=== PATIENT | female | born 1985 | race Caucasian/White ===

== ENCOUNTER 2020-03-21 13:54 | Outpatient (REF) | payer OTHER, SELFPAY ==
[2020-03-22 09:53] LABS: CT PCR NOT DETECTED (Not Detect.); NG PCR NOT DETECTED (Not Detect.)
[2020-03-22 10:15] LABS: BV Int Neg Control Negative (Negative); BV Int Pos Control Positive (Positive)
== END 2020-03-21 13:55 | disposition home or self-care (01) ==
LOC: HO.LNP 13:54
PROVIDERS: PCP Internal Medicine; Referring Provider Internal Medicine; Visit Provider Advanced Practice Midwife
DX: N89.8 Other specified noninflammatory disorders of vagina (principal)
CPT/HCPCS: 87480; 87491; 87510; 87591; 87660; 99213

== ENCOUNTER 2020-03-25 23:57 | Emergency (ER) | payer OTHER, SELFPAY ==
--- NOTE | 2020-03-26 | CT_ITS ---
EXAMINATION: CT ABDOMEN AND PELVIS WITHOUT CONTRAST CLINICAL INFORMATION: Right flank pain COMPARISON: Report from 09/15/2013. TECHNIQUE: Multidetector volumetric imaging was performed from the superior aspect of the liver through the pubic symphysis. Sagittal and coronal reformatted images were obtained on the technologist's workstation. This CT examination was performed using dose optimization techniques as appropriate, variously including the following: *Automated exposure control *Adjustment of mA and/or kV according to patient size (this includes techniques or standardized protocols for targeted exams where dose is matched to indication/reason for exam; i.e. extremities or head) *Use of iterative reconstruction technique DLP: 748 mGy-cm FINDINGS: LUNG BASES: The lung bases are clear. Trace pericardial effusion. LIVER, GALLBLADDER, AND BILIARY TREE: The liver is normal in size, shape, and attenuation. No focal hepatic lesion or biliary ductal dilatation is present. Cholecystectomy. PANCREAS: Unremarkable. SPLEEN: Unremarkable. ADRENAL GLANDS: Unremarkable. KIDNEYS AND URETERS: The kidneys are normal in size, shape, and attenuation. No hydronephrosis, hydroureter, or calculi seen. No perinephric stranding. BLADDER: Unremarkable. GASTROINTESTINAL TRACT: The stomach is unremarkable. Normal caliber small bowel. There is no obstruction. No colonic wall thickening or acute inflammatory change. Moderate colonic stool burden. Normal appendix. No free air or free fluid. ABDOMINAL WALL: No significant hernia is appreciated. LYMPH NODES: Normal. VASCULAR: Unremarkable. PELVIC VISCERA: Anteverted uterus. Dominant right ovarian follicle measuring 1.7 cm. No suspicious adnexal mass. OSSEOUS STRUCTURES: No acute or suspicious osseous abnormality. IMPRESSION: No acute finding of the abdomen or pelvis. No hydronephrosis or nephrolithiasis. Trace pericardial effusion noted. Moderate colonic stool burden.
[2020-03-26 01:52] VITALS: BP 120/75; PULSE 82; RESP 18; TEMP 37.2; O2SAT 100; BMI 38.7
[2020-03-26 02:12] LABS: MANUAL DIFF FLAG NO
[2020-03-26 02:13] LABS: Basophils Absolute Auto 0.1 X10*3/uL (0.0-0.2); Eosinophils Absolute Auto 0.1 X10*3/uL (0.0-0.4); Eosinophils Percent Auto 1.1 % (0-4); Hematocrit 24.8 % (37-47); Imm Gran Abs Auto 0.03 X10*3/uL (0.00-0.03); Imm Gran Pct Auto 0.4 % (0.0-0.4); Lymphocytes Absolute Auto 2.7 X10*3/uL (1.2-4.9); Lymphocytes Percent Auto 33.4 % (20-40); Mean Corpuscular HGB Conc 26.6 g/dl (31.0-35.0); Mean Corpuscular Hemoglobin 16.8 pg (27.0-33.0); Mean Platelet Volume 9.5 fL (9.4-12.3); Monocytes Absolute Auto 0.5 X10*3/uL (0.1-1.2); Monocytes Percent Auto 6.7 % (2-11); Neutrophils Absolute Auto 4.6 X10*3/uL (2.0-8.3); Neutrophils Percent Auto 57.4 % (45-73); Platelet Count 361 X10*3/uL (160-400); Red Blood Count 3.92 X10*6/uL (4.20-5.50); Red Cell Distribution Width 18.2 % (11.0-16.0); White Blood Count 8.1 X10*3/uL (4.8-10.8)
[2020-03-26 02:15] LABS: Glucose Urine UA NEG (NEG); Leukocyte Esterase Urine 1+ (NEG); Nitrite Urine NEG (NEG); Specific Gravity - Urine >= 1.030 (1.005-1.025); Urine Blood NEG (NEG); Urine Ketones NEG (NEG); Urine Protein NEG (NEG-TRACE)
[2020-03-26 02:16] LABS: Appearance Urine CLEAR; Color Urine YELLOW
[2020-03-26 02:28] LABS: Bacteria Urine 1+ /LPF; RBC Urine 0 /HPF (0); Squamous Epithelial Cell Urine 2+ /LPF
[2020-03-26 02:29] LABS: Mucus Urine 1+ /LPF
[2020-03-26 02:40] LABS: Alanine Aminotransferase 14 U/L (0-31); Albumin Level 4.1 g/dL (3.5-5.0); Alkaline Phosphatase 93 U/L (39-117); Anion Gap 12 (12-20); Aspartate Amino Transferase 9 U/L (5-31); Bilirubin Total 0.3 mg/dL (0.0-1.0); Blood Urea Nitrogen 9 mg/dL (9-16); Calcium 9.2 mg/dL (8.4-10.2); Carbon Dioxide 25 mmol/L (22-29); Chloride 101 mmol/L (96-108); Creatinine Clr Calc Pharmacy 112.4; Estimated Glomerular Filt Rate > 60; Glucose Random 97 mg/dL (60-115); Lipase 49 U/L (8-78); Potassium 4.8 mmol/l (3.3-5.1); Sodium 133 mmol/L (135-145); Total Protein 6.7 g/dL (6.5-8.0)
[2020-03-26 02:47] LABS: Mean Corpuscular Volume 63.3 fL (80-98)
[2020-03-26 02:49] LABS: Hemoglobin 6.6 g/dl (12.0-16.0); Urine Pregnancy NEGATIVE (NEGATIVE)
[2020-03-26 02:50] LABS: UPreg QC Valid YES
--- NOTE | 2020-03-26 03:38 | ED_ITS ---
HPI - Abdominal Pain General Chief Complaint: Abdominal Pain Stated Complaint: RIGHT SIDE PAIN Time Seen by Provider: 03/26/20 03:23 History of Present Illness HPI narrative: This is a 34-year-old female presents with onset right flank /right upper quadrant abdominal discomfort that started approximately 3:00 p.m. yesterday and associated with some nausea but no vomiting and denies any fevers, chills, diarrhea, urinary pain/ burning /frequency. On workup of the patient she was noted to be significantly anemic and she adamantly states that she is aware of this as well as her doctors being aware of it and she is declining any type and screen or intervention at this time. She does endorse that she is status post cholecystectomy. Related Data Home Medications Medication Instructions Recorded Confirmed albuterol sulfate 90 mcg/actuation 1 - 2 puff PO Q4-6H PRN 03/18/20 aerosol inhaler betamethasone dipropionate 0.05 % applic TOPICAL BID PRN 03/18/20 topical cream budesonide-formoterol HFA 160 INHALATION 03/18/20 mcg-4.5 mcg/actuation aerosol inhaler cetirizine 10 mg tablet 10 mg PO DAILY 03/18/20 epinephrine 0.3 mg/0.3 mL IM DIRECTED 03/18/20 injection, auto-injector ketoconazole 2 % shampoo 1 applic TOPICAL 2XW 03/18/20 omeprazole 40 mg capsule,delayed 40 mg PO BID 03/18/20 release Allergies Allergy/AdvReac Type Severity Reaction Status Date / Time azithromycin [From ZITHROMAX] Allergy Severe VOMITTING, Unverified 03/07/20 17:19 DIFF BREATHING, hives, SOB, Vomiting influenza virus vaccine, Allergy Severe anaphylaxix Unverified 03/07/20 17:19 specific [FLU VACCINE] prednisone [PREDNISONE] Allergy Severe VOMITTING, Unverified 03/07/20 17:19 DIFF BREATHING, hives, SOB, Vomiting coconut Allergy Mild HIVES/VOMIT Unverified 03/07/20 17:19 ING mushroom Allergy Mild HIVES/VOMIT Unverified 03/07/20 17:19 ING sertraline [From ZOLOFT] Allergy Mild HIVES/VOMIT Unverified 03/07/20 17:19 ING strawberry [STRAWBERRY] Allergy Mild HIVES, Unverified 03/07/20 17:19 VOMITING amoxicillin [Augmentin] Allergy Unknown vomiting Verified 09/19/19 00:00 cinnamon [CINNAMON] Allergy Unknown UNKNOWN Unverified 03/07/20 17:19 clavulanic acid [Augmentin] Allergy Unknown vomiting Verified 09/19/19 00:00 ferrous fumarate Allergy Unknown itching Verified 09/19/19 00:00 [Prenatabs FA] folic acid [Prenatabs FA] Allergy Unknown itching Verified 09/19/19 00:00 latex [LATEX] Allergy Unknown RASH Unverified 03/07/20 17:19 Penicillins [PENICILLINS] Allergy Unknown UNKNOWN Unverified 03/07/20 17:19 phentermine Allergy Unknown Nausea Verified 09/19/19 00:00 vitamins with Allergy Unknown itching Verified 09/19/19 00:00 calcium no.78 [Prenatabs FA] Sulfa (Sulfonamide Allergy Unknown RASH, Unverified 03/07/20 17:19 Antibiotics) vomiting [SULFA (SULFONAMIDE ANTIBIOTICS)] codeine [Codeine] AdvReac Mild NAUSEA Unverified 03/07/20 17:19 Review of Systems Review of Systems Pertinent positives and negatives as stated in HPI 10 point review of systems is otherwise negative. Physical Exam Vital Signs and I&O and Narrative: Vital Signs and I&O: Vital Signs Temp 98.9 F 03/26/20 01:52 Pulse 100 03/26/20 05:22 Resp 18 03/26/20 05:22 BP 136/74 03/26/20 05:22 Pulse Ox 99 03/26/20 05:22 Intake & Output 03/25/20 03/25/20 03/26/20 06:59 18:59 06:59 Weight 92.986 kg Body Mass Index 38.7 VITAL SIGNS: Reviewed. GENERAL: Well developed, well nourished, in no acute distress. HEAD: Normocephalic/atraumatic EYES: PERRLA, EOMI intact without pain, no nystagmus/pallor/icterus noted EARS: Ext canals without abnormality, TMs non-bulging and non-erythematous NOSE: Nares patent bilateral OROPHARYNX: no oral lesions noted, posterior pharynx clear and non-erythematous without noted tonsillar enlargement/erythema/exudates NECK: Supple, no adenopathy LUNGS: Normal breath sounds. No adventitious sounds or accessory muscle use. SpO2<99> CARDIOVASCULAR: Regular rate and rhythm without noted murmurs, no JVD or lower extremity edema. ABDOMEN: Soft, non-tender, non-distended with bowel sounds. No rigidity. No guarding. No palpable masses or hernias noted MUSCULOSKELETAL: No tenderness, deformities, or effusions noted on gross inspection. EXTREMITIES: No cyanosis, clubbing or edema. SKIN: Inspection of the skin reveals no rashes, ulcerations, jaundice, or petechiae but patient has pallor at baseline due to her ongoing anemia of unclear etiology.. NEUROLOGIC: Alert and oriented x 3. Strength and sensation to light touch were grossly intact x 4. Course Course Course Narrative: This is a 34-year-old female with history and clinical presentation consistent with most likely acute gastritis and doubt upper GI bleed, pancreatitis, renal colic. On review of her lab work she is notably anemic but is declining any further evaluation or intervention at this time despite being informed that it is medically indicated. There is no evidence on lab work or exam to further support pancreatitis. CT scan negative for any acute intra-abdominal pathologies other than moderate stool burden. MDM - Abdominal Pain Lab Data Result diagrams: 03/26/20 02:07 03/26/20 02:07 Labs: Lab Results 03/26/20 03/26/20 03/26/20 Range/Units 02:07 02:07 02:07 WBC 8.1 (4.8-10.8) X10*3/uL RBC 3.92 L (4.20-5.50) X10*6/uL Hgb 6.6 L* (12.0-16.0) g/dl Hct 24.8 L (37-47) % MCV 63.3 L (80-98) fL MCH 16.8 L (27.0-33.0) pg MCHC 26.6 L (31.0-35.0) g/dl RDW 18.2 H (11.0-16.0) % Plt Count 361 (160-400) X10*3/uL MPV 9.5 (9.4-12.3) fL Immature Gran % (Auto) 0.4 (0.0-0.4) % Neut % (Auto) 57.4 (45-73) % Lymph % (Auto) 33.4 (20-40) % [place] % (Auto) 6.7 (2-11) % Eos % (Auto) 1.1 (0-4) % Baso % (Auto) 1.0 (0-2) % Neut # (Auto) 4.6 (2.0-8.3) X10*3/uL Lymph # (Auto) 2.7 (1.2-4.9) X10*3/uL [place] # (Auto) 0.5 (0.1-1.2) X10*3/uL Eos # (Auto) 0.1 (0.0-0.4) X10*3/uL Baso # (Auto) 0.1 (0.0-0.2) X10*3/uL Abs Immat Gran (auto) 0.03 (0.00-0.03) X10*3/uL Absolute Nucleated RBC 0.000 (0.0-0.012) X10*3/uL Nucleated RBC % (auto) 0.0 (0.0-0.2) /100WBC Hold Blue Top SEE NOTE Sodium (135-145) mmol/L Potassium (3.3-5.1) mmol/l Chloride (96-108) mmol/L Carbon Dioxide (22-29) mmol/L Anion Gap (12-20) BUN (9-16) mg/dL Creatinine (0.5-1.4) mg/dL Estim Creat Clear Calc Estimated GFR Random Glucose (60-115) mg/dL Calcium (8.4-10.2) mg/dL Total Bilirubin (0.0-1.0) mg/dL AST (5-31) U/L ALT (0-31) U/L Alkaline Phosphatase (39-117) U/L Total Protein (6.5-8.0) g/dL Albumin (3.5-5.0) g/dL Lipase (8-78) U/L Urine Color YELLOW Urine Appearance CLEAR Urine pH 6.0 (5.0-8.0) Ur Specific [place] >= 1.030 H (1.005-1.025) Urine Protein NEG (NEG-TRACE) MG/DL Urine Glucose (UA) NEG (NEG) MG/DL Urine Ketones NEG (NEG) MG/DL Urine Blood NEG (NEG) Urine Nitrite NEG (NEG) Ur Leukocyte Esterase 1+ H (NEG) Urine RBC 0 (0) /HPF Urine WBC 15-29 H (0-4) /HPF Ur Squamous Epith Cells 2+ /LPF Urine Bacteria 1+ /LPF Urine Mucus 1+ /LPF Urine Test (NEGATIVE) 03/26/20 03/26/20 03/26/20 Range/Units 02:07 02:07 02:07 WBC (4.8-10.8) X10*3/uL RBC (4.20-5.50) X10*6/uL Hgb (12.0-16.0) g/dl Hct (37-47) % MCV (80-98) fL MCH (27.0-33.0) pg MCHC (31.0-35.0) g/dl RDW (11.0-16.0) % Plt Count (160-400) X10*3/uL MPV (9.4-12.3) fL Immature Gran % (Auto) (0.0-0.4) % Neut % (Auto) (45-73) % Lymph % (Auto) (20-40) % [place] % (Auto) (2-11) % Eos % (Auto) (0-4) % Baso % (Auto) (0-2) % Neut # (Auto) (2.0-8.3) X10*3/uL Lymph # (Auto) (1.2-4.9) X10*3/uL [place] # (Auto) (0.1-1.2) X10*3/uL Eos # (Auto) (0.0-0.4) X10*3/uL Baso # (Auto) (0.0-0.2) X10*3/uL Abs Immat Gran (auto) (0.00-0.03) X10*3/uL Absolute Nucleated RBC (0.0-0.012) X10*3/uL Nucleated RBC % (auto) (0.0-0.2) /100WBC Hold Blue Top Sodium 133 L (135-145) mmol/L Potassium 4.8 (3.3-5.1) mmol/l Chloride 101 (96-108) mmol/L Carbon Dioxide 25 (22-29) mmol/L Anion Gap 12 (12-20) BUN 9 (9-16) mg/dL Creatinine 0.74 (0.5-1.4) mg/dL Estim Creat Clear Calc 112.4 Estimated GFR > 60 Random Glucose 97 (60-115) mg/dL Calcium 9.2 (8.4-10.2) mg/dL Total Bilirubin 0.3 (0.0-1.0) mg/dL AST 9 (5-31) U/L ALT 14 (0-31) U/L Alkaline Phosphatase 93 (39-117) U/L Total Protein 6.7 (6.5-8.0) g/dL Albumin 4.1 (3.5-5.0) g/dL Lipase 49 (8-78) U/L Urine Color Urine Appearance Urine pH (5.0-8.0) Ur Specific [place] (1.005-1.025) Urine Protein (NEG-TRACE) MG/DL Urine Glucose (UA) (NEG) MG/DL Urine Ketones (NEG) MG/DL Urine Blood (NEG) Urine Nitrite (NEG) Ur Leukocyte Esterase (NEG) Urine RBC (0) /HPF Urine WBC (0-4) /HPF Ur Squamous Epith Cells /LPF Urine Bacteria /LPF Urine Mucus /LPF Urine Test NEGATIVE (NEGATIVE) Discharge Plan Discharge Clinical Impression: Gastritis Qualifiers: Gastritis type: unspecified gastritis Chronicity: unspecified Gastritis bleed ing: without bleeding Qualified Code(s): K29.70 - Gastritis, unspecified, without bleeding Patient Disposition: Home, Self-Care Instructions: Gastritis (ED), Diet for Stomach Ulcers and Gastritis (ED) Additional Instructions: 1. Resume all home medications as prescribed. 2. Increase fluid intake, especially water. 3. Please follow-up with your primary care provider today. The patient and/or family acknowledge understanding of results (as applicable), diagnosis, treatment plan, need for follow up, and symptoms that should prompt a return to the emergency room. Referrals: Susan Yu MD [Primary Care Provider] - 2 days ( Follow-up for gastritis like symptoms) [facility] Past Medical History Source: nursing notes reviewed Medical History GERD (gastroesophageal reflux disease) Interstitial cystitis Obesity Surgical History Hx of cholecystectomy Hx of endoscopy Family History Family History Paternal Grandfather History of colon cancer Maternal Grandmother Family history of breast cancer Mother History of cirrhosis of liver Social History Social History Alcohol intake: never Smoking Status: Never smoker Use of substances other than those prescribed or required for medical reasons: No Advance Directives: No Advance Directives Information Provided: No
--- NOTE | 2020-03-26 03:48 | PC.NURSE ---
MD ASKED RN AND PCT TO START IV AND OBTAIN T&S. PT VERY PALE, AMBULATORY AND REFUSING ALL CARE.
--- NOTE | 2020-03-26 04:28 | PC.NURSE ---
pt transported to main CT and returned to room.
[2020-03-26 05:22] VITALS: BP 136/74; PULSE 100; RESP 18; O2SAT 99
== END 2020-03-26 05:49 | disposition home or self-care (01) ==
PROVIDERS: Emergency Provider Student in an Organized Health Care Education/Training Program; PCP Internal Medicine
DX: K29.70 Gastritis, unspecified, without bleeding (principal)
CPT/HCPCS: 36415; 74176; 80053; 81001; 81025; 83690; 85025; 87086; 96360; 99284

== ENCOUNTER → 2020-06-03 15:00 | Outpatient (BNVA) | payer SELFPAY | PROVIDERS: PCP Internal Medicine | DX: Z76.89 Persons encountering health services in other specified circumstances (principal) ==

== ENCOUNTER 2021-02-14 06:44 | Emergency (ER) | payer OTHER, SELFPAY ==
--- NOTE | ~2021-02-14 | XR_ITS ---
EXAMINATION: XR KNEE, RIGHT CLINICAL INFORMATION: Pain COMPARISON: None TECHNIQUE: Four views of the right knee. FINDINGS: There is no fracture, dislocation, or suprapatellar effusion. Hoffa's fat pad is normal. There is normal bony mineralization. No joint narrowing or erosive change or chondrocalcinosis. XR/XR knee RT 4V IMPRESSION: Normal right knee.
--- NOTE | ~2021-02-14 | XR_ITS ---
EXAMINATION: XR ANKLE, RIGHT XR FOOT, RIGHT CLINICAL INFORMATION: Pain ankle and foot COMPARISON: Radiographs right foot 02/04/2018, right ankle 10/16/2017 TECHNIQUE: 2 views right ankle and 2 views of the right foot are obtained. A lateral view of the combined right ankle and foot in large [id number] images also included for a total of 5 views. FINDINGS: The malleoli are intact and the ankle mortise is symmetric. There is no fracture or dislocation right ankle or right foot. The talar dome shows no osteochondral lesion. The subtalar joint is unremarkable. No calcaneal spurring. There is an incidental corticated ossicle at the posterior superior tarsal navicular on lateral view similar to prior radiographs. The midfoot and forefoot show no focal joint narrowing or erosive change. No destructive process. XR/XR ankle RT 2V IMPRESSION: No fracture or dislocation or arthropathy.
--- NOTE | ~2021-02-14 | XR_ITS ---
EXAMINATION: XR ANKLE, RIGHT XR FOOT, RIGHT CLINICAL INFORMATION: Pain ankle and foot COMPARISON: Radiographs right foot 02/04/2018, right ankle 10/16/2017 TECHNIQUE: 2 views right ankle and 2 views of the right foot are obtained. A lateral view of the combined right ankle and foot in large [id number] images also included for a total of 5 views. FINDINGS: The malleoli are intact and the ankle mortise is symmetric. There is no fracture or dislocation right ankle or right foot. The talar dome shows no osteochondral lesion. The subtalar joint is unremarkable. No calcaneal spurring. There is an incidental corticated ossicle at the posterior superior tarsal navicular on lateral view similar to prior radiographs. The midfoot and forefoot show no focal joint narrowing or erosive change. No destructive process. XR/XR foot RT min 3V IMPRESSION: No fracture or dislocation or arthropathy.
[2021-02-14 07:23] VITALS: BP 124/39; PULSE 85; RESP 16; O2SAT 99; BMI 31.3
--- NOTE | 2021-02-14 07:23 | ED.LOWEXIN ---
HPI - Extremity Injury (Lower) General Chief Complaint: Extremity Injury, Lower Stated Complaint: right ankle/foot pain Time Seen by Provider: 02/14/21 07:25 Source: patient Mode of arrival: ambulatory Limitations: no limitations History of Present Illness HPI Narrative: took a wrong step at home - fell injuring R ankle, knee and foot, landed and braced herself on her hands complaint: knee injury, leg injury and ankle injury Onset (ago): minute(s) Injury: Right: knee, ankle and foot Type of Injury: blunt Place: home Severity: moderate Relieving factors: nothing Exacerbating factors: weight bearing, movement and palpation Context: fall Associated symptoms: unable to bear weight Other symptoms: none Related Data Home Medications Medication Instructions Recorded Confirmed albuterol sulfate 90 mcg/actuation 1 - 2 puff PO Q4-6H PRN 03/18/20 aerosol inhaler betamethasone dipropionate 0.05 % applic TOPICAL BID PRN 03/18/20 topical cream budesonide-formoterol HFA 160 INHALATION 03/18/20 mcg-4.5 mcg/actuation aerosol inhaler cetirizine 10 mg tablet 10 mg PO DAILY 03/18/20 epinephrine 0.3 mg/0.3 mL IM DIRECTED 03/18/20 injection, auto-injector ketoconazole 2 % shampoo 1 applic TOPICAL 2XW 03/18/20 omeprazole 40 mg capsule,delayed 40 mg PO BID 03/18/20 release Previous Rx's Medication Instructions Recorded bacitracin 500 unit/gram eye 1 appl OPHTHALMIC (EYE) Q8H 7 Days 06/05/20 ointment #3.5 g Allergies Allergy/AdvReac Type Severity Reaction Status Date / Time azithromycin [From ZITHROMAX] Allergy Severe VOMITTING, Verified 08/13/20 08:46 DIFF BREATHING, hives, SOB, Vomiting influenza virus vaccine, Allergy Severe anaphylaxix Verified 08/13/20 08:46 specific [FLU VACCINE] prednisone [PREDNISONE] Allergy Severe VOMITTING, Verified 08/13/20 08:46 DIFF BREATHING, hives, SOB, Vomiting coconut Allergy Mild HIVES/VOMIT Verified 08/13/20 08:46 ING mushroom Allergy Mild HIVES/VOMIT Verified 08/13/20 08:46 ING sertraline [From ZOLOFT] Allergy Mild HIVES/VOMIT Verified 08/13/20 08:46 ING strawberry [STRAWBERRY] Allergy Mild HIVES, Verified 08/13/20 08:46 VOMITING amoxicillin [Augmentin] Allergy Unknown vomiting Verified 08/13/20 08:46 cinnamon [CINNAMON] Allergy Unknown UNKNOWN Verified 08/13/20 08:46 clavulanic acid [Augmentin] Allergy Unknown vomiting Verified 08/13/20 08:46 ferrous fumarate Allergy Unknown itching Verified 08/13/20 08:46 [Prenatabs FA] folic acid [Prenatabs FA] Allergy Unknown itching Verified 08/13/20 08:46 latex [LATEX] Allergy Unknown RASH Verified 08/13/20 08:46 Penicillins [PENICILLINS] Allergy Unknown UNKNOWN Unverified 03/07/20 17:19 phentermine Allergy Unknown Nausea Verified 08/13/20 08:46 vitamins with Allergy Unknown itching Verified 08/13/20 08:46 calcium no.78 [Prenatabs FA] Sulfa (Sulfonamide Allergy Unknown RASH, Verified 08/13/20 08:46 Antibiotics) vomiting [SULFA (SULFONAMIDE ANTIBIOTICS)] codeine [Codeine] AdvReac Mild NAUSEA Verified 08/13/20 08:46 Review of Systems Review of Systems: Constitutional : No Fever, No Chills ENT/Mouth : No Ear Pain, No Hoarseness, No sore throat Eyes: No Eye Pain, No Swelling, No Redness, No Foreign Body Cardiovascular : No Chest Pain, No SOB Respiratory : No Cough, No Dyspnea Gastrointestinal : No Nausea, No Vomiting, No Diarrhea, No abdominal Pain Genitourinary : No Dysuria, No Hematuria Musculoskeletal : positive joint pain, No Myalgias, No Joint Swelling Skin : No Skin lacerations, No rash Neuro : No Weakness, No Numbness, No Loss of Consciousness, No Dizziness, No Headache PMFSH Past Medical History Attestation statement: The following information was validated with the patient. Medical History GERD (gastroesophageal reflux disease) Interstitial cystitis Obesity Surgical History History of lumbar puncture Hx of cholecystectomy Hx of endoscopy Family History Family History Paternal Grandfather History of colon cancer Maternal Grandmother Family history of breast cancer Mother History of cirrhosis of liver Social History Social History (Updated 02/14/21 @ 07:32 by Lalita Campbell DO) Alcohol intake: never Patient Tobacco Use Status: Tobacco use Unknown Advance Directives: No Advance Directives Information Provided: No Physical Exam Vital Signs: Vital Signs: Last Vital Signs Pulse 85 02/14/21 07:23 Resp 16 02/14/21 07:23 BP 124/39 L 02/14/21 07:23 Pulse Ox 99 02/14/21 07:23 Body Mass Index 31.3 Appearance: Alert. Oriented X3. No acute distress. Eyes: Pupils equal, round and reactive to light. ENT: Pharynx normal. Neck: Normal inspection. Neck supple. CVS: Normal heart rate and rhythm. Pulses normal. Respiratory: No respiratory distress. Breath sounds normal. Abdomen: Soft and nontender. Skin: Skin warm and dry. Normal skin color. Normal skin turgor. Extremities: No lower extremity edema. no swelling but ttp along R knee and R ankle/foot distal NV intact Neuro: Oriented X 3. No motor deficit. No sensory deficit. MDM - Extremity Injury (Lower) MDM Narrative Medical decision making narrative: 35 yo female with R knee/ankle/foot pain after a fall - she is NV intact. xrays ordered and PO motrin Procedures Orthopedic Splinting/Casting Injury #1: Side: right Lower Extremity Injury Location: ankle Lower Extremity Immobilizer: AirCast Other Orthopedic Equipment: crutches Discharge Plan Discharge Clinical Impression: Ankle sprain and strain Instructions: Ankle Stirrup Splint (ED), Ankle Sprain (ED), R.I.C.E. Treatment (ED) Additional Instructions: return to ED for any worsening symptoms or concerns splint for 5 days crutches for 5 days Prescriptions: No Action bacitracin 500 unit/gram ointment 1 appl ophthalmic (eye) Q8H 7 Days Qty: 3.5 RF: 0 Referrals: Susan Yu MD [Primary Care Provider] - 5 days (if not better) Stand Alone Forms: Work/School Release
== END 2021-02-14 08:44 | disposition home or self-care (01) ==
PROVIDERS: Emergency Provider Emergency Medicine; PCP Internal Medicine
DX: S93.401A Sprain of unspecified ligament of right ankle, initial encounter (principal); S96.911A Strain of unspecified muscle and tendon at ankle and foot level, right foot, initial encounter; W17.89XA Other fall from one level to another, initial encounter; Y93.9 Activity, unspecified; Y92.039 Unspecified place in apartment as the place of occurrence of the external cause; Y99.9 Unspecified external cause status
CPT/HCPCS: 73564; 73600; 73630; 99282; 99283

== ENCOUNTER 2021-02-15 06:40 | Emergency (ER) | payer OTHER, SELFPAY ==
[2021-02-15 07:05] VITALS: BP 110/69; PULSE 78; RESP 16; TEMP 36.7; O2SAT 100; BMI 30.1
[2021-02-15 08:10] VITALS: BP 132/86; PULSE 75; RESP 16; O2SAT 100
--- NOTE | 2021-02-15 08:24 | ED_ITS ---
HPI - Extremity Injury (Lower) General Chief Complaint: Extremity Injury, Lower Stated Complaint: right leg pain Time Seen by Provider: 02/15/21 08:11 Source: patient Mode of arrival: wheelchair Limitations: no limitations History of Present Illness HPI Narrative: 35 yo female with past medical history of interstitial cystitis, GERD here with complaints of posterior right ankle and calf pain s/p fall yesterday. Patient tells me she missed a step going down her stairs outside causing her to fall. She is unsure how her lower extremity moved. Seen yesterday and had negative x-rays of ankle, foot and knee. Diagnosed with ankle sprain and placed in air splint and given crutches for comfort. Woke this morning with worsened pain in the right calf and posterior ankle with inability to bear weight or walk despite otc motrin/tylenol. Has outpatient appt with [facility] in february. Related Data Home Medications Medication Instructions Recorded Confirmed albuterol sulfate 90 mcg/actuation 1 - 2 puff PO Q4-6H PRN 03/18/20 aerosol inhaler betamethasone dipropionate 0.05 % applic TOPICAL BID PRN 03/18/20 topical cream budesonide-formoterol HFA 160 INHALATION 03/18/20 mcg-4.5 mcg/actuation aerosol inhaler cetirizine 10 mg tablet 10 mg PO DAILY 03/18/20 epinephrine 0.3 mg/0.3 mL IM DIRECTED 03/18/20 injection, auto-injector ketoconazole 2 % shampoo 1 applic TOPICAL 2XW 03/18/20 omeprazole 40 mg capsule,delayed 40 mg PO BID 03/18/20 release Previous Rx's Medication Instructions Recorded bacitracin 500 unit/gram eye 1 appl OPHTHALMIC (EYE) Q8H 7 Days 06/05/20 ointment #3.5 g Allergies Allergy/AdvReac Type Severity Reaction Status Date / Time azithromycin [From ZITHROMAX] Allergy Severe VOMITTING, Verified 08/13/20 08:46 DIFF BREATHING, hives, SOB, Vomiting influenza virus vaccine, Allergy Severe anaphylaxix Verified 08/13/20 08:46 specific [FLU VACCINE] prednisone [PREDNISONE] Allergy Severe VOMITTING, Verified 08/13/20 08:46 DIFF BREATHING, hives, SOB, Vomiting coconut Allergy Mild HIVES/VOMIT Verified 08/13/20 08:46 ING mushroom Allergy Mild HIVES/VOMIT Verified 08/13/20 08:46 ING sertraline [From ZOLOFT] Allergy Mild HIVES/VOMIT Verified 08/13/20 08:46 ING strawberry [STRAWBERRY] Allergy Mild HIVES, Verified 08/13/20 08:46 VOMITING amoxicillin [Augmentin] Allergy Unknown vomiting Verified 08/13/20 08:46 cinnamon [CINNAMON] Allergy Unknown UNKNOWN Verified 08/13/20 08:46 clavulanic acid [Augmentin] Allergy Unknown vomiting Verified 08/13/20 08:46 ferrous fumarate Allergy Unknown itching Verified 08/13/20 08:46 [Prenatabs FA] folic acid [Prenatabs FA] Allergy Unknown itching Verified 08/13/20 08:46 latex [LATEX] Allergy Unknown RASH Verified 08/13/20 08:46 Penicillins [PENICILLINS] Allergy Unknown UNKNOWN Unverified 03/07/20 17:19 phentermine Allergy Unknown Nausea Verified 08/13/20 08:46 vitamins with Allergy Unknown itching Verified 08/13/20 08:46 calcium no.78 [Prenatabs FA] Sulfa (Sulfonamide Allergy Unknown RASH, Verified 08/13/20 08:46 Antibiotics) vomiting [SULFA (SULFONAMIDE ANTIBIOTICS)] codeine [Codeine] AdvReac Mild NAUSEA Verified 08/13/20 08:46 Review of Systems Review of Systems: Yes all other systems are reviewed and are negative Constitutional: Constitutional: Reports no additional constitutional complaints, Denies body ache(s), Denies chills, Denies fever(s), Denies heada alli(s) and Denies weakness Eyes: Eyes: Reports no additional eye complaints and Denies change in vision ENT: Reports system reviewed and no additional complaints, except as documented, Denies dizziness, Denies headache(s), Denies nasal congestion, Denies nasal discharge and Denies neck pain Cardiovascular: Cardiovascular: Reports no additional cardiovascular complaints, Denies chest pain, Denies leg edema and Denies dyspnea Respiratory: Respiratory: Reports no additional respiratory complaints, Denies cough and Denies dyspnea Gastrointestinal: Gastrointestinal: Reports no additional gastrointestinal complaints, Denies abdominal pain, Denies diarrhea, Denies nausea and Denies vomiting Genitourinary: Genitourinary: Reports no additional female genitourinary complaints and Denies urinary incontinence Musculoskeletal: Musculoskeletal: Reports no additional musculoskeletal complaints, Denies back pain, Reports arthralgias, Denies joint swelling, Denies neck pain, Denies numbness and Denies tingling Comments: +calf pain Integumentary/Breasts: Skin/Breast: Reports system reviewed and no additional complaints, except as docu and Denies rash Neurologic: Denies Abnormal speech present, Denies dizziness, Denies headache(s), Denies numbness, Denies tingling and Denies weakness PMFSH Past Medical History Attestation statement: The following information was validated with the patient. Source: old records reviewed and nursing notes reviewed Medical History GERD (gastroesophageal reflux disease) Interstitial cystitis Obesity Surgical History History of lumbar puncture Hx of cholecystectomy Hx of endoscopy Family History Family History Paternal Grandfather History of colon cancer Maternal Grandmother Family history of breast cancer Mother History of cirrhosis of liver Social History Social History Alcohol intake: never Patient Tobacco Use Status: Never used Tobacco Use of substances other than those prescribed or required for medical reasons: No Advance Directives: No Advance Directives Information Provided: No Patient : No Physical Exam Vital Signs: Vital Signs: Last Vital Signs Temp 98.1 F 02/15/21 07:05 Pulse 75 02/15/21 08:10 Resp 16 02/15/21 08:10 BP 132/86 02/15/21 08:10 Pulse Ox 100 02/15/21 08:10 Body Mass Index 30.1 Const: General: cooperative, healthy appearing, comfortable and no acute distress Orientation/consciousness: patient oriented x3 Limitations: no limitations HENMT: Head: Yes normal to inspection Ears: hearing grossly normal bilaterally General nose exam: Normal external nose present Face and sinus: Yes normal facial exam Mouth: Normal oral and palatal mucosa present Throat: Yes posterior oropharynx normal Eyes: General: appearance normal, both eyes and all related structures Pupils: Equal, round and reactive pupils present Neck: Neck: Yes normal visual inspection Chest: Chest palpation & inspection: normal inspection of the chest Resp: Effort & Inspection: normal respiratory effort Auscultation: clear to auscultation bilaterally Cardio: Rate: regular rate Rhythm: regular rhythm Peripheral pulses: Peripheral pulses 2+ throughout GI: Inspection: Yes normal to inspection Palpation (GI): Soft to palpation and nontender Auscultation: normal bowel sounds Back/Spine/Pelvis: Thoracic/Lumbar Spine: thoracic and lumbar spine normal to inspection Skin: General skin exam: no rashes or lesions noted Neuro: General: patient oriented x3, no focal motor deficits and normal sensation to monofilament Cranial nerves: Yes Equal, round and reactive pupils present Cognition (Neuro): normal cognition Speech: No Abnormal speech present Gait exam (Neuro): Normal gait present Motor exam (neuro): 5/5 motor strength present throughout Extrem: Other: Tenderness over the posterior right ankle extending to the right calf with moderate tenderness over the calf. No obvious swelling or ecchymosis over the achilles. + sexton test. General: Yes normal to inspection Course Course Course Narrative: 829-Fall with injury to RLE yesterday. Negative x-rays yesterday. Continued pain today more focal over the right calf/posterior ankle with +thomposon test. No obvious swelling, ecchymosis or deformity over the achilles but does have pain. ?achilles tear or rupture. Spoke to Michelle CARCAMO from orthopedics. Recommended walking boot, crutches, f/u Wednesday morning 9am with orthopedics in office. If able check MRI of ankle to r/o achilles tendon rupture. Spoke to Dr Gongora who does not feel that MRI is warranted today and can be done outpatient with orthopedics. Discussed this with patient. Placed in walking boot. Updated orthopedics who agrees with plan of care. Reviewed worrisome signs/symptoms with patient and when to return to ED. Comfortable with discharge home. MDM - Extremity Injury (Lower) MDM Narrative Medical decision making narrative: achilles tendon rupture vs strain vs tear, gastro tear, sprain Medical Records Attestation: I reviewed the patient's medical records. Lab Data Attestation: I reviewed the patient's lab results. Procedures Procedure Narrative Procedure Narrative: walking boot. Discharge Plan Discharge Clinical Impression: Achilles tendon pain Patient Disposition: Home, Self-Care Instructions: Achilles Tendinitis (ED) Additional Instructions: You may have a tear in your achilles tendon or your right calf muscle I have spoke to orthopedics. They recommend using a walking boot and crutches with strict non weight bearing Wednesday I have made you an appointment with orthopedics for 9am. Ice, elevation Continue motrin every 6 hrs, tylenol every 4 hours. Prescriptions: No Action bacitracin 500 unit/gram ointment 1 appl ophthalmic (eye) Q8H 7 Days Qty: 3.5 RF: 0 Referrals: Tee Lucero MD [Physician] - 2 days Stand Alone Forms: Work/School Release Interventions: ED Discharge Assessment Last Done: 02/15/21 09:50 Discharge Date/Time: 02/15/21 09:51
== END 2021-02-15 09:51 | disposition home or self-care (01) ==
PROVIDERS: Emergency Provider Emergency Medicine; PCP Internal Medicine
DX: M76.61 Achilles tendinitis, right leg (principal); M79.661 Pain in right lower leg
CPT/HCPCS: 99283; 99284

== ENCOUNTER → 2021-02-17 08:38 | Outpatient (BNVA) | payer OTHER, SELFPAY | PROVIDERS: PCP Internal Medicine; Visit Provider Physician Assistant | DX: S86.011A Strain of right Achilles tendon, initial encounter (principal); S93.401A Sprain of unspecified ligament of right ankle, initial encounter; W01.0XXA Fall on same level from slipping, tripping and stumbling without subsequent striking against object, initial encounter; Y93.01 Activity, walking, marching and hiking; Y92.9 Unspecified place or not applicable; Y99.8 Other external cause status; E66.9 Obesity, unspecified; Z68.30 Body mass index [BMI] 30.0-30.9, adult; Z88.1 Allergy status to other antibiotic agents; Z91.02 Food additives allergy status; Z91.040 Latex allergy status; Z88.0 Allergy status to penicillin; Z88.2 Allergy status to sulfonamides; Z88.7 Allergy status to serum and vaccine; Z88.8 Allergy status to other drugs, medicaments and biological substances; Z91.018 Allergy to other foods | CPT/HCPCS: 99202 ==

== ENCOUNTER 2021-07-09 07:31 | Outpatient (REF) | payer OTHER, SELFPAY ==
[2021-07-09 08:11] LABS: COVID-19 Test Negative (Negative)
== END 2021-07-09 07:32 | disposition home or self-care (01) ==
LOC: HO.LAB 07:31
PROVIDERS: Visit Provider Internal Medicine
DX: Z20.822 Contact with and (suspected) exposure to COVID-19 (principal)
CPT/HCPCS: 87635; C9803

== ENCOUNTER 2021-07-18 10:57 | Outpatient (REF) | payer OTHER, SELFPAY | END 2021-07-18 10:58 | disposition home or self-care (01) | LOC: HO.LAB 10:57 | PROVIDERS: Visit Provider Hospitalist | DX: B34.9 Viral infection, unspecified (principal); Z20.822 Contact with and (suspected) exposure to COVID-19 | CPT/HCPCS: U0003; U0005 ==

== ENCOUNTER 2021-10-13 09:39 | Emergency (ER) | payer OTHER, SELFPAY ==
[2021-10-13 09:49] VITALS: BP 122/68; PULSE 79; RESP 18; TEMP 37.3; O2SAT 98
--- NOTE | 2021-10-13 09:53 | ED_ITS ---
HPI - URI/Sore Throat General Chief Complaint: Upper Respiratory Symptoms Stated Complaint: SORE THROAT Time Seen by Provider: 10/13/21 09:52 Source: patient Mode of arrival: ambulatory Limitations: no limitations History of Present Illness MD elicited complaint: cough, sore throat and rhinorrhea Onset (ago): day(s) (5) Consistency: constant Severity: moderate Description of mucous: clear Able to tolerate fluids by mouth: Yes Exacerbating factors: swallowing Relieving factors: nothing Context: sick contacts (kids all had URI - not tested) Associated symptoms: sore throat, cough and shortness of breath Treatments prior to arrival: other (has inhalers) Related Data Home Medications Medication Instructions Recorded Confirmed albuterol sulfate 90 mcg/actuation 1 - 2 puff PO Q4-6H PRN 03/18/20 08/19/21 aerosol inhaler budesonide-formoterol HFA 160 INHALATION 03/18/20 08/19/21 mcg-4.5 mcg/actuation aerosol inhaler cetirizine 10 mg tablet 10 mg PO DAILY 03/18/20 08/19/21 epinephrine 0.3 mg/0.3 mL IM DIRECTED 03/18/20 08/19/21 injection, auto-injector omeprazole 40 mg capsule,delayed 40 mg PO BID 03/18/20 08/19/21 release Previous Rx's Medication Instructions Recorded ciprofloxacin HCl 500 mg tablet 500 mg PO BID #14 tab 08/19/21 ketoconazole 2 % topical cream 1 appl TOPICAL DAILY #15 g 08/19/21 Allergies Allergy/AdvReac Type Severity Reaction Status Date / Time azithromycin [From ZITHROMAX] Allergy Severe VOMITTING, Verified 08/19/21 14:29 DIFF BREATHING, hives, SOB, Vomiting influenza virus vaccine, Allergy Severe anaphylaxix Verified 08/19/21 14:29 specific [FLU VACCINE] prednisone [PREDNISONE] Allergy Severe VOMITTING, Verified 08/19/21 14:29 DIFF BREATHING, hives, SOB, Vomiting coconut Allergy Mild HIVES/VOMIT Verified 08/19/21 14:29 ING mushroom Allergy Mild HIVES/VOMIT Verified 08/19/21 14:29 ING sertraline [From ZOLOFT] Allergy Mild HIVES/VOMIT Verified 08/19/21 14:29 ING strawberry [STRAWBERRY] Allergy Mild HIVES, Verified 08/19/21 14:29 VOMITING amoxicillin [Augmentin] Allergy Unknown vomiting Verified 08/19/21 14:29 cinnamon [CINNAMON] Allergy Unknown UNKNOWN Verified 08/19/21 14:29 clavulanic acid [Augmentin] Allergy Unknown vomiting Verified 08/19/21 14:29 ferrous fumarate Allergy Unknown itching Verified 08/19/21 14:29 [Prenatabs FA] folic acid [Prenatabs FA] Allergy Unknown itching Verified 08/19/21 14:29 latex [LATEX] Allergy Unknown RASH Verified 08/19/21 14:29 Penicillins [PENICILLINS] Allergy Unknown UNKNOWN Unverified 08/19/21 14:29 phentermine Allergy Unknown Nausea Verified 08/19/21 14:29 vitamins with Allergy Unknown itching Verified 08/19/21 14:29 calcium no.78 [Prenatabs FA] Sulfa (Sulfonamide Allergy Unknown RASH, Verified 08/19/21 14:29 Antibiotics) vomiting [SULFA (SULFONAMIDE ANTIBIOTICS)] codeine [Codeine] AdvReac Mild NAUSEA Verified 08/19/21 14:29 Review of Systems Review of Systems: Constitutional : positive Fever, positive Chills, no fatigue, positive Malaise ENT/Mouth : positive sore throat, positive runny nose Eyes: No Discharge Cardiovascular : No Chest Pain, pos SOB Respiratory : pos Cough, No Sputum Gastrointestinal : No Nausea, No Vomiting, No Diarrhea Genitourinary : No Dysuria, No Urinary Frequency Musculoskeletal : positive Myalgia Skin : No rash Neuro : No Headache PMFSH Past Medical History Attestation statement: The following information was validated with the patient. 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 Oriented X3. No acute distress. Eyes: Pupils equal, round and reactive to light. ENT: Pharynx normal. TMs normal bilaterally Neck: Normal inspection. Neck supple. CVS: Normal heart rate and rhythm. Pulses normal. Respiratory: No respiratory distress. Breath sounds normal. Abdomen: Soft and nontender. Skin: Skin warm and dry. Normal skin color. Normal skin turgor. Extremities: No lower extremity edema. No calf ttp Neuro: Oriented X 3. No motor deficit. No sensory deficit. MDM - URI/Sore Throat MDM Narrative Medical decision making narrative: 35 yo female with hx of asthma - her children were sick with URIs but not tested - her throat is very minimally red without patches or swelling - swab sent off. Her lungs are CTAB. At this time will obtain flu/COVID swabs. Overall not toxic and well appearing. Lab Data Labs: Lab Results 10/13/21 10/13/21 Range/Units 10:01 10:01 Influenza Type A (TYRONE) Negative (Negative) Influenza Type B (TYRONE) Negative (Negative) Influenza A & B Note See Note S. pyogenes GrpA TYRONE Negative (Negative) Discharge Plan Discharge Clinical Impression: Upper respiratory infection Qualifiers: URI type: unspecified URI Qualified Code(s): J06.9 - Acute upper respiratory infection, unspecified Patient Disposition: Home, Self-Care Instructions: Upper Respiratory Infection (ED) Additional Instructions: return to ED for any worsening symptoms or concerns your strep test, flu and COVID tests are negative in the emergency department today Prescriptions: No Action ciprofloxacin HCl 500 mg tablet 500 mg PO BID Qty: 14 0RF ketoconazole 2 % cream 1 appl topical DAILY Qty: 15 0RF budesonide-formoterol 160-4.5 mcg/actuation HFA aerosol inhaler inhalation 0RF cetirizine 10 mg tablet 10 mg PO DAILY 0RF albuterol sulfate 90 mcg/actuation HFA aerosol inhaler 1 - 2 puff PO Q4-6H PRN0RF omeprazole 40 mg capsule,delayed release(DR/EC) 40 mg PO BID 0RF epinephrine 0.3 mg/0.3 mL auto-injector IM DIRECTED 0RF Referrals: Criselda Armstrong MD [Primary Care Provider] - 3 days (if not better) Stand Alone Forms: Work/School Release
[2021-10-13 09:55] VITALS: BP 122/68; PULSE 79; RESP 18; TEMP 37.3; O2SAT 98; BMI 24.4
[2021-10-13 10:26] LABS: IDNOW Serial# 08D9AD1C; Strep A Nucleic Acid Negative (Negative)
[2021-10-13 10:39] LABS: Influenza A Negative (Negative); Influenza B2 Negative (Negative)
[2021-10-13 10:41] LABS: COVID-19 Test Negative (Negative); IDNOW Serial# 55D5AD1C
== END 2021-10-13 10:51 | disposition home or self-care (01) ==
PROVIDERS: Emergency Provider Emergency Medicine; PCP Internal Medicine
DX: J02.9 Acute pharyngitis, unspecified (principal); R06.02 Shortness of breath; J45.909 Unspecified asthma, uncomplicated; Z20.822 Contact with and (suspected) exposure to COVID-19
CPT/HCPCS: 87502; 87635; 87651; 99283

== ENCOUNTER 2022-01-17 08:43 | Emergency (ER) | payer OTHER, SELFPAY ==
--- NOTE | ~2022-01-17 | XR_ITS ---
EXAMINATION: XR ELBOW, LEFT CLINICAL INFORMATION: Left elbow pain. Limited range of motion. COMPARISON: None TECHNIQUE: AP, lateral, and oblique views of the left elbow. FINDINGS: The bony alignments are well maintained. The cortices are intact. Extensive periarticular soft tissue calcification is noted overlying the distal lateral humerus extending across the joint line and overlying the radial head. Similar lesser extensive changes are also noted at medial epicondyles of the humerus. No evidence of any joint effusion. XR/XR elbow LT 2V IMPRESSION: Periarticular calcifications are noted (lateral greater than medial) at the left elbow, consistent with calcific tendinitis, bursitis or combination thereof. No evidence of any acute fracture, dislocation or joint effusion.
[2022-01-17 08:57] VITALS: BP 119/57; PULSE 85; RESP 18; TEMP 36.6; O2SAT 98; BMI 25.2
--- NOTE | 2022-01-17 11:00 | ED_ITS ---
HPI - Extremity Problem General Chief complaint: Extremity Injury, Upper Stated complaint: L arm pain/elbow pain Time Seen by Provider: 01/17/22 10:50 Source: patient Mode of arrival: ambulatory Limitations: no limitations History of Present Illness HPI Narrative: 36-year-old female presents to the ER for evaluation of nontraumatic left elbow pain and swelling that she noticed when she woke up this morning. She feels like she may have broken her elbow but denies any trauma. She reports the pain is on the inner aspect of her elbow and she feels some swelling in the area. 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 She denies any history of any elbow issues in the past. She follows with an orthopedist at [facility] and is planning on getting knee surgery later this year. She denies any weakness, numbness, tingling in her left arm are wrist. She reports the pain in her elbow is improved when she holds her elbow in flexion and in towards her body. It is worse when she extends her arm or palpates the area. MD Complaint: joint swelling and joint pain Onset (ago): hour(s) Pain Consistency: constant Location: left and elbow Severity scale (1-10): 7 Quality: aching and sharp Radiation: none Relieving factors: rest and other ( holding in inflexion) Exacerbating factors: range of motion and palpation Associated symptoms: denies other symptoms Related Data Home Medications Medication Instructions Recorded Confirmed albuterol sulfate 90 mcg/actuation 1 - 2 puff PO Q4-6H PRN 03/18/20 10/24/21 aerosol inhaler budesonide-formoterol HFA 160 inhalation 03/18/20 10/24/21 mcg-4.5 mcg/actuation aerosol inhaler cetirizine 10 mg tablet 10 mg PO DAILY 03/18/20 10/24/21 epinephrine 0.3 mg/0.3 mL IM DIRECTED 03/18/20 10/24/21 injection, auto-injector omeprazole 40 mg capsule,delayed 40 mg PO BID 03/18/20 10/24/21 release Previous Rx's Medication Instructions Recorded hydrocortisone 1 % topical cream 1 appl topical BID-QID PRN skin 01/16/22 irritation #28.35 grams ibuprofen 600 mg tablet 600 mg PO Q8H PRN pain #20 tabs 01/17/22 Allergies Allergy/AdvReac Type Severity Reaction Status Date / Time azithromycin [From ZITHROMAX] Allergy Severe VOMITTING, Verified 01/16/22 15:00 DIFF BREATHING, hives, SOB, Vomiting influenza virus vaccine, Allergy Severe anaphylaxix Verified 01/16/22 15:00 specific [FLU VACCINE] prednisone [PREDNISONE] Allergy Severe VOMITTING, Verified 01/16/22 15:00 DIFF BREATHING, hives, SOB, Vomiting coconut Allergy Mild HIVES/VOMIT Verified 01/16/22 15:00 ING mushroom Allergy Mild HIVES/VOMIT Verified 01/16/22 15:00 ING sertraline [From ZOLOFT] Allergy Mild HIVES/VOMIT Verified 01/16/22 15:00 ING strawberry [STRAWBERRY] Allergy Mild HIVES, Verified 01/16/22 15:00 VOMITING amoxicillin [Augmentin] Allergy Unknown vomiting Verified 01/16/22 15:00 cinnamon [CINNAMON] Allergy Unknown UNKNOWN Verified 01/16/22 15:00 clavulanic acid [Augmentin] Allergy Unknown vomiting Verified 01/16/22 15:00 ferrous fumarate Allergy Unknown itching Verified 01/16/22 15:00 [Prenatabs FA] folic acid [Prenatabs FA] Allergy Unknown itching Verified 01/16/22 15:00 latex [LATEX] Allergy Unknown RASH Verified 01/16/22 15:00 Penicillins [PENICILLINS] Allergy Unknown UNKNOWN Unverified 01/16/22 15:00 phentermine Allergy Unknown Nausea Verified 01/16/22 15:00 vitamins with Allergy Unknown itching Verified 01/16/22 15:00 calcium no.78 [Prenatabs FA] Sulfa (Sulfonamide Allergy Unknown RASH, Verified 01/16/22 15:00 Antibiotics) vomiting [SULFA (SULFONAMIDE ANTIBIOTICS)] codeine [Codeine] AdvReac Mild NAUSEA Verified 01/16/22 15:00 Review of Systems Review of Systems: Constitutional: No Fever, No Chills Cardiovascular: No Chest Pain, No SOB Gastrointestinal: No Nausea, No Vomiting Musculoskeletal: + joint pain, No Myalgias Skin: No Skin Lesions, + rash Neuro: No Weakness, No Numbness Psych: + Anxiety/Panic, No Depression Heme/Lymph: No Bruising, No Lymphadenopathy PMFSH Past Medical History Medical History ADHD Anemia Annual physical exam Asthma GERD (gastroesophageal reflux disease) Interstitial cystitis Normal pelvic exam Obesity Seasonal allergic rhinitis Surgical History History of lumbar puncture Hx of cholecystectomy Hx of endoscopy Family History Family History Paternal Grandfather History of colon cancer Maternal Grandmother Family history of breast cancer Mother History of cirrhosis of liver Other Mental health disorder Substance use disorder Social History Social History Household Members Other:: single, 3 children, 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 Oriented X3. No acute distress. HEENT: normal inspection CVS: Normal heart rate and rhythm. Pulses normal. Respiratory: No respiratory distress. Skin: Skin warm and dry. Normal skin color. Normal skin turgor. No rashes. Extremities: Left arm held in of flexion and adduction. When passively extended patient has pain when almost at complete extension. There is tenderness along the medial epicondyle with some associated generalized swelling. no palpable fluid collection. No ecchymosis. Equal registered nurse step down strength bilaterally. Neurovascularly intact distally. Neuro: Oriented X 3. No motor deficit. No sensory deficit. Course Course Course Narrative: 36-year-old female presents to the ER with left elbow pain and swelling that started when she woke up today, without injury. x-ray today is showing periarticular calcifications lateral greater than medial at the left elbow consistent with calcific tendinitis, bursitis or combination thereof. We discussed the results of the x-ray, symptomatic and supportive care for this. She is requesting a sling which has been provided, caution with overuse as discussed. Will prescribe NSAID and have her follow-up with her orthopedist if pain persists next week. Stable for discharge home. Discharge Plan Discharge Clinical Impression: Calcific tendinitis of left elbow Patient Disposition: Home, Self-Care Instructions: Tendinitis (ED) Additional Instructions: Your elbow x-ray today showed periarticular calcifications at the left elbow consistent with calcific tendinitis, bursitis or combination thereof. Treatment is supportive care, controlling the pain. Recommend wearing the sling as needed for comfort for the next 48 hours, after that start to gently do range of motion movements with the elbow to prevent any stiffness. Recommend taking the prescribed anti-inflammatory medication as needed for pain and swelling. Recommend application of ice several times per day. Recommend following up with your orthopedic provider next week for further evaluation if pain persists. Prescriptions: New ibuprofen 600 mg tablet 600 mg PO Q8H PRN (Reason: pain) Qty: 20 0RF No Action hydrocortisone 1 % cream 1 appl topical BID-QID PRN (Reason: skin irritation) Qty: 28.35 0RF budesonide-formoterol 160-4.5 mcg/actuation HFA aerosol inhaler inhalation cetirizine 10 mg tablet 10 mg PO DAILY albuterol sulfate 90 mcg/actuation HFA aerosol inhaler 1 - 2 puff PO Q4-6H PRN omeprazole 40 mg capsule,delayed release(DR/EC) 40 mg PO BID epinephrine 0.3 mg/0.3 mL auto-injector IM DIRECTED Interventions: ED Discharge Assessment Last Done: 01/17/22 11:17 Discharge Date/Time: 01/17/22 11:18
== END 2022-01-17 11:18 | disposition home or self-care (01) ==
PROVIDERS: Emergency Provider Student in an Organized Health Care Education/Training Program; PCP Internal Medicine
DX: M65.28 Calcific tendinitis, other site (principal); M25.522 Pain in left elbow
CPT/HCPCS: 73070; 99282; 99283

== ENCOUNTER 2022-01-18 07:04 | Emergency (ER) | payer OTHER, SELFPAY ==
--- NOTE | ~2022-01-18 | XR_ITS ---
EXAMINATION: XR HAND, LEFT CLINICAL INFORMATION: Pain proximal fifth metacarpal COMPARISON: None TECHNIQUE: PA, lateral, and oblique views of the left hand. FINDINGS: The bones and soft tissues are normal. No fracture. Alignment is anatomic. Joint spaces are maintained. There is a small bone fragment adjacent to the ulnar styloid process likely old injury with minimal soft tissue swelling. No bony erosions or loose body seen. XR/XR hand LT min 3V IMPRESSION: Unremarkable left hand especially unremarkable left fifth metacarpal. There is a small bone fragment adjacent to the ulnar styloid process likely old injury with minimal soft tissue swelling..
[2022-01-18 08:01] VITALS: BP 104/48; PULSE 72; RESP 18; TEMP 36.6; O2SAT 100; BMI 25.2
--- NOTE | 2022-01-18 08:35 | ED.EXTPRO ---
HPI - Extremity Problem General Chief complaint: Extremity Problem Stated complaint: L hand pain Time Seen by Provider: 01/18/22 08:00 Source: patient Mode of arrival: ambulatory Limitations: no limitations History of Present Illness HPI Narrative: 36-year-old female presents to the ER for evaluation of new onset hand pain started this morning at 05:30. She was seen here yesterday with left elbow pain and swelling, found to have calcifications and evidence calcific tendinitis and/or bursitis in the elbow. She was placed in Savage wrap and a sling for comfort and discharged home with plan to follow-up with orthopedics. She states she thinks she must have slept funny and woke up with left hand pain that is sharp in nature. No injury. She tried taking Tylenol with no improvement. She states she cannot take NSAIDs because she is allergic. she denies any weakness, numbness, tingling. The pain is located at the base of her hand at the proximal 5th metacarpal area. MD Complaint: extremity pain Onset (ago): hour(s) Pain Consistency: constant Location: left Severity scale (1-10): 7 Quality: sharp Radiation: none Relieving factors: nothing Exacerbating factors: nothing Associated symptoms: denies other symptoms Related Data Home Medications Medication Instructions Recorded Confirmed albuterol sulfate 90 mcg/actuation 1 - 2 puff PO Q4-6H PRN 03/18/20 10/24/21 aerosol inhaler budesonide-formoterol HFA 160 inhalation 03/18/20 10/24/21 mcg-4.5 mcg/actuation aerosol inhaler cetirizine 10 mg tablet 10 mg PO DAILY 03/18/20 10/24/21 epinephrine 0.3 mg/0.3 mL IM DIRECTED 03/18/20 10/24/21 injection, auto-injector omeprazole 40 mg capsule,delayed 40 mg PO BID 03/18/20 10/24/21 release Previous Rx's Medication Instructions Recorded hydrocortisone 1 % topical cream 1 appl topical BID-QID PRN skin 01/16/22 irritation #28.35 grams ibuprofen 600 mg tablet 600 mg PO Q8H PRN pain #20 tabs 01/17/22 Allergies Allergy/AdvReac Type Severity Reaction Status Date / Time azithromycin [From ZITHROMAX] Allergy Severe VOMITTING, Verified 01/16/22 15:00 DIFF BREATHING, hives, SOB, Vomiting influenza virus vaccine, Allergy Severe anaphylaxix Verified 01/16/22 15:00 specific [FLU VACCINE] prednisone [PREDNISONE] Allergy Severe VOMITTING, Verified 01/16/22 15:00 DIFF BREATHING, hives, SOB, Vomiting coconut Allergy Mild HIVES/VOMIT Verified 01/16/22 15:00 ING mushroom Allergy Mild HIVES/VOMIT Verified 01/16/22 15:00 ING sertraline [From ZOLOFT] Allergy Mild HIVES/VOMIT Verified 01/16/22 15:00 ING strawberry [STRAWBERRY] Allergy Mild HIVES, Verified 01/16/22 15:00 VOMITING amoxicillin [Augmentin] Allergy Unknown vomiting Verified 01/16/22 15:00 cinnamon [CINNAMON] Allergy Unknown UNKNOWN Verified 01/16/22 15:00 clavulanic acid [Augmentin] Allergy Unknown vomiting Verified 01/16/22 15:00 ferrous fumarate Allergy Unknown itching Verified 01/16/22 15:00 [Prenatabs FA] folic acid [Prenatabs FA] Allergy Unknown itching Verified 01/16/22 15:00 latex [LATEX] Allergy Unknown RASH Verified 01/16/22 15:00 Penicillins [PENICILLINS] Allergy Unknown UNKNOWN Unverified 01/16/22 15:00 phentermine Allergy Unknown Nausea Verified 01/16/22 15:00 vitamins with Allergy Unknown itching Verified 01/16/22 15:00 calcium no.78 [Prenatabs FA] Sulfa (Sulfonamide Allergy Unknown RASH, Verified 01/16/22 15:00 Antibiotics) vomiting [SULFA (SULFONAMIDE ANTIBIOTICS)] codeine [Codeine] AdvReac Mild NAUSEA Verified 01/16/22 15:00 Review of Systems Review of Systems: Constitutional: No Fever, No Chills Cardiovascular: No Chest Pain, No SOB Gastrointestinal: No Nausea, No Vomiting Musculoskeletal: + joint pain, No Myalgias Skin: No Skin Lesions, No rash Neuro: No Weakness, No Numbness, No Dizziness, No Headache Psych: + Anxiety/Panic, + Depression Heme/Lymph: No Bruising, No Lymphadenopathy PMFSH Past Medical History Medical History ADHD Anemia Annual physical exam Asthma GERD (gastroesophageal reflux disease) Interstitial cystitis Normal pelvic exam Obesity Seasonal allergic rhinitis Surgical History History of lumbar puncture Hx of cholecystectomy Hx of endoscopy Family History Family History Paternal Grandfather History of colon cancer Maternal Grandmother Family history of breast cancer Mother History of cirrhosis of liver Other Mental health disorder Substance use disorder Social History Social History Household Members Other:: single, 3 children, 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 Oriented X3. No acute distress. HEENT: normal inspection CVS: Normal heart rate and rhythm. Pulses normal. Respiratory: No respiratory distress. Skin: Skin warm and dry. Normal skin color. Normal skin turgor. No rashes. Extremities: left hand is normal to inspection, there is tenderness over the hypothenar area. No point tenderness. Normal range of motion of the left wrist and digits. Pain with hand assembler watch train but equal strength bilaterally. No sensory deficit. Neurovascularly intact distally. Neuro: Oriented X 3. No motor deficit. No sensory deficit. Course Course Course Narrative: 36-year-old female presenting to the ER for evaluation of nontraumatic left-sided hand pain that started couple of hours ago when she woke up. She was seen here yesterday for elbow pain, x-ray showing bursitis and calcific tendinitis. She was placing compression and Savage wrap. She thinks she slept funny and has pain in the left hand. No sensory deficit, no motor deficit. X-ray today is unremarkable. Pain is most likely referred pain from possible nerve compression in the elbow. She was reassured and planned to follow-up with orthopedics tomorrow. Stable for discharge home. Critical Care Time Critical Care Time Critical Care Time: No Discharge Plan Discharge Clinical Impression: Hand pain, left Patient Disposition: Home, Self-Care Instructions: Arthralgia (ED) Additional Instructions: Your x-ray was unremarkable. Your pain is most likely a result of nerve compression from the swelling in your elbow. Recommend compression with savage wrap, elevation, ice and tylenol 975 mg every 6 hours Recommend following up with Orthopedics is pain is not improved with these measures If you develop new or worsening symptoms call 911 or come back to the ER for further evaluation. Prescriptions: No Action ibuprofen 600 mg tablet 600 mg PO Q8H PRN (Reason: pain) Qty: 20 0RF hydrocortisone 1 % cream 1 appl topical BID-QID PRN (Reason: skin irritation) Qty: 28.35 0RF budesonide-formoterol 160-4.5 mcg/actuation HFA aerosol inhaler inhalation cetirizine 10 mg tablet 10 mg PO DAILY albuterol sulfate 90 mcg/actuation HFA aerosol inhaler 1 - 2 puff PO Q4-6H PRN omeprazole 40 mg capsule,delayed release(DR/EC) 40 mg PO BID epinephrine 0.3 mg/0.3 mL auto-injector IM DIRECTED Stand Alone Forms: Work/School Release Interventions: ED Discharge Assessment Last Done: 01/18/22 09:40 Discharge Date/Time: 01/18/22 09:41
== END 2022-01-18 09:41 | disposition home or self-care (01) ==
PROVIDERS: Emergency Provider Student in an Organized Health Care Education/Training Program; PCP Internal Medicine
DX: M79.642 Pain in left hand (principal)
CPT/HCPCS: 73130; 99282

== ENCOUNTER 2022-05-11 08:00 | Outpatient (REF) | payer OTHER, SELFPAY ==
[2022-05-11 08:23] LABS: COVID-19 Test Positive (Negative); IDNOW Serial# 16C4AD1C
== END 2022-05-11 08:01 | disposition home or self-care (01) ==
LOC: HO.LAB 08:00
PROVIDERS: Visit Provider Internal Medicine
DX: Z20.822 Contact with and (suspected) exposure to COVID-19 (principal)
CPT/HCPCS: 87635; C9803

== ENCOUNTER 2022-05-19 14:00 | Outpatient (REF) | payer OTHER, SELFPAY ==
[2022-05-19 14:46] LABS: COVID-19 Test Positive (Negative); IDNOW Serial# 16C4AD1C
== END 2022-05-19 14:01 | disposition home or self-care (01) ==
LOC: HO.LAB 14:00
PROVIDERS: Visit Provider Internal Medicine
DX: Z20.822 Contact with and (suspected) exposure to COVID-19 (principal)
CPT/HCPCS: 87635; C9803

== ENCOUNTER 2022-10-06 12:16 | Outpatient (REF) | payer OTHER, SELFPAY ==
[2022-10-06 14:08] LABS: MANUAL DIFF FLAG NO
[2022-10-06 14:12] LABS: Basophils Percent Auto 0.6 % (0-2); Eosinophils Percent Auto 0.6 % (0-4); Hematocrit 33.2 % (37.0-47.0); Hemoglobin 9.6 g/dl (12.0-16.0); Imm Gran Abs Auto 0.02 X10*3/uL (0.00-0.03); Imm Gran Pct Auto 0.3 % (0.0-0.4); Lymphocytes Absolute Auto 1.9 X10*3/uL (1.2-4.9); Lymphocytes Percent Auto 26.6 % (20-40); Mean Corpuscular HGB Conc 28.9 g/dl (31.0-35.0); Mean Corpuscular Hemoglobin 23.6 pg (27.0-33.0); Mean Corpuscular Volume 81.6 fL (80.0-98.0); Mean Platelet Volume 10.4 fL (9.4-12.3); Monocytes Absolute Auto 0.4 X10*3/uL (0.1-1.2); Monocytes Percent Auto 5.3 % (2-11); Neutrophils Absolute Auto 4.7 x10*3/uL (2.0-8.3); Neutrophils Percent Auto 66.6 % (45-73); Platelet Count 341 X10*3/uL (160-400); Red Blood Count 4.07 X10*6/uL (4.20-5.50); Red Cell Distribution Width 15.4 % (11.0-16.0); White Blood Count 7.1 X10*3/uL (4.8-10.8)
[2022-10-06 14:49] LABS: Alanine Aminotransferase 12 U/L (0-31); Albumin Level 4.5 g/dL (3.5-5.0); Alkaline Phosphatase 68 U/L (39-117); Anion Gap 13 (12-20); Aspartate Amino Transferase 15 U/L (5-31); Bilirubin Total 0.4 mg/dL (0.0-1.0); Blood Urea Nitrogen 13 mg/dL (9-16); Calcium 9.1 mg/dL (8.4-10.2); Carbon Dioxide 25 mmol/L (22-29); Chloride 104 mmol/L (96-108); Cholesterol 159 mg/dL; Estimated Glomerular Filt Rate > 60; Glucose Fasting 77 mg/dL (60-99); HDL Cholesterol 50 mg/dL; Iron 18 mcg/dL (30-160); LDL Cholesterol Calculated 97 mg/dl; Percent Iron Saturation 5 % (15-50); Potassium 4.1 mmol/L (3.3-5.1); Sodium 138 mmol/L (135-145); Total Iron Binding Capacity 397 mcg/dL (228-428); Total Protein 6.7 g/dL (6.5-8.0); Triglycerides 61 mg/dL; Unsaturated Iron Binding 379 ug/dL
== END 2022-10-06 12:17 | disposition home or self-care (01) ==
LOC: HO.HMGCLDS 12:16
PROVIDERS: PCP Internal Medicine; Visit Provider Internal Medicine
DX: D64.9 Anemia, unspecified (principal); J45.909 Unspecified asthma, uncomplicated
CPT/HCPCS: 36415; 80053; 80061; 83540; 85025

== ENCOUNTER → 2022-10-29 08:19 | Outpatient (BNVA) | payer OTHER, SELFPAY | PROVIDERS: PCP Internal Medicine; Referring Provider Internal Medicine; Visit Provider Physician Assistant | DX: K21.9 Gastro-esophageal reflux disease without esophagitis (principal); D64.9 Anemia, unspecified; J45.909 Unspecified asthma, uncomplicated | CPT/HCPCS: 99202 ==

== ENCOUNTER 2022-11-06 11:03 | Emergency (ER) | payer OTHER, SELFPAY ==
[2022-11-06 11:10] VITALS: BP 126/58; PULSE 68; RESP 16; TEMP 36.8; O2SAT 99; BMI 26.3
--- NOTE | 2022-11-06 11:15 | ED.ABDPAIN ---
HPI - Abdominal Pain General Chief Complaint: Abdominal Pain Stated Complaint: abd pain Time Seen by Provider: 11/06/22 11:14 Source: patient, RN notes reviewed and old records reviewed Mode of arrival: ambulatory History of Present Illness HPI narrative: 36-year-old female with a past medical history of asthma, menorrhagia, ADHD, anemia, GERD, presenting to the ED complaining of acute on chronic lower abdominal pain and nausea since this morning. Reports dealing with abdominal pain x months, recently saw GI and is scheduled for outpatient endoscopy in November, states pain is similar today, however worse. Denies fever, vomiting, diarrhea, dysuria/hematuria, suspicious food intake, recent antibiotics/travel MD elicited complaint: abdominal pain Related Data Home Medications Medication Instructions Recorded Confirmed albuterol sulfate 90 mcg/actuation 1 - 2 puff PO Q4-6H PRN 03/18/20 10/29/22 aerosol inhaler budesonide-formoterol HFA 160 inhalation 03/18/20 10/29/22 mcg-4.5 mcg/actuation aerosol inhaler cetirizine 10 mg tablet 10 mg PO DAILY 03/18/20 10/29/22 epinephrine 0.3 mg/0.3 mL IM DIRECTED 03/18/20 10/29/22 injection, auto-injector Previous Rx's Medication Instructions Recorded omeprazole 40 mg capsule,delayed 40 mg PO BID #60 caps 10/29/22 release ondansetron 4 mg disintegrating 4 mg PO Q8H PRN nausea and 11/06/22 tablet vomiting #10 tabs Allergies Allergy/AdvReac Type Severity Reaction Status Date / Time azithromycin [From ZITHROMAX] Allergy Severe VOMITTING, Verified 10/29/22 08:23 DIFF BREATHING, hives, SOB, Vomiting influenza virus vaccine, Allergy Severe anaphylaxix Verified 10/29/22 08:23 specific [FLU VACCINE] prednisone [PREDNISONE] Allergy Severe VOMITTING, Verified 10/29/22 08:23 DIFF BREATHING, hives, SOB, Vomiting coconut Allergy Mild HIVES/VOMIT Verified 10/29/22 08:23 ING mushroom Allergy Mild HIVES/VOMIT Verified 10/29/22 08:23 ING sertraline [From ZOLOFT] Allergy Mild HIVES/VOMIT Verified 10/29/22 08:23 ING strawberry [STRAWBERRY] Allergy Mild HIVES, Verified 10/29/22 08:23 VOMITING amoxicillin [Augmentin] Allergy Unknown vomiting Verified 10/29/22 08:23 cinnamon [CINNAMON] Allergy Unknown UNKNOWN Verified 10/29/22 08:23 clavulanic acid [Augmentin] Allergy Unknown vomiting Verified 10/29/22 08:23 ferrous fumarate Allergy Unknown itching Verified 10/29/22 08:23 [Prenatabs FA] folic acid [Prenatabs FA] Allergy Unknown itching Verified 10/29/22 08:23 latex [LATEX] Allergy Unknown RASH Verified 10/29/22 08:23 Penicillins [PENICILLINS] Allergy Unknown UNKNOWN Verified 10/29/22 08:23 phentermine Allergy Unknown Nausea Verified 10/29/22 08:23 vitamins with Allergy Unknown itching Verified 10/29/22 08:23 calcium no.78 [Prenatabs FA] Sulfa (Sulfonamide Allergy Unknown RASH, Verified 10/29/22 08:23 Antibiotics) vomiting [SULFA (SULFONAMIDE ANTIBIOTICS)] codeine [Codeine] AdvReac Mild NAUSEA Verified 10/29/22 08:23 Review of Systems Review of Systems Constitutional: No Fever, No Chills, No Fatigue, No Malaise ENT/Mouth: No Ear Pain, No sore throat, No Rhinorrhea, No Swallowing Difficulty Eyes: No Eye Pain, No Swelling, No Redness, No Vision Changes Cardiovascular: No Chest Pain, No SOB, No Edema, No Palpitations Respiratory: No Cough, No Sputum, No Dyspnea Gastrointestinal: + Nausea, No Vomiting, No Diarrhea, No Constipation, +Abdominal pain Genitourinary: No irregular bleeding, No Dysuria, No Urinary Frequency, No Hematuria, No Flank Pain Musculoskeletal: No joint pain, No Myalgias, No Joint Swelling Skin: No Skin Lesions, No rash Neuro: No Weakness, No Dizziness, No Headache Yes all other systems are reviewed and are negative Constitutional: Reports as per [facility] Past Medical History Attestation statement: The following information was validated with the patient. Source: old records reviewed Medical History ADHD Anemia Annual physical exam Asthma GERD (gastroesophageal reflux disease) Interstitial cystitis Normal pelvic exam Obesity Seasonal allergic rhinitis Surgical History H/O right knee surgery History of lumbar puncture Hx of cholecystectomy Hx of endoscopy Family History Family History Paternal Grandfather History of colon cancer Maternal Grandmother Family history of breast cancer Mother History of cirrhosis of liver Other Mental health disorder Substance use disorder Social History Social History Household Members Other:: single, 3 children, works for [employer] Housing: House Alcohol intake: never Patient Tobacco Use Status: Former Tobacco user Quit Date: 2014 Advance Directives: No Advance Directives Information Provided: Yes Current occupational status: employed 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 [employer] Cognitive needs: No Hearing needs: No Vision needs: Yes Physical Exam ED Vital Signs: Vital Signs - 24 hr 11/06/22 11:10 Temperature 98.3 F Pulse Rate 68 Respiratory Rate 16 Blood Pressure 126/58 L Pulse Oximetry 99 Oxygen Delivery Method Room Air BMI result Body Mass Index 26.3 Const General: cooperative, healthy appearing and no acute distress Orientation/consciousness: patient oriented x3 Limitations: no limitations HENMT Head: Yes normal to inspection and Yes atraumatic Ears: hearing grossly normal bilaterally General nose exam: Normal external nose present Face and sinus: Yes normal facial exam Eyes General: appearance normal, both eyes and all related structures EOM: EOMs intact bilaterally Neck Neck: Yes normal visual inspection and Yes no meningeal signs Resp Effort & Inspection: normal respiratory effort and no respiratory distress Cardio Rate: regular rate Heart sounds: S1 normal heart sound present and S2 normal heart sound present GI Inspection: Yes normal to inspection Palpation (GI): Soft to palpation, Tenderness to palpation present (GI) in the epigastrum and in the LUQ; with no rebound tenderness, no guarding and not rigid General: Yes no CVA tenderness Back/Spine/Pelvis Back: no CVA tenderness Skin Rashes: no rashes Wounds: no wounds Neuro General: patient oriented x3, tone normal and no meningeal signs Gait exam (Neuro): Normal gait present Extrem General: Yes normal to inspection Course Course Course Narrative: -1213--no leukocytosis. Chronic anemia. Labs otherwise reassuring. UA not infected. negative >1219--on re-evaluation patient reports symptomatic improvement. Tolerating p.o. crackers without difficulty. Discussed need a close follow-up with GI. Will send a prescription for Zofran as needed Results discussed with patient including worrisome signs and symptoms and strict return precautions, and when to return to the emergency department. They verbalized understanding and feel safe for discharge at this time. Medical Decision Making Medical Decision Making [facility] Narrative: 36-year-old female with a past medical history of asthma, menorrhagia, ADHD, anemia, GERD, presenting to the ED complaining of acute on chronic lower abdominal pain and nausea since this morning. On exam vital signs stable, NAD, nontoxic appearing, abdomen soft with mild epigastric/LUQ tenderness, no rebound or guarding, no CVAT. Concern for acute on chronic abdominal pain vs GERD vs esophagitis vs pancreatitis. Low suspicion for appendicitis/diverticulitis or colitis at this time. Plan: Labs, UA, IVF, GI cocktail, re-evaluate Please refer to course for remaining clinical decision making, interpretation of labs/imaging results, and discussions with consultants and/or family members. Differential Diagnosis Differential Diagnoses: The differential diagnosis associated with the presentation includes As above Admission/Observation Consideration of admission/observation: Escalation of care including admission/observation considered Lab Data [facility] Lab Attestation statement: I reviewed the patient's lab results. 11/06/22 11:28 11/06/22 11:28 Labs: Lab Results 11/06/22 11/06/22 11/06/22 Range/Units 11:22 11:22 11:28 WBC 6.5 (4.8-10.8) X10*3/uL RBC 3.86 L (4.20-5.50) X10*6/uL Hgb 9.1 L (12.0-16.0) g/dl Hct 31.1 L (37.0-47.0) % MCV 80.6 (80.0-98.0) fL MCH 23.6 L (27.0-33.0) pg MCHC 29.3 L (31.0-35.0) g/dl RDW 15.4 (11.0-16.0) % Plt Count 319 (160-400) X10*3/uL MPV 10.1 (9.4-12.3) fL Immature Gran % (Auto) 0.3 (0.0-0.4) % Neut % (Auto) 67.0 (45-73) % Lymph % (Auto) 24.0 (20-40) % [place] % (Auto) 6.7 (2-11) % Eos % (Auto) 1.2 (0-4) % Baso % (Auto) 0.8 (0-2) % Lymph # (Auto) 1.6 (1.2-4.9) X10*3/uL [place] # (Auto) 0.4 (0.1-1.2) X10*3/uL Eos # (Auto) 0.1 (0.0-0.4) X10*3/uL Baso # (Auto) 0.1 (0.0-0.2) X10*3/uL Abs Immat Gran (auto) 0.02 (0.00-0.03) X10*3/uL Absolute Neuts (auto) 4.4 (2.0-8.3) x10*3/uL Absolute Nucleated RBC 0.000 (0.0-0.012) X10*3/uL Nucleated RBC % (auto) 0.0 (0.0-0.2) /100WBC Sodium (135-145) mmol/L Potassium (3.3-5.1) mmol/L Chloride (96-108) mmol/L Carbon Dioxide (22-29) mmol/L Anion Gap (12-20) BUN (9-16) mg/dL Creatinine (0.5-1.4) mg/dL Estim Creat Clear Calc Estimated GFR Random Glucose (60-115) mg/dL Calcium (8.4-10.2) mg/dL Magnesium (1.6-2.6) mg/dL Total Bilirubin (0.0-1.0) mg/dL Direct Bilirubin (0.0-0.5) mg/dL AST (5-31) U/L ALT (0-31) U/L Alkaline Phosphatase (39-117) U/L Total Protein (6.5-8.0) g/dL Albumin (3.5-5.0) g/dL Lipase (8-78) U/L Urine Color Yellow Urine Appearance Clear Urine pH 6.5 (5.0-9.0) Ur Specific [place] >= 1.030 H (1.005-1.025) Urine Protein Negative (Neg-Trace) mg/dL Urine Glucose (UA) Negative (Negative) mg/dL Urine Ketones Negative (Negative) mg/dL Urine Blood Negative (Negative) Urine Nitrite Negative (Negative) Ur Leukocyte Esterase Small (1+) H (Negative) Urine RBC 0-2 (0-2) /HPF Urine WBC 0-5 (0-5) /HPF Ur Squamous Epith Cells 3-5 (0-2) /HPF Urine Bacteria Trace (None Seen) Hyaline Casts 0-2 (0-2) /LPF Urine Test NEGATIVE (NEGATIVE) 11/06/22 Range/Units 11:28 WBC (4.8-10.8) X10*3/uL RBC (4.20-5.50) X10*6/uL Hgb (12.0-16.0) g/dl Hct (37.0-47.0) % MCV (80.0-98.0) fL MCH (27.0-33.0) pg MCHC (31.0-35.0) g/dl RDW (11.0-16.0) % Plt Count (160-400) X10*3/uL MPV (9.4-12.3) fL Immature Gran % (Auto) (0.0-0.4) % Neut % (Auto) (45-73) % Lymph % (Auto) (20-40) % [place] % (Auto) (2-11) % Eos % (Auto) (0-4) % Baso % (Auto) (0-2) % Lymph # (Auto) (1.2-4.9) X10*3/uL [place] # (Auto) (0.1-1.2) X10*3/uL Eos # (Auto) (0.0-0.4) X10*3/uL Baso # (Auto) (0.0-0.2) X10*3/uL Abs Immat Gran (auto) (0.00-0.03) X10*3/uL Absolute Neuts (auto) (2.0-8.3) x10*3/uL Absolute Nucleated RBC (0.0-0.012) X10*3/uL Nucleated RBC % (auto) (0.0-0.2) /100WBC Sodium 137 (135-145) mmol/L Potassium 4.2 (3.3-5.1) mmol/L Chloride 105 (96-108) mmol/L Carbon Dioxide 27 (22-29) mmol/L Anion Gap 9 L (12-20) BUN 14 (9-16) mg/dL Creatinine 0.67 (0.5-1.4) mg/dL Estim Creat Clear Calc 91.5 Estimated GFR > 60 Random Glucose 81 (60-115) mg/dL Calcium 9.1 (8.4-10.2) mg/dL Magnesium 2.0 (1.6-2.6) mg/dL Total Bilirubin 0.3 (0.0-1.0) mg/dL Direct Bilirubin 0.1 (0.0-0.5) mg/dL AST 16 (5-31) U/L ALT 15 (0-31) U/L Alkaline Phosphatase 60 (39-117) U/L Total Protein 6.4 L (6.5-8.0) g/dL Albumin 4.2 (3.5-5.0) g/dL Lipase 29 (8-78) U/L Urine Color Urine Appearance Urine pH (5.0-9.0) Ur Specific [place] (1.005-1.025) Urine Protein (Neg-Trace) mg/dL Urine Glucose (UA) (Negative) mg/dL Urine Ketones (Negative) mg/dL Urine Blood (Negative) Urine Nitrite (Negative) Ur Leukocyte Esterase (Negative) Urine RBC (0-2) /HPF Urine WBC (0-5) /HPF Ur Squamous Epith Cells (0-2) /HPF Urine Bacteria (None Seen) Hyaline Casts (0-2) /LPF Urine Test (NEGATIVE) Radiology Impression Discussion of test interpretation with radiology: I have reviewed the radiologist's reading. External Record Review External record reviewed: Inpatient record, Office record, Outpatient record, Prior outpatient labs, Prior outpatient radiology, Primary care record and Outside ED record Tests considered The following testing was considered but not selected: As above Medications Administered Generic Name Dose Route Start Last Admin Trade Name Freq PRN Reason Stop Dose Admin Sodium Chloride 1,000 mls @ 999 mls/hr 11/06/22 11:30 11/06/22 11:46 Ns IV 11/06/22 12:30 Not Given .Q1H1M MATT Discontinued Medications Generic Name Dose Route Start Last Admin Trade Name Freq PRN Reason Stop Dose Admin Al Hydroxide/Mg Hydroxide 30 ml 11/06/22 11:23 11/06/22 11:46 Magnesium Hydrox/Alum Hydrox 30 Ml Oral.Susp PO 11/06/22 11:24 Not Given ONCE ONE Famotidine 20 mg 11/06/22 11:23 11/06/22 11:46 Famotidine/Pf 20 Mg/2 Ml Vial IVPUSH 11/06/22 11:24 Not Given ONCE ONE Ondansetron HCl 4 mg 11/06/22 11:23 11/06/22 11:46 Ondansetron Hcl 4 Mg/2 Ml Vial IVPUSH 11/06/22 11:24 Not Given ONCE ONE Discharge Plan Discharge Clinical Impression: Abdominal pain, Nausea Patient Disposition: Home, Self-Care Instructions: Acute Nausea and Vomiting (ED), Abdominal Pain (ED) Additional Instructions: Your blood work and urine are reassuring Zofran is an antinausea medication, take as needed for nausea and vomiting Please follow-up with her GI doctor If her unable to eat/drink, persistent nausea/vomiting, develops fever or worsening abdominal pain return to the ED Prescriptions: New ondansetron 4 mg tablet,disintegrating 4 mg PO Q8H PRN (Reason: nausea and vomiting) Qty: 10 0RF No Action budesonide-formoterol 160-4.5 mcg/actuation HFA aerosol inhaler inhalation cetirizine 10 mg tablet 10 mg PO DAILY albuterol sulfate 90 mcg/actuation HFA aerosol inhaler 1 - 2 puff PO Q4-6H PRN epinephrine 0.3 mg/0.3 mL auto-injector IM DIRECTED omeprazole 40 mg capsule,delayed release(DR/EC) 40 mg PO BID Qty: 60 1RF Referrals: [facility] [place] [facility] [place] [facility] [Provider Group] Criselda Armstrong MD [Primary Care Provider] -
[2022-11-06 11:32] LABS: Appearance Urine Clear; Color Urine Yellow; Glucose Urine UA Negative (Negative); Leukocyte Esterase Urine Small (1+) (Negative); Nitrite Urine Negative (Negative); PH 6.5 (5.0-9.0); Specific Gravity - Urine >= 1.030 (1.005-1.025); UMIC TRIGGER UACC YES; Urine Blood Negative (Negative); Urine Ketones Negative (Negative); Urine Protein Negative (Neg-Trace)
[2022-11-06 11:32] LABS: MANUAL DIFF FLAG NO
[2022-11-06 11:34] LABS: Basophils Absolute Auto 0.1 X10*3/uL (0.0-0.2); Basophils Percent Auto 0.8 % (0-2); Eosinophils Absolute Auto 0.1 X10*3/uL (0.0-0.4); Eosinophils Percent Auto 1.2 % (0-4); Hematocrit 31.1 % (37.0-47.0); Hemoglobin 9.1 g/dl (12.0-16.0); Imm Gran Abs Auto 0.02 X10*3/uL (0.00-0.03); Imm Gran Pct Auto 0.3 % (0.0-0.4); Lymphocytes Absolute Auto 1.6 X10*3/uL (1.2-4.9); Mean Corpuscular HGB Conc 29.3 g/dl (31.0-35.0); Mean Corpuscular Hemoglobin 23.6 pg (27.0-33.0); Mean Corpuscular Volume 80.6 fL (80.0-98.0); Mean Platelet Volume 10.1 fL (9.4-12.3); Monocytes Absolute Auto 0.4 X10*3/uL (0.1-1.2); Monocytes Percent Auto 6.7 % (2-11); Neutrophils Absolute Auto 4.4 x10*3/uL (2.0-8.3); Platelet Count 319 X10*3/uL (160-400); Red Blood Count 3.86 X10*6/uL (4.20-5.50); Red Cell Distribution Width 15.4 % (11.0-16.0); White Blood Count 6.5 X10*3/uL (4.8-10.8)
[2022-11-06 11:40] LABS: UPreg QC Valid YES; Urine Pregnancy NEGATIVE (NEGATIVE)
[2022-11-06 11:42] LABS: Bacteria Urine Trace (None Seen); Hyaline Casts Urine 0-2 /LPF (0-2); RBC Urine 0-2 /HPF (0-2); UACC Culture Trigger YES; WBC Urine 0-5 /HPF (0-5)
[2022-11-06 11:52] LABS: Alanine Aminotransferase 15 U/L (0-31); Albumin Level 4.2 g/dL (3.5-5.0); Alkaline Phosphatase 60 U/L (39-117); Anion Gap 9 (12-20); Aspartate Amino Transferase 16 U/L (5-31); Bilirubin Direct 0.1 mg/dL (0.0-0.5); Bilirubin Total 0.3 mg/dL (0.0-1.0); Blood Urea Nitrogen 14 mg/dL (9-16); Calcium 9.1 mg/dL (8.4-10.2); Carbon Dioxide 27 mmol/L (22-29); Chloride 105 mmol/L (96-108); Creatinine Clr Calc Pharmacy 91.5; Estimated Glomerular Filt Rate > 60; Glucose Random 81 mg/dL (60-115); Lipase 29 U/L (8-78); Potassium 4.2 mmol/L (3.3-5.1); Sodium 137 mmol/L (135-145); Total Protein 6.4 g/dL (6.5-8.0)
== END 2022-11-06 12:25 | disposition home or self-care (01) ==
PROVIDERS: Physician Assistant; Emergency Provider Emergency Medicine Emergency Medical Services; PCP Internal Medicine
DX: R10.12 Left upper quadrant pain (principal); D64.9 Anemia, unspecified; Z87.891 Personal history of nicotine dependence; Z79.899 Other long term (current) drug therapy
CPT/HCPCS: 36415; 80048; 80076; 81001; 81025; 83690; 83735; 85025; 87086; 99283; 99284

== ENCOUNTER → 2022-11-12 12:20 | Outpatient (BNVA) | payer OTHER, SELFPAY | PROVIDERS: PCP Internal Medicine; Visit Provider Physician Assistant | DX: R10.9 Unspecified abdominal pain (principal); D64.9 Anemia, unspecified; G89.29 Other chronic pain | CPT/HCPCS: 99212 ==

== ENCOUNTER 2022-11-27 12:44 | Emergency (ER) | payer OTHER, SELFPAY ==
[2022-11-27 13:30] VITALS: BP 109/76; PULSE 75; RESP 16; TEMP 36.3; O2SAT 95; BMI 27.7
--- NOTE | 2022-11-27 13:30 | ED.GENADULT ---
HPI - General Adult General Chief complaint: Abdominal Pain Stated complaint: Sever abd pain Time Seen by Provider: 11/27/22 16:11 Source: patient Mode of arrival: ambulatory History of Present Illness HPI narrative: 36-year-old female with history of asthma, interstitial cystitis, presents with ongoing lower abdominal/pelvic pain that occurs towards the end of her menstrual cycle, she has been evaluated by gynecology and there are plans to further evaluate for endometriosis and also get patient evaluated by urology. Related Data Home Medications Medication Instructions Recorded Confirmed albuterol sulfate 90 mcg/actuation 1 - 2 puff PO Q4-6H PRN 03/18/20 10/29/22 aerosol inhaler budesonide-formoterol HFA 160 inhalation 03/18/20 10/29/22 mcg-4.5 mcg/actuation aerosol inhaler cetirizine 10 mg tablet 10 mg PO DAILY 03/18/20 10/29/22 epinephrine 0.3 mg/0.3 mL IM DIRECTED 03/18/20 10/29/22 injection, auto-injector Previous Rx's Medication Instructions Recorded omeprazole 40 mg capsule,delayed 40 mg PO BID #60 caps 10/29/22 release ondansetron 4 mg disintegrating 4 mg PO Q8H PRN nausea and 11/06/22 tablet vomiting #10 tabs bisacodyl 5 mg tablet,delayed 10 mg PO ONCE colonoscopy prep 1 11/12/22 release (Dulcolax (bisacodyl)) day #2 tabs polyethylene glycol 3350 17 238 g PO ONCE 1 day #238 grams 11/12/22 gram/dose oral powder (Miralax) ketorolac 10 mg tablet 10 mg PO Q6H PRN pain 5 days #20 11/27/22 tabs Allergies Allergy/AdvReac Type Severity Reaction Status Date / Time azithromycin [From ZITHROMAX] Allergy Severe VOMITTING, Verified 11/27/22 13:30 DIFF BREATHING, hives, SOB, Vomiting influenza virus vaccine, Allergy Severe anaphylaxix Verified 11/27/22 13:30 specific [FLU VACCINE] prednisone [PREDNISONE] Allergy Severe VOMITTING, Verified 11/27/22 13:30 DIFF BREATHING, hives, SOB, Vomiting coconut Allergy Mild HIVES/VOMIT Verified 11/27/22 13:30 ING mushroom Allergy Mild HIVES/VOMIT Verified 11/27/22 13:30 ING sertraline [From ZOLOFT] Allergy Mild HIVES/VOMIT Verified 11/27/22 13:30 ING strawberry [STRAWBERRY] Allergy Mild HIVES, Verified 11/27/22 13:30 VOMITING amoxicillin [Augmentin] Allergy Unknown vomiting Verified 11/27/22 13:30 cinnamon [CINNAMON] Allergy Unknown UNKNOWN Verified 11/27/22 13:30 clavulanic acid [Augmentin] Allergy Unknown vomiting Verified 11/27/22 13:30 ferrous fumarate Allergy Unknown itching Verified 11/27/22 13:30 [Prenatabs FA] folic acid [Prenatabs FA] Allergy Unknown itching Verified 11/27/22 13:30 latex [LATEX] Allergy Unknown RASH Verified 11/27/22 13:30 Penicillins [PENICILLINS] Allergy Unknown UNKNOWN Verified 11/27/22 13:30 phentermine Allergy Unknown Nausea Verified 11/27/22 13:30 vitamins with Allergy Unknown itching Verified 11/27/22 13:30 calcium no.78 [Prenatabs FA] Sulfa (Sulfonamide Allergy Unknown RASH, Verified 11/27/22 13:30 Antibiotics) vomiting [SULFA (SULFONAMIDE ANTIBIOTICS)] codeine [Codeine] AdvReac Mild NAUSEA Verified 11/27/22 13:30 Review of Systems Review of Systems: Pertinent positives and negatives as stated in HPI [facility] Past Medical History Source: nursing notes reviewed Medical History ADHD Anemia Annual physical exam Asthma GERD (gastroesophageal reflux disease) Interstitial cystitis Normal pelvic exam Obesity Seasonal allergic rhinitis Surgical History H/O right knee surgery History of lumbar puncture Hx of cholecystectomy Hx of endoscopy Family History Family History Paternal Grandfather History of colon cancer Maternal Grandmother Family history of breast cancer Mother History of cirrhosis of liver Other Mental health disorder Substance use disorder Social History Social History Household Members Other:: single, 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, 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 GENERAL: Well developed, well nourished, in no acute distress. HEAD: Normocephalic/atraumatic EYES: PERRLA, EOMI EARS: Ext canals without abnormality NOSE: Nares patent bilateral OROPHARYNX: no oral lesions noted, posterior pharynx clear NECK: Supple, no adenopathy LUNGS: Normal breath sounds. No adventitious sounds or accessory muscle use. SpO2<100> CARDIOVASCULAR: Regular rate and rhythm without noted murmurs ABDOMEN: Soft, non-tender, non-distended with bowel sounds, no CVA tenderness. MUSCULOSKELETAL: No tenderness, deformities, or effusions noted on gross inspection. EXTREMITIES: No cyanosis, clubbing or edema. SKIN: Inspection of the skin reveals no rashes NEUROLOGIC: Alert and oriented x 4. Strength and sensation to light touch were grossly intact x 4. Course Course Course Narrative: This is an RME: Additional HPI, ROS, PE not included below will be deferred to primary provider. This is a [id number], with a past medical history of asthma, menorrhagia, ADHD, anemia, GERD, with complaints of acute on chronic lower abdominal pain since 11:00AM this morning. Has been here in the ER, last seen on 11/06/22 for these symptoms. Pt has her menses now. Seen by OBGYN and GI specialist. Will do endoscopy and US on 12/01/2022. Reporting 10/10 stabbing/cramping abdominal pain. Pt appears comfortable. VSS. Regular BMs. Admits to having some urinary frequency. VSS, abdomen is soft with diffuse abdominal tenderness throughout. Patient stable to return to the waiting room until seen by provider in the meantime emergency department. Plan: Labs, UA, upreg ordered Medical Decision Making Medical Decision Making MDM Narrative: 36-year-old female with history and clinical presentation most suggestive of possible endometritis and appears that this is the conclusion of her educational technician as well, patient has excellent follow-up appointments for further evaluation, on review of investigations lab work is chronically stable, the hematuria noted in the urinalysis is likely secondary to ongoing menses as patient has no complaints or history to suggest renal colic. Patient given combination analgesics and discharged home in stable condition with reassurance. Differential Diagnosis Please see the discussion above Lab Data Please see the discussion above 11/27/22 14:03 11/27/22 14:03 Labs: Lab Results 11/27/22 11/27/22 11/27/22 Range/Units 14:03 14:03 14:03 WBC 5.9 (4.8-10.8) X10*3/uL RBC 4.07 L (4.20-5.50) X10*6/uL Hgb 9.8 L (12.0-16.0) g/dl Hct 33.7 L (37.0-47.0) % MCV 82.8 (80.0-98.0) fL MCH 24.1 L (27.0-33.0) pg MCHC 29.1 L (31.0-35.0) g/dl RDW 15.5 (11.0-16.0) % Plt Count 274 (160-400) X10*3/uL MPV 10.4 (9.4-12.3) fL Immature Gran % (Auto) 0.5 H (0.0-0.4) % Neut % (Auto) 66.2 (45-73) % Lymph % (Auto) 24.1 (20-40) % [place] % (Auto) 6.9 (2-11) % Eos % (Auto) 1.5 (0-4) % Baso % (Auto) 0.8 (0-2) % Lymph # (Auto) 1.4 (1.2-4.9) X10*3/uL [place] # (Auto) 0.4 (0.1-1.2) X10*3/uL Eos # (Auto) 0.1 (0.0-0.4) X10*3/uL Baso # (Auto) 0.1 (0.0-0.2) X10*3/uL Abs Immat Gran (auto) 0.03 (0.00-0.03) X10*3/uL Absolute Neuts (auto) 3.9 (2.0-8.3) x10*3/uL Absolute Nucleated RBC 0.000 (0.0-0.012) X10*3/uL Nucleated RBC % (auto) 0.0 (0.0-0.2) /100WBC Sodium 140 (135-145) mmol/L Potassium 3.8 (3.3-5.1) mmol/L Chloride 105 (96-108) mmol/L Carbon Dioxide 26 (22-29) mmol/L Anion Gap 13 (12-20) BUN 13 (9-16) mg/dL Creatinine 0.67 (0.5-1.4) mg/dL Estim Creat Clear Calc 93.9 Estimated GFR > 60 Random Glucose 81 (60-115) mg/dL Calcium 9.5 (8.4-10.2) mg/dL Total Bilirubin 0.2 (0.0-1.0) mg/dL Direct Bilirubin < 0.2 (0.0-0.5) mg/dL AST 31 (5-31) U/L ALT 31 (0-31) U/L Alkaline Phosphatase 74 (39-117) U/L Total Protein 7.2 (6.5-8.0) g/dL Albumin 4.5 (3.5-5.0) g/dL Lipase 35 (8-78) U/L Urine Color Yellow Urine Appearance Clear Urine pH 6.0 (5.0-9.0) Ur Specific [place] 1.015 (1.005-1.025) Urine Protein Negative (Neg-Trace) mg/dL Urine Glucose (UA) Negative (Negative) mg/dL Urine Ketones Negative (Negative) mg/dL Urine Blood Large (3+) H (Negative) Urine Nitrite Negative (Negative) Ur Leukocyte Esterase Trace H (Negative) Urine RBC >20 H (0-2) /HPF Urine WBC 0-5 (0-5) /HPF Ur Squamous Epith Cells 0-2 (0-2) /HPF Urine Bacteria None Seen (None Seen) Hyaline Casts 0-2 (0-2) /LPF Urine Test (NEGATIVE) 11/27/22 Range/Units 14:03 WBC (4.8-10.8) X10*3/uL RBC (4.20-5.50) X10*6/uL Hgb (12.0-16.0) g/dl Hct (37.0-47.0) % MCV (80.0-98.0) fL MCH (27.0-33.0) pg MCHC (31.0-35.0) g/dl RDW (11.0-16.0) % Plt Count (160-400) X10*3/uL MPV (9.4-12.3) fL Immature Gran % (Auto) (0.0-0.4) % Neut % (Auto) (45-73) % Lymph % (Auto) (20-40) % [place] % (Auto) (2-11) % Eos % (Auto) (0-4) % Baso % (Auto) (0-2) % Lymph # (Auto) (1.2-4.9) X10*3/uL [place] # (Auto) (0.1-1.2) X10*3/uL Eos # (Auto) (0.0-0.4) X10*3/uL Baso # (Auto) (0.0-0.2) X10*3/uL Abs Immat Gran (auto) (0.00-0.03) X10*3/uL Absolute Neuts (auto) (2.0-8.3) x10*3/uL Absolute Nucleated RBC (0.0-0.012) X10*3/uL Nucleated RBC % (auto) (0.0-0.2) /100WBC Sodium (135-145) mmol/L Potassium (3.3-5.1) mmol/L Chloride (96-108) mmol/L Carbon Dioxide (22-29) mmol/L Anion Gap (12-20) BUN (9-16) mg/dL Creatinine (0.5-1.4) mg/dL Estim Creat Clear Calc Estimated GFR Random Glucose (60-115) mg/dL Calcium (8.4-10.2) mg/dL Total Bilirubin (0.0-1.0) mg/dL Direct Bilirubin (0.0-0.5) mg/dL AST (5-31) U/L ALT (0-31) U/L Alkaline Phosphatase (39-117) U/L Total Protein (6.5-8.0) g/dL Albumin (3.5-5.0) g/dL Lipase (8-78) U/L Urine Color Urine Appearance Urine pH (5.0-9.0) Ur Specific [place] (1.005-1.025) Urine Protein (Neg-Trace) mg/dL Urine Glucose (UA) (Negative) mg/dL Urine Ketones (Negative) mg/dL Urine Blood (Negative) Urine Nitrite (Negative) Ur Leukocyte Esterase (Negative) Urine RBC (0-2) /HPF Urine WBC (0-5) /HPF Ur Squamous Epith Cells (0-2) /HPF Urine Bacteria (None Seen) Hyaline Casts (0-2) /LPF Urine Test NEGATIVE (NEGATIVE) External Record Review External record reviewed: Prior outpatient labs Discharge Plan Discharge Clinical Impression: Combined abdominal and pelvic pain Patient Disposition: Home, Self-Care Instructions: Endometriosis (ED), Pelvic Pain in Women (ED), Abdominal Pain (ED) Additional Instructions: 1. Resume all home medications as prescribed. Increase the amount of water that you drink. 2. Tylenol 1000 mg, orally, every 6 hours as needed for pain control. Do not exceed 4000 mg within 24 hours. 3. Please keep all appointments set up by your educational technician as these are thorough. recommend [id number] ThermaCare for menstrual type pain as these can be very effective. Return to the ER for any worsening symptoms. Prescriptions: New ketorolac 10 mg tablet 10 mg PO Q6H PRN (Reason: pain) 5 Days Qty: 20 0RF Rx Instructions: Patient received Toradol in the emergency room. No Action ondansetron 4 mg tablet,disintegrating 4 mg PO Q8H PRN (Reason: nausea and vomiting) Qty: 10 0RF budesonide-formoterol 160-4.5 mcg/actuation HFA aerosol inhaler inhalation cetirizine 10 mg tablet 10 mg PO DAILY albuterol sulfate 90 mcg/actuation HFA aerosol inhaler 1 - 2 puff PO Q4-6H PRN epinephrine 0.3 mg/0.3 mL auto-injector IM DIRECTED bisacodyl [Dulcolax (bisacodyl)] 5 mg tablet,delayed release (DR/EC) 10 mg PO ONCE 1 Days Qty: 2 0RF Rx Instructions: Take 2 tablets by mouth at 12:00pm the day before your procedure. polyethylene glycol 3350 [Miralax] 17 gram/dose powder 238 g PO ONCE 1 Days Qty: 238 0RF Rx Instructions: Take as directed by mouth the day before your procedure. omeprazole 40 mg capsule,delayed release(DR/EC) 40 mg PO BID Qty: 60 1RF Referrals: Criselda Armstrong MD [Primary Care Provider] -
[2022-11-27 14:10] LABS: MANUAL DIFF FLAG NO
[2022-11-27 14:14] LABS: Basophils Absolute Auto 0.1 X10*3/uL (0.0-0.2); Basophils Percent Auto 0.8 % (0-2); Eosinophils Absolute Auto 0.1 X10*3/uL (0.0-0.4); Eosinophils Percent Auto 1.5 % (0-4); Hematocrit 33.7 % (37.0-47.0); Hemoglobin 9.8 g/dl (12.0-16.0); Imm Gran Abs Auto 0.03 X10*3/uL (0.00-0.03); Imm Gran Pct Auto 0.5 % (0.0-0.4); Lymphocytes Absolute Auto 1.4 X10*3/uL (1.2-4.9); Lymphocytes Percent Auto 24.1 % (20-40); Mean Corpuscular HGB Conc 29.1 g/dl (31.0-35.0); Mean Corpuscular Hemoglobin 24.1 pg (27.0-33.0); Mean Corpuscular Volume 82.8 fL (80.0-98.0); Mean Platelet Volume 10.4 fL (9.4-12.3); Monocytes Absolute Auto 0.4 X10*3/uL (0.1-1.2); Monocytes Percent Auto 6.9 % (2-11); Neutrophils Absolute Auto 3.9 x10*3/uL (2.0-8.3); Neutrophils Percent Auto 66.2 % (45-73); Platelet Count 274 X10*3/uL (160-400); Red Blood Count 4.07 X10*6/uL (4.20-5.50); Red Cell Distribution Width 15.5 % (11.0-16.0); White Blood Count 5.9 X10*3/uL (4.8-10.8)
[2022-11-27 14:16] LABS: Appearance Urine Clear; Color Urine Yellow; Glucose Urine UA Negative (Negative); Leukocyte Esterase Urine Trace (Negative); Nitrite Urine Negative (Negative); Specific Gravity - Urine 1.015 (1.005-1.025); UMIC TRIGGER UACC YES; Urine Blood Large (3+) (Negative); Urine Ketones Negative (Negative); Urine Protein Negative (Neg-Trace)
[2022-11-27 14:18] LABS: UPreg QC Valid YES; Urine Pregnancy NEGATIVE (NEGATIVE)
[2022-11-27 14:21] LABS: Bacteria Urine None Seen (None Seen); Hyaline Casts Urine 0-2 /LPF (0-2); RBC Urine >20 /HPF (0-2); Squamous Epithelial Cell Urine 0-2 /HPF (0-2); WBC Urine 0-5 /HPF (0-5)
[2022-11-27 14:37] LABS: Alanine Aminotransferase 31 U/L (0-31); Albumin Level 4.5 g/dL (3.5-5.0); Alkaline Phosphatase 74 U/L (39-117); Anion Gap 13 (12-20); Aspartate Amino Transferase 31 U/L (5-31); Bilirubin Direct < 0.2 mg/dL (0.0-0.5); Bilirubin Total 0.2 mg/dL (0.0-1.0); Blood Urea Nitrogen 13 mg/dL (9-16); Calcium 9.5 mg/dL (8.4-10.2); Carbon Dioxide 26 mmol/L (22-29); Chloride 105 mmol/L (96-108); Creatinine Clr Calc Pharmacy 93.9; Estimated Glomerular Filt Rate > 60; Glucose Random 81 mg/dL (60-115); Lipase 35 U/L (8-78); Potassium 3.8 mmol/L (3.3-5.1); Sodium 140 mmol/L (135-145); Total Protein 7.2 g/dL (6.5-8.0)
[2022-11-27 16:28] VITALS: BP 118/67; PULSE 71; RESP 20; TEMP 36.4; O2SAT 100
[2022-11-27] MEDS: Acetaminophen 325 MG TABLET 975 MG PO (17:11)
== END 2022-11-27 17:16 | disposition home or self-care (01) ==
PROVIDERS: Physician Assistant Medical; Emergency Provider Student in an Organized Health Care Education/Training Program; PCP Internal Medicine
DX: R10.2 Pelvic and perineal pain (principal); Z87.891 Personal history of nicotine dependence; Z79.899 Other long term (current) drug therapy
CPT/HCPCS: 36415; 80048; 80076; 81001; 81025; 83690; 85025; 99283; 99284

== ENCOUNTER 2022-12-01 09:10 | Outpatient (REF) | payer OTHER, SELFPAY ==
--- NOTE | ~2022-12-01 | US_ITS ---
EXAMINATION: US ABDOMEN COMPLETE CLINICAL INFORMATION: Abdominal pain. COMPARISON: 08/12/2014 ultrasound, 03/26/2020 CT TECHNIQUE: Real-time imaging of the abdominal viscera. FINDINGS: PANCREAS: Normal. ABDOMINAL AORTA: The proximal and mid aorta are unremarkable, distal aorta is obscured. INFERIOR VENA CAVA: Visualized portions are normal. LIVER: Mildly increased echogenicity to the liver parenchyma. No focal hepatic lesion. There is no intrahepatic biliary duct dilatation seen. GALLBLADDER: Status post cholecystectomy. COMMON BILE DUCT: Post cholecystectomy common bile duct measures measuring 1.2 cm in diameter. Previous measurement 2014 was 8 mm. This appears to measure greater than 1 cm on 03/26/2020 CT. RIGHT KIDNEY: Upper pole calcified vessel was questioned during real-time study. 0.2 x 0.1 cm lower pole nonobstructing calculus. No hydronephrosis. No focal parenchymal lesions. The kidney measures 10.4 cm in maximum dimension. LEFT KIDNEY: Normal. No hydronephrosis. No renal calculi or focal parenchymal lesions. The kidney measures 10.0 cm in maximum dimension. SPLEEN: Normal. The spleen measures 10.8 cm in maximum dimension. FREE FLUID: None. US/US abdomen complete IMPRESSION: Mild hepatic steatosis. 1.2 cm postcholecystectomy common bile duct, correlate with LFTs. 2 mm right lower pole nonobstructing renal calculus.
== END 2022-12-01 09:11 | disposition home or self-care (01) ==
LOC: HO.US 09:10
PROVIDERS: PCP Internal Medicine; Visit Provider Physician Assistant
DX: R10.9 Unspecified abdominal pain (principal); G89.29 Other chronic pain
CPT/HCPCS: 76700

== ENCOUNTER 2022-12-14 12:19 | Day surgery (SDC) | payer OTHER, SELFPAY ==
[2022-12-10 16:04] VITALS: BMI 27.0
--- NOTE | 2022-12-11 10:51 | HO.ANESPROP2 ---
Documented by User: Humera Ho NP 12/11/22 10:53 HPI - Anesthesia Eval Consult details Narrative: 37yo F for Upper Endoscopy *Multiple Allergies* PMFSH Active Problems Active Problems: All Active Problems (Updated 11/28/22 @ 00:01 by Cari Valera) Chronic abdominal pain (Acute) Upper respiratory tract infection (Acute) COVID-19 virus infection (Acute) Conjunctivitis, right eye (Acute) Tendinitis of left wrist (Acute) Contact dermatitis (Acute) ADHD (Acute) GERD (gastroesophageal reflux disease) (Acute) Annual physical exam (Acute) Normal pelvic exam (Acute) Seasonal allergic rhinitis (Acute) Asthma (Acute) Anemia (Acute) Cellulitis of umbilicus (Acute) Exposure to COVID-19 virus (Acute) Right ankle sprain (Acute) Strain of right gastrocnemius muscle (Acute) Past Medical History Medical History ADHD Anemia Annual physical exam Asthma GERD (gastroesophageal reflux disease) Interstitial cystitis Normal pelvic exam Obesity Seasonal allergic rhinitis Family History Family History Paternal Grandfather History of colon cancer Maternal Grandmother Family history of breast cancer Mother History of cirrhosis of liver Other Mental health disorder Substance use disorder Surgical History Surgical History H/O right knee surgery History of lumbar puncture Hx of cholecystectomy Hx of endoscopy Social History Social History Household Members Other:: 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, 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, 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 Housing: House Alcohol intake: never Patient Tobacco Use Status: Former Tobacco user Quit Date: 2014 Tobacco use type: Cigarette Years Smoked: 15 Current occupational status: employed 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 Cognitive needs: No Hearing needs: No Vision needs: Yes Meds Allergies Allergy/AdvReac Type Severity Reaction Status Date / Time amoxicillin [Augmentin] Allergy Severe vomiting Verified 12/14/22 13:11 azithromycin [From ZITHROMAX] Allergy Severe VOMITTING, Verified 12/14/22 13:11 DIFF BREATHING, hives, SOB, Vomiting clavulanic acid [Augmentin] Allergy Severe vomiting Verified 12/14/22 13:11 influenza virus vaccine, Allergy Severe anaphylaxix Verified 12/14/22 13:11 specific [FLU VACCINE] prednisone [PREDNISONE] Allergy Severe VOMITTING, Verified 12/14/22 13:11 DIFF BREATHING, hives, SOB, Vomiting cinnamon [CINNAMON] Allergy Intermediate itchy mouth Verified 12/14/22 13:11 ferrous fumarate Allergy Intermediate itching Verified 12/14/22 13:11 [Prenatabs FA] folic acid [Prenatabs FA] Allergy Intermediate itching Verified 12/14/22 13:11 latex [LATEX] Allergy Intermediate RASH Verified 12/14/22 13:11 Penicillins [PENICILLINS] Allergy Intermediate hives/sob Verified 12/14/22 13:11 phentermine Allergy Intermediate Nausea Verified 12/14/22 13:11 vitamins with Allergy Intermediate itching Verified 12/14/22 13:11 calcium no.78 [Prenatabs FA] Sulfa (Sulfonamide Allergy Intermediate RASH, Verified 12/14/22 13:11 Antibiotics) vomiting [SULFA (SULFONAMIDE ANTIBIOTICS)] coconut Allergy Mild HIVES/VOMIT Verified 12/14/22 13:11 ING mushroom Allergy Mild HIVES/VOMIT Verified 12/14/22 13:11 ING sertraline [From ZOLOFT] Allergy Mild HIVES/VOMIT Verified 12/14/22 13:11 ING strawberry [STRAWBERRY] Allergy Mild HIVES, Verified 12/14/22 13:11 VOMITING codeine [Codeine] AdvReac Mild NAUSEA Verified 12/14/22 13:11 Home Medications Medication Instructions Recorded Confirmed Last Taken Type albuterol sulfate 90 mcg/actuation 1 - 2 puff PO Q4-6H PRN breathing 03/18/20 12/14/22 Unknown History aerosol inhaler budesonide-formoterol HFA 160 inhalation 03/18/20 10/29/22 12/14/22 History mcg-4.5 mcg/actuation aerosol inhaler cetirizine 10 mg tablet 10 mg PO DAILY 03/18/20 12/14/22 12/14/22 History epinephrine 0.3 mg/0.3 mL IM DIRECTED 03/18/20 10/29/22 Unknown History injection, auto-injector Tylenol 12/14/22 12/14/22 History Exam Exam Date and Time: December 11, 2022 1051 Height,Weight and Vital Signs: Height 4 ft 11 in Weight 60.583 kg Pertinent Lab Results Pertinent Lab Results: Laboratory Tests 11/27/22 11/27/22 14:03 14:03 WBC 5.9 Hgb 9.8 L Hct 33.7 L Plt Count 274 Sodium 140 Potassium 3.8 Chloride 105 Carbon Dioxide 26 BUN 13 Creatinine 0.67 Assessment and Plan Assessment Anesthesia Assessment: Chart Reviewed Documented by User: Karlene Early MD 12/14/22 13:30 PMFSH Past Medical History Medical History ADHD Anemia Annual physical exam Asthma GERD (gastroesophageal reflux disease) Interstitial cystitis Normal pelvic exam Obesity Seasonal allergic rhinitis Family History Family History Paternal Grandfather History of colon cancer Maternal Grandmother Family history of breast cancer Mother History of cirrhosis of liver Other Mental health disorder Substance use disorder Family history of problems with anesthesia: No Surgical History Surgical History H/O right knee surgery History of lumbar puncture Hx of cholecystectomy Hx of endoscopy History of Problems with Anesthesia: No Social History Social History Household Members Other:: 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, 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, 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 Housing: House Alcohol intake: never Patient Tobacco Use Status: Former Tobacco user Quit Date: 2014 Tobacco use type: Cigarette Years Smoked: 15 Current occupational status: employed 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 Cognitive needs: No Hearing needs: No Vision needs: Yes Meds Allergies Allergy/AdvReac Type Severity Reaction Status Date / Time amoxicillin [Augmentin] Allergy Severe vomiting Verified 12/14/22 13:11 azithromycin [From ZITHROMAX] Allergy Severe VOMITTING, Verified 12/14/22 13:11 DIFF BREATHING, hives, SOB, Vomiting clavulanic acid [Augmentin] Allergy Severe vomiting Verified 12/14/22 13:11 influenza virus vaccine, Allergy Severe anaphylaxix Verified 12/14/22 13:11 specific [FLU VACCINE] prednisone [PREDNISONE] Allergy Severe VOMITTING, Verified 12/14/22 13:11 DIFF BREATHING, hives, SOB, Vomiting cinnamon [CINNAMON] Allergy Intermediate itchy mouth Verified 12/14/22 13:11 ferrous fumarate Allergy Intermediate itching Verified 12/14/22 13:11 [Prenatabs FA] folic acid [Prenatabs FA] Allergy Intermediate itching Verified 12/14/22 13:11 latex [LATEX] Allergy Intermediate RASH Verified 12/14/22 13:11 Penicillins [PENICILLINS] Allergy Intermediate hives/sob Verified 12/14/22 13:11 phentermine Allergy Intermediate Nausea Verified 12/14/22 13:11 vitamins with Allergy Intermediate itching Verified 12/14/22 13:11 calcium no.78 [Prenatabs FA] Sulfa (Sulfonamide Allergy Intermediate RASH, Verified 12/14/22 13:11 Antibiotics) vomiting [SULFA (SULFONAMIDE ANTIBIOTICS)] coconut Allergy Mild HIVES/VOMIT Verified 12/14/22 13:11 ING mushroom Allergy Mild HIVES/VOMIT Verified 12/14/22 13:11 ING sertraline [From ZOLOFT] Allergy Mild HIVES/VOMIT Verified 12/14/22 13:11 ING strawberry [STRAWBERRY] Allergy Mild HIVES, Verified 12/14/22 13:11 VOMITING codeine [Codeine] AdvReac Mild NAUSEA Verified 12/14/22 13:11 Home Medications Medication Instructions Recorded Confirmed Last Taken Type albuterol sulfate 90 mcg/actuation 1 - 2 puff PO Q4-6H PRN breathing 03/18/20 12/14/22 Unknown History aerosol inhaler budesonide-formoterol HFA 160 inhalation 03/18/20 10/29/22 12/14/22 History mcg-4.5 mcg/actuation aerosol inhaler cetirizine 10 mg tablet 10 mg PO DAILY 03/18/20 12/14/22 12/14/22 History epinephrine 0.3 mg/0.3 mL IM DIRECTED 03/18/20 10/29/22 Unknown History injection, auto-injector Tylenol 12/14/22 12/14/22 History Exam Airway Mallampati Class: II TM Dist: >3cm Neck ROM: Full Heart: rrr Lungs: cta Assessment and Plan Assessment Anesthesia Assessment: Anesthesia Plan Discussed Final Anesthetic Review Family History of Problems with Anesthesia: No History of Problems with Anesthesia: No NPO: Yes ASA Class: II Final Preanesthetic Review: No Changes in Pt Med Stat, Meds/Allgs Chart Reviewed and Consent Obtained/Reviewed Patient Risk: Intermediate Procedure Risk: Intermediate Anesthetic Plan Anesthetic Plan: MAC: Disposition: Standard PACU
--- OUTSIDE RECORDS SUMMARY | 2022-12-14 12:21 | XMS_ITS | Continuity of Care Document ---
Author Name Unknown Organization [facility] Address [address] [place] [id number]- Care Team Providers Care Bark Spudder Name Role Phone Criselda Armstrong MD [id number] Date(s): 08/31/22 - 12/06/22 [facility] [address] [place] [id number]- Attending Physician: Mercy Duenas MD Admitting Physician: Mercy Duenas MD Referring Physician: Not on Staff, Referring MD Allergies, Adverse Reactions, Alerts Substance Reaction Severity Status codeine difficulty breathing Active penicillin hives Active sulfa drugs hives Active Iron Supplement does not absorb Active Montelukast Sodium 1 difficulty breathing Active predniSONE difficulty breathing Active Latex rash,hives,itch Active Zithromax hives Active 1hives Medications Aerochamber See Instructions, # 1 each, Maintenance, use with symbicort, 01/11/14 16:45:35, Compound Start Date: 01/11/14 Status: Ordered albuterol CFC free 90 mcg/inh inhalation aerosol 2 puffs, Inhalation, 4 times a day, PRN for wheezing, # 1 each, 11 Refills, Maintenance, 01/08/14 10:15:17, Aerosol, 2 puffs Inhalation 4 times a day,x30 days,PRN:for wheezing Start Date: 01/08/14 Stop Date: 01/03/15 Status: Ordered omeprazole 40 mg oral enteric coated capsule 1 capsule = 40 mg, By Mouth, Daily, for 90 days, # 90 capsule, 3 Refills, Hard Stop 02/22/23 8:34:00 EDT, 02/27/22 8:34:00 EDT, [id number], 148.3, cm, 01/24/21 10:22:00 EDT, Height Start Date: 02/27/22 Stop Date: 02/22/23 Status: Ordered omeprazole 40 mg oral enteric coated capsule 1 capsule = 40 mg, By Mouth, Daily, for 90 days, # 90 capsule, 1 Refills, Hard Stop 03/08/23 10:46:00 EDT, 09/09/22 10:46:00 EDT, [facility]/pharmacy #[id number], 148.3, cm, 01/24/21 10:22:00 EDT, Height, 59.1, kg, 06/05/22 12:23:00 EST, Dry Weight Start Date: 09/09/22 Stop Date: 03/08/23 Status: Ordered Symbicort 160mcg/4.5mcg Inhaler 2 puffs, Inhalation, 2 times a day, # 10.2 Gm, 11 Refills, Maintenance, 01/08/14 10:21:09, Aerosol,2 puffs Inhalation 2 times a day Start Date: 01/08/14 Status: Ordered ZyrTEC 10 mg oral tablet 1 tablet = 10 mg, By Mouth, Daily, 0 Refills, Maintenance, 12/17/15 14:56:44 Start Date: 12/17/15 Status: Ordered Problem List Condition Confirmation Course Effective Dates Status Health St atus Informant Asthma Confirmed Active Pseudotumor cerebri Confirmed Active Cellulitis of tongue Confirmed Active Interstitial cystitis Confirmed Active GERD (gastroesophageal reflux disease) Confirmed Active Chronic iron deficiency anemia Confirmed Active Migraine Confirmed Active Smoking 1 Confirmed Active 11/2 to 1 ppd age 16-20 and age 22-25 Social History Social History Type Response Smoking Status Former smoker; Tobac co user in household: No entered on: 07/31/14 Sex Patient Care team information Care Team Personnel Name: Criselda Armstrong MD Position: [facility] Physician - Primary Care Member Role: PCP Address: Address: [address] [place], [place] - Care Team Related Persons Name: CHANO URIOSTEGUI Address: home [address] [place], [place] Name: FRANCIS LAWTON Name: BLUE INTERIANO Address: home [address] [address] Name: IDA URBINA
--- OUTSIDE RECORDS SUMMARY | 2022-12-14 12:21 | XMS_ITS | Continuity of Care Document ---
Author Name Unknown Organization [facility] Address [address] [place] [address]- Care Team Providers Care Voltage Regulator Assembler Name Role Phone Criselda Armstrong MD Primary Care Physician Encounter [facility] R [id number] Date(s): 11/06/22 - 12/06/22 [facility] [address] [place] [id number]- Attending Physician: Brian Marie Admitting Physician: Admtr, Ar8 Referring Physician: Admtr, Ar8 Allergies, Adverse Reactions, Alerts Substance Reaction Severity Status codeine difficulty breathing Active penicillin hives Active predniSONE difficulty breathing Active sulfa drugs hives Active Zithromax hives Active Latex rash,hives,itch Active Iron Supplement does not absorb Active Montelukast Sodium 1 difficulty breathing Active 1hives Medications Aerochamber See Instructions, # [...] Stop 03/08/23 10:46:00 EDT, 09/09/22 10:46:00 EDT, [facility]/pharmacy #[id number], 148.3, cm, 01/24/21 10:22:00 EDT, Height, [...] in household: No entered on: 07/31/14 Sex Laboratory * Event Display: Non Lab Results Authored Date: * Event Display: Non Lab Results Authored Date: Radiology * Event Display: CT Scan Abdomen, Non- Authored Date: Patient Care team information Care Team Personnel Name: Criselda Armstrong MD Position: [facility] Physician - Primary Care Member Role: PCP Address: Address: [address] [place] [address]- Care Team Related Persons Name: CHANO URIOSTEGUI Address: home [address] [place], [place] Name: FRANCIS LAWTON Name: BLUE INTERIANO Address: home [address] [place] [id number] Name: IDA URBINA
--- OUTSIDE RECORDS SUMMARY | 2022-12-14 12:22 | XMS_ITS | Continuity of Care Document ---
Author Name Unknown Organization [facility] Address [address] [place] [address]- Care Team Providers Care B2B Sales Executive Name Role Phone Patti SPIVEY, Criselda Primary Care Physician Encounter [facility] Date(s): 10/28/22 - 11/27/[address] [address]- Allergies, Adverse Reactions, Alerts Substance Reaction Severity [...] Stop 03/08/23 10:46:00 EDT, 09/09/22 10:46:00 EDT, [facility]/pharmacy #[id number], 148.3, cm, 01/24/21 10:22:00 EDT, Height, [...] Team Personnel Name: Criselda Armstrong MD Position: [facility] Physician - Primary Care Member Role: PCP Address: Address: [address] [place], [place] - Care Team Related Persons Name: CHANO URIOSTEGUI Address: home [address] [place], [place] Name: FRANCIS LAWTON Name: BLUE INTERIANO Address: home [address] [address] Name: IDA URBINA
[2022-12-14 13:12] VITALS: BP 116/46; PULSE 87; RESP 16; TEMP 37.1; O2SAT 98; BMI 27.7
[2022-12-14 13:12] LABS: UPreg QC Valid YES; Urine Pregnancy NEGATIVE (NEGATIVE)
[2022-12-14] MEDS: Lactated Ringers 1,000 ML 100 ML IVCONT (13:33)
--- NOTE | 2022-12-14 13:33 | MHC.SHP ---
Pre-Procedural Eval Section A Date of Service: 12/14/22 The patient is an INPATIENT: No The History & Physical has been completed within 30 days and I have reviewed it.: No Section B Chief Complaint: reflux disease,Anemia Relevant Family History (Specify if Yes): Yes Relevant Social History: Tobacco Use (former smoker) Present Medications: see Short Stay Collaborative assessment Medical History: Significant History (ADHD Anemia Annual physical exam Asthma GERD (gastroesophageal reflux disease) Interstitial cystitis Normal pelvic exam Obesity) History of Previous Operations: Relevant previous surgery/procedure and date(s) (H/O right knee surgery History of lumbar puncture Hx of cholecystectomy Hx of endoscopy) Allergies: Allergies Allergy/AdvReac Type Severity Reaction Status Date / Time amoxicillin [Augmentin] Allergy Severe vomiting Verified 12/14/22 13:11 azithromycin [From ZITHROMAX] Allergy Severe VOMITTING, Verified 12/14/22 13:11 DIFF BREATHING, hives, SOB, Vomiting clavulanic acid [Augmentin] Allergy Severe vomiting Verified 12/14/22 13:11 influenza virus vaccine, Allergy Severe anaphylaxix Verified 12/14/22 13:11 specific [FLU VACCINE] prednisone [PREDNISONE] Allergy Severe VOMITTING, Verified 12/14/22 13:11 DIFF BREATHING, hives, SOB, Vomiting cinnamon [CINNAMON] Allergy Intermediate itchy mouth Verified 12/14/22 13:11 ferrous fumarate Allergy Intermediate itching Verified 12/14/22 13:11 [Prenatabs FA] folic acid [Prenatabs FA] Allergy Intermediate itching Verified 12/14/22 13:11 latex [LATEX] Allergy Intermediate RASH Verified 12/14/22 13:11 Penicillins [PENICILLINS] Allergy Intermediate hives/sob Verified 12/14/22 13:11 phentermine Allergy Intermediate Nausea Verified 12/14/22 13:11 vitamins with Allergy Intermediate itching Verified 12/14/22 13:11 calcium no.78 [Prenatabs FA] Sulfa (Sulfonamide Allergy Intermediate RASH, Verified 12/14/22 13:11 Antibiotics) vomiting [SULFA (SULFONAMIDE ANTIBIOTICS)] coconut Allergy Mild HIVES/VOMIT Verified 12/14/22 13:11 ING mushroom Allergy Mild HIVES/VOMIT Verified 12/14/22 13:11 ING sertraline [From ZOLOFT] Allergy Mild HIVES/VOMIT Verified 12/14/22 13:11 ING strawberry [STRAWBERRY] Allergy Mild HIVES, Verified 12/14/22 13:11 VOMITING codeine [Codeine] AdvReac Mild NAUSEA Verified 12/14/22 13:11 Review of Systems Sugical H&P ROS: Negative: Constitution, Cardiovascular and Respiratory and Yes, Specify: Gastrointestinal (abdominal pain, nausea, vomiting, GERD) Exam Surgical H&P Exam: Normal: Heart, Normal: Lungs, Normal: Extremities and Normal: Abdomen Plan Diagnosis/Plan: Unchanged I have reviewed the history and physical and performed a pertinent physical examination on my patient. No changes have occurred unless specified. Time Spent With Patient Time: Total time managing care of this patient today ____ minutes.
--- NOTE | 2022-12-14 14:25 | W.PM.OPN ---
Operative Note Operative Note Date of Service: 12/14/22 Narrative: FLEXIBLE TRANSORAL UPPER GASTROINTESTINAL ENDOSCOPY WITH BIOPSIES Pre-op diagnosis: GERD, abdominal pain, nausea Post-op diagnosis: GERD, Gastric polyps, gastric erosion, duodenal nodules Endoscopist:? Joceline Zamudio MD Anesthesia:?MAC Consent: Indications for the procedure and potential complications of bleeding, perforation, reaction to medications and missed diagnosis were discussed with the patient and informed consent was obtained. Instrument: Olympus GIF H 190 mid size upper endoscope Monitoring: Vital signs and clinical assessment, continuous EKG monitoring, Pulse oximetry, Carbon Dioxide monitoring and blood pressure monitoring were done throughout the procedure. Procedure: The patient was placed in the left lateral decubitis position and pre-procedure medications were administered and a bite block was placed. The endoscope was inserted into the mouth and advanced under direct vision to the third part of duodenum. A careful inspection was made as the upper endoscope was withdrawn including a retroflexed examination of the proximal stomach; Findings and interventions are described below. Findings: Larynx: Normal Esophagus: GE junction at 35 cms. Irregular Z line - biopsied to check for Thomas's. No esophagitis. Stomach: A few 5 yo 8 mm benign appearing polyps in the gastric body - biopsied. Mild gastric erythema with a 3-4 mm superficial erosion in the antrum - biopsied. Grade 2 flap valve on retroflexed examination of the cardia. Duodenum: A few 5 to 10 mm benign appearing nodules in the bulb - biopsied. Normal descending duodenum - biopsies were obtained to check for celiac sprue Intervention: Biopsies as noted above Impression and Post Procedure Diagnosis: Endoscopy Findings: ESOPHAGUS: GE junction at 35 cms. Irregular Z line - biopsied to check for Thomas's. No esophagitis. 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 Normal descending duodenum - biopsies were obtained to check for celiac sprue Plan: Await pathology results Patient has an appointment on 12/28/22 in the GI Clinic with CARLOS ALBERTO Mayo. Above findings were reviewed with the patient and GERD and Gastric polyps handouts were given in the discharge area Pt reported heartburn symptoms are controlled with Omeprazole 40 mg twice daily and notes breakthrough symptoms if she misses a single dose of Omeprazole. She was advised to schedule a barium swallow for further evaluation - order placed She is being evaluated for endometriosis and is being scheduled for tubal ligation and endometrial biopsy in [place] for evaluation of menorhagia and anemia. Pt is agreeable to scheduling a colonoscopy after OBGyn workup is completed.
[2022-12-14 14:52] VITALS: BP 102/54; PULSE 78; RESP 16; TEMP 36.7; O2SAT 99
[2022-12-14 15:06] VITALS: BP 110/52; PULSE 72; RESP 16; TEMP 36.6; O2SAT 100
== END 2022-12-14 15:46 | disposition home or self-care (01) ==
PROVIDERS: Nurse Practitioner; PCP Internal Medicine; Visit Provider Internal Medicine Gastroenterology
PROC: 0DJ08ZZ Inspection of Upper Intestinal Tract, Via Natural or Artificial Opening Endoscopic (ICD-10-PCS; CPT 43235; principal; 2022-12-14 14:30)
DX: R10.9 Unspecified abdominal pain (principal); K22.89 Other specified disease of esophagus; K25.9 Gastric ulcer, unspecified as acute or chronic, without hemorrhage or perforation; K29.50 Unspecified chronic gastritis without bleeding; K31.7 Polyp of stomach and duodenum; K21.9 Gastro-esophageal reflux disease without esophagitis; J45.909 Unspecified asthma, uncomplicated; D64.9 Anemia, unspecified; Z88.8 Allergy status to other drugs, medicaments and biological substances; Z88.1 Allergy status to other antibiotic agents; Z88.2 Allergy status to sulfonamides; Z91.040 Latex allergy status; Z87.891 Personal history of nicotine dependence; Z90.49 Acquired absence of other specified parts of digestive tract; Z79.899 Other long term (current) drug therapy
CPT/HCPCS: 43239; 81025; 88305; 88342

== ENCOUNTER 2022-12-28 09:44 | Outpatient (AMB) | payer OTHER, SELFPAY ==
--- NOTE | 2022-12-28 10:08 | MHC.OFFVIS ---
Intake Vital Signs 12/28/22 10:19 Height 4 ft 11 in Weight 137 lb BMI 27.7 BP 115/55 L Blood Pressure Location Lt brachial Pulse 94 Intake Visit Reasons: S/P [place]; Dr Zamudio Intake Note: Patient follow up for Colonoscopy results. Patient cc: diarrhea on and off, dysphagia on and off, acid reflex, and gassy. Japanese Tutor Required: No Accompanied by: Self / Same As Patient Allergies amoxicillin [Augmentin] Allergy (Severe, Verified 12/28/22 10:17) vomiting azithromycin [From ZITHROMAX] Allergy (Severe, Verified 12/28/22 10:17) VOMITTING, DIFF BREATHING, hives, SOB, Vomiting clavulanic acid [Augmentin] Allergy (Severe, Verified 12/28/22 10:17) vomiting influenza virus vaccine, specific [FLU VACCINE] Allergy (Severe, Verified 12/28/22 10:17) anaphylaxix prednisone [PREDNISONE] Allergy (Severe, Verified 12/28/22 10:17) VOMITTING, DIFF BREATHING, hives, SOB, Vomiting cinnamon [CINNAMON] Allergy (Intermediate, Verified 12/28/22 10:17) itchy mouth ferrous fumarate [Prenatabs FA] Allergy (Intermediate, Verified 12/28/22 10:17) itching folic acid [Prenatabs FA] Allergy (Intermediate, Verified 12/28/22 10:17) itching latex [LATEX] Allergy (Intermediate, Verified 12/28/22 10:17) RASH Penicillins [PENICILLINS] Allergy (Intermediate, Verified 12/28/22 10:17) hives/sob phentermine Allergy (Intermediate, Verified 12/28/22 10:17) Nausea vitamins with calcium no.78 [Prenatabs FA] Allergy (Intermediate, Verified 12/28/22 10:17) itching Sulfa (Sulfonamide Antibiotics) [SULFA (SULFONAMIDE ANTIBIOTICS)] Allergy (Intermediate, Verified 12/28/22 10:17) RASH, vomiting coconut Allergy (Mild, Verified 12/28/22 10:17) HIVES/VOMITING mushroom Allergy (Mild, Verified 12/28/22 10:17) HIVES/VOMITING sertraline [From ZOLOFT] Allergy (Mild, Verified 12/28/22 10:17) HIVES/VOMITING strawberry [STRAWBERRY] Allergy (Mild, Verified 12/28/22 10:17) HIVES, VOMITING codeine [Codeine] Adverse Reaction (Mild, Verified 12/28/22 10:17) NAUSEA Medication List - Last Reconciled 12/28/22 by Maude Cardoso PA-C albuterol sulfate 90 mcg/actuation 1 - 2 puffs PO Q4-6H PRN bisacodyl (Dulcolax (bisacodyl)) 10 mg (2 x 5 mg) PO ONCE 1 day budesonide-formoterol 160-4.5 mcg/actuation inhalation cetirizine 10 mg PO DAILY epinephrine IM DIRECTED omeprazole 40 mg PO BID ondansetron 4 mg PO Q8H PRN polyethylene glycol 3350 (Miralax) 238 grams PO ONCE 1 day [Tylenol ] HPI HPI Comments History of Present Illness Details 37-year-old female follows up after recent EGD with Dr. Zamudio. Persistent acid reflux despite PPI, no taking b.i.d. with fairly good coverage however if she misses 1 dose symptoms exacerbate. Is aware that Dr. Zamudio was ordering a barium swallow She is well had ultrasound -is aware MRCP has been ordered Unfortunately computer system was unavailable at time of visit [facility] Medical History (Updated 12/28/22 @ 10:23 by Maude Cardoso PA-C) ADHD Anemia Annual physical exam Asthma GERD (gastroesophageal reflux disease) Interstitial cystitis Normal pelvic exam Obesity Seasonal allergic rhinitis Surgical History H/O right knee surgery History of esophagogastroduodenoscopy (EGD) History of lumbar puncture Hx of cholecystectomy Hx of endoscopy Family History Paternal Grandfather History of colon cancer Maternal Grandmother Family history of breast cancer Mother History of cirrhosis of liver Other Mental health disorder Substance use disorder Social History Household Members Other:: single, 3 children, 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 Housing: House Alcohol intake: never Patient Tobacco Use Status: Former Tobacco user Quit Date: 2014 Tobacco use type: Cigarette Years Smoked: 15 Current occupational status: employed 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 Normal Esophagus: GE junction at 35 cms.? Irregular Z line - biopsied to check for Thomas's.? No esophagitis. Stomach: A few 5 yo 8 mm benign appearing polyps in the gastric body - biopsied. Mild gastric erythema with a 3-4 mm superficial erosion in the antrum - biopsied. Grade 2 flap valve on retroflexed examination of the cardia. Duodenum: A few 5 to 10 mm benign appearing nodules in the bulb - biopsied. Normal descending duodenum - biopsies were obtained to check for celiac sprue Intervention: Biopsies as noted above Impression and Post Procedure Diagnosis: Endoscopy Findings: ESOPHAGUS: GE junction at 35 cms.? Irregular Z line - biopsied to check for Thomas's.? No esophagitis. STOMACH: Gastric polyps and a small antral erosion DUODENUM:? 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 Normal descending duodenum - biopsies were obtained to check for celiac sprue Plan: Await pathology results Patient has an appointment on 12/28/22 in the GI Clinic with CARLOS ALBERTO Mayo. Above findings were reviewed with the patient and GERD and Gastric polyps handouts were given in the discharge area Pt reported heartburn symptoms are controlled with Omeprazole 40 mg twice daily and notes breakthrough symptoms if she misses a single dose of Omeprazole. She was advised to schedule a barium swallow for further evaluation - order placed She is being evaluated for endometriosis and is being scheduled for tubal ligation and endometrial biopsy in [place] for evaluation of menorhagia and anemia. Pt is agreeable to scheduling a colonoscopy after OBGyn workup is completed. Name:?Sera Quintana Age/Sex: 37/F Attending: Joceline Zamudio MD : 1985 Submitted by: Joceline Zamudio MD Copies to: Criselda Armstrong MD MR #: [id number] ? Status: [facility] Collected: 12/14/22 Location: .[facility] Received: 12/15/22 Diagnosis A.? Small bowel, biopsy:? Small intestinal mucosa within normal limits. B.? Stomach, polyp:? Fundic gland polyp with background mild chronic inactive inflammation; no Helicobacter organisms seen. C.? Duodenum, polyp:? Polypoid duodenal mucosa with chronic inactive inflammation and heterotopic gastric tissue. D.? Stomach, erosion, biopsy:? Antral-type mucosa with mild chronic inactive inflammation and regenerative changes; no Helicobacter organisms seen. E.? GE junction, biopsy: - Focal cardiac-type mucosa with mild chronic inactive inflammation; no intestinal metaplasia seen. - Squamous mucosa within normal limits. Assessment & Plan Assessment & Plan (1) GERD (gastroesophageal reflux disease): Comment: [facility] GI- seen by Dr. Flood -no intervention- EGD Dr. Zamudio-unable to access report due to computer failure Code(s): K21.9 - Gastro-esophageal reflux disease without esophagitis Plan: Will call patient when results available for review Plan Call to patient LMOM-per our discussion above Medications: Changed From omeprazole 40 mg PO BID 60 caps 1RF To omeprazole 40 mg PO BID 30 days 60 caps 3RF Patient Instructions: 37-year-old female multiple GI complaints, menorrhagia, anemia, persistent acid reflux Aware computer issues unable to review results while in the office-call patient when available for review Reviewed reflux, precautions, continue PPI b.i.d. Await MRCP as well as barium swallow Encouraged to call questions or concerns Coding Level of Care Code Est Pt Level 3 (80634) Diagnoses GERD (gastroesophageal reflux disease) K21.9 Time Spent (min) 20
[2022-12-28 10:19] VITALS: BP 115/55; PULSE 94; BMI 27.7
== END 2022-12-28 10:55 | disposition home or self-care (01) ==
PROVIDERS: PCP Internal Medicine; Visit Provider Physician Assistant
DX: K21.9 Gastro-esophageal reflux disease without esophagitis (principal)
CPT/HCPCS: 99213

== ENCOUNTER → 2022-12-28 10:16 | Outpatient (BNVA) | payer OTHER, SELFPAY | PROVIDERS: PCP Internal Medicine; Visit Provider Physician Assistant | DX: K21.9 Gastro-esophageal reflux disease without esophagitis (principal) | CPT/HCPCS: 99212 ==

== ENCOUNTER → 2023-01-18 08:46 | Outpatient (BNV) | payer OTHER, SELFPAY | PROVIDERS: PCP Internal Medicine; Referring Provider Physician Assistant; Visit Provider Internal Medicine Medical Oncology | DX: D64.9 Anemia, unspecified (principal) | CPT/HCPCS: 99204; 99213 ==

== ENCOUNTER 2023-02-04 07:59 | Outpatient (REF) | payer OTHER, SELFPAY ==
--- NOTE | ~2023-02-04 | MR_ITS ---
EXAMINATION: MR ABDOMEN WITHOUT CONTRAST CLINICAL INFORMATION: 1.2 cm postcholecystectomy common bile duct COMPARISON: Abdominal ultrasound 12/01/2022, CT abdomen pelvis 03/26/2020 TECHNIQUE: MR abdomen is performed without gadolinium contrast. Heavily T2 weighted MRCP sequences were also obtained. FINDINGS: LUNG BASES: Unremarkable. ABDOMINAL AND PELVIC WALL: Unremarkable. LIVER AND BILIARY TREE: Common bile duct mildly dilated in maximal dimension measuring 1.2 cm however tapers to normal caliber of 6 mm distally. Trace central intrahepatic biliary duct dilatation. No intraluminal defect to suggest choledocholithiasis. Technically limited exam with the upper portion of the liver excluded from the [id number] on axial images limiting assessment. GALLBLADDER: Status post cholecystectomy. PANCREAS: Unremarkable. SPLEEN: Technically limited exam of the upper portion of the spleen excluded from the [id number] on axial images limiting assessment. ADRENAL GLANDS: Unremarkable. KIDNEYS AND URETERS: Unremarkable. GASTROINTESTINAL TRACT: Unremarkable. VASCULAR: Unremarkable. LYMPH NODES/PERITONEUM: No lymphadenopathy. FREE FLUID: None. PARTIALLY IMAGED PELVIS: A 6.3 cm cystic right adnexal lesion, incompletely characterized and limited assessment due to lack of intravenous contrast and [id number] as was best appreciated on the ream cutter sequences. OSSEOUS STRUCTURES: Unremarkable. MR/MR MRCP IMPRESSION: Common bile duct is mildly dilated for the postcholecystectomy state in maximal dimension measuring 1.2 cm however tapers to normal caliber of 6 mm distally. Trace central intrahepatic biliary duct dilatation. No intraluminal defect to suggest choledocholithiasis. A 6.3 cm cystic right adnexal lesion, incompletely characterized and limited assessment due to lack of intravenous contrast and tzwni-mq-[id number] as was best appreciated on the ream cutter sequences. Recommend pelvic ultrasound for further evaluation. Technically limited exam with the upper portion of the liver excluded from the [id number] on axial images limiting assessment.
== END 2023-02-04 08:00 | disposition home or self-care (01) ==
LOC: HO.MRI 07:59
PROVIDERS: PCP Internal Medicine; Visit Provider Physician Assistant
DX: R10.9 Unspecified abdominal pain (principal); G89.29 Other chronic pain
CPT/HCPCS: 74181

== ENCOUNTER 2023-02-16 09:24 | Outpatient (AMB) | payer OTHER, SELFPAY ==
--- NOTE | 2023-02-16 09:25 | MHC.OFFVIS ---
Intake Vital Signs 02/16/23 09:28 Height 4 ft 11 in Weight 141 lb BMI 28.5 BP 112/74 Blood Pressure Location Lt brachial Position Sitting Pulse 70 Intake Visit Reasons: CT follow up Intake Note: Patient follow up for GERD and CT scan results. Patient cc: abdominal pain, , nauseas at night time, acid reflex and gassy. Non Categorical Preschool Teacher Required: No Accompanied by: Self / Same As Patient Allergies amoxicillin [Augmentin] Allergy (Severe, Verified 02/16/23 09:25) vomiting azithromycin [From ZITHROMAX] Allergy (Severe, Verified 02/16/23 09:25) VOMITTING, DIFF BREATHING, hives, SOB, Vomiting clavulanic acid [Augmentin] Allergy (Severe, Verified 02/16/23 09:25) vomiting influenza virus vaccine, specific [FLU VACCINE] Allergy (Severe, Verified 02/16/23 09:25) anaphylaxix prednisone [PREDNISONE] Allergy (Severe, Verified 02/16/23 09:25) VOMITTING, DIFF BREATHING, hives, SOB, Vomiting cinnamon [CINNAMON] Allergy (Intermediate, Verified 02/16/23 09:25) itchy mouth ferrous fumarate [Prenatabs FA] Allergy (Intermediate, Verified 02/16/23 09:25) itching folic acid [Prenatabs FA] Allergy (Intermediate, Verified 02/16/23 09:25) itching latex [LATEX] Allergy (Intermediate, Verified 02/16/23 09:25) RASH Penicillins [PENICILLINS] Allergy (Intermediate, Verified 02/16/23 09:25) hives/sob phentermine Allergy (Intermediate, Verified 02/16/23 09:25) Nausea vitamins with calcium no.78 [Prenatabs FA] Allergy (Intermediate, Verified 02/16/23 09:25) itching Sulfa (Sulfonamide Antibiotics) [SULFA (SULFONAMIDE ANTIBIOTICS)] Allergy (Intermediate, Verified 02/16/23 09:25) RASH, vomiting coconut Allergy (Mild, Verified 02/16/23 09:25) HIVES/VOMITING mushroom Allergy (Mild, Verified 02/16/23 09:25) HIVES/VOMITING sertraline [From ZOLOFT] Allergy (Mild, Verified 02/16/23 09:25) HIVES/VOMITING strawberry [STRAWBERRY] Allergy (Mild, Verified 02/16/23 09:25) HIVES, VOMITING codeine [Codeine] Adverse Reaction (Mild, Verified 02/16/23 09:25) NAUSEA HPI HPI Comments History of Present Illness Details A 37-year-old iron deficiency- female follows up after abdominal MRI-she tolerated well, She is going to start a new job in February, which she is happy She had 3 days of abdominal discomfort-and nausea- it has resolved- her daughter has a GI bug now- She is being followed by [facility]- for heavy periods-she continues workup-we had faxed MRI findings We had review CT report also reviewed previously with MD-no concerns for GI at this point Nausea, vomiting hematemesis, hematochezia fever She has had EGD by She had been seen previously by Dr. Flood at [facility] Medical History ADHD Anemia Annual physical exam Asthma GERD (gastroesophageal reflux disease) Interstitial cystitis Normal pelvic exam Obesity Seasonal allergic rhinitis Surgical History H/O right knee surgery History of esophagogastroduodenoscopy (EGD) History of lumbar puncture Hx of cholecystectomy Hx of endoscopy Family History Paternal Grandfather History of colon cancer Maternal Grandmother Family history of breast cancer Mother History of cirrhosis of liver Other Mental health disorder Substance use disorder Social History Household Members Other:: single, 3 children, 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 Housing: House Alcohol intake: never Patient Tobacco Use Status: Former Tobacco user Quit Date: 2014 Tobacco use type: Cigarette Years Smoked: 15 service: No Current occupational status: employed 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 Cognitive needs: No Hearing needs: No Vision needs: Yes Female Reproductive History Menstrual Age of Menarche: 14 Review of Systems Const All systems reviewed & are unremarkable except as noted in HPI and below Card Denies chest pain and Denies dyspnea Resp Denies dyspnea GI Reports abdominal pain (Intermittent) Physical Exam Vital Signs: Last Vital Signs Pulse 70 02/16/23 09:28 BP 112/74 02/16/23 09:28 BMI result Body Mass Index 28.5 Const General: cooperative and comfortable Orientation/consciousness: patient oriented x3 Limitations: no limitations Eyes Sclerae: sclerae normal Resp Effort & Inspection: normal respiratory effort and able to speak in complete sentences Skin General skin exam: no rashes or lesions noted Neuro General: patient oriented x3 Extrem General: Yes full ROM Psych Appearance: grossly normal and well kempt Mental Status: mental status grossly normal Speech and movement: Normal speech and movement present and Clear speech present Affect: normal affect Attitude: cooperative Thought process: Normal thought process present Thought content: Normal thought content present Insight: Good insight present (Psych) Judgement: Good judgement present (Psych) Results Reviewed Results Reviewed: 02/04/23 MPRESSION: Common bile duct is mildly dilated for the postcholecystectomy state in maximal dimension measuring 1.2 cm however tapers to normal caliber of 6 mm distally. Trace central intrahepatic biliary duct dilatation. No intraluminal defect to suggest choledocholithiasis. ? A 6.3 cm cystic right adnexal lesion, incompletely characterized and limited assessment due to lack of intravenous contrast and [id number] as was best appreciated on the bisque cleaner sequences. Recommend pelvic ultrasound for further evaluation. ? Technically limited exam with the upper portion of the liver excluded from the [id number] on axial images limiting assessment. 11/2022- U/S RDER #: [id number] US/US abdomen complete IMPRESSION: Mild hepatic steatosis. 1.2 cm postcholecystectomy common bile duct, correlate with LFTs. 2 mm right lower pole nonobstructing renal calculus. Assessment & Plan Assessment & Plan (1) Chronic abdominal pain: Comment: Reviewed MRI, no GI concerns at this time Reviewed with Dr. Jeffrey as well due to dilated CBD However adnexal cyst sent to social welfare research worker were she is being followed May have functional component Code(s): R10.9 - Unspecified abdominal pain; G89.29 - Other chronic pain Plan: Continue to follow social welfare research worker (2) Anemia: Comment: DIFFERENTIAL DIAGNOSIS: 1. IRON DEFICIENCY ANEMIA: Anemia is most likely related to her blood loss. She has heavy periods. She has had dyspepsia. She is currently undergoing GI evaluation. The other possibility is underlying celiac disease. She says she has a hard time tolerating by mouth iron, especially iron pills, which she has a bad reaction from. 2. B12 FOLATE DEFICIENCY: Can coexist. 3. ANEMIA OF CHRONIC DISEASE: 4. HEMOLYTIC ANEMIA: Is in the differential Dr. Willams 01/18/23 Code(s): D64.9 - Anemia, unspecified Plan: F/U Dr. Willams Medications: New simethicone (Gas-X Extra Strength) 125 mg PO BID-TID 30 days PRN 90 caps 2RF abdominal distention Patient Instructions: Very pleasant 37-year-old female with chronic abdominal pain maybe overlapping, MRI sent to social welfare research worker, where she will continue to follow-up Continue ppi- avoid culprits Call with any concerns any worsening of symptoms she will let us know Coding Level of Care Code Tele New Pt Level 3 (73656) Diagnoses Chronic abdominal pain R10.9; G89.29 Anemia D64.9 Time Spent (min) 30
--- OUTSIDE RECORDS SUMMARY | 2023-02-16 09:26 | XMS_ITS | Continuity of Care Document ---
Author Name Unknown Organization [facility] ter Address [address] [place] [address]- Care Team Providers Care Hr Business Partner Name Role Phone Criselda Armstrong MD Primary Care Physician [place] [facility] [place] Date(s): 12/17/22 - 02/12/[address] [address] Attending Physician: Cadence Santiago MD Admitting Physician: Cadence Santiago MD Allergies, Adverse Reactions, Alerts Substance Reaction Severity Status codeine difficulty breathing Active predniSONE difficulty breathing Active Latex rash,hives,itch Active Montelukast Sodium 1 difficulty breathing Active penicillin hives Active sulfa drugs hives Active Iron Supplement does not absorb Active Zithromax hives Active 1hives Medications Aerochamber [...] Stop 03/08/23 10:46:00 EDT, 09/09/22 10:46:00 EDT, [facility]/pharmacy #[id number], 148.3, cm, 01/24/21 10:22:00 EDT, Height, [...] Team Personnel Name: Criselda Armstrong MD Position: [facility] Physician - Primary Care Member Role: PCP Address: Address: [address] [place] [address]- Care Team Related Persons Name: CHANO URIOSTEGUI Address: home [address] [place], [place] Name: FRANCIS LAWTON Name: BLUE INTERIANO Address: home [address] [address] Name: IDA URBINA
--- OUTSIDE RECORDS SUMMARY | 2023-02-16 09:26 | XMS_ITS | Continuity of Care Document ---
Author Name Unknown Organization [facility] Address [address] [place] [address], [address] [place] [address]- Care Team Providers Care Research Project Manager Name Role Phone Patti SPIVEY, Criselda Primary Care Physician [phone] Encounter [facility] [place] Date(s): 01/12/23 - 02/11/23 [facility] [address] [facility], [address] [place] [address]- Allergies, Adverse Reactions, Alerts Substance Reaction Severity [...] Stop 03/08/23 10:46:00 EDT, 09/09/22 10:46:00 EDT, [facility]/pharmacy #[id number], 148.3, cm, 01/24/21 10:22:00 EDT, [...] Personnel Name: Criselda Armstrong MD Position: [facility] Physician - Primary Care Member Role: PCP Address: Address: [address] [place], [place] - Care Team Related Persons Name: CHANO URIOSTEGUI Address: home [address] [place], [place] Name: FRANCIS LAWTON Name: BLUE INTERIANO Address: home [address] [address] Name: IDA URBINA
[2023-02-16 09:28] VITALS: BP 112/74; PULSE 70; BMI 28.5
== END 2023-02-16 10:34 | disposition home or self-care (01) ==
LOC: HO.HGIW 09:24
PROVIDERS: PCP Internal Medicine; Visit Provider Physician Assistant
DX: R10.9 Unspecified abdominal pain (principal); G89.29 Other chronic pain; D64.9 Anemia, unspecified
CPT/HCPCS: 99213

== ENCOUNTER → 2023-02-16 09:24 | Outpatient (BNVA) | payer OTHER, SELFPAY | PROVIDERS: PCP Internal Medicine; Visit Provider Physician Assistant | DX: G89.29 Other chronic pain (principal); R10.9 Unspecified abdominal pain; D64.9 Anemia, unspecified | CPT/HCPCS: 99212 ==

== ENCOUNTER 2023-04-07 08:42 | Outpatient (AMB) | payer OTHER, SELFPAY ==
--- NOTE | 2023-04-07 09:24 | MHC.PC.OV ---
Vital Signs 04/07/23:25 Height 4 ft 11 in Weight 144 lb BMI 29.1 BP 104/60 Blood Pressure Location Rt brachial Position Sitting Pulse 72 Pulse Source Pulse Oximeter Pulse Oximetry (%) 99 Oxygen Delivery Method Room Air Intake Visit Reasons: Annual PE Intake Note: Pt is here today for her PE Allergies amoxicillin [Augmentin] Allergy (Severe, Verified 04/07/23 09:25) vomiting azithromycin [From ZITHROMAX] Allergy (Severe, Verified 04/07/23:25) VOMITTING, DIFF BREATHING, hives, SOB, Vomiting clavulanic acid [Augmentin] Allergy (Severe, Verified 04/07/23 09:25) vomiting influenza virus vaccine, specific [FLU VACCINE] Allergy (Severe, Verified 04/07/23:) anaphylaxix prednisone [PREDNISONE] Allergy (Severe, Verified 04/07/23:25) VOMITTING, DIFF BREATHING, hives, SOB, Vomiting cinnamon [CINNAMON] Allergy (Intermediate, Verified 04/07/23:25) itchy mouth ferrous fumarate [Prenatabs FA] Allergy (Intermediate, Verified 04/07/23:25) itching folic acid [Prenatabs FA] Allergy (Intermediate, Verified 04/07/23 09:25) itching latex [LATEX] Allergy (Intermediate, Verified 04/07/23:25) RASH Penicillins [PENICILLINS] Allergy (Intermediate, Verified 04/07/23 09:25) hives/sob phentermine Allergy (Intermediate, Verified 04/07/23 09:25) Nausea vitamins with calcium no.78 [Prenatabs FA] Allergy (Intermediate, Verified 04/07/23:25) itching Sulfa (Sulfonamide Antibiotics) [SULFA (SULFONAMIDE ANTIBIOTICS)] Allergy (Intermediate, Verified 04/07/23 09:25) RASH, vomiting coconut Allergy (Mild, Verified 04/07/23 09:25) HIVES/VOMITING mushroom Allergy (Mild, Verified 04/07/23:25) HIVES/VOMITING sertraline [From ZOLOFT] Allergy (Mild, Verified 04/07/23 09:25) HIVES/VOMITING strawberry [STRAWBERRY] Allergy (Mild, Verified 04/07/23 09:25) HIVES, VOMITING codeine [Codeine] Adverse Reaction (Mild, Verified 04/07/23 09:25) NAUSEA Medication List - Last Reconciled 04/07/23 by Criselda Armstrong MD albuterol sulfate 90 mcg/actuation 1 - 2 puffs PO Q4-6H PRN budesonide-formoterol 160-4.5 mcg/actuation 460 inhalations inhalation DAILY cetirizine 10 mg PO DAILY epinephrine 0.3 mg IM DIRECTED omeprazole 40 mg PO BID 90 days ondansetron 4 mg PO Q8H PRN simethicone (Gas-X Extra Strength) 125 mg PO BID-TID PRN 30 days [Tylenol 100 mg PO BID] Tobacco use date assessed: 04/07/23 Dental Screening Dental Screen Date: 04/07/23 Did you have a dental visit in the last 12 months?: Yes Did you have a dental problem in the last 6 months where you did not have access to dental care?: No Was dental information given to patient?: Patient has dentist HPI Annual PE HPI Details Pt presents for PE. Pt had extensive GI workup for chronic abdominal pain and iron deficiency anemia most likely secondary to menorrhagia. Patient was found to have 6.3 cm right adnexal cyst on abdominal MRI and has an appointment with the stationary plant operators. Patient states she tried multiple oral contraceptives for menorrhagia but could not tolerate them. Patient underwent EGD in November and was found to have gastric polyps, small antral erosions and normal duodenum negative for celiac disease. She was referred to tracer bullet charging machine operator to monitor her chronic iron deficiency anemia. Patient declined taking iron supplement was not a candidate for iron transfusion. [facility] Medical History (Updated 04/07/23 @ 10:21 by Criselda Armstrong MD) ADHD Annual physical exam Normal pelvic exam Seasonal allergic rhinitis Asthma Anemia GERD (gastroesophageal reflux disease) Obesity Interstitial cystitis Surgical History History of esophagogastroduodenoscopy (EGD) H/O right knee surgery History of lumbar puncture Hx of endoscopy Hx of cholecystectomy Family History Paternal Grandfather History of colon cancer Maternal Grandmother Family history of breast cancer Mother History of cirrhosis of liver Other Mental health disorder Substance use disorder Social History Household Members Other:: single, 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 How often do you have a drink containing alcohol?: Never Total Score: 0 LUIS-7 AMB Questionnaire LUIS-7 Date LUIS - 7 assessed: 10/06/22 Source: Developed by Drs. Dario Liu, Cielo Ku, Mateus Bull and colleagues, with an educational abiodun from [employer]. Review of Systems Const All systems reviewed & are unremarkable except as noted in HPI and below Reports no additional complaints Eyes Reports no additional complaints ENT Reports no additional complaints Card Reports no additional complaints Resp Reports no additional complaints GI Reports no additional complaints Reports no additional complaints Physical exam (Primary Care) Vital Signs: Last Vital Signs Pulse 72 04/07/23 09:25 BP 104/60 04/07/23 09:25 Pulse Ox 99 04/07/23 09:25 Oxygen Delivery Method Room Air 04/07/23 09:25 BMI result Body Mass Index 29.1 Tobacco/Smoking Status: Tobacco use Status Tobacco use date assessed 04/07/23 04/07/23 09:29 Patient Tobacco Use Status Former Tobacco user 04/07/23 09:29 Tobacco use type Cigarette 04/07/23 09:29 e-Cigarette/Vaping Use Never Used 04/07/23 09:29 Thrive Assessment: Date of Thrive Assessment Date Thrive assessed 10/06/22 04/07/23 09:29 Const General: no acute distress HENMT Ears: hearing grossly normal bilaterally Eyes General: appearance normal, both eyes and all related structures Neck Neck: Yes no lymphadenopathy and Yes supple Resp Effort & Inspection: normal respiratory effort Auscultation: clear to auscultation bilaterally Cardio Rhythm: regular rhythm Heart sounds: S1 normal heart sound present and S2 normal heart sound present GI Inspection: Yes normal to inspection Palpation (GI): Soft to palpation Percussion: Yes normal to percussion Auscultation: normal bowel sounds Assessment and Plan Assessment & Plan (1) Annual physical exam: Code(s): Z00.00 - Encounter for general adult medical examination without abnormal findings Plan: Well-balanced diet regular physical activity discussed with the patient. She will return for fasting blood work (2) Urinary frequency: Code(s): R35.0 - Frequency of micturition Plan: Check UA (3) Ovarian cyst: Comment: 6.3 cm R ovarian mass on MR 02/10, f/u [facility] stationary plant operators Code(s): N83.209 - Unspecified ovarian cyst, unspecified side (4) Dilation of biliary tract: Comment: MRCP 02/10, negative for choledocholithiasis, CONSISTENT WITH STATUS POST CHOLECYSTECTOMY Code(s): K83.8 - Other specified diseases of biliary tract (5) Anemia: Comment: IRON DEFICIENCY ANEMIA: Anemia is most likely related to her blood loss menorrhagia, cannot tolerate oral iron supplement, follow-up with Hematology Code(s): D64.9 - Anemia, unspecified Plan: Continue well-balanced diet and follow-up with Hematology to monitor CBC and iron count Orders: Orders UA CC w/rflx Micro + Cult Today R35.0 - Frequency of micturition Lipid Panel Today Z00.00 - Encounter for general adult medical examination without abnormal findings Coding Level of Care Code Est Pt Prev Care 18-39y(94308) Diagnoses Annual physical exam Z00.00 Urinary frequency R35.0 Ovarian cyst N83.209 Dilation of biliary tract K83.8 Anemia D64.9
[2023-04-07 09:25] VITALS: BP 104/60; PULSE 72; O2SAT 99; BMI 29.1
== END 2023-04-07 10:10 | disposition home or self-care (01) ==
PROVIDERS: Visit Provider Internal Medicine
DX: Z00.00 Encounter for general adult medical examination without abnormal findings (principal); R35.0 Frequency of micturition; N83.209 Unspecified ovarian cyst, unspecified side; K83.8 Other specified diseases of biliary tract; D64.9 Anemia, unspecified
CPT/HCPCS: 99395

== ENCOUNTER 2023-04-07 10:11 | Outpatient (REF) | payer OTHER, SELFPAY ==
[2023-04-07 13:33] LABS: Appearance Urine Clear; Color Urine Yellow; Glucose Urine UA Negative (Negative); Leukocyte Esterase Urine Small (1+) (Negative); Nitrite Urine Negative (Negative); Specific Gravity - Urine 1.025 (1.005-1.025); UMIC TRIGGER UACC YES; Urine Blood Negative (Negative); Urine Ketones Negative (Negative); Urine Protein Negative (Neg-Trace)
[2023-04-07 13:38] LABS: Bacteria Urine Trace (None Seen); Hyaline Casts Urine 0-2 /LPF (0-2); RBC Urine 0-2 /HPF (0-2); UACC Culture Trigger YES
[2023-04-07 14:43] LABS: Cholesterol 163 mg/dL (<200); HDL Cholesterol 52 mg/dL (>40); LDL Cholesterol Calculated 94 mg/dL (<100); Triglycerides 85 mg/dL (<150)
== END 2023-04-07 10:12 | disposition home or self-care (01) ==
LOC: HO.HMGCLDS 10:11
PROVIDERS: PCP Internal Medicine; Visit Provider Internal Medicine
DX: Z00.00 Encounter for general adult medical examination without abnormal findings (principal); R35.0 Frequency of micturition
CPT/HCPCS: 36415; 80061; 81001; 87086

== ENCOUNTER 2023-04-16 10:14 | Outpatient (REF) | payer OTHER, SELFPAY ==
--- NOTE | ~2023-04-16 | CT_ITS ---
EXAMINATION: CT ABDOMEN AND PELVIS WITHOUT CONTRAST CLINICAL INFORMATION: Interstitial cystitis COMPARISON: Previous CT of the abdomen and pelvis March 2020 TECHNIQUE: Multidetector volumetric imaging was performed from the superior aspect of the liver through the pubic symphysis. Sagittal and coronal reformatted images were obtained on the technologist's workstation. This CT examination was performed using dose optimization techniques as appropriate, variously including the following: *Automated exposure control *Adjustment of mA and/or kV according to patient size (this includes techniques or standardized protocols for targeted exams where dose is matched to indication/reason for exam; i.e. extremities or head) *Use of iterative reconstruction technique DLP: 543 mGy-cm FINDINGS: LUNG BASES: The visualized lung bases are unremarkable. LIVER, GALLBLADDER, AND BILIARY TREE: The liver is normal in size, shape, and attenuation. No focal hepatic lesion or biliary ductal dilatation is present. The gallbladder has been removed. PANCREAS: Unremarkable. SPLEEN: Unremarkable. ADRENAL GLANDS: Unremarkable. KIDNEYS AND URETERS: The kidneys are normal in size, shape, and attenuation. No hydronephrosis, hydroureter, or calculi seen. No perinephric stranding. BLADDER: Not optimally distended and difficult to evaluate. GASTROINTESTINAL TRACT: Large stool burden. The small and large bowel are otherwise unremarkable. The appendix is unremarkable. ABDOMINAL WALL: No significant hernia is appreciated. LYMPH NODES: Normal. VASCULAR: Unremarkable. PELVIC VISCERA: Small 2 x 3 cm simple appearing right ovarian cyst. No imaging follow-up recommended. Uterus and ovaries are otherwise unremarkable. OSSEOUS STRUCTURES: Degenerative disc disease at L5-S1. CT/CT abdomen pelvis wo IV con IMPRESSION: Bladder not optimally distended and difficult to evaluate. Large stool burden. Small right ovarian cyst. Fleischner guidelines were followed.
== END 2023-04-16 10:15 | disposition home or self-care (01) ==
LOC: HO.CT 10:14
PROVIDERS: PCP Internal Medicine; Visit Provider Physician Assistant
DX: N30.10 Interstitial cystitis (chronic) without hematuria (principal)
CPT/HCPCS: 74176

== ENCOUNTER 2023-05-24 06:35 | Emergency (ER) | payer OTHER, SELFPAY ==
[2023-05-24 06:35] VITALS: BP 103/80; PULSE 93; RESP 16; TEMP 36.2; O2SAT 98; BMI 29.7
--- OUTSIDE RECORDS SUMMARY | 2023-05-24 07:40 | XMS_ITS | Continuity of Care Document ---
Author Name Unknown Organization [facility] Address [address] [place] [address], [address] [place] [address]- Care Team Providers Care Marketing Communications Assistant Name Role Phone Criselda Armstrong MD Primary Care Physician [facility] [place] [id number] Date(s): 03/12/23 - 04/11/23 [facility] [address] [place] [address], [address] [place], [place] [address] Attending Physician: AdmBrian hoffmann Admitting Physician: AdmtrBrian Referring Physician: Admtr, Ar8 Allergies, Adverse Reactions, [...] Date: 01/08/14 Stop Date: 01/03/15 Status: Ordered Symbicort 160mcg/4.5mcg Inhaler 2 puffs, [...] Migraine Confirmed Active Smoking 1 Confirmed Active 04/22 to 1 ppd age 16-20 and age 22-25 Social History Social History Type Response Smoking Status Former smoker; Tobac co user in household: No entered on: 07/31/14 Sex Patient Care team information Care Team Personnel Name: Criselda Armstrong MD Position: [facility] Physician - Primary Care Member Role: PCP Address: Address: [address] [place] [address]- Care Team Related Persons Name: CHANO URIOSTEGUI Address: home [address] [place], [place] Name: FRANCIS LAWTON Name: BLUE INTERIANO Address: [address] [address] Name: IDA URBINA
--- OUTSIDE RECORDS SUMMARY | 2023-05-24 07:41 | XMS_ITS | Continuity of Care Document ---
Author Name Unknown Organization [facility] Address [address] [place] [address], [address] [place] [address]- Care Team Providers Care Accredited Pharmacy Technician Name Role Phone Criselda Armstrong MD Primary Care Physician Encounter [facility] [id number] Date(s): 12/24/22 - 04/11/23 [facility] [place] [facility] [address] [facility], [address] [place], [place] [address] Attending Physician: Cadence Santiago MD Referring Physician: Criselda Armstrong MD Allergies, Adverse Reactions, Alerts Substance Reaction [...] Migraine Confirmed Active Smoking 1 Confirmed Active 11/ to 1 ppd age 16-20 and age 22-25 Social History Social History Type Response Smoking Status Former smoker; Tobac co user in household: No entered on: 07/31/14 Sex Patient Care team information Care Team Personnel Name: Criselda Armstrong MD Position: [facility] Physician - Primary Care Member Role: PCP Address: Address: [address] [place] [address]- Care Team Related Persons Name: CHANO URIOSTEGUI Address: home [address] [place], [place] Name: FRANCIS LAWTON Name: BLUE INTERIANO Address: home [address] [address] Name: IDA URBINA
[2023-05-24 07:55] LABS: IDNOW Serial# 08D9AD1C; Strep A Nucleic Acid Negative (Negative)
--- NOTE | 2023-05-24 08:08 | ED_ITS ---
HPI - URI/Sore Throat General Chief Complaint: Upper Respiratory Symptoms Stated Complaint: throat pain Time Seen by Provider: 05/24/23 08:00 Source: patient, RN notes reviewed and old records reviewed Mode of arrival: ambulatory History of Present Illness HPI Narrative: 37-year-old female with a past medical history ADHD, anemia, asthma, GERD, obesity, presenting to the ED complaining of rhinorrhea, congestion, chills, sore throat, headache and diarrhea x last night. Also reports mild dry cough. Denies CP/SOB, ear pain, fever. 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 MD elicited complaint: cough, sore throat, rhinorrhea and nasal congestion Related Data Home Medications Medication Instructions Recorded Confirmed albuterol sulfate 90 mcg/actuation 1 - 2 puff PO Q4-6H PRN breathing 03/18/20 04/07/23 aerosol inhaler budesonide-formoterol HFA 160 460 inh inhalation DAILY 03/18/20 04/07/23 mcg-4.5 mcg/actuation aerosol inhaler cetirizine 10 mg tablet 10 mg PO DAILY 03/18/20 04/07/23 epinephrine 0.3 mg/0.3 mL 0.3 mg IM DIRECTED 03/18/20 04/07/23 injection, auto-injector Tylenol 100 mg PO BID 12/14/22 04/07/23 Previous Rx's Medication Instructions Recorded ondansetron 4 mg disintegrating 4 mg PO Q8H PRN nausea and 11/06/22 tablet vomiting #10 tabs simethicone 125 mg capsule (Gas-X 125 mg PO BID-TID PRN abdominal 02/16/23 Extra Strength) distention 30 days #90 caps omeprazole 40 mg capsule,delayed 40 mg PO BID 90 days #180 caps 04/08/23 release Allergies Allergy/AdvReac Type Severity Reaction Status Date / Time amoxicillin [Augmentin] Allergy Severe vomiting Verified 04/07/23 09:25 azithromycin [From ZITHROMAX] Allergy Severe VOMITTING, Verified 04/07/23 09:25 DIFF BREATHING, hives, SOB, Vomiting clavulanic acid [Augmentin] Allergy Severe vomiting Verified 04/07/23 09:25 influenza virus vaccine, Allergy Severe anaphylaxix Verified 04/07/23 09:25 specific [FLU VACCINE] prednisone [PREDNISONE] Allergy Severe VOMITTING, Verified 04/07/23 09:25 DIFF BREATHING, hives, SOB, Vomiting cinnamon [CINNAMON] Allergy Intermediate itchy mouth Verified 04/07/23 09:25 ferrous fumarate Allergy Intermediate itching Verified 04/07/23 09:25 [Prenatabs FA] folic acid [Prenatabs FA] Allergy Intermediate itching Verified 04/07/23 09:25 latex [LATEX] Allergy Intermediate RASH Verified 04/07/23 09:25 Penicillins [PENICILLINS] Allergy Intermediate hives/sob Verified 04/07/23 09:25 phentermine Allergy Intermediate Nausea Verified 04/07/23 09:25 vitamins with Allergy Intermediate itching Verified 04/07/23 09:25 calcium no.78 [Prenatabs FA] Sulfa (Sulfonamide Allergy Intermediate RASH, Verified 04/07/23 09:25 Antibiotics) vomiting [SULFA (SULFONAMIDE ANTIBIOTICS)] coconut Allergy Mild HIVES/VOMIT Verified 04/07/23 09:25 ING mushroom Allergy Mild HIVES/VOMIT Verified 04/07/23 09:25 ING sertraline [From ZOLOFT] Allergy Mild HIVES/VOMIT Verified 04/07/23 09:25 ING strawberry [STRAWBERRY] Allergy Mild HIVES, Verified 04/07/23 09:25 VOMITING codeine [Codeine] AdvReac Mild NAUSEA Verified 04/07/23 09:25 Review of Systems Review of Systems: Constitutional: No Fever, + Chills ENT/Mouth: No Ear Pain, + Nasal Congestion, No Sinus Pain, No Hoarseness, + sore throat, + Rhinorrhea, No Swallowing Difficulty Cardiovascular: No Chest Pain, No SOB Respiratory: + Cough, No Sputum, No Wheezing Gastrointestinal: No Nausea, No Vomiting, + Diarrhea, No Constipation, No Abdominal pain Genitourinary: No Dysuria, No Hematuria, No Urgency, No Flank Pain Musculoskeletal: No joint pain, + Myalgias, No Joint Swelling Skin: No Skin Lesions, No rash Neuro: No Weakness Yes all other systems are reviewed and are negative Constitutional: Constitutional: Reports as per [facility] Past Medical History Attestation statement: The following information was validated with the patient. Source: old records reviewed Medical History ADHD Annual physical exam Normal pelvic exam Seasonal allergic rhinitis Asthma Anemia GERD (gastroesophageal reflux disease) Obesity Interstitial cystitis Surgical History History of esophagogastroduodenoscopy (EGD) H/O right knee surgery History of lumbar puncture Hx of endoscopy Hx of cholecystectomy Family History Family History Paternal Grandfather History of colon cancer Maternal Grandmother Family history of breast cancer Mother History of cirrhosis of liver Other Mental health disorder Substance use disorder Social History Social History Household Members Other:: single, 3 children, 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 Housing: House Alcohol intake: never Patient Tobacco Use Status: Former Tobacco user Quit Date: 2014 Tobacco use type: Cigarette Years Smoked: 15 e-Cigarette/Vaping Use: Never Used Advance Directives: No Advance Directives Information Provided: No service: No Current occupational status: unemployed 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 Cognitive needs: No Hearing needs: No Vision needs: Yes Physical Exam Vital Signs: Vital Signs: Last Vital Signs Temp 97.1 F 05/24/23 06:35 Pulse 93 05/24/23 06:35 Resp 16 05/24/23 06:35 BP 103/80 05/24/23 06:35 Pulse Ox 98 05/24/23 06:35 O2 Del Method Room Air 05/24/23 06:35 BMI result Body Mass Index 29.7 Const: General: cooperative, healthy appearing and no acute distress Orientation/consciousness: patient oriented x3 Limitations: no limitations HEENT: Head: Yes normal to inspection and Yes atraumatic Ears: hearing grossly normal bilaterally, external ears normal, TM's normal bilaterally and mastoids normal General nose exam: Normal external nose present Face and sinus: Yes normal facial exam Mouth: Normal oral and palatal mucosa present Throat: Yes tonsils normal, Yes uvula midline, No peritonsillar mass, Yes posterior oropharynx abnormal (Mild erythema) and No uvular edema Eyes: General: appearance normal, both eyes and all related structures EOM: EOMs intact bilaterally Neck: Neck: Yes normal visual inspection and Yes no meningeal signs Resp: Effort & Inspection: normal respiratory effort and no respiratory distress Auscultation: clear to auscultation bilaterally, no crackles, no rhonchi and no wheezes Cardio: Rate: regular rate Heart sounds: S1 normal heart sound present and S2 normal heart sound present GI: Inspection: Yes normal to inspection Palpation (GI): Soft to palpation, nontender, no guarding and not rigid Skin: Rashes: no rashes Wounds: no wounds Neuro: General: patient oriented x3, tone normal and no meningeal signs Cranial nerves: Yes CN's II-XII intact bilaterally Gait exam (Neuro): Normal gait present Extrem: General: Yes normal to inspection Course Course Course Narrative: 918--COVID/flu/RSV and rapid strep negative Results discussed with patient including worrisome signs and symptoms and strict return precautions, and when to return to the emergency department. They verbalized understanding and feel safe for discharge at this time. Medical Decision Making Medical Decision Making MDM Narrative: 37-year-old female with a past medical history ADHD, anemia, asthma, GERD, obesi ty, presenting to the ED complaining of rhinorrhea, congestion, chills, sore throat, headache and diarrhea x last night. On exam vital signs stable, NAD, nontoxic appearing, exam nonfocal. Concern for viral illness vs strep pharyngitis vs gastroenteritis. 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 Low suspicion for appendicitis/diverticulitis Plan: Viral testing Please refer to course for remaining clinical decision making, interpretation of labs/imaging results, and discussions with consultants and/or family members. Differential Diagnosis Differential Diagnoses: The differential diagnosis associated with the presentation includes As above Lab Data [facility] Lab Attestation statement: I reviewed the patient's lab results. Labs: Lab Results 05/24/23 Range/Units 07:27 Influenza Type A (PCR) NEGATIVE (Negative) Influenza Type B (PCR) NEGATIVE (Negative) RSV RNA Qual (PCR) NEGATIVE (Negative) SARS-CoV-2 RNA (RT-PCR) NEGATIVE (Negative) S. pyogenes GrpA TYRONE Negative (Negative) External Record Review External record reviewed: Inpatient record, Office record, Outpatient record, Prior outpatient labs, Prior outpatient radiology, Primary care record and Outside ED record Tests considered The following testing was considered but not selected: As above Discharge Plan Discharge Clinical Impression: Acute viral syndrome Patient Disposition: Home, Self-Care Instructions: Viral Syndrome (ED) Additional Instructions: You have a virus No antibiotics are indicated at this time Make sure you are staying hydrated. Drink plenty of fluids. Rest Alternate Tylenol and Motrin at home as needed for body aches and fever Follow-up with your doctor. If symptoms persist or worsen return to the emergency department *If you are a child & not tolerating liquid or urinating for more than 6 hours, or fevers are uncontrolled with medications at home, return to the emergency department* Prescriptions: No Action omeprazole 40 mg capsule,delayed release(DR/EC) 40 mg PO BID 90 Days Qty: 180 3RF ondansetron 4 mg tablet,disintegrating 4 mg PO Q8H PRN (Reason: nausea and vomiting) Qty: 10 0RF Tylenol 100 mg PO BID budesonide-formoterol 160-4.5 mcg/actuation HFA aerosol inhaler 460 inh inhalation DAILY cetirizine 10 mg tablet 10 mg PO DAILY albuterol sulfate 90 mcg/actuation HFA aerosol inhaler 1 - 2 puff PO Q4-6H PRN (Reason: breathing) epinephrine 0.3 mg/0.3 mL auto-injector 0.3 mg IM DIRECTED simethicone [Gas-X Extra Strength] 125 mg capsule 125 mg PO BID-TID PRN (Reason: abdominal distention) 30 Days Qty: 90 2RF Referrals: Physician,Unknown J [Primary Care Provider] - Stand Alone Forms: Work/School Release Interventions: ED Discharge Assessment Last Done: 05/24/23 09:24 Discharge Date/Time: 05/24/23 09:24
[2023-05-24 08:11] LABS: Influenza A PCR NEGATIVE (Negative); Influenza B PCR NEGATIVE (Negative); Resp Syncy Virus RNA Qual PCR NEGATIVE (Negative); SARS COV2 PCR INHOUSE NEGATIVE (Negative)
== END 2023-05-24 09:24 | disposition home or self-care (01) ==
PROVIDERS: Emergency Provider Emergency Medicine
DX: B34.9 Viral infection, unspecified (principal); J02.9 Acute pharyngitis, unspecified; J34.89 Other specified disorders of nose and nasal sinuses; R09.81 Nasal congestion; R05.9 Cough, unspecified; Z87.891 Personal history of nicotine dependence; Z20.822 Contact with and (suspected) exposure to COVID-19; Z20.828 Contact with and (suspected) exposure to other viral communicable diseases
CPT/HCPCS: 0241U; 87651; 99282; 99283

== ENCOUNTER 2023-08-31 06:38 | Emergency (ER) | payer OTHER, SELFPAY ==
--- NOTE | ~2023-08-31 | CT_ITS ---
EXAMINATION: CT ABDOMEN AND PELVIS WITHOUT CONTRAST CLINICAL INFORMATION: Right-sided flank pain. History of cholecystectomy. COMPARISON: 04/16/2023. TECHNIQUE: Multidetector volumetric imaging was performed from the superior aspect of the liver through the pubic symphysis. Sagittal and coronal reformatted images were obtained on the technologist's workstation. This CT examination was performed using dose optimization techniques as appropriate, variously including the following: *Automated exposure control *Adjustment of mA and/or kV according to patient size (this includes techniques or standardized protocols for targeted exams where dose is matched to indication/reason for exam; i.e. extremities or head) *Use of iterative reconstruction technique DLP: 607 mGy-cm FINDINGS: LUNG BASES: No pulmonary consolidation or pleural effusion. HEPATOBILIARY: The liver has normal size, shape, and attenuation. Gallbladder is surgically absent. Common bile duct is chronically mildly dilated; it measures approximately 0.9 cm maximum diameter and was at least 1 cm diameter on the MRCP from 02/04/2023. PANCREAS: No edema, pancreatic ductal dilatation or mass. SPLEEN: Normal. ADRENAL GLANDS: Normal. KIDNEYS AND URETERS: The kidneys have normal size and cortical thickness. No perinephric fluid collection, urolithiasis or hydroureteronephrosis. BLADDER: Normal. No calculi or wall thickening. BOWEL AND PERITONEUM: Stomach is unremarkable. No dilated loops of bowel. The appendix is normal. No overt bowel wall thickening or mesenteric fat stranding. No free fluid or pneumoperitoneum. ABDOMINAL WALL: Unremarkable. VASCULATURE: Unremarkable. LYMPH NODES: No pathologic sized lymph nodes in the abdomen or pelvis. No inguinal lymphadenopathy. PELVIC VISCERA: No evidence of uterine or adnexal mass. Trace, physiologic amount of free fluid is seen in the pelvis. A follicle within the right ovary measures up to 2.5 cm. No pelvic imaging follow-up recommended (if asymptomatic). MUSCULOSKELETAL: No acute or suspicious osseous abnormality. CT/CT abdomen pelvis wo IV con IMPRESSION: * No acute imaging abnormalities in the abdomen or pelvis compared to 04/16/2023. * No nephrolithiasis or hydronephrosis. * Common bile duct is chronically mildly dilated, status post cholecystectomy.
[2023-08-31 06:40] VITALS: BP 123/45; PULSE 83; RESP 19; TEMP 36.6; O2SAT 100; BMI 29.7
--- NOTE | 2023-08-31 07:34 | ED_ITS ---
HPI - Abdominal Pain General Chief Complaint: Abdominal Pain Stated Complaint: gen med Time Seen by Provider: 08/31/23 07:05 Source: patient Mode of arrival: ambulatory Limitations: no limitations History of Present Illness HPI narrative: 37-year-old female who presents emergency department for evaluation of right flank and right-sided abdominal pain. Patient states that the pain started yesterday morning at around 06:00 hours. She points to her right flank, right upper quadrant she states the pain is a constant, sharp, achiness which was 10/10 at its worse and is currently 6/10. Patient also noted urinary frequency and dysuria. She has a history of interstitial cystitis. States that the pain is worse with eating and drinking fluids. She had nausea but no vomiting or diarrhea. She states that she had chills but no fever. This morning she developed a sore throat and a nonproductive cough. Patient states she had similar pain 1 year prior but did not get a diagnosis for the pain. Patient had a cholecystectomy in 2017. She states that she is allergic to contrast dye and discuss shortness of breath. She currently does not want any pain medications and states that she is in recovery times. 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 Related Data Home Medications Medication Instructions Recorded Confirmed albuterol sulfate 90 mcg/actuation 1 - 2 puff PO Q4-6H PRN breathing 03/18/20 06/25/23 aerosol inhaler budesonide-formoterol HFA 160 460 inh inhalation DAILY 03/18/20 06/25/23 mcg-4.5 mcg/actuation aerosol inhaler cetirizine 10 mg tablet 10 mg PO DAILY 03/18/20 06/25/23 epinephrine 0.3 mg/0.3 mL 0.3 mg IM DIRECTED 03/18/20 06/25/23 injection, auto-injector Tylenol 100 mg PO BID 12/14/22 06/25/23 Previous Rx's Medication Instructions Recorded ondansetron 4 mg disintegrating 4 mg PO Q8H PRN nausea and 11/06/22 tablet vomiting #10 tabs simethicone 125 mg capsule (Gas-X 125 mg PO BID-TID PRN abdominal 02/16/23 Extra Strength) distention 30 days #90 caps omeprazole 40 mg capsule,delayed 40 mg PO BID 90 days #180 caps 10/19/23 release Allergies Allergy/AdvReac Type Severity Reaction Status Date / Time amoxicillin [Augmentin] Allergy Severe vomiting Verified 08/31/23 06:40 azithromycin [From ZITHROMAX] Allergy Severe VOMITTING, Verified 08/31/23 06:40 DIFF BREATHING, hives, SOB, Vomiting clavulanic acid [Augmentin] Allergy Severe vomiting Verified 08/31/23 06:40 influenza virus vaccine, Allergy Severe anaphylaxix Verified 08/31/23 06:40 specific [FLU VACCINE] prednisone [PREDNISONE] Allergy Severe VOMITTING, Verified 08/31/23 06:40 DIFF BREATHING, hives, SOB, Vomiting cinnamon [CINNAMON] Allergy Intermediate itchy mouth Verified 08/31/23 06:40 ferrous fumarate Allergy Intermediate itching Verified 08/31/23 06:40 [Prenatabs FA] folic acid [Prenatabs FA] Allergy Intermediate itching Verified 08/31/23 06:40 latex [LATEX] Allergy Intermediate RASH Verified 08/31/23 06:40 Penicillins [PENICILLINS] Allergy Intermediate hives/sob Verified 08/31/23 06:40 phentermine Allergy Intermediate Nausea Verified 08/31/23 06:40 vitamins with Allergy Intermediate itching Verified 08/31/23 06:40 calcium no.78 [Prenatabs FA] Sulfa (Sulfonamide Allergy Intermediate RASH, Verified 08/31/23 06:40 Antibiotics) vomiting [SULFA (SULFONAMIDE ANTIBIOTICS)] coconut Allergy Mild HIVES/VOMIT Verified 08/31/23 06:40 ING mushroom Allergy Mild HIVES/VOMIT Verified 08/31/23 06:40 ING sertraline [From ZOLOFT] Allergy Mild HIVES/VOMIT Verified 08/31/23 06:40 ING strawberry [STRAWBERRY] Allergy Mild HIVES, Verified 08/31/23 06:40 VOMITING codeine [Codeine] AdvReac Mild NAUSEA Verified 08/31/23 06:40 Review of Systems Review of Systems Yes all other systems are reviewed and are negative [facility] Past Medical History [facility] Narrative: Social history: Patient is . 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 She denies tobacco, alcohol and drug use. Medical History ADHD Annual physical exam Normal pelvic exam Seasonal allergic rhinitis Asthma Anemia GERD (gastroesophageal reflux disease) Obesity Interstitial cystitis Surgical History History of esophagogastroduodenoscopy (EGD) H/O right knee surgery History of lumbar puncture Hx of endoscopy Hx of cholecystectomy Family History Family History Paternal Grandfather History of colon cancer Maternal Grandmother Family history of breast cancer Mother History of cirrhosis of liver Other Mental health disorder Substance use disorder Social History Social History Household Members Other:: single, 3 children, 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 Housing: House Alcohol intake: never Patient Tobacco Use Status: Former Tobacco user Quit Date: 2014 Tobacco use type: Cigarette Years Smoked: 15 Smoked in Last 30 Days: No e-Cigarette/Vaping Use: Never Used Use of substances other than those prescribed or required for medical reasons: No Advance Directives: No Advance Directives Information Provided: Yes Patient : No (unsure) service: No Current occupational status: unemployed 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 Cognitive needs: No Hearing needs: No Vision needs: Yes Physical Exam ED Vital Signs: Vital Signs - 24 hr 08/31/23 06:40 08/31/23 08:44 Temperature 98 F 98.7 F Pulse Rate 83 75 Respiratory Rate 19 19 Blood Pressure 123/45 L 130/68 Pulse Oximetry 100 Oxygen Delivery Method Room Air BMI result Body Mass Index 29.7 Vital signs were normal Exam: General: Awake, alert in no distress Head: Normocephalic, atraumatic EENT: PERRL, Lids normal, sclera normal, conjunctiva normal, nose normal , ears normal, throat without erythema or exudates Neck: Supple, no adenopathy Lung: breath sounds symmetric, no wheezing, rales or rhonchi Chest: symmetric movement, nontender Heart: regular rate and rhythm, normal S1, S2 no murmurs or rubs Abdomen: soft, mild to moderate right lower quadrant tenderness, moderate right upper quadrant tenderness, nondistended, normal bowel sounds Back: Mild to moderate right CVA tenderness tenderness, no CVAT Extremities: no deformities, moves all extremities symmetrically Neuro: Awake, alert, oriented, normal speech, cranial nerves intact, moves all extremities symmetrically Psych: Pleasant, cooperative Medical Decision Making Medical Decision Making [facility] Narrative: 37-year-old female with a history of ADHD, GERD, asthma, interstitial cystitis, cholecystectomy who presents emergency department for evaluation of right-sided abdominal pain starting yesterday at 06:00 hours, pain is been constant is gotten worse, also associated with chills, sore throat, cough, nausea, frequency, dysuria. Pain is currently 6/10 and the patient does not want any pain medications. Vital signs were normal. Exam did reveal right flank, right upper quadrant right lower quadrant tenderness. Differential diagnosis: ?Includes but is not limited to renal colic/calculi, retained biliary stone, appendicitis, cystitis, pyelonephritis, viral syndrome, anemia, electrolyte abnormality Following evaluation was ordered: CBC, BMP, liver panel, lipase, urinalysis, urine , COVID-19, influenza, RSV, CT scan abdomen pelvis without IV contrast Patient was initially treated with the following: IV insertion, normal saline x1 L Course: 10:11 My interpretation patient's laboratory evaluation as follows: Microcytic anemia which is chronic, patient states she can not take iron and sometimes gets transfusions for severe anemia. Patient's CMP lipase, COVID-19, influenza, RSV were negative. Urine test was negative. Urinalysis was positive for leukocyte esterase. Microscopic was consistent with a non clean catch specimen with 21-50 WBCs, 11-20 squamous epithelial cells and 2+ bacteria. CT scan of the abdomen pelvis did not reveal a clear etiology for the patient's abdominal pain. Patient does have interstitial cystitis and also has significant antibiotic allergies. I did discuss the non clean catch urine and through shared decision-making we both agree that the patient would not be treated with antibiotics this time unless she grows a significant organism out of her urine. Patient was advised to continue taking Tylenol to return to the emergency department if her symptoms get worse or she develops any new symptoms that are concerning to her. She was given printed and verbal instructions discharged home. She was given a work note to return to work on 09/02/2023. Admission/Observation Consideration of admission/observation: Escalation of care including admission/observation considered Lab Data [facility] Lab Attestation statement: I reviewed the patient's lab results. 08/31/23 07:46 08/31/23 07:46 Labs: Lab Results 08/31/23 08/31/23 08/31/23 Range/Units 07:24 07:46 07:47 WBC 7.2 (4.8-10.8) X10*3/uL RBC 3.76 L (4.20-5.50) X10*6/uL Hgb 8.5 L (12.0-16.0) g/dl Hct 28.9 L (37.0-47.0) % MCV 76.9 L (80.0-98.0) fL MCH 22.6 L (27.0-33.0) pg MCHC 29.4 L (31.0-35.0) g/dl RDW 17.5 H (11.0-16.0) % Plt Count 257 D (160-400) X10*3/uL MPV 10.1 (9.4-12.3) fL Immature Gran % (Auto) 0.3 (0.0-0.4) % Neut % (Auto) 72.8 (45-73) % Lymph % (Auto) 18.5 L (20-40) % [place] % (Auto) 7.2 (2-11) % Eos % (Auto) 0.8 (0-4) % Baso % (Auto) 0.4 (0-2) % Lymph # (Auto) 1.3 (1.2-4.9) X10*3/uL [place] # (Auto) 0.5 (0.1-1.2) X10*3/uL Eos # (Auto) 0.1 (0.0-0.4) X10*3/uL Baso # (Auto) 0.0 (0.0-0.2) X10*3/uL Abs Immat Gran (auto) 0.02 (0.00-0.03) X10*3/uL Absolute Neuts (auto) 5.3 (2.0-8.3) x10*3/uL Absolute Nucleated RBC 0.000 (0.0-0.012) X10*3/uL Nucleated RBC % (auto) 0.0 (0.0-0.2) /100WBC Sodium 138 (135-145) mmol/L Potassium 4.2 (3.3-5.1) mmol/L Chloride 107 (96-108) mmol/L Carbon Dioxide 26 (22-29) mmol/L Anion Gap 9 L (12-20) BUN 14 (9-16) mg/dL Creatinine 0.65 (0.5-1.4) mg/dL Estim Creat Clear Calc 99.3 Estimated GFR > 60 Random Glucose 89 (60-115) mg/dL Calcium 9.3 (8.4-10.2) mg/dL Total Bilirubin 0.3 (0.0-1.0) mg/dL Direct Bilirubin 0.1 (0.0-0.5) mg/dL AST 15 (5-31) U/L ALT 12 (0-31) U/L Alkaline Phosphatase 61 (39-117) U/L Total Protein 6.6 (6.5-8.0) g/dL Albumin 4.0 (3.5-5.0) g/dL Lipase 37 (8-78) U/L Urine Color Yellow Urine Appearance Cloudy Urine pH 6.5 (5.0-9.0) Ur Specific [place] 1.020 (1.005-1.025) Urine Protein Negative (Neg-Trace) mg/dL Urine Glucose (UA) Negative (Negative) mg/dL Urine Ketones Negative (Negative) mg/dL Urine Blood Negative (Negative) Urine Nitrite Negative (Negative) Ur Leukocyte Esterase Moderate (2+) H (Negative) Urine RBC 0-2 (0-2) /HPF Urine WBC 21-50 H (0-5) /HPF Ur Squamous Epith Cells 11-20 (0-2) /HPF Urine Bacteria 2+ (None Seen) Hyaline Casts 0-2 (0-2) /LPF Urine Test NEGATIVE (NEGATIVE) Influenza Type A (PCR) NEGATIVE (Negative) Influenza Type B (PCR) NEGATIVE (Negative) RSV RNA Qual (PCR) NEGATIVE (Negative) SARS-CoV-2 RNA (RT-PCR) NEGATIVE (Negative) Radiology Impression Discussion of test interpretation with radiology: I have reviewed the radiologist's reading. Radiologist Impression: CT abdomen pelvis wo IV con IMPRESSION: * No acute imaging abnormalities in the abdomen or pelvis compared to 04/16/2023. * No nephrolithiasis or hydronephrosis. * Common bile duct is chronically mildly dilated, status post cholecystectomy. Dictated By: Corwin Norton MD Chronic Conditions Patient?s care impacted by: Other (Interstitial cystitis) Medications Administered Discontinued Medications Generic Name Dose Route Start Last Admin Trade Name Freq PRN Reason Stop Dose Admin Sodium Chloride 1,000 mls @ 999 mls/hr 08/31/23 07:22 08/31/23 07:35 Ns IV 08/31/23 08:22 999 mls/hr .Q1H1M STA Administration Discharge Plan Discharge Clinical Impression: Dysuria, Acute right flank pain Abdominal pain Qualifiers: Abdominal location: right lower quadrant Qualified Code(s): R10.31 - Right lower quadrant pain Patient Disposition: Home, Self-Care Instructions: Abdominal Pain (ED) Additional Instructions: Your blood work is consistent with an iron deficient anemia, you had similar low red blood cell counts in the past. 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 Your blood chemistries were normal Your urine test was negative. Your urinalysis is equivocal for urinary tract infection and we agreed that we would not treat you with antibiotics unless your urine culture grows a significant bacteria or if your symptoms get worse. The emergency department should call you in 2-3 days to discuss the urine result if it is positive, you can also check the patient portal and discuss the findings with your primary care doctor. Continue taking Tylenol as directed on the bottle for your pain. Follow-up with your doctor in 2 days. Please return to the emergency department if your symptoms get worse or if you develop any symptoms that are concerning to you. Please see the work note Prescriptions: No Action omeprazole 40 mg capsule,delayed release(DR/EC) 40 mg PO BID 90 Days Qty: 180 3RF ondansetron 4 mg tablet,disintegrating 4 mg PO Q8H PRN (Reason: nausea and vomiting) Qty: 10 0RF Tylenol 100 mg PO BID budesonide-formoterol 160-4.5 mcg/actuation HFA aerosol inhaler 460 inh inhalation DAILY cetirizine 10 mg tablet 10 mg PO DAILY albuterol sulfate 90 mcg/actuation HFA aerosol inhaler 1 - 2 puff PO Q4-6H PRN (Reason: breathing) epinephrine 0.3 mg/0.3 mL auto-injector 0.3 mg IM DIRECTED simethicone [Gas-X Extra Strength] 125 mg capsule 125 mg PO BID-TID PRN (Reason: abdominal distention) 30 Days Qty: 90 2RF Stand Alone Forms: Work/School Release
[2023-08-31 07:35] LABS: Appearance Urine Cloudy; Color Urine Yellow; Glucose Urine UA Negative (Negative); Leukocyte Esterase Urine Moderate (2+) (Negative); Nitrite Urine Negative (Negative); PH 6.5 (5.0-9.0); UMIC TRIGGER UACC YES; Urine Blood Negative (Negative); Urine Ketones Negative (Negative); Urine Protein Negative (Neg-Trace)
[2023-08-31] MEDS: 0.9 % Sodium Chloride 1,000 ML 999 ML IV (07:35)
[2023-08-31 07:38] LABS: UPreg QC Valid YES; Urine Pregnancy NEGATIVE (NEGATIVE)
--- NOTE | 2023-08-31 07:39 | PC.NURSE ---
pt a&ox3, iv inserted- tech to draw labs as they were unable to be pulled off IV, pt c/o 11/28 rt abd pain- refusing pain medications at this time, IVF hung per order, urine obtained, pt to go to CT, call edwards within reach, will continue to monitor
[2023-08-31 07:40] LABS: Bacteria Urine 2+ (None Seen); Hyaline Casts Urine 0-2 /LPF (0-2); RBC Urine 0-2 /HPF (0-2); UACC Culture Trigger YES; WBC Urine 21-50 /HPF (0-5)
[2023-08-31 07:52] LABS: MANUAL DIFF FLAG NO
[2023-08-31 07:54] LABS: Basophils Percent Auto 0.4 % (0-2); Eosinophils Absolute Auto 0.1 X10*3/uL (0.0-0.4); Eosinophils Percent Auto 0.8 % (0-4); Hematocrit 28.9 % (37.0-47.0); Hemoglobin 8.5 g/dl (12.0-16.0); Imm Gran Abs Auto 0.02 X10*3/uL (0.00-0.03); Imm Gran Pct Auto 0.3 % (0.0-0.4); Lymphocytes Absolute Auto 1.3 X10*3/uL (1.2-4.9); Lymphocytes Percent Auto 18.5 % (20-40); Mean Corpuscular HGB Conc 29.4 g/dl (31.0-35.0); Mean Corpuscular Hemoglobin 22.6 pg (27.0-33.0); Mean Corpuscular Volume 76.9 fL (80.0-98.0); Mean Platelet Volume 10.1 fL (9.4-12.3); Monocytes Absolute Auto 0.5 X10*3/uL (0.1-1.2); Monocytes Percent Auto 7.2 % (2-11); Neutrophils Absolute Auto 5.3 x10*3/uL (2.0-8.3); Neutrophils Percent Auto 72.8 % (45-73); Platelet Count 257 X10*3/uL (160-400); Red Blood Count 3.76 X10*6/uL (4.20-5.50); Red Cell Distribution Width 17.5 % (11.0-16.0); White Blood Count 7.2 X10*3/uL (4.8-10.8)
[2023-08-31 08:10] LABS: Alanine Aminotransferase 12 U/L (0-31); Alkaline Phosphatase 61 U/L (39-117); Anion Gap 9 (12-20); Aspartate Amino Transferase 15 U/L (5-31); Bilirubin Direct 0.1 mg/dL (0.0-0.5); Bilirubin Total 0.3 mg/dL (0.0-1.0); Blood Urea Nitrogen 14 mg/dL (9-16); Calcium 9.3 mg/dL (8.4-10.2); Carbon Dioxide 26 mmol/L (22-29); Chloride 107 mmol/L (96-108); Creatinine Clr Calc Pharmacy 99.3; Estimated Glomerular Filt Rate > 60; Glucose Random 89 mg/dL (60-115); Lipase 37 U/L (8-78); Potassium 4.2 mmol/L (3.3-5.1); Sodium 138 mmol/L (135-145); Total Protein 6.6 g/dL (6.5-8.0)
--- NOTE | 2023-08-31 08:32 | PC.NURSE ---
pts iv site infiltrated, provider notified
[2023-08-31 08:35] LABS: Influenza A PCR NEGATIVE (Negative); Influenza B PCR NEGATIVE (Negative); Resp Syncy Virus RNA Qual PCR NEGATIVE (Negative); SARS COV2 PCR INHOUSE NEGATIVE (Negative)
[2023-08-31 08:44] VITALS: BP 130/68; PULSE 75; RESP 19; TEMP 37.1
== END 2023-08-31 11:00 | disposition home or self-care (01) ==
PROVIDERS: Emergency Provider Emergency Medicine Emergency Medical Services; PCP Internal Medicine
DX: R30.0 Dysuria (principal); R10.11 Right upper quadrant pain; R11.0 Nausea; R05.9 Cough, unspecified; Z11.52 Encounter for screening for COVID-19; Z20.822 Contact with and (suspected) exposure to COVID-19; Z79.899 Other long term (current) drug therapy
CPT/HCPCS: 0241U; 36415; 74176; 80048; 80076; 81001; 81025; 83690; 85025; 87086; 96360; 96361; 99284

== ENCOUNTER → 2023-10-18 13:25 | Outpatient (BNVA) | payer OTHER, SELFPAY | PROVIDERS: PCP Internal Medicine; Visit Provider Physician Assistant Medical | DX: S06.9X0A Unspecified intracranial injury without loss of consciousness, initial encounter (principal); W20.8XXA Other cause of strike by thrown, projected or falling object, initial encounter | CPT/HCPCS: 99203 ==

== ENCOUNTER → 2023-10-21 09:14 | Outpatient (BNVA) | payer OTHER, SELFPAY | PROVIDERS: PCP Internal Medicine; Visit Provider Physician Assistant Medical | DX: S06.9X0A Unspecified intracranial injury without loss of consciousness, initial encounter (principal); W20.8XXA Other cause of strike by thrown, projected or falling object, initial encounter | CPT/HCPCS: 99213 ==

== ENCOUNTER → 2023-10-25 09:15 | Outpatient (BNVA) | payer OTHER, SELFPAY | PROVIDERS: PCP Internal Medicine; Visit Provider Physician Assistant Medical | DX: S06.9X0A Unspecified intracranial injury without loss of consciousness, initial encounter (principal); W20.8XXA Other cause of strike by thrown, projected or falling object, initial encounter | CPT/HCPCS: 99213 ==

== ENCOUNTER → 2024-04-04 12:32 | Outpatient (BNVA) | payer OTHER, SELFPAY | PROVIDERS: PCP Internal Medicine; Visit Provider Physician Assistant Medical | DX: M25.552 Pain in left hip (principal); M79.652 Pain in left thigh; M25.572 Pain in left ankle and joints of left foot; M79.672 Pain in left foot; Z91.81 History of falling | CPT/HCPCS: 73502; 73610; 99203 ==

== ENCOUNTER → 2024-04-11 07:56 | Outpatient (BNVA) | payer OTHER, SELFPAY | PROVIDERS: PCP Internal Medicine; Visit Provider Physician Assistant Medical | DX: S70.02XA Contusion of left hip, initial encounter (principal); S70.12XA Contusion of left thigh, initial encounter; W01.0XXA Fall on same level from slipping, tripping and stumbling without subsequent striking against object, initial encounter; M24.152 Other articular cartilage disorders, left hip | CPT/HCPCS: 99213 ==

== ENCOUNTER → 2024-04-25 08:12 | Outpatient (BNVA) | payer OTHER, SELFPAY | PROVIDERS: Visit Provider Physician Assistant Medical | DX: S70.12XD Contusion of left thigh, subsequent encounter (principal); S70.02XD Contusion of left hip, subsequent encounter; W18.30XD Fall on same level, unspecified, subsequent encounter | CPT/HCPCS: 99213 ==

== ENCOUNTER 2024-04-27 08:45 | Emergency (ER) | payer OTHER, SELFPAY ==
[2024-04-27 08:55] VITALS: BP 116/40; PULSE 75; RESP 20; TEMP 36.8; O2SAT 100; BMI 31.7
--- NOTE | 2024-04-27 10:58 | ED.HA ---
HPI - Headache General Chief Complaint: Headache Stated Complaint: head inj-concussion prior Time Seen by Provider: 04/27/24 10:40 Source: patient, RN notes reviewed and old records reviewed Mode of arrival: ambulatory History of Present Illness ED Provider: Maryana Parnell PA-C HPI Narrative: 38-year-old female with a past medical history of ADHD, asthma, anemia, GERD, interstitial cystitis, presenting to the ED complaining of headache and nausea s/p being hit in the head with basketball at work yesterday around noon. Denies LOC. Denies taking anticoagulation. Denies vomiting, vision change or loss, numbness, tingling, weakness, neck or back pain Related Data Home Medications ?Medication ?Instructions ?Recorded ?Confirmed albuterol sulfate 90 mcg/actuation 1 - 2 puff PO Q4-6H PRN breathing 03/18/20 02/03/24 aerosol inhaler budesonide-formoterol HFA 160 460 inh inhalation DAILY 03/18/20 02/03/24 mcg-4.5 mcg/actuation aerosol inhaler cetirizine 10 mg tablet 10 mg PO DAILY 03/18/20 02/03/24 epinephrine 0.3 mg/0.3 mL 0.3 mg IM DIRECTED 03/18/20 02/03/24 injection, auto-injector Tylenol 100 mg PO BID 12/14/22 02/03/24 Previous Rx's ?Medication ?Instructions ?Recorded ondansetron 4 mg disintegrating 4 mg PO Q8H PRN nausea and 11/06/22 tablet vomiting #10 tabs simethicone 125 mg capsule (Gas-X 125 mg PO BID-TID PRN abdominal 02/16/23 Extra Strength) distention 30 days #90 caps magnesium oxide 500 mg PO DAILY #30 tabs 10/18/23 riboflavin (vitamin B2) 400 mg 400 mg PO DAILY headaches #30 tabs 10/18/23 tablet cyclobenzaprine 10 mg tablet 10 mg PO BEDTIME PRN muscle spasm 04/04/24 #12 tabs ibuprofen 800 mg tablet 800 mg PO TID PRN pain #30 tabs 04/04/24 omeprazole 40 mg capsule,delayed 40 mg PO BID #180 caps 04/11/24 release Allergies Allergy/AdvReac Type Severity Reaction Status Date / Time amoxicillin [Augmentin] Allergy Severe vomiting Verified 04/27/24 08:56 azithromycin [From ZITHROMAX] Allergy Severe VOMITTING, Verified 04/27/24 08:56 DIFF BREATHING, hives, SOB, Vomiting clavulanic acid [Augmentin] Allergy Severe vomiting Verified 04/27/24 08:56 influenza virus vaccine, Allergy Severe anaphylaxix Verified 04/27/24 08:56 specific [FLU VACCINE] prednisone [PREDNISONE] Allergy Severe VOMITTING, Verified 04/27/24 08:56 DIFF BREATHING, hives, SOB, Vomiting cinnamon [CINNAMON] Allergy Intermediate itchy mouth Verified 04/27/24 08:56 ferrous fumarate Allergy Intermediate itching Verified 04/27/24 08:56 [Prenatabs FA] folic acid [Prenatabs FA] Allergy Intermediate itching Verified 04/27/24 08:56 latex [LATEX] Allergy Intermediate RASH Verified 04/27/24 08:56 Penicillins [PENICILLINS] Allergy Intermediate hives/sob Verified 04/27/24 08:56 phentermine Allergy Intermediate Nausea Verified 04/27/24 08:56 vitamins with Allergy Intermediate itching Verified 04/27/24 08:56 calcium no.78 [Prenatabs FA] Sulfa (Sulfonamide Allergy Intermediate RASH, Verified 04/27/24 08:56 Antibiotics) vomiting [SULFA (SULFONAMIDE ANTIBIOTICS)] coconut Allergy Mild HIVES/VOMIT Verified 04/27/24 08:56 ING mushroom Allergy Mild HIVES/VOMIT Verified 04/27/24 08:56 ING sertraline [From ZOLOFT] Allergy Mild HIVES/VOMIT Verified 04/27/24 08:56 ING strawberry [STRAWBERRY] Allergy Mild HIVES, Verified 04/27/24 08:56 VOMITING codeine [Codeine] AdvReac Mild NAUSEA Verified 04/27/24 08:56 ibuprofen AdvReac Stomach Verified 04/27/24 08:56 Upset Review of Systems Review of Systems: Yes all other systems are reviewed and are negative Constitutional: Constitutional: Reports as per HPI Neurologic: Denies Abnormal speech present PMFSH Past Medical History Attestation statement: The following information was validated with the patient. Source: old records reviewed Medical History ADHD Annual physical exam Normal pelvic exam Seasonal allergic rhinitis Asthma Anemia GERD (gastroesophageal reflux disease) Obesity Interstitial cystitis Surgical History History of esophagogastroduodenoscopy (EGD) H/O right knee surgery History of lumbar puncture Hx of endoscopy Hx of cholecystectomy Family History Family History Paternal Grandfather History of colon cancer Maternal Grandmother Family history of breast cancer Mother History of cirrhosis of liver Other Mental health disorder Substance use disorder Social History Social History Household Members Other:: single, 3 children, 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 Housing: House Alcohol intake: never Patient Tobacco Use Status: Former Tobacco user Tobacco use type: Cigarette Years Smoked: 15 e-Cigarette/Vaping Use: Never Used Advance Directives: No Advance Directives Information Provided: Yes service: No Current occupational status: unemployed 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 Cognitive needs: No Hearing needs: No Vision needs: Yes Physical Exam Vital Signs: Vital Signs: Last Vital Signs Temp 98.3 F 04/27/24 11:17 Pulse 75 04/27/24 11:17 Resp 20 04/27/24 11:17 BP 116/40 L 04/27/24 11:17 Pulse Ox 100 04/27/24 11:17 O2 Del Method Room Air 04/27/24 11:17 BMI result Body Mass Index 31.7 Const: General: cooperative, healthy appearing and no acute distress Orientation/consciousness: patient oriented x3 Limitations: no limitations HEENT: Head: Yes normal to inspection, Yes atraumatic, No Boyle's sign and No raccoon eyes Ears: hearing grossly normal bilaterally General nose exam: Normal external nose present Face and sinus: Yes normal facial exam Mouth: Normal oral and palatal mucosa present Eyes: General: appearance normal, both eyes and all related structures Pupils: Equal, round and reactive pupils present EOM: EOMs intact bilaterally Neck: Neck: Yes normal visual inspection and Yes no meningeal signs Resp: Effort & Inspection: normal respiratory effort and no respiratory distress Auscultation: clear to auscultation bilaterally Cardio: Rate: regular rate Heart sounds: S1 normal heart sound present and S2 normal heart sound present GI: Inspection: Yes normal to inspection Palpation (GI): Soft to palpation, nontender, no guarding and not rigid Back/Spine/Pelvis: Other: No midline cervical/thoracic/lumbar spinous tenderness/step-off or deformity Skin: Rashes: no rashes Wounds: no wounds Neuro: General: patient oriented x3, gait normal, tone normal, moves all extremities, no meningeal signs, no focal motor deficits and CN's II-XI intact bilaterally Cranial nerves: Yes CN's II-XII intact bilaterally and Yes Equal, round and reactive pupils present Cognition (Neuro): normal cognition Speech: No Abnormal speech present Gait exam (Neuro): Normal gait present Motor exam (neuro): 5/5 motor strength present throughout Extrem: General: Yes normal to inspection Medical Decision Making Medical Decision Making [facility] Narrative: 38-year-old female with a past medical history of ADHD, asthma, anemia, GERD, interstitial cystitis, presenting to the ED complaining of headache and nausea s/p being hit in the head with basketball at work yesterday around noon. On exam vital signs stable, NAD, nontoxic appearing, physical exam as noted above. No focal neuro deficits, no midline spinous tenderness throughout. Concern for concussion. Low suspicion for ICH, fractures. Monegasque head CT rule negative. Unlikely CVA/TIA or meningitis/encephalitis Plan: Reassurance/education, [facility] follow-up Please refer to course for remaining clinical decision making, interpretation of labs/imaging results, and discussions with consultants and/or family members. Results discussed with patient including worrisome signs and symptoms and strict return precautions, and when to return to the emergency department. They verbalized understanding and feel safe for discharge at this time. Differential Diagnosis Differential Diagnoses: The differential diagnosis associated with the presentation includes As above Admission/Observation Consideration of admission/observation: Escalation of care including admission/observation considered Lab Data [facility] Lab Attestation statement: I reviewed the patient's lab results. Radiology Impression Discussion of test interpretation with radiology: I have reviewed the radiologist's reading. External Record Review External record reviewed: Inpatient record, Office record, Outpatient record, Prior outpatient labs, Prior outpatient radiology, Primary care record and Outside ED record Tests considered The following testing was considered but not selected: As above Prescription Management I considered prescription management with: Pain Medication Discharge Plan Discharge Clinical Impression: Concussion Patient Disposition: Home, Self-Care Instructions: Concussion (ED) Additional Instructions: New likely have a concussion. Practice brain rest Avoid bright lights, screen time, phones, TV Take Tylenol and Motrin as needed Rest Stay hydrated Follow up with her doctor in [facility] Prescriptions: No Action omeprazole 40 mg capsule,delayed release(DR/EC) 40 mg PO BID Qty: 180 3RF ondansetron 4 mg tablet,disintegrating 4 mg PO Q8H PRN (Reason: nausea and vomiting) Qty: 10 0RF Tylenol 100 mg PO BID budesonide-formoterol 160-4.5 mcg/actuation HFA aerosol inhaler 460 inh inhalation DAILY cetirizine 10 mg tablet 10 mg PO DAILY albuterol sulfate 90 mcg/actuation HFA aerosol inhaler 1 - 2 puff PO Q4-6H PRN (Reason: breathing) epinephrine 0.3 mg/0.3 mL auto-injector 0.3 mg IM DIRECTED simethicone [Gas-X Extra Strength] 125 mg capsule 125 mg PO BID-TID PRN (Reason: abdominal distention) 30 Days Qty: 90 2RF cyclobenzaprine 10 mg tablet 10 mg PO BEDTIME PRN (Reason: muscle spasm) Qty: 12 0RF ibuprofen 800 mg tablet 800 mg PO TID PRN (Reason: pain) Qty: 30 0RF magnesium oxide 500 mg magnesium tablet 500 mg PO DAILY Qty: 30 0RF riboflavin (vitamin B2) 400 mg tablet 400 mg PO DAILY Qty: 30 2RF Referrals: [facility] [Outside] Sybil [facility] [[facility] [employer]] - Stand Alone Forms: Work/School Release Interventions: ED Discharge Assessment Last Done: 04/27/24 11:17 Discharge Date/Time: 04/27/24 11:17 Print Language: Bur[place]ian
[2024-04-27 11:17] VITALS: BP 116/40; PULSE 75; RESP 20; TEMP 36.8; O2SAT 100
== END 2024-04-27 11:17 | disposition home or self-care (01) ==
PROVIDERS: Emergency Provider Emergency Medicine; PCP Internal Medicine
DX: S06.0X0A Concussion without loss of consciousness, initial encounter (principal); R51.9 Headache, unspecified; Y93.67 Activity, basketball; Y92.310 Basketball court as the place of occurrence of the external cause; Y99.8 Other external cause status; Z79.899 Other long term (current) drug therapy
CPT/HCPCS: 99282

== ENCOUNTER 2024-05-11 15:53 | Outpatient (REF) | payer OTHER, SELFPAY ==
[2024-05-11 16:06] LABS: MANUAL DIFF FLAG NO
[2024-05-11 16:08] LABS: Basophils Absolute Auto 0.1 X10*3/uL (0.0-0.2); Eosinophils Absolute Auto 0.1 X10*3/uL (0.0-0.4); Eosinophils Percent Auto 1.5 % (0-4); Hematocrit 27.9 % (37.0-47.0); Hemoglobin 8.2 g/dl (12.0-16.0); Imm Gran Abs Auto 0.01 X10*3/uL (0.00-0.03); Imm Gran Pct Auto 0.2 % (0.0-0.4); Lymphocytes Absolute Auto 1.9 X10*3/uL (1.2-4.9); Lymphocytes Percent Auto 30.6 % (20-40); Mean Corpuscular HGB Conc 29.4 g/dl (31.0-35.0); Mean Corpuscular Hemoglobin 21.4 pg (27.0-33.0); Mean Corpuscular Volume 72.7 fL (80.0-98.0); Mean Platelet Volume 9.9 fL (9.4-12.3); Monocytes Absolute Auto 0.6 X10*3/uL (0.1-1.2); Monocytes Percent Auto 9.6 % (2-11); Neutrophils Absolute Auto 3.5 x10*3/uL (2.0-8.3); Neutrophils Percent Auto 57.1 % (45-73); Platelet Count 317 X10*3/uL (160-400); Red Blood Count 3.84 X10*6/uL (4.20-5.50); Red Cell Distribution Width 17.7 % (11.0-16.0); White Blood Count 6.1 X10*3/uL (4.8-10.8)
[2024-05-11 16:51] LABS: Ferritin < 2 ng/mL (10-122)
== END 2024-05-11 15:54 | disposition home or self-care (01) ==
LOC: HO.LAB 15:53
PROVIDERS: PCP Internal Medicine; Visit Provider Internal Medicine Medical Oncology
DX: D64.9 Anemia, unspecified (principal)
CPT/HCPCS: 36415; 82728; 85025

== ENCOUNTER 2024-05-12 06:47 | Outpatient (RCR) | payer OTHER, SELFPAY ==
--- NOTE | 2024-04-13 09:59 | MHC.PT.EP ---
[facility] [place] Office [place] Office [place] Office [address] Shira Martinez [address] [phone] F: [phone] F: [phone] F: [phone] F: [phone] Physical Therapy Plan of Care Date of Evaluation: 04/13/24 Date of Surgery: Diagnosis: L hip/ thigh contusion/ derangement Assessment: 38 y/o female referred to PT from [facility] for mechanical fall with L hip/ thigh contusion derangement. 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 Injury occurred 03/31/24 at work while playing kickball with her students. She slipped and fell landing on anterolateral L thigh. S/s consistent with muscle contusion resulting in pain and difficulty with prolonged standing, rolling in bed, walking, squatting, and transitional movements. Examination shows decreased L hip ROM, decreased core/ hip strength, TTP L quad/ glut region, and impaired gait pattern. Recommend PT 2x/week for 4 weeks to address impairments, implement HEP, and optimize functional mobility. Frequency and Duration: The patient will be seen 2x/week for 4 weeks Short Term Goals: 2 weeks I with hEP Pt will demonstrate 20* L hip ER to facilitate rolling in bed [facility] Goals: 4 weeks I with hEP and self management of sx Pt will be able to walk 20 minutes wiht pain < 3/10 Improve LEFS to 50/80 (IR 33/80) Treatment Plan: Modalities to reduce pain, spasms and effusion. Manual therapy to restore motion and function. Therapeutic exercise to improve strength and flexibility. Neuromuscular re-education for posture and balance. Therapeutic activities to return to functional activities of daily living. Electronically signed by: Joellen Jarrett PT Please sign and return to therapist. Thank you for your referral.
--- NOTE | 2024-05-16 13:32 | MHC.PT.DC ---
[facility] [place] [facility] [place] [facility] [place] Office [address] [phone] F: [phone] F: [phone] F: [phone] F: [phone] Physical Therapy Discharge Report Diagnosis: L hip/ thigh contusion/ derangement Date of Surgery: Mar 31 Date of Evaluation: 04/13/24 Date of Discharge: 05/12/24 Treatments to Date: 8 Cancellations to Date: 0 No Shows to Date: 0 Discharge Status: Achieved Goals Improved Function Independent with HEP Insurance Declined Tx Discharge Summary: Sera has been an active and motivated participant in her therapy in and out of the clinic. We are in agreement with DC today as she has met her therapeutic goals, is improved of her function, managed of her pain and I with her home program. LEFI outcome measure improved from 41% to 90% which is a significant improvement. Electronically signed by: Jon Brown PT Please sign and return to therapist. Thank you for your referral.
== END 2024-05-12 07:58 | disposition home or self-care (01) ==
LOC: HO.PT 06:47
PROVIDERS: Visit Provider Physician Assistant Medical
DX: M25.552 Pain in left hip (principal); S70.02XD Contusion of left hip, subsequent encounter; S70.12XD Contusion of left thigh, subsequent encounter
CPT/HCPCS: 97110; 97162; 97530

== ENCOUNTER → 2024-05-12 14:55 | Outpatient (BNVA) | payer OTHER, SELFPAY | PROVIDERS: PCP Internal Medicine; Visit Provider Physician Assistant Medical | DX: S70.02XD Contusion of left hip, subsequent encounter (principal); S70.12XD Contusion of left thigh, subsequent encounter; W18.30XD Fall on same level, unspecified, subsequent encounter | CPT/HCPCS: 99213 ==

== ENCOUNTER 2024-05-15 15:07 | Emergency (ER) | payer OTHER, SELFPAY ==
--- NOTE | ~2024-05-15 | US_ITS ---
EXAMINATION: LEFT UPPER EXTREMITY VENOUS ULTRASOUND LEFT UPPER EXTREMITY NONVASCULAR ULTRASOUND CLINICAL INFORMATION: Left arm pain and swelling COMPARISON: None. TECHNIQUE: Doppler spectral analysis and color flow Doppler imaging was performed of the left upper extremity. Compression and augmentation maneuvers were performed. FINDINGS: The left internal jugular vein, subclavian vein, axillary vein, brachial vein, basilic vein, cephalic vein, and visualized forearm veins were well-identified and normal. They demonstrate normal compressibility and color fill-in. In the area of clinical concern in the left elbow, there is some soft tissue prominence below the subcutaneous fat where the musculature measures 1 cm compared with 0.4 cm on the right which was scanned for comparison. No fluid collection or discrete mass is seen. US/US extremity nonvascular henning IMPRESSION: 1. No evidence for left upper extremity deep vein thrombosis. 2. Soft tissue prominence in the area of clinical concern without a discrete mass or fluid collection. MRI may be useful for further evaluation if symptoms persist Electronically signed by: Bolivar Figueroa MD 05/15/2024 10:02 PM JOEL
--- NOTE | ~2024-05-15 | US_ITS ---
EXAMINATION: LEFT UPPER EXTREMITY VENOUS ULTRASOUND LEFT UPPER EXTREMITY NONVASCULAR ULTRASOUND CLINICAL INFORMATION: Left arm pain and swelling COMPARISON: None. TECHNIQUE: Doppler spectral analysis and color flow Doppler imaging was performed of the left upper extremity. Compression and augmentation maneuvers were performed. FINDINGS: The left internal jugular vein, subclavian vein, axillary vein, brachial vein, basilic vein, cephalic vein, and visualized forearm veins were well-identified and normal. They demonstrate normal compressibility and color fill-in. In the area of clinical concern in the left elbow, there is some soft tissue prominence below the subcutaneous fat where the musculature measures 1 cm compared with 0.4 cm on the right which was scanned for comparison. No fluid collection or discrete mass is seen. US/US venous duplex UE LT IMPRESSION: 1. No evidence for left upper extremity deep vein thrombosis. 2. Soft tissue prominence in the area of clinical concern without a discrete mass or fluid collection. MRI may be useful for further evaluation if symptoms persist Electronically signed by: Bolivar Figueroa MD 05/15/2024 10:02 PM JOEL NGUYEN
--- NOTE | ~2024-05-15 | XR_ITS ---
EXAMINATION: XR ELBOW, LEFT CLINICAL INFORMATION: left elbow pain, slight redness COMPARISON: Left elbow 01/17/2022 TECHNIQUE: AP, lateral, and oblique views of the left elbow. FINDINGS: The bones and soft tissues are unremarkable. At the time of the 01/17/2022 study, rather extensive calcification was seen along the lateral humeral epicondyles and lateral to the radial head which is no longer present. No fracture or joint effusion. Alignment is anatomic. Joint spaces are maintained. XR/XR elbow LT 2V IMPRESSION: No acute finding. Previously seen calcifications along the lateral humeral epicondyle and lateral to the radial head are no longer present. Electronically signed by: Bolivar Figueroa MD 05/15/2024 09:12 PM JOEL NGUYEN
[2024-05-15 15:32] VITALS: BP 133/69; PULSE 87; RESP 18; TEMP 36.6; O2SAT 100; BMI 33.1
--- NOTE | 2024-05-15 15:55 | ED_ITS ---
HPI - Extremity Problem General Chief complaint: Extremity Injury, Upper Stated complaint: Lump L arm Time Seen by Provider: 05/15/24 19:39 History of Present Illness ED Provider: Dustin Rodriguez HPI Narrative: 38 yold female healthy patient with past medical history of left elbow calcific tendonitits present to the ED for left elbow pain pain without any trauma. Patient states latera site of left elbow positive for painful lump which causes patient to have pain on range of motion of elbow. Patient having this symptom pain for the past 3 days. Patient denies any recent trauma, fever, or chills. Patient denies any recent long travel recent surgery. Patient denies any history of control pills. Related Data Home Medications ?Medication ?Instructions ?Recorded ?Confirmed albuterol sulfate 90 mcg/actuation 1 - 2 puff PO Q4-6H PRN breathing 03/18/20 02/03/24 aerosol inhaler budesonide-formoterol HFA 160 460 inh inhalation DAILY 03/18/20 02/03/24 mcg-4.5 mcg/actuation aerosol inhaler cetirizine 10 mg tablet 10 mg PO DAILY 03/18/20 02/03/24 epinephrine 0.3 mg/0.3 mL 0.3 mg IM DIRECTED 03/18/20 02/03/24 injection, auto-injector Tylenol 100 mg PO BID 12/14/22 02/03/24 Previous Rx's ?Medication ?Instructions ?Recorded ondansetron 4 mg disintegrating 4 mg PO Q8H PRN nausea and 11/06/22 tablet vomiting #10 tabs simethicone 125 mg capsule (Gas-X 125 mg PO BID-TID PRN abdominal 02/16/23 Extra Strength) distention 30 days #90 caps magnesium oxide 500 mg PO DAILY #30 tabs 10/18/23 riboflavin (vitamin B2) 400 mg 400 mg PO DAILY headaches #30 tabs 10/18/23 tablet cyclobenzaprine 10 mg tablet 10 mg PO BEDTIME PRN muscle spasm 04/04/24 #12 tabs ibuprofen 800 mg tablet 800 mg PO TID PRN pain #30 tabs 04/04/24 omeprazole 40 mg capsule,delayed 40 mg PO BID #180 caps 04/11/24 release Allergies Allergy/AdvReac Type Severity Reaction Status Date / Time amoxicillin [Augmentin] Allergy Severe vomiting Verified 05/15/24 15:33 azithromycin [From ZITHROMAX] Allergy Severe VOMITTING, Verified 05/15/24 15:33 DIFF BREATHING, hives, SOB, Vomiting clavulanic acid [Augmentin] Allergy Severe vomiting Verified 05/15/24 15:33 influenza virus vaccine, Allergy Severe anaphylaxix Verified 05/15/24 15:33 specific [FLU VACCINE] prednisone [PREDNISONE] Allergy Severe VOMITTING, Verified 05/15/24 15:33 DIFF BREATHING, hives, SOB, Vomiting cinnamon [CINNAMON] Allergy Intermediate itchy mouth Verified 05/15/24 15:33 ferrous fumarate Allergy Intermediate itching Verified 05/15/24 15:33 [Prenatabs FA] folic acid [Prenatabs FA] Allergy Intermediate itching Verified 05/15/24 15:33 latex [LATEX] Allergy Intermediate RASH Verified 05/15/24 15:33 Penicillins [PENICILLINS] Allergy Intermediate hives/sob Verified 05/15/24 15:33 phentermine Allergy Intermediate Nausea Verified 05/15/24 15:33 vitamins with Allergy Intermediate itching Verified 05/15/24 15:33 calcium no.78 [Prenatabs FA] Sulfa (Sulfonamide Allergy Intermediate RASH, Verified 05/15/24 15:33 Antibiotics) vomiting [SULFA (SULFONAMIDE ANTIBIOTICS)] coconut Allergy Mild HIVES/VOMIT Verified 05/15/24 15:33 ING mushroom Allergy Mild HIVES/VOMIT Verified 05/15/24 15:33 ING sertraline [From ZOLOFT] Allergy Mild HIVES/VOMIT Verified 05/15/24 15:33 ING strawberry [STRAWBERRY] Allergy Mild HIVES, Verified 05/15/24 15:33 VOMITING codeine [Codeine] AdvReac Mild NAUSEA Verified 05/15/24 15:33 ibuprofen AdvReac Stomach Verified 05/15/24 15:33 Upset Review of Systems 2 Review of Systems: Left elbow pain Yes all other systems are reviewed and are negative PMFSH Past Medical History Medical History ADHD Annual physical exam Normal pelvic exam Seasonal allergic rhinitis Asthma Anemia GERD (gastroesophageal reflux disease) Obesity Interstitial cystitis Surgical History History of esophagogastroduodenoscopy (EGD) H/O right knee surgery History of lumbar puncture Hx of endoscopy Hx of cholecystectomy Family History Family History Paternal Grandfather History of colon cancer Maternal Grandmother Family history of breast cancer Mother History of cirrhosis of liver Other Mental health disorder Substance use disorder Social History Social History Household Members Other:: single, 3 children, works for [employer] Housing: House Alcohol intake: never Patient Tobacco Use Status: Former Tobacco user Tobacco use type: Cigarette Years Smoked: 15 Smoked in Last 30 Days: No e-Cigarette/Vaping Use: Never Used Use of substances other than those prescribed or required for medical reasons: No Advance Directives: No Advance Directives Information Provided: No Do you have a plan to hurt others: No Plan service: No Current occupational status: unemployed 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 [employer] Cognitive needs: No Hearing needs: No Vision needs: Yes Physical Exam 2 Vital Signs: Vital Signs: Last Vital Signs Temp 98.2 F 05/16/24 00:02 Pulse 86 05/16/24 00:02 Resp 16 05/16/24 00:02 BP 112/41 L 05/16/24 00:02 Pulse Ox 98 05/16/24 00:02 O2 Del Method Room Air 05/16/24 00:02 BMI result Body Mass Index 33.1 Const: General: cooperative, healthy appearing, comfortable, no acute distress, well developed, alert, awake and Physically active O rientation/consciousness: patient oriented x3 HEENT: Head: Yes normal to inspection, Yes No palpable skull fracture present, Yes normocephalic, Yes atraumatic and No abrasion Eyes: General: appearance normal, both eyes and all related structures Neck: Neck: Yes normal visual inspection, Yes full ROM, Yes no lymphadenopathy, Yes no meningeal signs, Yes trachea midline, Yes supple, No anterior neck swelling and No tender Chest: Chest palpation & inspection: normal inspection of the chest and normal palpation of entire chest wall Resp: Effort & Inspection: normal respiratory effort and able to speak in complete sentences Auscultation: clear to auscultation bilaterally Cardio: Jugular venous distension: no JVD Heart sounds: S1 normal heart sound present and S2 normal heart sound present GI: Inspection: Yes normal to inspection Palpation (GI): Soft to palpation, not firm, nontender, no guarding and not rigid : General: No CVA tenderness and Yes no CVA tenderness Back/Spine/Pelvis: Back: no CVA tenderness, No CVA tenderness and No back tenderness Skin: General skin exam: no rashes or lesions noted, elasticity normal and turgor normal Neuro: General: patient oriented x3, gait normal, tone normal, moves all extremities, Normal light touch and pain sensation, no meningeal signs, no focal motor deficits, CN's II-XI intact bilaterally and normal sensation to monofilament Extrem: General: Yes normal to inspection, Yes full ROM and Yes capillary refill normal Shoulder/upper arm images: 1. Positive for small significant tenderness on palpation without any crepitus, deformity, or fluctuance. Negative for any erythema or warmth. Motor exam intact but limited due to pain. Rest of extremity normal. Vascular neuro exam intact. Right lower extremity: normal to inspection and full ROM Psych: Appearance: grossly normal, well kempt and not disheveled Course Course Course Narrative: RME performed by Mary Mixon PA-C. Patient is a 38 year old assigned [male/female] at presenting to the emergency department with left elbow pain. Patient was seen by RAJ and a UC for this left elbow pain and was told that she only needed to take NSAIDS. Detailed physical exam and review of systems are deferred to the bailiff. Patient placed back in the waiting room pending room availability. Medications Administered Discontinued Medications Generic Name Dose Route Start Last Admin Trade Name Freq PRN Reason Stop Dose Admin Acetaminophen 975 mg 05/15/24 20:01 05/15/24 20:31 Acetaminophen 325 Mg Tablet PO 05/15/24 20:02 975 mg ONCE ONE Administration Medical Decision Making Medical Decision Making MDM Narrative: 38-year-old female with elbow pain without any trauma. X-ray ordered. Labs including uric accident will be ordered ESR CRP ordered. Ultrasound ordered. Will rule out DVT, gout, osteomyelitis although very unlikely. 11:33pm: Patient's x-ray negative for any fluid or fractures or dislocation. Ultrasound negative for blood clot. Negative for any abscess or bursitis. Labs negative for indication for septic, septic joint, gout, or osteomyelitis. Not suspecting necrotizing fasciitis or compartment syndrome. Will diagnose as tennis elbow tendinitis. Not suspecting septic joint, cellulitis, dislocation, osteo, necrotizing fascitis, or any other concerning etiologies. Patient informed to follow-up with primary care provider and orthopedics. Due to patient's many allergies she is only able to take Tylenol. Patient explained worrisome signs of from return to the ED immediately. Patient has allergies to steroids and NSAIDs. Differential Diagnosis Differential Diagnoses: The differential diagnosis associated with the presentation includes (Gout, dislocation, bursitis, fracture) Admission/Observation Consideration of admission/observation: Escalation of care including admission/observation considered Lab Data MDM Lab Attestation statement: I reviewed the patient's lab results. 05/15/24 20:27 05/15/24 20:27 Labs: Lab Results 05/15/24 Range/Units 20:27 WBC 9.8 (4.8-10.8) X10*3/uL RBC 4.29 (4.20-5.50) X10*6/uL Hgb 9.1 L (12.0-16.0) g/dl Hct 31.5 L (37.0-47.0) % MCV 73.4 L (80.0-98.0) fL MCH 21.2 L (27.0-33.0) pg MCHC 28.9 L (31.0-35.0) g/dl RDW 18.0 H (11.0-16.0) % Plt Count 332 (160-400) X10*3/uL MPV 10.8 (9.4-12.3) fL Immature Gran % (Auto) 0.2 (0.0-0.4) % Neut % (Auto) 77.0 H (45-73) % Lymph % (Auto) 15.0 L (20-40) % Mccormick % (Auto) 6.8 (2-11) % Eos % (Auto) 0.6 (0-4) % Baso % (Auto) 0.4 (0-2) % Lymph # (Auto) 1.5 (1.2-4.9) X10*3/uL Mccormick # (Auto) 0.7 (0.1-1.2) X10*3/uL Eos # (Auto) 0.1 (0.0-0.4) X10*3/uL Baso # (Auto) 0.0 (0.0-0.2) X10*3/uL Abs Immat Gran (auto) 0.02 (0.00-0.03) X10*3/uL Absolute Neuts (auto) 7.5 (2.0-8.3) x10*3/uL Absolute Nucleated RBC 0.000 (0.0-0.012) X10*3/uL Nucleated RBC % (auto) 0.0 (0.0-0.2) /100WBC ESR 14 (0-20) MM/HR PT 12.1 (10.9-12.4) SEC INR 1.0 (0.9-1.1) APTT 27.4 (26.0-36.8) SEC Sodium 136 (135-145) mmol/L Potassium 3.8 (3.3-5.1) mmol/L Chloride 106 (96-108) mmol/L Carbon Dioxide 24 (22-29) mmol/L Anion Gap 10 L (12-20) BUN 11 (9-16) mg/dL Creatinine 0.68 (0.5-1.4) mg/dL Estim Creat Clear Calc 99.5 Estimated GFR > 60 Random Glucose 98 (60-115) mg/dL Uric Acid 2.9 (2.4-5.7) mg/dL Calcium 9.4 (8.4-10.2) mg/dL Total Bilirubin 0.4 (0.0-1.0) mg/dL AST 23 (5-31) U/L ALT 19 (0-31) U/L Alkaline Phosphatase 78 (39-117) U/L C-Reactive Protein 0.24 (< or = 0.50) mg/dL Total Protein 7.5 (6.5-8.0) g/dL Albumin 4.5 (3.5-5.0) g/dL Independent Interpretation I performed an independent interpretation of an: Plain X-Ray and Ultrasound Radiology Impression Discussion of test interpretation with radiology: I have reviewed the radiologist's reading. Independent Historian Clinical information obtained from an independent historian. History obtained from or confirmed by: Other (Patient) External Record Review External record reviewed: Other (Prior visits) Prescription Management I considered prescription management with: Pain Medication Discharge Plan Discharge Clinical Impression: Elbow pain, Left elbow tendonitis Patient Disposition: Home, Self-Care Instructions: Tennis Elbow (ED), Arthralgia (ED), Warm Compress or Soak (ED) Additional Instructions: Return to the ED immediately for any swelling, redness, stiffness, bluish black discoloration, numbness/tingling, fever, chills, or any other concerning symptoms. Continue taking Tylenol you have at home for pain relief. Recommend follow-up with your primary care provider and new including orthopedics for either physical therapy, MRI, re-evaluation. US/US extremity nonvascular henning IMPRESSION: 1. No evidence for left upper extremity deep vein thrombosis. 2. Soft tissue prominence in the area of clinical concern without a discrete mass or fluid collection. MRI may be useful for further evaluation if symptoms persist Electronically signed by: Bolivar Figueroa MD 05/15/2024 10:02 PM [email or web address] RP XR/XR elbow LT 2V IMPRESSION: No acute finding. Previously seen calcifications along the lateral humeral epicondyle and lateral to the radial head are no longer present. Electronically signed by: Bolivar Figueroa MD 05/15/2024 09:12 PM EST RP Prescriptions: No Action omeprazole 40 mg capsule,delayed release(DR/EC) 40 mg PO BID Qty: 180 3RF ondansetron 4 mg tablet,disintegrating 4 mg PO Q8H PRN (Reason: nausea and vomiting) Qty: 10 0RF Tylenol 100 mg PO BID budesonide-formoterol 160-4.5 mcg/actuation HFA aerosol inhaler 460 inh inhalation DAILY cetirizine 10 mg tablet 10 mg PO DAILY albuterol sulfate 90 mcg/actuation HFA aerosol inhaler 1 - 2 puff PO Q4-6H PRN (Reason: breathing) epinephrine 0.3 mg/0.3 mL auto-injector 0.3 mg IM DIRECTED simethicone [Gas-X Extra Strength] 125 mg capsule 125 mg PO BID-TID PRN (Reason: abdominal distention) 30 Days Qty: 90 2RF cyclobenzaprine 10 mg tablet 10 mg PO BEDTIME PRN (Reason: muscle spasm) Qty: 12 0RF ibuprofen 800 mg tablet 800 mg PO TID PRN (Reason: pain) Qty: 30 0RF magnesium oxide 500 mg magnesium tablet 500 mg PO DAILY Qty: 30 0RF riboflavin (vitamin B2) 400 mg tablet 400 mg PO DAILY Qty: 30 2RF Stand Alone Forms: Work/School Release Interventions: ED Discharge Assessment Last Done: 05/16/24 00:02 Discharge Date/Time: 05/16/24 00:03 Print Language: Dutch
--- OUTSIDE RECORDS SUMMARY | 2024-05-15 17:07 | XMS_ITS | Continuity of Care Document ---
Author Organization [facility] Address [address] [place] [address], [address] Floor, [address] [place] [address]- Care Team Providers Care Medical Director Name Role Phone Criselda Armstrong MD Primary Care Physician [place] [facility] [place] - 06/13/23 [facility] [address] [facility], 3rd Floor, [address] [place] [id number] Allergies, Adverse Reactions, Alerts Substance Reaction Severity [...] Migraine Confirmed Active Smoking 1 Confirmed Active 11 to 1 ppd age 16-20 and age 22-25 Social History Social History Type Response Smoking Status Former smoker; Tobac co user in household: No entered on: 07/31/14 Sex Patient Care team information Care Team Personnel Name: Criselda Armstrong MD [facility] Phys[facility] - Primary Care Member Role: PCP Address: Address: [address] [place] [address]- Care Team Related Persons Name: CHANO URIOSTEGUI Address: home [address] [place] [address] Name: FRANCIS LAWTON Name: BLUE INTERIANO Address: home [address] [address] Name: IDA URBINA
--- OUTSIDE RECORDS SUMMARY | 2024-05-15 17:07 | XMS_ITS | Continuity of Care Document ---
Author Organization [facility] Address [address] [place] [address], [address] d Floor, [address] [place] [address]- Care Team Providers Care Button Breaker Operator Name Role Phone Criselda Armstrong MD Primary Care Physician [phone] [facility] [place] [place] Date(s): 05/18/23 - 09/02/23 [facility] [address], 3rd Floor, [address] [place] [address] [[email or web address] Attending Physician: Not on Staff, Attending MD Allergies, Adverse Reactions, Alerts Substance Reaction [...] Team Personnel Name: Criselda Armstrong MD Position: [facility] Physician - Primary Care Member Role: PCP Address: Address: [address] [place] [address]- Care Team Related Persons Name: CHANO URIOSTEGUI Address: home [address] [place] [address] Name: FRANCIS LAWTON Name: BLUE INTERIANO Address: [address] [address] Name: IDA URBINA
--- OUTSIDE RECORDS SUMMARY | 2024-05-15 17:07 | XMS_ITS | Continuity of Care Document ---
Author Organization [facility] Address [address] [place] [address], [address] Floor, [address] [place] [address]- Care Team Providers Care Data Communications Engineer Name Role Phone Criselda Armstrong MD Primary Care Physician Encounter [facility] [place] Date(s): 01/25/24 - 02/24/24 [facility] [address] [facility] 3rd Floor, [address] [place] [address]- Allergies, Adverse Reactions, Alerts Substance Reaction Severity Status codeine difficulty breathing Active sulfa drugs hives Active Iron Supplement does not absorb Active Montelukast Sodium 1 difficulty breathing Active penicillin hives Active predniSONE difficulty breathing Active Latex rash,hives,itch [...] Team Personnel Name: Criselda Armstrong MD Position: [facility] Physician - Primary Care Member Role: PCP Address: Address: [address] [place] [address]- Care Team Related Persons Name: CHANO URIOSTEGUI Address: home [address] [place], [place] Name: FRANCIS LAWTON Name: BLUE INTERIANO Address: home [address] [address] Name: IDA URBINA
--- OUTSIDE RECORDS SUMMARY | 2024-05-15 17:07 | XMS_ITS | Continuity of Care Document ---
Author Organization [facility] Address [address] [place] [address], [address]r d Floor, [address] [place] [address]- Care Team Providers Care Helper Marble Finisher Name Role Phone Criselda Armstrong MD Primary Care Physician [place] [facility] [place]): [place] - 07/03/23 [facility] [address] [facility], 3rd Floor, [address] [place] [address] Attending Physician: Admtr, Ar8 Admitting Physician: Admtr, Ar8 Referring Physician: Admtr, Ar8 Allergies, Adverse Reactions, Alerts Substance Reaction Severity Status codeine difficulty breathing Active penicillin hives Active Montelukast Sodium 1 difficulty breathing Active predniSONE difficulty breathing Active Latex rash,hives,itch Active sulfa drugs hives Active Iron Supplement [...] Results Authored Date: Radiology * Event Display: IR Special Procedures, Non- Authored Date: * Event Display: IR Special Procedures, Non- Authored Date: Patient Care team information Care Team Personnel Name: Criselda Armstrong MD Position: [facility] Physician - Primary Care Member Role: PCP Address: Address: [address] [place] [address]- Care Team Related Persons Name: CHANO URIOSTEGUI Address: home [address] [place], [place] Name: FRANCIS LAWTON Name: BLUE INTERIANO Address: home [address] [address] Name: IDA URBINA
--- OUTSIDE RECORDS SUMMARY | 2024-05-15 17:08 | XMS_ITS | Continuity of Care Document ---
Author Organization [facility] Address [address] [place] [address], [address] d Floor, [address] [place] [address]- Care Team Providers Care Drop Hammer Pile Driver Operator Name Role Phone Criselda Armstrong MD Primary Care Physician En[place] [facility] [place] Date(s): 08/03/23 - 09/02/23 [facility] [address] [facility], 3rd Floor, [address] [place] [id number] Attending Physician: Admtahira, Brian Admitting Physician: Admtr, Brian Referring Physician: Admtr, Ar8 Allergies, Adverse Reactions, [...] Inhalation 2 times a day Start Date: 7/21/14 Status: Ordered ZyrTEC 10 mg oral tablet [...] Team Personnel Name: Criselda Armstrong MD Position: [facility] Physician - Primary Care Member Role: PCP Address: Address: [address] [place] [address]- Care Team Related Persons Name: CHANO URIOSTEGUI Address: home [address] [place], [place] Name: FRANCIS LAWTON Name: BLUE INTERIANO Address: home [address] [address] Name: IDA URBINA
[2024-05-15] MEDS: Acetaminophen 325 MG TABLET 975 MG PO (20:31)
[2024-05-15 20:32] LABS: MANUAL DIFF FLAG NO
[2024-05-15 20:38] LABS: Basophils Percent Auto 0.4 % (0-2); Eosinophils Absolute Auto 0.1 X10*3/uL (0.0-0.4); Eosinophils Percent Auto 0.6 % (0-4); Hematocrit 31.5 % (37.0-47.0); Hemoglobin 9.1 g/dl (12.0-16.0); Imm Gran Abs Auto 0.02 X10*3/uL (0.00-0.03); Imm Gran Pct Auto 0.2 % (0.0-0.4); Lymphocytes Absolute Auto 1.5 X10*3/uL (1.2-4.9); Mean Corpuscular HGB Conc 28.9 g/dl (31.0-35.0); Mean Corpuscular Hemoglobin 21.2 pg (27.0-33.0); Mean Corpuscular Volume 73.4 fL (80.0-98.0); Mean Platelet Volume 10.8 fL (9.4-12.3); Monocytes Absolute Auto 0.7 X10*3/uL (0.1-1.2); Monocytes Percent Auto 6.8 % (2-11); Neutrophils Absolute Auto 7.5 x10*3/uL (2.0-8.3); Platelet Count 332 X10*3/uL (160-400); Red Blood Count 4.29 X10*6/uL (4.20-5.50); White Blood Count 9.8 X10*3/uL (4.8-10.8)
[2024-05-15 20:46] LABS: Anion Gap 10 (12-20)
[2024-05-15 20:48] LABS: Prothrombin Time 12.1 SEC (10.9-12.4)
[2024-05-15 20:50] LABS: Alanine Aminotransferase 19 U/L (0-31); Albumin Level 4.5 g/dL (3.5-5.0); Alkaline Phosphatase 78 U/L (39-117); Aspartate Amino Transferase 23 U/L (5-31); Bilirubin Total 0.4 mg/dL (0.0-1.0); Blood Urea Nitrogen 11 mg/dL (9-16); C Reactive Protein 0.24 mg/dL (< or = 0.50); Calcium 9.4 mg/dL (8.4-10.2); Carbon Dioxide 24 mmol/L (22-29); Chloride 106 mmol/L (96-108); Creatinine Clr Calc Pharmacy 99.5; Estimated Glomerular Filt Rate > 60; Glucose Random 98 mg/dL (60-115); Potassium 3.8 mmol/L (3.3-5.1); Sodium 136 mmol/L (135-145); Total Protein 7.5 g/dL (6.5-8.0)
[2024-05-15 20:51] LABS: Partial Thromboplastin Time 27.4 SEC (26.0-36.8)
[2024-05-15 21:02] LABS: Uric Acid 2.9 mg/dL (2.4-5.7)
[2024-05-15 21:31] LABS: Erythrocyte Sedimentation Rate 14 MM/HR (0-20)
[2024-05-15 22:29] VITALS: BP 114/46; PULSE 73; RESP 18; TEMP 36.8; O2SAT 98
--- NOTE | 2024-05-16 | PC.NURSE ---
Took over care at 23:00 from VICKY Ochoa, reviewed discharge instructions with pt, pt verbalized understanding, no sign of distress.
[2024-05-16 00:02] VITALS: BP 112/41; PULSE 86; RESP 16; TEMP 36.8; O2SAT 98
== END 2024-05-16 00:03 | disposition home or self-care (01) ==
PROVIDERS: Physician Assistant; Emergency Provider Student in an Organized Health Care Education/Training Program; PCP Internal Medicine
DX: M77.9 Enthesopathy, unspecified (principal); M25.522 Pain in left elbow; M79.602 Pain in left arm; R22.32 Localized swelling, mass and lump, left upper limb; Z79.899 Other long term (current) drug therapy
CPT/HCPCS: 36415; 73070; 76882; 80053; 84550; 85025; 85610; 85652; 85730; 86140; 93971; 99284

== ENCOUNTER 2024-05-23 12:11 | Emergency (ER) | payer OTHER, SELFPAY | END 2024-05-23 13:37 | disposition left against medical advice (07) | PROVIDERS: Emergency Provider Emergency Medicine; PCP Internal Medicine | DX: R60.0 Localized edema (principal) | CPT/HCPCS: 99212 ==

== ENCOUNTER 2024-05-23 13:25 | Outpatient (AMB) | payer OTHER, SELFPAY ==
[2024-05-23 14:20] VITALS: BP 120/80; PULSE 94; O2SAT 99; BMI 32.9
--- NOTE | 2024-05-23 14:20 | MHC.OFFWIV ---
Intake Vital Signs 05/23/24 14:20 Height 4 ft 11 in Weight 163 lb BMI 32.9 BP 120/80 Blood Pressure Location Rt brachial Position Sitting Pulse 94 Pulse Source Pulse Oximeter Pulse Oximetry (%) 99 Oxygen Delivery Method Room Air Intake Visit Reasons: EP LT side wrist tingling/swelling/numbness Intake Note: Patient here for left hand/wrist pain, she states it initially started on wednesday in her elbow and cleared up and then woke up on on hand and is now having pain/numbness in fingers, unable to make a fist. Patient Tobacco Use Status: Former Tobacco user Allergies amoxicillin [Augmentin] Allergy (Severe, Verified 05/23/24 14:23) vomiting azithromycin [From ZITHROMAX] Allergy (Severe, Verified 05/23/24 14:23) VOMITTING, DIFF BREATHING, hives, SOB, Vomiting clavulanic acid [Augmentin] Allergy (Severe, Verified 05/23/24 14:23) vomiting influenza virus vaccine, specific [FLU VACCINE] Allergy (Severe, Verified 05/23/24 14:23) anaphylaxix prednisone [PREDNISONE] Allergy (Severe, Verified 05/23/24 14:23) VOMITTING, DIFF BREATHING, hives, SOB, Vomiting cinnamon [CINNAMON] Allergy (Intermediate, Verified 05/23/24 14:23) itchy mouth ferrous fumarate [Prenatabs FA] Allergy (Intermediate, Verified 05/23/24 14:23) itching folic acid [Prenatabs FA] Allergy (Intermediate, Verified 05/23/24 14:23) itching latex [LATEX] Allergy (Intermediate, Verified 05/23/24 14:23) RASH Penicillins [PENICILLINS] Allergy (Intermediate, Verified 05/23/24 14:23) hives/sob phentermine Allergy (Intermediate, Verified 05/23/24 14:23) Nausea vitamins with calcium no.78 [Prenatabs FA] Allergy (Intermediate, Verified 05/23/24 14:23) itching Sulfa (Sulfonamide Antibiotics) [SULFA (SULFONAMIDE ANTIBIOTICS)] Allergy (Intermediate, Verified 05/23/24 14:23) RASH, vomiting coconut Allergy (Mild, Verified 05/23/24 14:23) HIVES/VOMITING mushroom Allergy (Mild, Verified 05/23/24 14:23) HIVES/VOMITING sertraline [From ZOLOFT] Allergy (Mild, Verified 05/23/24 14:23) HIVES/VOMITING strawberry [STRAWBERRY] Allergy (Mild, Verified 05/23/24 14:23) HIVES, VOMITING codeine [Codeine] Adverse Reaction (Mild, Verified 05/23/24 14:23) NAUSEA ibuprofen Adverse Reaction (Verified 05/23/24 14:23) Stomach Upset Do you need a note to return to daycare/school/sports/work: Yes HPI HPI Comments History of Present Illness Details History of Present Illness The patient is a 38-year-old female presenting with swelling, pain, and numbness in the left hand. The issue began on May 17, approximately five days prior to the consultation, when the patient awoke with noticeable swelling and numbness in the left hand, primarily affecting the middle and fourth fingers. The patient reported a previous episode involving a lump in the left elbow, diagnosed as left lateral epicondylitis, which had resolved after treatment. The current symptoms include the inability to form a fist, tingling sensations, and significant pain isolated to the affected 3rd, 4th and 5th digits. These symptoms have been persistent and worsening over several days. Previous interventions include rest, elevation, icing, and the use of acetaminophen due to an existing peptic ulcer that contraindicates the use of NSAIDs. The patient's condition is impacting daily functions; she is unable to perform tasks such as putting on socks or pants. The patient reported long-term dissatisfaction with her current orthopedic care and has opted to seek a new consultation. [facility] Medical History ADHD Annual physical exam Normal pelvic exam Seasonal allergic rhinitis Asthma Anemia GERD (gastroesophageal reflux disease) Obesity Interstitial cystitis Surgical History History of esophagogastroduodenoscopy (EGD) H/O right knee surgery History of lumbar puncture Hx of endoscopy Hx of cholecystectomy Family History Paternal Grandfather History of colon cancer Maternal Grandmother Family history of breast cancer Mother History of cirrhosis of liver Other Mental health disorder Substance use disorder Social History Household Members Other:: single, 3 children, 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 Housing: House Alcohol intake: never Patient Tobacco Use Status: Former Tobacco user Tobacco use type: Cigarette Years Smoked: 15 e-Cigarette/Vaping Use: Never Used service: No Current occupational status: unemployed 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 Cognitive needs: No Hearing needs: No Vision needs: Yes Female Reproductive History Menstrual Age of Menarche: 14 Review of Systems Const All systems reviewed & are unremarkable except as noted in HPI and below Physical Exam Vital Signs: Last Vital Signs Pulse 94 05/23/24 14:20 BP 120/80 05/23/24 14:20 Pulse Ox 99 05/23/24 14:20 Oxygen Delivery Method Room Air 05/23/24 14:20 BMI result Body Mass Index 32.9 Const General: cooperative, healthy appearing, comfortable, no acute distress and well developed Orientation/consciousness: patient oriented x3 Limitations: no limitations HEENT Head: Yes normal to inspection Ears: hearing grossly normal bilaterally General nose exam: Normal external nose present Face and sinus: Yes normal facial exam Eyes General: appearance normal, both eyes and all related structures Neck Neck: Yes normal visual inspection and Yes full ROM Resp Effort & Inspection: normal respiratory effort and able to speak in complete sentences Skin General skin exam: no rashes or lesions noted Neuro General: patient oriented x3 Extrem General: Yes normal to inspection Left upper extremity: elbow/forearm Details: normal to inspection and normal ROM; no tenderness, no swelling, no unusual warmth, no abrasions, no lacerations, no ecchymosis and no crepitus, wrist (+ Tinel's, cannot perform phalen's test ) and hand Details: normal to inspection, normal capillary refill, tendon exam abnormal (pt unable to perform), tenderness (entire hand), vascular exam Details: normal capillary refill, abnormal ROM of finger (patient unable to flex all fingers fully 2/2 pain) and no swelling; no unusual warmth, no abrasions, no lacerations, no ecchymosis and no crepitus Results Reviewed Results Reviewed: Pt seen at [employer] [facility] [place] ED 05/15/2024: left elbow x-ray negative for any fluid or fractures or dislocation. Ultrasound negative for blood clot. Negative for any abscess or bursitis. Labs negative for indication for septic, septic joint, gout, or osteomyelitis. Diagnosed as tennis elbow tendinitis. Assessment & Plan Assessment & Plan (1) Ulnar nerve entrapment syndrome: Code(s): G56.20 - Lesion of ulnar nerve, unspecified upper limb Qualifiers: Laterality: left Qualified Code(s): G56.22 - Lesion of ulnar nerve, left upper limb Plan: Likely ulnar nerve entrapment, gave pt a wrist brace to immobilize and rest the area, particularly overnight and continuously for the next 5 to 7 days, with progressive weaning off during daytime activities to eventually only wear at night as needed. To manage pain, continued use of acetaminophen is advised due to the patient's known sensitivity to NSAIDs and history of ulcers. A referral will be made to an cardiac exercise specialist, specifically a hand specialist, for a comprehensive evaluation and further management, given the unresolved symptoms and prior history of lateral epicondylitis in the involved region. Follow-up will be based on the outcomes of the specialist evaluation and patient progress with the current treatment plan. Patient was informed and verbally consented to the use of an ambient scribe for clinic note documentation during this visit. Orders: Referrals Orthopedics Referral G56.22 - Lesion of ulnar nerve, left upper limb Coding Level of Care Code Est Pt Level 4 (01824) Diagnoses Entrapment of left ulnar nerve G56.22 Laterality: left
== END 2024-05-23 14:50 | disposition home or self-care (01) ==
PROVIDERS: PCP Internal Medicine; Visit Provider Physician Assistant
DX: G56.22 Lesion of ulnar nerve, left upper limb (principal)

== ENCOUNTER 2024-06-16 09:19 | Outpatient (AMB) | payer OTHER, SELFPAY ==
[2024-06-16 09:22] VITALS: BMI 32.9
--- NOTE | 2024-06-16 09:22 | MHC.OFFVIS ---
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 States it started with a bump on her elbow about 1 month ago, then pain and swelling down her arm into her hand and wrist. Seen in ED where she was told she has tendonitis and was given a sling. Currently states bump has resolved however she continues to have swelling in her left hand. Denies numbness or tingling. She was also advice to follow up with a rhuematologist. Allergies amoxicillin [Augmentin] Allergy (Severe, Verified 06/16/24 09:28) vomiting azithromycin [From ZITHROMAX] Allergy (Severe, Verified 06/16/24 09:28) VOMITTING, DIFF BREATHING, hives, SOB, Vomiting clavulanic acid [Augmentin] Allergy (Severe, Verified 06/16/24 09:28) vomiting influenza virus vaccine, specific [FLU VACCINE] Allergy (Severe, Verified 06/16/24 09:28) anaphylaxix prednisone [PREDNISONE] Allergy (Severe, Verified 06/16/24 09:28) VOMITTING, DIFF BREATHING, hives, SOB, Vomiting cinnamon [CINNAMON] Allergy (Intermediate, Verified 06/16/24 09:28) itchy mouth ferrous fumarate [Prenatabs FA] Allergy (Intermediate, Verified 06/16/24 09:28) itching folic acid [Prenatabs FA] Allergy (Intermediate, Verified 06/16/24 09:28) itching latex [LATEX] Allergy (Intermediate, Verified 06/16/24 09:28) RASH Penicillins [PENICILLINS] Allergy (Intermediate, Verified 06/16/24 09:28) hives/sob phentermine Allergy (Intermediate, Verified 06/16/24 09:28) Nausea vitamins with calcium no.78 [Prenatabs FA] Allergy (Intermediate, Verified 06/16/24 09:28) itching Sulfa (Sulfonamide Antibiotics) [SULFA (SULFONAMIDE ANTIBIOTICS)] Allergy (Intermediate, Verified 06/16/24 09:28) RASH, vomiting coconut Allergy (Mild, Verified 06/16/24 09:28) HIVES/VOMITING mushroom Allergy (Mild, Verified 06/16/24 09:28) HIVES/VOMITING sertraline [From ZOLOFT] Allergy (Mild, Verified 06/16/24 09:28) HIVES/VOMITING strawberry [STRAWBERRY] Allergy (Mild, Verified 06/16/24 09:28) HIVES, VOMITING codeine [Codeine] Adverse Reaction (Mild, Verified 06/16/24 09:28) NAUSEA ibuprofen Adverse Reaction (Verified 06/16/24 09:28) Stomach Upset HPI 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 The patient states that she noticed an area of swelling on the lateral aspect of the left elbow approximately 1 month ago, and that this progressed to pain in the elbow that gradually moved down to her left wrist. Patient states that her pain has improved, she is still experiencing some discomfort left wrist. Patient states that she did have a similar problem 1-2 years in her right arm. Denies any numbness or tingling in the left hand. No other acute complaints or concerns at this time. [facility] Medical History ADHD Annual physical exam Normal pelvic exam Seasonal allergic rhinitis Asthma Anemia GERD (gastroesophageal reflux disease) Obesity Interstitial cystitis Surgical History History of esophagogastroduodenoscopy (EGD) H/O right knee surgery History of lumbar puncture Hx of endoscopy Hx of cholecystectomy Family History Paternal Grandfather History of colon cancer Maternal Grandmother Family history of breast cancer Mother History of cirrhosis of liver Other Mental health disorder Substance use disorder Social History (Updated 06/16/24 @ 09:29 by BRITTANY Candelaria) Household Members Other:: single, 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, 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 Housing: House Alcohol intake: never Patient Tobacco Use Status: Former Tobacco user Tobacco use type: Cigarette Years Smoked: 15 e-Cigarette/Vaping Use: Never Used service: No Current occupational status: employed 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 Neuro: Normal sensation of the tips of all digits of the left hand at this time Vascular: Cap refill brisk Pain: Patient reports pain with resisted flexion and extension of the left wrist No tenderness to palpation of the left wrist No anatomical snuffbox tenderness No radial styloid tenderness Negative Mary ROM: Patient is able to make a closed fist and extend all digits of the left hand fully Range of motion of the left wrist full and intact Skin: No lacerations or abrasions. General: No ecchymosis, erythema, or evidence of infection. Psych: Appears grossly normal Affect normal Attitude cooperative Assessment & Plan Assessment & Plan (1) Tendinitis of left wrist: Code(s): M77.8 - Other enthesopathies, not elsewhere classified Category: Medical Plan 1. Tendinitis of left wrist Ongoing for approximately 1 month Patient is educated about this condition Patient is educated about the treatment options available, namely bracing, occupational therapy, and symptomatic management Patient would like to proceed with bracing and symptomatic management, but would like to hold off on OT at this time Patient was educated that she should only wear the brace when her wrist is bothering her, and when she is at rest in her wrist is not painful she should remove it for range of motion and strengthening Patient states understanding of this Patient will follow-up as needed with any acute concerns Coding Level of Care Code New Pt Level 3 (53101) Diagnoses Tendinitis of left wrist M77.8
== END 2024-06-16 09:52 | disposition home or self-care (01) ==
PROVIDERS: PCP Internal Medicine
DX: M77.8 Other enthesopathies, not elsewhere classified (principal)
CPT/HCPCS: 99203

== ENCOUNTER → 2024-06-16 09:19 | Outpatient (BNVA) | payer OTHER, SELFPAY | PROVIDERS: PCP Internal Medicine | DX: M77.8 Other enthesopathies, not elsewhere classified (principal) | CPT/HCPCS: 99202 ==

== ENCOUNTER 2024-06-23 13:51 | Outpatient (AMB) | payer OTHER, SELFPAY ==
--- NOTE | 2024-06-23 13:54 | A.OFFPC_ITS ---
Vital Signs 06/23/24 13:55 Height 4 ft 11 in Weight 158 lb BMI 31.9 BP 106/64 Blood Pressure Location Lt brachial Position Sitting Pulse 64 Pulse Source Pulse Oximeter Pulse Oximetry (%) 99 Oxygen Delivery Method Room Air Intake Visit Reasons: Rsched from 04/28 Intake Note: Pt is here today for PE Allergies amoxicillin [Augmentin] Allergy (Severe, Verified 06/23/24 13:57) vomiting azithromycin [From ZITHROMAX] Allergy (Severe, Verified 06/23/24 13:57) VOMITTING, DIFF BREATHING, hives, SOB, Vomiting clavulanic acid [Augmentin] Allergy (Severe, Verified 06/23/24 13:57) vomiting influenza virus vaccine, specific [FLU VACCINE] Allergy (Severe, Verified 06/23/24 13:57) anaphylaxix prednisone [PREDNISONE] Allergy (Severe, Verified 06/23/24 13:57) VOMITTING, DIFF BREATHING, hives, SOB, Vomiting cinnamon [CINNAMON] Allergy (Intermediate, Verified 06/23/24 13:57) itchy mouth ferrous fumarate [Prenatabs FA] Allergy (Intermediate, Verified 06/23/24 13:57) itching folic acid [Prenatabs FA] Allergy (Intermediate, Verified 06/23/24 13:57) itching latex [LATEX] Allergy (Intermediate, Verified 06/23/24 13:57) RASH Penicillins [PENICILLINS] Allergy (Intermediate, Verified 06/23/24 13:57) hives/sob phentermine Allergy (Intermediate, Verified 06/23/24 13:57) Nausea vitamins with calcium no.78 [Prenatabs FA] Allergy (Intermediate, Verified 06/23/24 13:57) itching Sulfa (Sulfonamide Antibiotics) [SULFA (SULFONAMIDE ANTIBIOTICS)] Allergy (Intermediate, Verified 06/23/24 13:57) RASH, vomiting coconut Allergy (Mild, Verified 06/23/24 13:57) HIVES/VOMITING mushroom Allergy (Mild, Verified 06/23/24 13:57) HIVES/VOMITING sertraline [From ZOLOFT] Allergy (Mild, Verified 06/23/24 13:57) HIVES/VOMITING strawberry [STRAWBERRY] Allergy (Mild, Verified 06/23/24 13:57) HIVES, VOMITING codeine [Codeine] Adverse Reaction (Mild, Verified 06/23/24 13:57) NAUSEA ibuprofen Adverse Reaction (Verified 06/23/24 13:57) Stomach Upset Medication List - Last Reconciled 06/23/24 by Criselda Armstrong MD albuterol sulfate 90 mcg/actuation 1 - 2 puffs PO Q4-6H PRN budesonide-formoterol 160-4.5 mcg/actuation 460 inhalations inhalation DAILY cetirizine 10 mg PO DAILY cyclobenzaprine 10 mg PO BEDTIME PRN epinephrine 0.3 mg IM DIRECTED ibuprofen 800 mg PO TID PRN magnesium oxide 500 mg PO DAILY omeprazole 40 mg PO BID ondansetron 4 mg PO Q8H PRN riboflavin (vitamin B2) 400 mg PO DAILY simethicone (Gas-X Extra Strength) 125 mg PO BID-TID PRN 30 days [Tylenol 100 mg PO BID] Tobacco use date assessed: 06/23/24 Dental Screening Dental Screen Date: 06/23/24 Did you have a dental visit in the last 12 months?: Yes Did you have a dental problem in the last 6 months where you did not have access to dental care?: No Was dental information given to patient?: Patient has dentist HPI Rsched from 04/28 HPI Details Pt presents for PE. 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 She complains of recurrent right wrist tendinitis using her hands a lot of work but is concerned about autoimmune diseases, her mother had lupus. [facility] Medical History ADHD Annual physical exam Normal pelvic exam Seasonal allergic rhinitis Asthma GERD (gastroesophageal reflux disease) Obesity Interstitial cystitis Surgical History History of esophagogastroduodenoscopy (EGD) H/O right knee surgery History of lumbar puncture Hx of endoscopy Hx of cholecystectomy Family History Paternal Grandfather History of colon cancer Maternal Grandmother Family history of breast cancer Mother History of cirrhosis of liver Other Mental health disorder Substance use disorder Social History Household Members Other:: single, 3 children, 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 1. Little interest or pleasure in doing things: several days 2. Feeling down, depressed, or hopeless: several days 3. Trouble falling or staying asleep, or sleeping too much: several days 4. Feeling tired or having little energy: several days 5. Poor appetite or overeating: not at all 6. Feeling bad about yourself - or that you are a failure or have let yourself or your family down: not at all 7. Trouble concentrating on things, such as reading the newspaper or watching television: several days 8. Moving or speaking so slowly that other people could have noticed. Or the opposite - being so fidgety or restless that you have been moving around a lot more than usual: not at all 9. Thoughts that you would be better off or of hurting yourself in some way: not at all Total score: 5 Depression Screening Interpretation: Negative Depression Screening Done: Yes 81030 - PHQ-9 Billing: Yes Source: Developed by Drs. Dario Liu, Cielo Ku, Mateus Bull and colleagues, with an educational abiodun from [employer]. Thrive Questionnaire Date Thrive assessed: 06/23/24 I am a: Patient What is your living situation today?: I have a steady place to live Within the past 12 months, did the food you bought not last and you didn't have the money to get more?: Never true Within the past 12 months, did you worry whether your food would run out before you got money to buy more?: Never true Do you have trouble paying for medicines?: No Do you have trouble getting transportation to medical appointments?: No Do you have trouble paying your heating and electricity bill?: No Do you have trouble taking care of your child, family member or friend?: No Do you have trouble with day-to-day activities such as bathing, preparing meals, shopping, managing finances, etc.?: No Are you currently unemployed and looking for a job?: No Are you interested in more education?: No Please select the resources that you would like help with: None Currently or been in a relationship where the following occur: No concerns reported THRIVE Score: 0 AUDIT C Alcohol Use Questionnaire (AUDIT-C) 1. How often do you have a drink containing alcohol?: Never 3. How often do you have six or more drinks on one occasion?: Never Total Score: 0 LUIS-7 AMB Questionnaire LUIS-7 Date LUIS - 7 assessed: 06/23/24 Feeling nervous, anxious, or on edge: 0 = Not at all Not being able to stop or control worryin = Not at all Worrying too much about different things: 0 = Not at all Trouble relaxin = Not at all Being so restless that it is hard to sit still: 0 = Not at all Becoming easily annoyed or irritable: 1 = Several days Feeling afraid as if something awful might happen: 0 = Not at all Total LUIS-7 score (0-4 normal; 5-9 mild; 10-14 moderate; 15-21 severe): 1 Source: Developed by Drs. Dario Liu, Cielo Ku, Mateus Bull and colleagues, with an educational abiodun from [employer]. LUIS-7 Assessment Billing LUIS-7 Assessment Tool: LUIS-7 Assessment 69139 Review of Systems Const All systems reviewed & are unremarkable except as noted in HPI and below Eyes Reports no additional complaints ENT Reports no additional complaints Card Reports no additional complaints Resp Reports no additional complaints GI Reports no additional complaints Reports no additional complaints Physical exam (Primary Care) Vital Signs: Last Vital Signs Pulse 64 06/23/24 13:55 BP 106/64 06/23/24 13:55 Pulse Ox 99 06/23/24 13:55 Oxygen Delivery Method Room Air 06/23/24 13:55 BMI result Body Mass Index 31.9 Tobacco/Smoking Status: Tobacco use Status Tobacco use date assessed 06/23/24 06/23/24 14:01 Patient Tobacco Use Status Former Tobacco user 06/23/24 14:01 Tobacco use type Cigarette 06/23/24 14:01 e-Cigarette/Vaping Use Never Used 06/23/24 14:01 PHQ-9: PHQ-9 Score PHQ-9: Total score 5 06/23/24 14:01 Depression Screening Interpretation: Negative Thrive Assessment: Date of Thrive Assessment Date Thrive assessed 06/23/24 06/23/24 14:01 Currently or been in a relationship where the following occur: No concerns reported Const General: no acute distress HENMT Head: Yes normal to inspection Ears: hearing grossly normal bilaterally Face and sinus: Yes normal facial exam Mouth: Normal oral and palatal mucosa present Eyes General: appearance normal, both eyes and all related structures Neck Neck: Yes supple Resp Effort & Inspection: normal respiratory effort Auscultation: clear to auscultation bilaterally Cardio Rhythm: regular rhythm Heart sounds: S1 normal heart sound present and S2 normal heart sound present GI Inspection: Yes normal to inspection Palpation (GI): Soft to palpation Percussion: Yes normal to percussion Auscultation: normal bowel sounds Coding Level of Care Code Est Pt Prev Care 18-39y([id number]) Diagnoses Asthma J45.909 Normal pelvic exam Z01. Annual physical exam Z00. Tendinitis of left wrist M77.8 Anemia D64.9 Additional Codes LUIS-7 Assessment Billing - LUIS-7 Assessment Tool: LUIS-7 Assessment 25220 ([id number]) PHQ-9 - 08987 - PHQ-9 Billing: Yes ([id number]) Assessment & Plan Assessment & Plan (1) Asthma: Comment: f/u Dr. Garcia, q 3-6 MONTHS Code(s): J45.909 - Unspecified asthma, uncomplicated Category: Medical Plan: Continue Symbicort and albuterol p.r.n. (2) Normal pelvic exam: Comment: f/u medical surgery nurse at [facility] Code(s): Z01.419 - Encounter for gynecological examination (general) (routine) without abnormal findings Category: Medical Plan: Follow-up with medical surgery nurse (3) Annual physical exam: Code(s): Z00.00 - Encounter for general adult medical examination without abnormal findings Category: Medical Plan: Well-balanced diet regular physical activity discussed with the patient. (4) Tendinitis of left wrist: Code(s): M77.8 - Other enthesopathies, not elsewhere classified Category: Medical Plan: Check arthritis panel. Patient was advised to use wrist support at work to prevent injury from overuse (5) Anemia: Comment: IRON DEFICIENCY ANEMIA related to her blood loss menorrhagia, cannot tolerate oral iron supplement, follow-up with Hematology Code(s): D64.9 - Anemia, unspecified Category: Medical Plan: Monitor CBC by Hematology. Patient is allergic to iron supplements and has been eating iron rich diet Orders: Orders LAUREN Reflex Titer and Pattern Today D64.9 - Anemia, unspecified, J45.909 - Unspecified asthma, uncomplicated, M77.8 - Other enthesopathies, not elsewhere classified, Z00.00 - Encounter for general adult medical examination without abnormal findings, Z01.419 - Encounter for gynecological examination (general) (routine) without abnormal findings Anti DNA DS Antibody Today D64.9 - Anemia, unspecified, J45.909 - Unspecified asthma, uncomplicated, M77.8 - Other enthesopathies, not elsewhere classified, Z00.00 - Encounter for general adult medical examination without abnormal findings, Z01.419 - Encounter for gynecological examination (general) (routine) without abnormal findings Rheumatoid Factor Today D64.9 - Anemia, unspecified, J45.909 - Unspecified asthma, uncomplicated, M77.8 - Other enthesopathies, not elsewhere classified, Z00.00 - Encounter for general adult medical examination without abnormal fin dings, Z01.419 - Encounter for gynecological examination (general) (routine) without abnormal findings Erythrocyte Sedimentation Rate Today D64.9 - Anemia, unspecified, J45.909 - Unspecified asthma, uncomplicated, M77.8 - Other enthesopathies, not elsewhere classified, Z00.00 - Encounter for general adult medical examination without abnormal findings, Z01.419 - Encounter for gynecological examination (general) (routine) without abnormal findings Comprehensive [place]. Panel Fast Today D64.9 - Anemia, unspecified, J45.909 - Unspecified asthma, uncomplicated, M77.8 - Other enthesopathies, not elsewhere classified, Z00.00 - Encounter for general adult medical examination without abnormal findings, Z01.419 - Encounter for gynecological examination (general) (routine) without abnormal findings Cyclic Citrullinated Peptide Today D64.9 - Anemia, unspecified, J45.909 - Unspecified asthma, uncomplicated, M77.8 - Other enthesopathies, not elsewhere classified, Z00.00 - Encounter for general adult medical examination without abnormal findings, Z01.419 - Encounter for gynecological examination (general) (routine) without abnormal findings Lipid Panel Today D64.9 - Anemia, unspecified, J45.909 - Unspecified asthma, uncomplicated, M77.8 - Other enthesopathies, not elsewhere classified, Z00.00 - Encounter for general adult medical examination without abnormal findings, Z01.419 - Encounter for gynecological examination (general) (routine) without abnormal findings
[2024-06-23 13:55] VITALS: BP 106/64; PULSE 64; O2SAT 99; BMI 31.9
== END 2024-06-23 14:34 | disposition home or self-care (01) ==
PROVIDERS: PCP Internal Medicine; Visit Provider Internal Medicine
DX: J45.909 Unspecified asthma, uncomplicated (principal); Z01.419 Encounter for gynecological examination (general) (routine) without abnormal findings; Z00.00 Encounter for general adult medical examination without abnormal findings; M77.8 Other enthesopathies, not elsewhere classified; D64.9 Anemia, unspecified

== ENCOUNTER → 2024-06-23 13:51 | Outpatient (BNVA) | payer OTHER, SELFPAY | PROVIDERS: PCP Internal Medicine; Visit Provider Internal Medicine | DX: Z00.00 Encounter for general adult medical examination without abnormal findings (principal); J45.909 Unspecified asthma, uncomplicated; M77.8 Other enthesopathies, not elsewhere classified; D64.9 Anemia, unspecified | CPT/HCPCS: 96127; 99395 ==

== ENCOUNTER 2024-07-17 08:09 | Outpatient (REF) | payer OTHER, SELFPAY ==
[2024-07-17 10:44] LABS: Rheumatoid Factor < 13.0 IU/mL (<15.0)
[2024-07-17 10:50] LABS: Erythrocyte Sedimentation Rate 14 MM/HR (0-20)
[2024-07-17 10:53] LABS: Alanine Aminotransferase 17 U/L (0-31); Albumin Level 4.2 g/dL (3.5-5.0); Alkaline Phosphatase 71 U/L (39-117); Anion Gap 10 (12-20); Aspartate Amino Transferase 17 U/L (5-31); Bilirubin Total 0.3 mg/dL (0.0-1.0); Blood Urea Nitrogen 16 mg/dL (9-16); Calcium 9.3 mg/dL (8.4-10.2); Carbon Dioxide 24 mmol/L (22-29); Chloride 108 mmol/L (96-108); Cholesterol 148 mg/dL (<200); Estimated Glomerular Filt Rate > 60; Glucose Fasting 89 mg/dL (60-99); HDL Cholesterol 47 mg/dL (>40); LDL Cholesterol Calculated 90 mg/dL (<100); Potassium 4.3 mmol/L (3.3-5.1); Sodium 138 mmol/L (135-145); Total Protein 7.3 g/dL (6.5-8.0); Triglycerides 56 mg/dL (<150)
--- OUTSIDE RECORDS SUMMARY | 2024-07-17 12:35 | XMS_ITS | Data Portability ---
Author Organization [facility] ALB[facility] [address] Address [address] [place] [address] Assessment No assessment recorded. Plan of Treatment Reminders Order Date Submit Date Provider Last Modified By Organization Details Last Modified Time Details Appointments None recorded. Lab rapid SARS CoV 2 Ag, QL IA, respiratory specimen 2022 023 [email or web address] _[facility], [address] [place] [address], [phone], 09:02:36 rapid strep group A, throat 2022 023 [email or web address] _renzo [facility], [address] [place] [address], [phone], 09:02:36 Referral None recorded. Procedures None recorded. Surgeries None recorded. Imaging None recorded. Medication Orders None recorded. Patient TargetsNo targets recorded. Patient Instructions Encounter Date Encounter Id Patient Instructions Last Modified By Organization Details Last Modified Time 10/09/2022 [id number] viral respirator y infection: care instructions [email or web address] Not available 10/09/2022 09:02:36 Reason for Referral None Reported. Results Created Date Observation Date Name Description Value Unit Range Abnormal Flag Note LastModifiedBy Organization Detail LastModifiedTime 10/10/1910/09/2022 rapid SARS CoV 2 Ag, QL IA, respi rator y speci men Unknown Analyte Normal =Negat lisa Not Available [facility] [address] [place] [address], [phone], 10/09/2022 08:24:38 10/10/19 23 10/09/2022 rapid SARS CoV 2 Ag, QL IA, respi rator y speci men Unknown Analyte negati ve Not Available [address] [place] [address], [place], [phone], 10/09/2022 08:24:38 10/10/19 23 10/09/2022 rapid strep group A, throa t Unknown Analyte Normal = Negati ve Not Available [address] [place] [address], [phone], 10/09/2022 08:24:44 10/10/1910/09/2022 rapid strep group A, throa t Unknown Analyte negati ve Not Available [address] [place] [address], [phone], 10/09/2022 08:24:44 Result Notes None recorded. Problems Name Problem SNOMED Code Status Onset Date Resolution Date Notes Provider Name and Address Organization Details Recorded Time Gastroesophage al reflux disease 504853173 Active 2022 SONIDEB SALEEMEY null, PA - [facility] 3 08:22:04 Asthma 079040181 Active 2022 SONI SALEEMEY null, PA - [facility] 08:22:08 Migraine 18722192 Active 2022 SONI BACA null, PA - [facility] 3 08:22:32 Problem Notes None recorded. Procedures Surgical History Date Name Laterality Status Provider Name and Address Organization Details Recorded Time procedure on knee completed SONI BACA PA - [facility] 10/09/2022 08:24:19 cholecystectomy completed SONI BACA P A - [facility] 10/09/2022 08:24:28 Imaging Results None recorded. Procedure Notes None recorded. Medical Equipment None Reported. Allergies Allergen ID Allergen Name Allergen Category Reaction Reaction Severity Criticality Documentation Date Start Date Code Code System Note Provider Name and Address Organization Details Recorded Time [id number] amoxicill in medicatio n hives nausea vomiting Not available Not available Not available Not available 10/09/2022 723 RxNorm SONI BACA null, PA - [facility] 3 08:20:21 601096 Product containin g penicilli n and antibioti c (product) medicatio n hives nausea vomiting Not available Not available Not available Not available 10/09/2022 24002 05 SNOMED SONI BACA null, PA - [facility] 3 08:20:38 417007 azithromy neel medicatio n hives nausea vomiting Not available Not available Not available Not available 10/09/2022 14009 RxNorm SONI BACA null, PA - [facility] 3 08:20:58 961189 codeine medicatio n hives nausea vomiting Not available Not available Not available Not available 10/09/2022 2670 RxNorm SONI BACA null, PA - [facility] 3 08:21:31 893419 Vaccine product containin g only Influenza virus antigen (medicina l product) medicatio n anaphylax is Not available Not available 10/09/2022 74918 16484 105 SNOMED SONI BACA null, PA - [facility] 3 08:23:16 377917 cortisone medicatio n itching Not available Not available 10/09/2022 2878 RxNorm SONI BACA null, PA - [facility] 3 08:23:25 587087 Bactrim medicatio n hives nausea vomiting Not available Not available Not available Not available 10/09/2022 57450 9 RxNorm SONI BACA null, PA - [facility] 3 08:23:42 Medications Name Sig Start Date Stop Date Status Note LastModified by Organization Details LastModified Time cetirizine 10 mg tablet TAKE 1 TABLET BY MOUTH EVERY DAY IN THE MORNING active Not Available Not Available No t Available ketotifen 0.025 % (0.035 %) eye drops INSTILL 1 DROP INTO THE AFFECTED EYES TWICE A DAY MAX 2 DOSES IN 24 HOURS SPACE APART 8 TO 12 HOURS active Not Available Not Available No t Available fluocinonide 0.05 % topical ointment APPLY TO AFFECTED AREAS ON LEG TWICE DAILY FOR TWO WEEKS ON AND ONE WEEK OFF, REPEAT active Not Available Not Available No t Available omeprazole 40 mg capsule,alina yed release TAKE 1 CAPSULE BY MOUTH EVERY DAY active Not Available Not Available No t Available vancomycin 125 mg capsule TAKE 1 CAPSULE BY MOUTH TWICE A DAY active Not Available Not Available No t Available nystatin-tri amcinolone 100,000 unit/gram-0. 1 % topical ointment PLEASE SEE ATTACHED FOR DETAILED DIRECTIONS active Not Available Not Available N ot Available erythromycin 5 mg/gram (0.5 %) eye ointment APPLY 1/2 INCH TO THE EYES TWICE A DAY active Not Available Not Available No t Available clotrimazole -betamethaso ne 1 %-0.05 % topical cream APPLY A SMALL AMOUNT TOP TWICE A DAY APPLY WITH FINGERTIP TO EXTERNAL EAR NEEDED FOR ITCHING active Not Available Not Available No t Available epinephrine 0.3 mg/0.3 mL injection, auto-injecto r USE DIRECTED FOR ANAPHYLAXIS THEN CALL 911 active Not Available Not Available No t Available ibuprofen 600 mg tablet TAKE 1 TABLET BY MOUTH EVERY 8 HOURS NEEDED FOR PAIN active Not Available Not Available No t Available norethindron e (contracepti ve) 0.35 mg tablet TAKE 1 TABLET BY MOUTH EVERY DAY active Not Available Not Available No t Available naproxen 500 mg tablet TAKE 1 TABLET BY MOUTH TWICE A DAY WITH FOOD active Not Available Not Available No t Available Ventolin HFA 90 mcg/actuatio n aerosol inhaler INHALE 1 TO 2 PUFFS BY MOUTH EVERY 4 TO 6 HOURS NEEDED active Not Available Not Available No t Available tobramycin 0.3 %-dexamethas one 0.1 % eye drops,suspen toño INSTILL 4 DROP TWICE A DAY TO AFFECTED EAR TWICE A DAY FOR 14 DAYS active Not Available Not Available No t Available duloxetine 20 mg capsule,alina yed release TAKE 1 CAPSULE BY MOUTH TWICE A DAY active Not Available Not Available No t Available omeprazole active Not Available Not Av ailable Not Available Zyrtec active Not Available Not Availa ble Not Available fluocinolone acetonide oil 0.01 % ear drops INSTILL 4 DROPS INTO AFFECTED EAR EVERY DAY. INSTILL 4 DROPS INTO EACH EAR TWICE WEEKLY AND NEEDED active Not Available Not Available No t Available Symbicort 160 mcg-4.5 mcg/actuatio n HFA aerosol inhaler TAKE 2 PUFFS BY MOUTH TWICE A DAY active Not Available Not Available No t Available Symbicort active Not Available Not Karol ilable Not Available diclofenac 1 % topical gel APPLY 1-2GRAMS TOPICALLY 4 TIMES DAILY DIRECTED, MAX 16 GRAMS PER DAY active Not Available Not Available No t Available Flowflex COVID-19 Antigen Home Test kit USE DIRECTED active Not Available Not Available No t Available Vitals Date Recorded Body height Provider Name an d Address Organization Details Last Updated DateTime 10/09/2022 149.86 cm SONI BACA PA - [facility] 0 10/09/2022 08:19:05 Date Recorded Body mass index (BMI) Body weight Provider Name and Address Organization Details Last Updated DateTime 10/09/2022 26.9 kg/m2 16229.79 g SONI BACA PA - [facility] 10/09/2022 08:19:09 Date Recorded Pain severity - 0-10 verbal numeric rating [Score] - Reported Provider Name and Address Organization Details Last Updated DateTime 10/09/2022 6 SONI SALEEMEY PA - [facility] 0 10/09/2022 08:19:14 Date Recorded Respiratory rate Provider Name a nd Address Organization Details Last Updated DateTime 10/09/2022 17 /min SONI SALEEMEY PA - [facility] 0 10/09/2022 08:25:17 Date Recorded Oxygen saturation Oxygen saturation in Arterial blood by Pulse oximetry Provider Name and Address Organization Details Last Updated DateTime 10/09/2022 99 % 99 % SONI SALEEMEY PA - [facility] 10/09/2022 08:25:21 Date Recorded Heart rate Provider Name an d Address Organization Details Last Updated DateTime 10/09/2022 70 /min SONIDEB SALEEMEY PA - [facility] 0 10/09/2022 08:25:23 Date Recorded Body temperature Provider Name a nd Address Organization Details Last Updated DateTime 10/09/2022 97.9 [degF] SONI SALEEMEY PA - [facility] 10/09/2022 08:25:52 Date Recorded Systolic blood pressure Diastolic blood pressure Provider Name and Address Organization Details Last Updated DateTime 10/09/2022 108 mm[Hg] 70 mm[Hg] SONI SALEEMEY PA - [facility] 10/09/2022 08:25:25 Social History Question Answer Notes LastModified by Organizat ion Details LastModified Time Tobacco Smoking Status Former Smoker CARLOS ALBERTO Buck - [facility] 10/09/2022 08:24:03 What Is Your Level Of Alcohol Consumption? None [email or web address] Information not available 10/09/2022 When Did You Quit Smoking? 6-10yearssi [email or web address] [email or web address] Information not available 10/09/2022 Do You Use Any Illicit Or Recreational Drugs? No [email or web address] Information not available 10/09/2022 Have You Recently Traveled Abroad? No [email or web address] Information not available 10/09/2022 Do You Or Have You Ever Used Any Other Forms Of Tobacco Or Nicotine? No [email or web address] Information not available 10/09/2022 Sex: Unknown Functional Status None recorded. Mental Status None recorded. Family History Relationship Description Onset Age of this Age Resolved Age Notes LastModified by Organization Details LastModified Time Father No current problems or disability [email or web address] Not available 10/09 08:23:46 Mother No current problems or disability [email or web address] Not available 10/09 08:23:46 Medical History No medical history recorded. Gynecological HistoryNo gynecological history recorded. Obstetrics History GPAL:G 0 P 0 0 0 0 Past Encounters Encounter ID Performer Location Encounter Start Date Encounter Closed Date Diagnosis/Indication Diagnosis SNOMED-CT Code Diagnosis ICD10 Code Diagnosis Note [id number] [address] [place] [address] 06/11/2019 08:25:52 06/11/2019 09:01:43 [id number] [address] [place] [address] 02/26/2017 09:04:55 02/26/2017 10:07:43 [id number] [address] [place] [address] 12/08/2020 10:59:15 12/08/2020 11:18:36 [id number] [address] [place] [address] 09/04/2021 09:23:04 09/04/2021 09:56:28 [id number] [address] [place] [address] 01/25/2018 08:36:59 01/25/2018 09:52:03 [id number] [address] [facility] [address] 07/10/2017 09:33:40 07/10/2017 10:04:33 [id number] Dada Polo [place] [address] [place] [address] 10/09/2022 08:03:28 10/09/2022 09:03:24 Upper respiratory infection 48620486 J06.9 Viral infectionR ecommend plenty of fluidsTyle nol, Motrin for pain/fever Humidifier Nasal saline sprayNo need for antibiotic may last up to 2 weeksCall or RTC if worsening cough, SOB, high fever, rash, n/v/d and unable to hydrate Health Concerns Section Related Observation LastModified by Organization Detai ls LastModified Time None Recorded Concern Status LastModified by Organization Details LastModified Time None Recorded Advance Directives Directive None Recorded Payers Encounter Date Sequence Insurance Name Policy Number Policy Garza Covered Member ID Garza Member ID Guarantor Name 01/25/2018 1 [facility] PL[facility] (MEDICAID HMO) AMALIA Jeffery Quintana [id number] Sera Mendoza 09/04/2021 1 [facility] PLAN (MEDICAID HMO) AMALIA Jeffery Quintana [id number] Sera Mendoza 10/09/2022 1 [facility] PLAN (MEDICAID HMO) AMALIA Jeffery Quintana [id number] Sera Mendoza Notes Date Note Type Note Provider Name and Address Organization Details Recorded Time 10/09/2022 text/html 36 yo female c/o Sore throat, losing voice, non productive cough, runny nose since Wednesday.did Covid tested at home on Wednesday - negative No feverNo chillsNo difficulty breathing or respiratory distressNo wheezeNo CPNo ear painNo Abdominal painNo nauseaNo vomitingNp diarrheaNo myalgiaNo fatigueNo rashNo HANo dizzinessNo recent travelNo known sick contacts Dada Polo, DO [address] [place], [address], [place] - [facility] 10/09/2022 09:02:57 OBGyn Episode No OBEpisode recorded.
[2024-07-18 15:03] LABS: Anti DNA DS Antibody <1 IU/mL
[2024-07-19 15:18] LABS: Anti Nuclear Antibody Screen NEGATIVE (NEGATIVE)
== END 2024-07-17 08:10 | disposition home or self-care (01) ==
LOC: HO.HMGCLDS 08:09
PROVIDERS: PCP Internal Medicine; Visit Provider Internal Medicine
DX: Z00.00 Encounter for general adult medical examination without abnormal findings (principal); D64.9 Anemia, unspecified; M77.8 Other enthesopathies, not elsewhere classified; J45.909 Unspecified asthma, uncomplicated
CPT/HCPCS: 36415; 80053; 80061; 85652; 86038; 86225; 86431

== ENCOUNTER 2024-08-16 15:46 | Outpatient (REF) | payer OTHER, SELFPAY ==
[2024-08-16 16:23] LABS: Appearance Urine Clear; Color Urine Yellow; Glucose Urine UA Negative (Negative); Leukocyte Esterase Urine Small (1+) (Negative); Nitrite Urine Negative (Negative); Specific Gravity - Urine <= 1.005 (1.005-1.025); UMIC TRIGGER UA YES; Urine Blood Trace (Negative); Urine Ketones Negative (Negative); Urine Protein Negative (Neg-Trace)
[2024-08-16 16:37] LABS: Bacteria Urine None Seen (None Seen); Hyaline Casts Urine 0-2 /LPF (0-2); RBC Urine 0-2 /HPF (0-2); Squamous Epithelial Cell Urine 0-2 /HPF (0-2); WBC Urine 0-5 /HPF (0-5)
--- OUTSIDE RECORDS SUMMARY | 2024-08-16 19:17 | XMS_ITS | Clinical Summary ---
Author Organization Patient Business Ser [facility] [place] Address [address] [place] [address] Care Team Providers Care Director Hematology Name Role Phone Criselda Armstrong MD Primary Care Provider [phone] Surgical History Surgery Date Site/Laterality Comments CHOLECYSTECTOMY 09-27-2007 PROCEDURE: LAPAROSCOPY, CHOLECYSTECTOMY ESOPHAGOGASTRODUODENOSCOPY PROCEDURE: [place] ESOPHAGOGASTRODUODENOSCOPY TRANSORAL DIAGNOSTIC Medical History Medical History Date Comments Overweight(278.02) 10/01/2010 DX:Overweight (278.02) Chronic headache 11/13/2010 DX:Chronic head ache Atypical chest pain 11/13/2010 DX:Atypical chest pain Asthma DX:Asthma Migraines DX:Migraines; CO MMENT: without aura Acid reflux DX:Acid reflux Anemia DX:Anemia Family History Medical History Relation Name Comments Alcohol abuse Father Hypertension Father Celiac disease Maternal Grandfather Stroke Maternal Grandmother Alcohol abuse Mother Asthma Mother Diabetes Mother Hypertension Mother Liver disease Mother Colon cancer Paternal Grandfather Blindness Neg Hx Breast cancer Neg Hx Cataracts Neg Hx Glaucoma Neg Hx Macular degeneration Neg Hx Strabismus Neg Hx Uterine cancer Neg Hx Relation Name Status Comments Brother Alive Father Alive Maternal Grandfather Maternal Grandmother Mother Paternal Grandfather Sister Alive Social History Tobacco Use Types Packs/Day Years Used Date Smoking Tobacco: Former Cigarettes Q uit: 08/30/2010 Smokeless Tobacco: Never Alcohol Use Standard Drinks/Week Comments No 0 (1 standard drink = 0.6 oz pur e alcohol) Comments Unknown Sex and Gender Information Value Date Recorded Sex Assigned at Not on file Legal Sex Female 10:22 PM EST Gender Identity Not on file Sexual Orientation Not on file Obstetrics History Last Filed Vital Signs Vital Sign Reading Time Taken Comments Blood Pressure 100/72 04/27/2023 8:39 AM EST Pulse 80 04/27/2023 8:39 AM EST Temperature - - Respiratory Rate - - Oxygen Saturation - - Inhaled Oxygen Concentration - - Weight 66.7 kg (147 lb) 04/27/2023 8:39 AM EST Height 149.9 cm (4' 11 ) 04/27/2023 8:39 AM EST Body Mass Index 29.69 04/27/2023 8:39 AM EST Plan of Treatment Upcoming Encounters Date Type Department Care Team (Late st Contact Info) Description 09/13/2024 2:30 PM EDT Office Visit Obstetrics and Gynecology - [address] [address] Shawna Lopez, ELA[address] [place] [address] Health Maintenance Due Date Last Done Comments DTaP,Tdap,and Td Vaccines (1 - Tdap) 2005 Hepatitis B Vaccines (1 of 3 - 19+ 3-dose series) 2005 Depression Screening 07/25/2020 HIV Screening 07/25/2020 Hepatitis C Screening 07/25/2020 Social Influencers of Health Screening 07/25/2020 COVID-19 Vaccine (2023-2 5 season) 2024 Influenza Vaccine (#1) 2024 Cervical Cancer Screening: P ap Smear 08/13/2025 08/13/2022, 06/10/2021 HIB Vaccines Aged Out No longer eligi ble based on patient's age to complete this topic HPV Vaccines Aged Out No longer eligi ble based on patient's age to complete this topic Hepatitis A Vaccines Aged Out No long er eligible based on patient's age to complete this topic IPV Vaccines Aged Out No longer eligi ble based on patient's age to complete this topic MMR Vaccines Aged Out No longer eligi ble based on patient's age to complete this topic Meningococcal ACWY Vaccine Aged Out N o longer eligible based on patient's age to complete this topic Meningococcal B Vacine Aged Out No lo nger eligible based on patient's age to complete this topic Pneumococcal Vaccine: Pediatrics (0 to 5 Years) and At-Risk Patients (6 to 64 Years) Aged Out No longer eligible b ased on patient's age to complete this topic RSV Immunization Patients Under 20 months Aged Out No longer eligible b ased on patient's age to complete this topic Varicella Vaccines Aged Out No longer eligible based on patient's age to complete this topic Procedures Procedure Name Priority Date/Time Associated Diagnosis Comments PAP SMEAR Routine 08/13/2022 from Last 3 Months or Most Recently Relevant to Health Maintenance Results * Pap smear (08/13/2022) 08/13/2022 Narrative HISTORICAL TESTING LAB RESULTING AGENCY - 08/20/2022 7:36 AM EST [id number] THINPREP PAP, IMAGED: NEGATIVE FOR SQUAMOUS INTRAEPITHELIAL LESION AND MALIGNANCY . ABUNDANT RED BLOOD CELLS ARE PRESENT. BETTY STEPHEN(ASCP) (CASE ELECTRONICALLY SIGNED 08 19 2022) RESULT OF APTIMA HIGH RISK HPV ASSAY: HIGH RISK HPV: ??NEGATIVE (SEROTYPES 16,18,31,33,35,39,45,51,52,56,58,59,66,68) COMPLETED ON 2022-08-17 ADEQUACY: SATISFACTORY ENDOCERVICAL/TRANSFORMATION ZONE COMPONENT PRESENT. SOURCE: THINPREP PAP HPV ANY DX: ??REFLEX 16 AND 18, CERVICAL, IMAGED CLINICAL INFORMATION: HPV ANY DIAGNOSIS. HORMONES, PAP HX NEG, LMP 08/11/22 [[id number]] us Trevon Urbina DO LAB CYTOLOGY ORDERABLES Final Result HISTORICAL TESTING LAB RESULTING AGENCY from Last 3 Months or Most Recently Relevant to Health Maintenance Insurance [employer] Care Teams Director Hematology Relationship Specialty Start Date End Date Criselda Armstrong MD [address] [place] [address] PCP - General 09/14/22
--- OUTSIDE RECORDS SUMMARY | 2024-08-16 19:17 | XMS_ITS | Data Portability ---
Author Organization [facility] Address [address] [place] [address] Assessment No assessment recorded. Plan of Treatment Reminders Order Date Submit Date Provider Last Modified By Organization Details Last Modified Time Details Appointments None recorded. Lab rapid SARS CoV 2 Ag, QL IA, respiratory specimen 2022 023 [email or web address] [facility], [address] [place] [address], [phone], 09:02:36 rapid strep group A, throat 2022 023 [email or web address] _[facility], [address] [place] [address], [phone], 09:02:36 Referral None recorded. Procedures None recorded. Surgeries None recorded. Imaging None recorded. Medication Orders None recorded. Patient TargetsNo targets recorded. Patient Instructions Encounter Date Encounter Id Patient Instructions Last Modified By Organization Details Last Modified Time 10/09/2022 [id number] viral respirator y infection: care instructions [email or web address] Not available 10/09/2022 09:02:36 Reason for Referral None Reported. Results Created Date Observation Date Name Description Value Unit Range Abnormal Flag Note LastModifiedBy Organization Detail LastModifiedTime 10/10/1910/09/2022 rapid SARS CoV 2 Ag, QL IA, respi rator y speci men Unknown Analyte Normal =Negat lisa Not Available [facility] [address] [place] [address], [phone], 10/09/2022 08:24:38 10/10/19 23 10/09/2022 rapid SARS CoV 2 Ag, QL IA, respi rator y speci men Unknown Analyte negati ve Not Available [address] [place] [address], [place], [phone], 10/09/2022 08:24:38 10/10/19 23 10/09/2022 rapid strep group A, throa t Unknown Analyte Normal = Negati ve Not Available [address] [place] [address], [phone], 10/09/2022 08:24:44 10/10/1910/09/2022 rapid strep group A, throa t Unknown Analyte negati ve Not Available [address] [place] [address], [phone], 10/09/2022 08:24:44 Result Notes None recorded. Problems Name Problem SNOMED Code Status Onset Date Resolution Date Notes Provider Name and Address Organization Details Recorded Time Gastroesophage al reflux disease 933458333 Active 2022 SONIDEB SALEEMEY null, [place] - [facility] 3 08:22:04 Asthma 833109592 Active 2022 SONI SALEEMEY null, PA - [facility] 3 08:22:08 Migraine 83224922 Active 2022 SONI BACA null, PA - [...] Name and Address Organization Details Recorded Time 037652 amoxicill in medicatio n hives nausea vomiting Not available Not available Not available Not available 10/09/2022 723 RxNorm SONI BACA null, PA - [facility] 3 08:20:21 824796 Product containin g penicilli n (product) medicatio n hives nausea vomiting Not available Not available Not available Not available 10/09/2022 05120 8001 SNOMED SONI BACA null, PA - [facility] 3 08:20:38 802205 azithromy neel medicatio n hives nausea vomiting Not available Not available Not available Not available 10/09/2022 89294 RxNorm SONI BACA null, PA - [facility] 3 08:20:58 071338 codeine medicatio n hives nausea vomiting Not available Not available Not available Not available 10/09/2022 2670 RxNorm SONI BACA null, PA - [facility] 3 08:21:31 868866 Vaccine product containin g only Influenza virus antigen (medicina l product) medicatio n anaphylax is Not available Not available 10/09/2022 98956 83848 105 SNOMED SONI SALEEMEY null, PA - [facility] 3 08:23:16 853715 cortisone medicatio n itching Not available Not available 10/09/2022 2878 RxNorm SONI BACA null, PA - [facility] 3 08:23:25 351569 Bactrim medicatio n hives nausea vomiting Not available Not available Not available Not available 10/09/2022 59616 9 RxNorm SONI BACA null, PA - [...] t Available Vitals Date Recorded Body height Body mass index (BMI) Body weight Pain severity - 0-10 verbal numeric rating [Score] - Reported Respiratory rate Oxygen saturation Oxygen saturation in Arterial blood by Pulse oximetry Heart rate Body temperature Systolic blood pressure Diastolic blood pressure Provider Name and Address Organization Details Last Updated DateTime 3 149.86 cm 26.9 kg/m2 38320.7 9 g 6 17 /min 99 % 99 % 70 /min 97.9 [degF] 108 mm[Hg] 70 mm[Hg] SONI BACA [email or web address] 3 08:25:25 Social History Question Answer Notes LastModified by [employer] Details LastModified Time Tobacco Smoking Status Former Smoker SONI curiel PA - [facility] 10/09/2022 08:24:03 What Is Your Level Of Alcohol Consumption? None [email or web address] Information not available 10/09/2022 When Did You Quit Smoking? 6-10yearssi [email or web address] rette [email or web address] Information not available 10/09/2022 Do You Use Any Illicit Or Recreational Drugs? No Information not available 10/09/2022 Have You Recently Traveled Abroad? No [email or web address] Information not available 10/09/2022 Do You Or Have You Ever Used Any Other Forms Of Tobacco Or Nicotine? No [email or web address] Information not available 10/09/2022 Sex: Unknown Functional Status None recorded. Mental Status None recorded. Family History Relationship Description Onset Age of this Age Resolved Age Notes LastModified by Organization Details LastModified Time Father No current problems or disability [email or web address] Not available 10/09 08:23:46 Mother No current problems or disability [email or web address] Not available 10/09 08:23:46 Medical History No medical history recorded. Gynecological HistoryNo gynecological history recorded. Obstetrics History GPAL:G 0 P 0 0 0 0 Past Encounters Encounter ID Performer Location Encounter Start Date Encounter Closed Date Diagnosis/Indication Diagnosis SNOMED-CT Code Diagnosis ICD10 Code Diagnosis Note [id number] [facility] [place] [address] 06/11/2019 08:25:52 06/11/2019 09:01:43 [id number] [facility] [address] [facility] [place] [address] 02/26/2017 09:04:55 02/26/2017 10:07:43 [id number] [facility] [place] [address] 12/08/2020 10:59:15 12/08/2020 11:18:36 [id number] [facility] [place] [address] 09/04/2021 09:23:04 09/04/2021 09:56:28 [id number] [facility] [place] [address] 01/25/2018 08:36:59 01/25/2018 09:52:03 [id number] [facility] [place] [address] 07/10/2017 09:33:40 07/10/2017 10:04:33 [id number] Dada Polo DO [address] [address] [facility] [place] [address] 10/09/2022 08:03:28 10/09/2022 09:03:24 Upper respiratory infection 11257224 J06.9 Viral infectionR ecommend plenty of fluidsTyle [...] [place] Member ID Guarantor Name 01/25/2018 1 [employer] ([employer] H[employer]) AMALIA Quintana [id number] Sera Jeffery Reji 09/04/2021 1 [employer] ([employer]ICA[employer] HMO) AMALIA Quintana [id number] Sera Jeffery Reji 10/09/2022 1 [employer] ([employer]ICA[employer] HMO) AMALIA Quintana [id number] Sera Jeffery Reji Notes Date Note Type Note Provider Name [...] Polo, DO [address] [place], [address], [place] - [facility] 10/09/2022 09:02:57 OBGyn Episode No OBEpisode recorded.
== END 2024-08-16 15:47 | disposition home or self-care (01) ==
LOC: HO.LAB 15:46
PROVIDERS: PCP Internal Medicine; Visit Provider Internal Medicine
DX: R30.0 Dysuria (principal)
CPT/HCPCS: 81001; 87086

== ENCOUNTER 2024-08-21 15:58 | Outpatient (AMB) | payer OTHER, SELFPAY ==
[2024-08-21 16:16] VITALS: BP 130/80; PULSE 77; O2SAT 100; BMI 33.4
--- NOTE | 2024-08-21 16:16 | AM.OFFWIN_ITS ---
Intake Vital Signs 08/21/24 16:16 Height 4 ft 11 in Weight 165 lb 6 oz BMI 33.4 BP 130/80 Blood Pressure Location Lt brachial Position Sitting Pulse 77 Pulse Source Pulse Oximeter Pulse Oximetry (%) 100 Oxygen Delivery Method Room Air Intake Visit Reasons: EP Dizzy spell, blurred vision, headache Intake Note: Patient here for dizzy spells, blurred vision and headaches that have been present for a couple of days now. Patient Tobacco Use Status: Former Tobacco user Allergies amoxicillin [Augmentin] Allergy (Severe, Verified 08/21/24 16:22) vomiting azithromycin [From ZITHROMAX] Allergy (Severe, Verified 08/21/24 16:22) VOMITTING, DIFF BREATHING, hives, SOB, Vomiting clavulanic acid [Augmentin] Allergy (Severe, Verified 08/21/24 16:22) vomiting influenza virus vaccine, specific [FLU VACCINE] Allergy (Severe, Verified 08/21/24 16:22) anaphylaxix prednisone [PREDNISONE] Allergy (Severe, Verified 08/21/24 16:22) VOMITTING, DIFF BREATHING, hives, SOB, Vomiting cinnamon [CINNAMON] Allergy (Intermediate, Verified 08/21/24 16:22) itchy mouth ferrous fumarate [Prenatabs FA] Allergy (Intermediate, Verified 08/21/24 16:22) itching folic acid [Prenatabs FA] Allergy (Intermediate, Verified 08/21/24 16:22) itching latex [LATEX] Allergy (Intermediate, Verified 08/21/24 16:22) RASH Penicillins [PENICILLINS] Allergy (Intermediate, Verified 08/21/24 16:22) hives/sob phentermine Allergy (Intermediate, Verified 08/21/24 16:22) Nausea vitamins with calcium no.78 [Prenatabs FA] Allergy (Intermediate, Verified 08/21/24 16:22) itching Sulfa (Sulfonamide Antibiotics) [SULFA (SULFONAMIDE ANTIBIOTICS)] Allergy (Intermediate, Verified 08/21/24 16:22) RASH, vomiting coconut Allergy (Mild, Verified 08/21/24 16:22) HIVES/VOMITING mushroom Allergy (Mild, Verified 08/21/24 16:22) HIVES/VOMITING sertraline [From ZOLOFT] Allergy (Mild, Verified 08/21/24 16:22) HIVES/VOMITING strawberry [STRAWBERRY] Allergy (Mild, Verified 08/21/24 16:22) HIVES, VOMITING codeine [Codeine] Adverse Reaction (Mild, Verified 08/21/24 16:22) NAUSEA ibuprofen Adverse Reaction (Verified 08/21/24 16:22) Stomach Upset Do you need a note to return to daycare/school/sports/work: No HPI HPI Comments History of Present Illness Details History of Present Illness - The patient is a 38-year-old female pr esenting with acute dizziness like the room is spinning and blurry vision, which began suddenly and has recurred over the past few days. - Associated with the dizziness, the pat andi has experienced room-spinning vertigo, nausea, slight headache, and blurry vision, with episodes aggravated by position changes. - Past medical history is significant fo r chronic migraines, pseudotumor cerebri, and a concussion. - The patient had a previous neurology c onsultation for a chronic migraine diagnosis, but no note of dizziness was found in prior assessments of the Neuro consult. - The patient is eating and hydrating we ll, with normal blood pressure readings noted. Physical Exam General: Cooperative, healthy appearing, comfortable, no acute distress and well developed Orientation: Patient oriented x3 Limitations: No limitations Head: Normal to inspection Ears: Hearing grossly normal bilaterally, EAC normal bilat, TM's normal bilat Nose: Normal external nose present Face and sinus: Normal facial exam Mouth: slightly erythematous posterior oropharynx Eyes: PERRLA, normal to inspection. Neck: Normal visual inspection and Yes full ROM Respiratory: Normal respiratory effort and able to speak in complete sentences. Clear to auscultation bilaterally Cardiovascular: Regular rate and rhythm. Normal S1 and S2 Skin: No rashes or lesions noted Neuro: Patient oriented x3 Extremities: Normal to inspection [facility] Medical History ADHD Annual physical exam Normal pelvic exam Seasonal allergic rhinitis Asthma GERD (gastroesophageal reflux disease) Obesity Interstitial cystitis Surgical History History of esophagogastroduodenoscopy (EGD) H/O right knee surgery History of lumbar puncture Hx of endoscopy Hx of cholecystectomy Family History Paternal Grandfather History of colon cancer Maternal Grandmother Family history of breast cancer Mother History of cirrhosis of liver Other Mental health disorder Substance use disorder Social History Household Members Other:: single, 3 children, works for [employer] Housing: House Alcohol intake: never Patient Tobacco Use Status: Former Tobacco user Tobacco use type: Cigarette Years Smoked: 15 e-Cigarette/Vaping Use: Never Used service: No Current occupational status: employed 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 Possible prodromal symptoms for pending viral infection. Given the acute presentation of dizziness and accompanying blurry vision, it is prudent to refer the patient to the emergency department for a thorough work-up, including a head CT scan, to identify any potentially serious underlying conditions. Patient will need to obtain childcare and then go to the ED. Patient was informed and verbally consented to the use of an ambient scribe for clinic note documentation during this visit. Coding Level of Care Code Est Pt Level 3 (68215) Diagnoses Dizzy spells R42
--- OUTSIDE RECORDS SUMMARY | 2024-08-21 18:41 | XMS_ITS | Clinical Summary ---
Author Organization [facility] [place] Address [address] [place] [address] Care Team Providers Care Removable Prosthodontist Name Role Phone Criselda Armstrong MD Primary Care Provider [phone] Allergies Active Allergy Reactions Criticality Noted Date Comments Azithromycin 12/23/2018 Cinnamon 12/23/2018 Coconut Oil 12/23/2018 Codeine 12/23/2018 Iron 03/02/2019 Latex 12/23/2018 Metronidazole 08/17/2024 Mushroom 12/23/2018 Penicillins 12/23/2018 Sertraline 12/23/2018 Ballard 12/23/2018 Sulfa (Sulfonamide Antibiotics) 10/2018 Medications albuterol HFA (PROAIR HFA ; PROVENTIL HFA ; VENTOLIN HFA) 90 mcg/actuation inhaler Inhale 2 puffs into the lungs every 6 (six) hours as needed for wheezing. Active cetirizine (ZyrTEC) 10 mg tablet Take 10 mg by mouth daily. Active omeprazole (PriLOSEC) [address] capsule Take 20 mg by mouth daily. Active EPINEPHrine (AUVI-Q) 0.15 mg/0.15 mL inj auto-injector injection Inject 0.15 mg into the muscle once. Active budesonide-form oteroL (SYMBICORT) 160-4.5 mcg/actuation inhaler Inhale 2 inhalations into the lungs 2 (two) times a day. Active nystatin-triamc inolone (MYCOLOG II) ointment APPLY THIN LAYER TO THE VULVA WEDNESDAY, WEDNESDAY, WEDNESDAY, BUT CAN USE UP TO NIGHTLY NEEDED FOR ITCHING Active Active Problems Problem Noted Date Diagnosed Date Dysmenorrhea 08/17/2024 Dyspareunia due to medical condition in female 0 08/17/2024 Hemorrhage of gastrointestinal tract 08/17/2024 IBS (irritable bowel syndrome) 08/17/2024 Interstitial cystitis 08/17/2024 Lichen sclerosus 08/17/2024 Overweight 08/17/2024 Pelvic pain 08/17/2024 Rash 08/17/2024 Right ovarian cyst 08/17/2024 Sebaceous cyst of labia 08/17/2024 Menorrhagia with irregular cycle 10/11/2020 Anemia Overview (08/17/2024): DX:Anemia Asthma Overview (08/17/2024): DX:Asthma Atypical chest pain Overview (08/17/2024): DX:Atypical chest pain Chronic headache Overview (08/17/2024): DX:Chronic headache Immunizations Name Administration Dates Next Due DTP 02/11/1989, 8,05/20/1987,1986 Hepb Recombinant, 3-antigen, (oh)3 03/25/2000, 10/29/1999,09/24/1999 HiB 02/11/1989 MMR, measles mumps and rubel la Live (Priorix; M-M-R II) 12mo and older 02/27/2000,04/09/1988 OPV 02/11/1989,05/20/1987,02/28/1987 Td, Unspecified 01/30/1999 Zoster Live 03/22/2002,04/21/2000 Surgical History Surgery Date Site/Laterality Comments CHOLECYSTECTOMY 09-27-2007 PROCEDURE: LAPAROSCOPY, CHOLECYSTECTOMY ESOPHAGOGASTRODUODENOSCOPY PROCEDURE: [place] ESOPHAGOGASTRODUODENOSCOPY TRANSORAL DIAGNOSTIC Medical History Medical History [...] EDT Office Visit Obstetrics and Gynecology - [address] [address] Shawna Lopez, [address] [address] Health Maintenance Due Date Last Done Comments IPV Vaccines (4 of 4 - 4-dose series) 1990 02/11/1989, 05/20/1987, 02/28/1987 Hepatitis B Vaccines (1 of 3 - 19+ 3-dose series) 2005 03/25/2000, 10/29/1999, 09/24/1999 Pneumococcal Vaccine: Pediatrics (0 to 5 Years) and At-Risk Patients (6 to 64 Years) (1 of 2 - PCV) 2005 DTaP,Tdap,and Td Vaccines (6 - Td or Tdap) 01/30/2009 01/30/1999, 02/11/1989, 08/08/1987, Additional history exists Depression Screening 07/25/2020 Social Influencers of Health Screening 07/25/2020 COVID-19 Vaccine ( season) 2024 Influenza Vaccine (#1) 2024 Cholesterol Screening (Lipid Panel) 09/25/2025 09/25/2020 Cervical Cancer Screening: HPV 08/13/2027 08/13/2022 HIB Vaccines Completed 02/11/1989 MMR Vaccines Completed 02/27/2000, 04/09/1988 HIV Screening Completed 08/13/2022 Hepatitis C Screening Completed 08/13/2022 HPV Vaccines Aged Out No longer eligi [...] 20 months Aged Out No longer eligible based on patient's age to complete this topic Varicella Vaccines Aged Out No longer eligible based on patient's age to complete this topic Procedures Procedure Name Priority Date/Time Associated Diagnosis Comments HPV Routine 08/13/2022 HEPATITIS C SCREENING Routine 08/13/2022 HIV SCREENING Routine 08/13/2022 LIPID PANEL Routine 09/25/2020 from Last 3 Months or Most Recently Relevant to Health Maintenance Results * Cervical Cancer Screening: HPV (08/13/2022) Pathologist [facility] Cervical Cancer Screening: HPV Negative, Abstracted us Historical Provider MD HEALTH MAINTENANCE Final Result * HIV Screening (08/13/2022) Pathologist [facility] [place] HIV Screening Abstracted us Historical Provider HEALTH MAINTENANCE Final Result * Hepatitis C Screening (08/13/2022) Hepatitis C Screening Abstracted Historical Provider HEALTH MAINTENANCE Final Result * Lipid panel (09/25/2020) LDL/HDL Ratio 4 0 - 4 Triglycerides 78 0 - 150 mg/dL Cholesterol 138 0 - 200 mg/dL HDL 40 >=40 mg/dL LDL Cholesterol 83 0 - 100 mg/dL Blood Venous blood specimen / Unknown Historical Provider LAB BLOOD ORDERABLES Tracy l Result from Last 3 Months or Most Recently Relevant to Health Maintenance Insurance [facility] [employer] Care Teams Removable Prosthodontist Relationship Specialty Start Date End Date Criselda Armstrong MD [address] [place] [address] PCP - General 09/14/22
--- OUTSIDE RECORDS SUMMARY | 2024-08-21 18:41 | XMS_ITS | Data Portability ---
Author Organization [facility]LOS ALBERTO [facility] Address [address] [place] [address] Assessment No assessment recorded. Plan of Treatment Reminders Order Date Submit Date Provider Last Modified By Organization Details Last Modified Time Details Appointments None recorded. Lab rapid SARS CoV 2 Ag, QL IA, respiratory specimen 2022 023 [email or web address] _renzo [facility], [address] [place] [address], [phone], 09:02:36 rapid strep group A, throat 2022 023 [email or web address] _renzo [facility], [address] [place] [address], [phone], 09:02:36 Referral None recorded. Procedures None recorded. Surgeries None recorded. Imaging None recorded. Medication Orders None recorded. Patient TargetsNo targets recorded. Patient Instructions Encounter Date Encounter Id Patient Instructions Last Modified By Organization Details Last Modified Time 10/09/2022 [id number] viral respirator y infection: care instructions [email or web address] Not available 10/09/2022 09:02:36 Reason for Referral None Reported. Results Created Date Observation Date Name Description Value Unit Range Abnormal Flag Note LastModifiedBy Organization Detail LastModifiedTime 10/10/1910/09/2022 rapid SARS CoV 2 Ag, QL IA, respi rator y speci men Unknown Analyte Normal =Negat lisa Not Available [facility] [address] [place] [address], [phone], 10/09/2022 08:24:38 10/10/19 23 10/09/2022 rapid SARS CoV 2 Ag, QL IA, respi rator y speci men Unknown Analyte negati ve Not Available [address] [place] [address], [place], [address], 10/09/2022 08:24:38 10/10/19 23 10/09/2022 rapid strep group A, throa t Unknown Analyte Normal = Negati ve Not Available [address] [place] [address], [phone], 10/09/2022 08:24:44 10/10/1910/09/2022 rapid strep group A, throa t Unknown Analyte negati ve Not Available [address] [place] [address], [phone], 10/09/2022 08:24:44 Result Notes None recorded. Problems Name Problem SNOMED Code Status Onset Date Resolution Date Notes Provider Name and Address Organization Details Recorded Time Gastroesophage al reflux disease 618214233 Active 2022 SONIDEB SALEEMEY null, PA - [facility] 3 08:22:04 Asthma 676002650 Active 2022 SONI SALEEMEY null, PA - [facility] 3 08:22:08 Migraine 35471628 Active 2022 SONI BACA null, PA - [...] Name and Address Organization Details Recorded Time 568901 amoxicill in medicatio n hives nausea vomiting Not available Not available Not available Not available 10/09/2022 723 RxNorm SONI BACA null, PA - [facility] 3 08:20:21 884956 Product containin g penicilli n (product) medicatio n hives nausea vomiting Not available Not available Not available Not available 10/09/2022 29091 8001 SNOMED SONI BACA null, PA - [facility] 3 08:20:38 742478 azithromy neel medicatio n hives nausea vomiting Not available Not available Not available Not available 10/09/2022 47232 RxNorm SONI BACA null, PA - [facility] 3 08:20:58 352317 codeine medicatio n hives nausea vomiting Not available Not available Not available Not available 10/09/2022 2670 RxNorm SONI BACA null, PA - [facility] 3 08:21:31 896865 Vaccine product containin g only Influenza virus antigen (medicina l product) medicatio n anaphylax is Not available Not available 10/09/2022 03045 90464 105 SNOMED SONI ASLEEMEY null, PA - [facility] 3 08:23:16 064314 cortisone medicatio n itching Not available Not available 10/09/2022 2878 RxNorm SONI BACA null, PA - [facility] 3 08:23:25 370616 Bactrim medicatio n hives nausea vomiting Not available Not available Not available Not available 10/09/2022 09131 9 RxNorm SONI BACA null, PA - [...] Updated DateTime 3 149.86 cm 26.9 kg/m2 39725.7 9 g 6 17 /min 99 % 99 % 70 /min 97.9 [degF] 108 mm[Hg] 70 mm[Hg] SONI BACA [employer] 3 08:25:25 Social History Question Answer Notes LastModified by [employer] Details LastModified Time Tobacco Smoking Status Former Smoker SONI curiel PA - [facility] 10/09/2022 08:24:03 What Is Your Level Of Alcohol Consumption? None [email or web address] Information not available 10/09/2022 When Did You Quit Smoking? 6-10yearssi ncelastciga rette [email or web address] Information not available 10/09/2022 Do You Use Any Illicit Or Recreational Drugs? No Information not available 10/09/2022 Have You Recently Traveled Abroad? No [email or web address] Information not available 10/09/2022 Do You Or Have You Ever Used Any Other Forms Of Tobacco Or Nicotine? No [email or web address] Information not available 10/09/2022 Sex: Unknown Functional Status None recorded. Mental Status None recorded. Family History Relationship Description Onset Age of this Age Resolved Age Notes LastModified by Organization Details LastModified Time Father No current problems or disability Not available 10/09 08:23:46 Mother No current problems or disability [email or web address] Not available 10/09 08:23:46 Medical History No medical history recorded. Gynecological HistoryNo gynecological history recorded. Obstetrics History GPAL:G 0 P 0 0 0 0 Past Encounters Encounter ID Performer Location Encounter Start Date Encounter Closed Date Diagnosis/Indication Diagnosis SNOMED-CT Code Diagnosis ICD10 Code Diagnosis Note [id number] Chastity [facility] [facility] [place] [address] 06/11/2019 08:25:52 06/11/2019 09:01:43 [id number] [facility] [address] [facility] [place] [address] 02/26/2017 09:04:55 02/26/2017 10:07:43 [id number] Chastity [facility] [place] [address] 12/08/2020 10:59:15 12/08/2020 11:18:36 [id number] Chastity [facility] [address] [facility] [place] [address] 09/04/2021 09:23:04 09/04/2021 09:56:28 [id number] Chastity [facility] [address] [facility] [place] [address] 01/25/2018 08:36:59 01/25/2018 09:52:03 [id number] Chastity [facility] [address] [facility] [place] [address] 07/10/2017 09:33:40 07/10/2017 10:04:33 [id number] [place] [address] [address] [facility] [place] [address] 10/09/2022 08:03:28 10/09/2022 09:03:24 Upper respiratory infection 98248976 J06.9 Viral infectionR ecommend plenty of fluidsTyle [...] Garza Member ID Guarantor Name 01/25/2018 1 [facility] PLAN (MEDICAID HMO) AMALIA Quintana [id number] Sera Jeffery Reji 09/04/2021 1 [facility] PLAN (MEDICAID HMO) AMALIA Quintana [id number] Sera Jeffery Reji 10/09/2022 1 [facility] PL[facility] (MEDICAID HMO) AMALIA Quintana [id number] Sera Jeffery Reji Notes Date Note Type [...] Polo, DO [address] [place], [address], [place] - [facility] 10/09/2022 09:02:57 OBGyn Episode No OBEpisode recorded.
== END 2024-08-21 16:51 | disposition home or self-care (01) ==
PROVIDERS: PCP Internal Medicine; Visit Provider Physician Assistant
DX: R42 Dizziness and giddiness (principal)

== ENCOUNTER → 2024-08-21 15:58 | Outpatient (BNVA) | payer OTHER, SELFPAY | PROVIDERS: PCP Internal Medicine | DX: R42 Dizziness and giddiness (principal) | CPT/HCPCS: 99212 ==

== ENCOUNTER 2024-08-21 17:04 | Emergency (ER) | payer OTHER, SELFPAY ==
[2024-08-21 17:40] VITALS: BP 104/65; PULSE 64; RESP 16; O2SAT 100; BMI 33.3
--- NOTE | 2024-08-21 17:40 | ED.GENADULT ---
HPI - General Adult General Chief complaint: Dizziness Stated complaint: urgent care reffered for vision change Time Seen by Provider: 08/21/24 20:33 Source: patient Mode of arrival: ambulatory Limitations: no limitations History of Present Illness ED Provider: Mary Mixon PA-C HPI narrative: Patient is a 38 year old assigned female at with a history of GERD, ADHD, anemia, and asthma presenting to the emergency department today with nausea, dizziness, and blurred vision. Patient states that while at work she was making lunch when she had an episode of nausea, dizziness, and blurred vision. Patient states that her symptoms have since resolved however she has felt generally unwell over the last few days. Patient denies any lightheadedness, abdominal pain, vomiting, fever, chills, double vision, loss of vision, chest pain, difficulty breathing, shortness of breath, back pain, night sweats, pain with urination, increased urinary frequency, increased urinary urgency, blood in her urine or stool, syncope or a near syncopal episode, recent trauma or falls, bowel incontinence, bladder incontinence, or any other complaints at this time. Relieving factors: none Exacerbating factors: none Associated symptoms: denies other symptoms Treatments prior to arrival: none Related Data Home Medications ?Medication ?Instructions ?Recorded ?Confirmed albuterol sulfate 90 mcg/actuation 1 - 2 puff PO Q4-6H PRN breathing 03/18/20 06/23/24 aerosol inhaler budesonide-formoterol HFA 160 460 inh inhalation DAILY 03/18/20 06/23/24 mcg-4.5 mcg/actuation aerosol inhaler cetirizine 10 mg tablet 10 mg PO DAILY 03/18/20 06/23/24 epinephrine 0.3 mg/0.3 mL 0.3 mg IM DIRECTED 03/18/20 06/23/24 injection, auto-injector Tylenol 100 mg PO BID 12/14/22 06/23/24 Previous Rx's ?Medication ?Instructions ?Recorded ondansetron 4 mg disintegrating 4 mg PO Q8H PRN nausea and 11/06/22 tablet vomiting #10 tabs simethicone 125 mg capsule (Gas-X 125 mg PO BID-TID PRN abdominal 02/16/23 Extra Strength) distention 30 days #90 caps magnesium oxide 500 mg PO DAILY #30 tabs 10/18/23 riboflavin (vitamin B2) 400 mg 400 mg PO DAILY headaches #30 tabs 10/18/23 tablet cyclobenzaprine 10 mg tablet 10 mg PO BEDTIME PRN muscle spasm 04/04/24 #12 tabs ibuprofen 800 mg tablet 800 mg PO TID PRN pain #30 tabs 04/04/24 omeprazole 40 mg capsule,delayed 40 mg PO BID #180 caps 04/11/24 release Allergies Allergy/AdvReac Type Severity Reaction Status Date / Time amoxicillin [Augmentin] Allergy Severe vomiting Verified 08/21/24 17:44 azithromycin [From ZITHROMAX] Allergy Severe VOMITTING, Verified 08/21/24 17:44 DIFF BREATHING, hives, SOB, Vomiting clavulanic acid [Augmentin] Allergy Severe vomiting Verified 08/21/24 17:44 influenza virus vaccine, Allergy Severe anaphylaxix Verified 08/21/24 17:44 specific [FLU VACCINE] prednisone [PREDNISONE] Allergy Severe VOMITTING, Verified 08/21/24 17:44 DIFF BREATHING, hives, SOB, Vomiting cinnamon [CINNAMON] Allergy Intermediate itchy mouth Verified 08/21/24 17:44 ferrous fumarate Allergy Intermediate itching Verified 08/21/24 17:44 [Prenatabs FA] folic acid [Prenatabs FA] Allergy Intermediate itching Verified 08/21/24 17:44 latex [LATEX] Allergy Intermediate RASH Verified 08/21/24 17:44 Penicillins [PENICILLINS] Allergy Intermediate hives/sob Verified 08/21/24 17:44 phentermine Allergy Intermediate Nausea Verified 08/21/24 17:44 vitamins with Allergy Intermediate itching Verified 08/21/24 17:44 calcium no.78 [Prenatabs FA] Sulfa (Sulfonamide Allergy Intermediate RASH, Verified 08/21/24 17:44 Antibiotics) vomiting [SULFA (SULFONAMIDE ANTIBIOTICS)] coconut Allergy Mild HIVES/VOMIT Verified 08/21/24 17:44 ING mushroom Allergy Mild HIVES/VOMIT Verified 08/21/24 17:44 ING sertraline [From ZOLOFT] Allergy Mild HIVES/VOMIT Verified 08/21/24 17:44 ING strawberry [STRAWBERRY] Allergy Mild HIVES, Verified 08/21/24 17:44 VOMITING codeine [Codeine] AdvReac Mild NAUSEA Verified 08/21/24 17:44 ibuprofen AdvReac Stomach Verified 08/21/24 17:44 Upset Review of Systems Constitutional: Constitutional: Reports no additional constitutional complaints, Denies chills, Denies fever(s) and Denies night sweats Eyes: Eyes: Reports no additional eye complaints, Reports blurry vision (now resolved), Denies change in vision, Denies diplopia, Denies eye discharge, Denies loss of vision and Denies eye pain ENT: Reports dizziness (now resolved) Cardiovascular: Cardiovascular: Reports no additional cardiovascular complaints, Denies chest pain, Denies lightheadedness, Denies Loss of Consciousness and Denies dyspnea Respiratory: Respiratory: Reports no additional respiratory complaints and Denies dyspnea Gastrointestinal: Gastrointestinal: Reports no additional gastrointestinal complaints, Denies abdominal pain, Denies melena, Denies hematochezia, Denies change in bowel habits, Denies change in stool character, Reports nausea and Denies vomiting Genitourinary: Genitourinary: Denies hematuria, Denies urinary frequency, Denies dysuria, Denies urinary incontinence, Denies urinary hesitancy and Denies urinary urgency Musculoskeletal: Musculoskeletal: Reports no additional musculoskeletal complaints, Denies numbness and Denies tingling Neurologic: Reports dizziness (now resolved), Denies loss of vision, Denies numbness and Denies tingling Psychiatric: Psychiatric: Reports no additional psychiatric complaints Endocrine: Endocrine: Reports no additional endocrine complaints Hematologic/Lymphatic: Hematologic/Lymphatic: Reports no additional hematologic/lymphatic complaints Allergic/Immunologic: Allergic/Immunologic: Reports no additional allergic/immunologic complaints PMFSH Past Medical History Attestation statement: The following information was validated with the patient. Source: old records reviewed and nursing notes reviewed Medical History ADHD Annual physical exam Normal pelvic exam Seasonal allergic rhinitis Asthma GERD (gastroesophageal reflux disease) Obesity Interstitial cystitis Surgical History History of esophagogastroduodenoscopy (EGD) H/O right knee surgery History of lumbar puncture Hx of endoscopy Hx of cholecystectomy Family History Family History Paternal Grandfather History of colon cancer Maternal Grandmother Family history of breast cancer Mother History of cirrhosis of liver Other Mental health disorder Substance use disorder Social History Social History Household Members Other:: single, 3 children, works for [employer] Housing: House Alcohol intake: never Patient Tobacco Use Status: Former Tobacco user Tobacco use type: Cigarette Years Smoked: 15 e-Cigarette/Vaping Use: Never Used Advance Directives: No Advance Directives Information Provided: No service: No Current occupational status: employed 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 Cognitive needs: No Hearing needs: No Vision needs: Yes Physical Exam ED Vital Signs: BMI result Body Mass Index 33.3 Const General: cooperative, no acute distress, alert and awake Nutritional Appearance: well nourished Orientation/consciousness: patient oriented x3 Limitations: no limitations HENMT Head: Yes normal to inspection and Yes atraumatic Ears: hearing grossly normal bilaterally and external ears normal General nose exam: Normal external nose present, no nasal discharge noted and no epistaxis Face and sinus: Yes normal facial exam, No abrasion and No laceration Mouth: Normal oral and palatal mucosa present, no drooling and no muffled voice Eyes General: appearance normal, both eyes and all related structures Periorbital: periorbital findings normal Eyelids: Yes eyelids normal Conjunctivae: conjunctivae normal Pupils: Equal, round and reactive pupils present EOM: EOMs intact bilaterally Neck Neck: Yes normal visual inspection, Yes full ROM and Yes no lymphadenopathy Chest Chest palpation & inspection: normal inspection of the chest Resp Effort & Inspection: normal respiratory effort and able to speak in complete sentences GI Inspection: Yes normal to inspection Neuro General: patient oriented x3, moves all extremities and CN's II-XI intact bilaterally Cranial nerves: Yes Equal, round and reactive pupils present Cognition (Neuro): normal cognition Extrem General: Yes normal to inspection, Yes full ROM and Yes capillary refill normal Psych Appearance: grossly normal Mental Status: mental status grossly normal Affect: normal affect Attitude: cooperative Thought process: Normal thought process present Thought content: Normal thought content present Insight: Good insight present (Psych) Course Course Course Narrative: RME performed by Mary Mixon PA-C. Patient is a 38 year old assigned female at presenting to the emergency department with dizziness. Detailed physical exam and review of systems are deferred to the scarrer. EKG, labs, and swabs ordered. Patient placed back in the waiting room pending room availability and results. Medical Decision Making Medical Decision Making [facility] Narrative: Patient is a 38 year old assigned female at with a history of GERD, ADHD, anemia, and asthma presenting to the emergency department today with nausea, dizziness, and blurred vision. Patient's physical exam was unremarkable. Patient's blood work showed chronic anemia but no acute findings. Patient's urine culture from 08/16/2024 was negative for any organisms. Patient's EKG was unremarkable. I explained my physical exam findings as well as all test results to the patient. I answered all questions asked by the patient. I stressed the importance of the patient taking her medication as directed (either prescribed or as the over the counter packaging recommends). I stressed the importance of the patient following up with her primary care provider. I stressed the importance of the patient returning to the emergency department immediately if her symptoms were to return or if she were to develop any dizziness, shortness of breath, difficulty breathing, chest pain, blurry vision, loss of vision, nausea, vomiting, abdominal pain, fever, chills, back pain, or any other complaints. Patient verbalized agreement and understanding with this treatment plan and discharge. Differential Diagnosis Differential Diagnoses: The differential diagnosis associated with the presentation includes Dizziness Vasovagal episode Viral illness Admission/Observation Consideration of admission/observation: Escalation of care including admission/observation considered Patient would have been admitted to the hospital had her work up had any findings where hospital admission was appropriate and her clinical presentation warranted hospital admission. Lab Data [facility] Lab Attestation statement: I reviewed the patient's lab results. My interpretation of these results are in the [facility] Rationale portion of this note. 08/21/24 18:03 08/21/24 18:03 Labs: Lab Results 08/21/24 Range/Units 18:03 WBC 6.8 (4.8-10.8) X10*3/uL RBC 4.03 L (4.20-5.50) X10*6/uL Hgb 8.7 L (12.0-16.0) g/dl Hct 30.1 L (37.0-47.0) % MCV 74.7 L (80.0-98.0) fL MCH 21.6 L (27.0-33.0) pg MCHC 28.9 L (31.0-35.0) g/dl RDW 17.8 H (11.0-16.0) % Plt Count 351 (160-400) X10*3/uL MPV 10.7 (9.4-12.3) fL Immature Gran % (Auto) 0.1 (0.0-0.4) % Neut % (Auto) 58.5 (45-73) % Lymph % (Auto) 31.4 (20-40) % Ector % (Auto) 7.5 (2-11) % Eos % (Auto) 1.9 (0-4) % Baso % (Auto) 0.6 (0-2) % Lymph # (Auto) 2.1 (1.2-4.9) X10*3/uL Ector # (Auto) 0.5 (0.1-1.2) X10*3/uL Eos # (Auto) 0.1 (0.0-0.4) X10*3/uL Baso # (Auto) 0.0 (0.0-0.2) X10*3/uL Abs Immat Gran (auto) 0.01 (0.00-0.03) X10*3/uL Absolute Neuts (auto) 4.0 (2.0-8.3) x10*3/uL Absolute Nucleated RBC 0.000 (0.0-0.012) X10*3/uL Nucleated RBC % (auto) 0.0 (0.0-0.2) /100WBC Sodium 139 (135-145) mmol/L Potassium 4.1 (3.3-5.1) mmol/L Chloride 106 (96-108) mmol/L Carbon Dioxide 26 (22-29) mmol/L Anion Gap 11 L (12-20) BUN 17 H (9-16) mg/dL Creatinine 0.70 (0.5-1.4) mg/dL Estim Creat Clear Calc 97.0 Estimated GFR > 60 Random Glucose 89 (60-115) mg/dL Calcium 9.1 (8.4-10.2) mg/dL Magnesium 2.3 (1.6-2.6) mg/dL Total Bilirubin 0.3 (0.0-1.0) mg/dL AST 20 (5-31) U/L ALT 19 (0-31) U/L Alkaline Phosphatase 79 (39-117) U/L Total Protein 7.3 (6.5-8.0) g/dL Albumin 4.2 (3.5-5.0) g/dL Influenza Type A (PCR) NEGATIVE (Negative) Influenza Type B (PCR) NEGATIVE (Negative) RSV RNA Qual (PCR) NEGATIVE (Negative) SARS-CoV-2 RNA (RT-PCR) NEGATIVE (Negative) S. pyogenes GrpA TYRONE Negative (Negative) Independent Interpretation I performed an independent interpretation of an: EKG Interpretation: I independently interpreted this EKG and am in agreement with the below findings: Vent. Rate: 66 BPM Atrial Rate: 66 BPM P-R Int: 144 ms QRS Dur: 80 ms QT Int: 400 ms P-R-T Axes: 20 43 23 degrees QTcB Int: 419 ms Normal sinus rhythm Normal ECG When compared with ECG of 17-Apr-2017 05:42, Vent. rate has decreased by 37 bpm Referred By: Mary Mixon Electronically Signed By: JOHN FRAGOSO MD Dictated By: John Fragoso MD Signed By: Electronically signed by John Fragoso MD 08/22/24 0927 Tests considered The following testing was considered but not selected: I considered obtaining a chest x-ray and head CT however, the patient's current clinical presentation did not warrant this. I discussed this with the patient who verbalized understanding and agreement. Chronic Conditions Patient?s care impacted by: Other (anemia) Discharge Plan Discharge Clinical Impression: Dizziness Patient Disposition: Home, Self-Care Instructions: Dizziness (ED) Additional Instructions: Follow up with your primary care provider. Return to the emergency department immediately if your symptoms worsen or if you develop any dizziness, shortness of breath, difficulty breathing, chest pain, blurry vision, loss of vision, nausea, vomiting, abdominal pain, fever, chills, back pain, or any other complaints. Prescriptions: No Action omeprazole 40 mg capsule,delayed release(DR/EC) 40 mg PO BID Qty: 180 3RF ondansetron 4 mg tablet,disintegrating 4 mg PO Q8H PRN (Reason: nausea and vomiting) Qty: 10 0RF Tylenol 100 mg PO BID budesonide-formoterol 160-4.5 mcg/actuation HFA aerosol inhaler 460 inh inhalation DAILY cetirizine 10 mg tablet 10 mg PO DAILY albuterol sulfate 90 mcg/actuation HFA aerosol inhaler 1 - 2 puff PO Q4-6H PRN (Reason: breathing) epinephrine 0.3 mg/0.3 mL auto-injector 0.3 mg IM DIRECTED simethicone [Gas-X Extra Strength] 125 mg capsule 125 mg PO BID-TID PRN (Reason: abdominal distention) 30 Days Qty: 90 2RF cyclobenzaprine 10 mg tablet 10 mg PO BEDTIME PRN (Reason: muscle spasm) Qty: 12 0RF ibuprofen 800 mg tablet 800 mg PO TID PRN (Reason: pain) Qty: 30 0RF magnesium oxide 500 mg magnesium tablet 500 mg PO DAILY Qty: 30 0RF riboflavin (vitamin B2) 400 mg tablet 400 mg PO DAILY Qty: 30 2RF Referrals: Criselda Armstrong MD [Primary Care Provider] - Stand Alone Forms: Work/School Release Interventions: ED Discharge Assessment Last Done: 08/21/24 20:37 Discharge Date/Time: 08/21/24 20:48 Print Language: Ukrainian
--- NOTE | 2024-08-21 17:41 | ECG_ITS ---
Test Reason : dizziness Blood Pressure : */* mmHG Vent. Rate : 66 BPM Atrial Rate : 66 BPM P-R Int : 144 ms QRS Dur : 80 ms QT Int : 400 ms P-R-T Axes : 20 43 23 degrees QTcB Int : 419 ms Normal sinus rhythm Normal ECG When compared with ECG of 17-Apr-2017 05:42, Vent. rate has decreased by 37 bpm Referred By: Mary Mixon Electronically Signed By: GAURI FRAGOSO MD
[2024-08-21 18:16] LABS: MANUAL DIFF FLAG NO
[2024-08-21 18:19] LABS: Basophils Percent Auto 0.6 % (0-2); Eosinophils Absolute Auto 0.1 X10*3/uL (0.0-0.4); Eosinophils Percent Auto 1.9 % (0-4); Hematocrit 30.1 % (37.0-47.0); Hemoglobin 8.7 g/dl (12.0-16.0); Imm Gran Abs Auto 0.01 X10*3/uL (0.00-0.03); Imm Gran Pct Auto 0.1 % (0.0-0.4); Lymphocytes Absolute Auto 2.1 X10*3/uL (1.2-4.9); Lymphocytes Percent Auto 31.4 % (20-40); Mean Corpuscular HGB Conc 28.9 g/dl (31.0-35.0); Mean Corpuscular Hemoglobin 21.6 pg (27.0-33.0); Mean Corpuscular Volume 74.7 fL (80.0-98.0); Mean Platelet Volume 10.7 fL (9.4-12.3); Monocytes Absolute Auto 0.5 X10*3/uL (0.1-1.2); Monocytes Percent Auto 7.5 % (2-11); Neutrophils Percent Auto 58.5 % (45-73); Platelet Count 351 X10*3/uL (160-400); Red Blood Count 4.03 X10*6/uL (4.20-5.50); Red Cell Distribution Width 17.8 % (11.0-16.0); White Blood Count 6.8 X10*3/uL (4.8-10.8)
[2024-08-21 18:33] LABS: Alanine Aminotransferase 19 U/L (0-31); Albumin Level 4.2 g/dL (3.5-5.0); Alkaline Phosphatase 79 U/L (39-117); Anion Gap 11 (12-20); Aspartate Amino Transferase 20 U/L (5-31); Bilirubin Total 0.3 mg/dL (0.0-1.0); Blood Urea Nitrogen 17 mg/dL (9-16); Calcium 9.1 mg/dL (8.4-10.2); Carbon Dioxide 26 mmol/L (22-29); Chloride 106 mmol/L (96-108); Estimated Glomerular Filt Rate > 60; Glucose Random 89 mg/dL (60-115); Magnesium 2.3 mg/dL (1.6-2.6); Potassium 4.1 mmol/L (3.3-5.1); Sodium 139 mmol/L (135-145); Total Protein 7.3 g/dL (6.5-8.0)
[2024-08-21 18:37] LABS: IDNOW Serial# 08D9AD1C; Strep A Nucleic Acid Negative (Negative)
[2024-08-21 18:54] LABS: Influenza A PCR NEGATIVE (Negative); Influenza B PCR NEGATIVE (Negative); Resp Syncy Virus RNA Qual PCR NEGATIVE (Negative); SARS COV2 PCR INHOUSE NEGATIVE (Negative)
[2024-08-21 20:34] VITALS: BP 156/48; PULSE 73; RESP 18; TEMP 37.1; O2SAT 95
[2024-08-21 20:37] VITALS: BP 156/48; PULSE 73; RESP 18; TEMP 37.1; O2SAT 95
== END 2024-08-21 20:48 | disposition home or self-care (01) ==
LOC: HO.ED 20:43
PROVIDERS: Physician Assistant Medical; Emergency Provider Student in an Organized Health Care Education/Training Program; PCP Internal Medicine
DX: R42 Dizziness and giddiness (principal); D64.9 Anemia, unspecified; J45.909 Unspecified asthma, uncomplicated
CPT/HCPCS: 0241U; 80053; 83735; 85025; 87651; 93005; 99283

== ENCOUNTER → 2024-08-21 17:41 | Outpatient (BNV) | payer OTHER, SELFPAY | PROVIDERS: Emergency Provider Student in an Organized Health Care Education/Training Program; PCP Internal Medicine; Visit Provider Internal Medicine Cardiovascular Disease | DX: R42 Dizziness and giddiness (principal) | CPT/HCPCS: 93010 ==

== ENCOUNTER 2024-09-04 08:06 | Outpatient (AMB) | payer OTHER, SELFPAY ==
[2024-09-04 08:11] VITALS: BP 132/80; PULSE 78; TEMP 37.2; O2SAT 98; BMI 33.3
--- NOTE | 2024-09-04 08:11 | AM.OFFWIN_ITS ---
Intake Vital Signs 09/04/24 08:11 Height 4 ft 11 in Weight 165 lb BMI 33.3 BP 132/80 Blood Pressure Location Lt brachial Position Sitting Pulse 78 Pulse Source Pulse Oximeter Temp 98.9 F Temp Source Oral Pulse Oximetry (%) 98 Oxygen Delivery Method Room Air Intake Visit Reasons: EP flu symptoms Intake Note: pt is here for gi bug and a cough Patient Tobacco Use Status: Former Tobacco user Accompanied by: Self / Same As Patient Allergies amoxicillin [Augmentin] Allergy (Severe, Verified 09/04/24 08:11) vomiting azithromycin [From ZITHROMAX] Allergy (Severe, Verified 09/04/24 08:11) VOMITTING, DIFF BREATHING, hives, SOB, Vomiting clavulanic acid [Augmentin] Allergy (Severe, Verified 09/04/24 08:11) vomiting influenza virus vaccine, specific [FLU VACCINE] Allergy (Severe, Verified 09/04/24 08:11) anaphylaxix prednisone [PREDNISONE] Allergy (Severe, Verified 09/04/24 08:11) VOMITTING, DIFF BREATHING, hives, SOB, Vomiting cinnamon [CINNAMON] Allergy (Intermediate, Verified 09/04/24 08:11) itchy mouth ferrous fumarate [Prenatabs FA] Allergy (Intermediate, Verified 09/04/24 08:11) itching folic acid [Prenatabs FA] Allergy (Intermediate, Verified 09/04/24 08:11) itching latex [LATEX] Allergy (Intermediate, Verified 09/04/24 08:11) RASH Penicillins [PENICILLINS] Allergy (Intermediate, Verified 09/04/24 08:11) hives/sob phentermine Allergy (Intermediate, Verified 09/04/24 08:11) Nausea vitamins with calcium no.78 [Prenatabs FA] Allergy (Intermediate, Verified 09/04/24 08:11) itching Sulfa (Sulfonamide Antibiotics) [SULFA (SULFONAMIDE ANTIBIOTICS)] Allergy (Intermediate, Verified 09/04/24 08:11) RASH, vomiting coconut Allergy (Mild, Verified 09/04/24 08:11) HIVES/VOMITING mushroom Allergy (Mild, Verified 09/04/24 08:11) HIVES/VOMITING sertraline [From ZOLOFT] Allergy (Mild, Verified 09/04/24 08:11) HIVES/VOMITING strawberry [STRAWBERRY] Allergy (Mild, Verified 09/04/24 08:11) HIVES, VOMITING codeine [Codeine] Adverse Reaction (Mild, Verified 09/04/24 08:11) NAUSEA ibuprofen Adverse Reaction (Verified 09/04/24 08:11) Stomach Upset Do you need a note to return to daycare/school/sports/work: Yes HPI HPI Comments History of Present Illness Details History - The patient is a 38-year-old female pr esenting with acute gastrointestinal symptoms and respiratory symptoms. - Her symptoms began 3 days ago, featuri ng vomiting and diarrhea, and transitioned to include a sore throat and cough - Despite these symptoms, she notes an a bsence of fever. - She has asthma but has experienced no significant exacerbations during this illness. - The onset of these symptoms aligns wit h similar illnesses affecting her family, notably confirmed Influenza A cases. - She initially managed symptoms with hy dration and rest, without medication. - The patient reported altered taste wit h an inability to eat comfortably until the day preceding the visit, indicating some dietary intake improvement. - She takes Zyrtec and attributes some s elf-management of allergic rhinitis to its use. - no wheezing, or pulmonary distress. Physical Exam General: Cooperative, healthy appearing, comfortable and no acute distress Orientation/consciousness: Patient oriented x3 Limitations: No limitations Head: Normal to inspection Ears: Hearing grossly normal bilaterally, external ears normal and TM's normal bilaterally Nose: Normal external nose present, Normal nares present and No nasal discharge present Face and sinus: Normal facial exam and Sinuses slightly tender Mouth: Normal oral and palatal mucosa present and moist mucous membranes Throat: Yes tonsils normal, Yes uvula midline. Posterior oropharynx slight erythema Eyes: Appearance normal, both eyes and all related structures Neck: Normal visual inspection Respiratory: Clear to auscultation bilaterally. Normal respiratory effort, able to speak in complete sentences, no respiratory distress, not tachypneic, no tripod positioning and no use of accessory muscles Cardiovascular: Regular rate and rhythm. Normal S1 and S2 Skin: No rashes or lesions noted Neuro: Patient oriented x3 Extremities: Normal to inspection and Yes no clubbing, cyanosis or edema [facility] Medical History ADHD Annual physical exam Normal pelvic exam Seasonal allergic rhinitis Asthma GERD (gastroesophageal reflux disease) Obesity Interstitial cystitis Surgical History History of esophagogastroduodenoscopy (EGD) H/O right knee surgery History of lumbar puncture Hx of endoscopy Hx of cholecystectomy Family History Paternal Grandfather History of colon cancer Maternal Grandmother Family history of breast cancer Mother History of cirrhosis of liver Other Mental health disorder Substance use disorder Social History Household Members Other:: single, 3 children, 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 Housing: House Alcohol intake: never Patient Tobacco Use Status: Former Tobacco user Tobacco use type: Cigarette Years Smoked: 15 e-Cigarette/Vaping Use: Never Used service: No Current occupational status: employed 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 Cognitive needs: No Hearing needs: No Vision needs: Yes Female Reproductive History Menstrual Age of Menarche: 14 Review of Systems Const All systems reviewed & are unremarkable except as noted in HPI and below Physical Exam Vital Signs: Last Vital Signs Temp 98.9 F 09/04/24 08:11 Pulse 78 09/04/24 08:11 BP 132/80 09/04/24 08:11 Pulse Ox 98 09/04/24 08:11 Oxygen Delivery Method Room Air 09/04/24 08:11 BMI result Body Mass Index 33.3 Assessment & Plan Assessment & Plan (1) Acute viral syndrome: Code(s): B34.9 - Viral infection, unspecified Plan: The patient likely has an acute viral infection, given the symptom progression and recent flu exposure in the family. Despite the absence of fever, influenza remains a possibility, and testing for Influenza, COVID-19, and RSV will assist with diagnosis. Management advice includes continuing hydration, resting, and using a decongestant like Mucinex to alleviate respiratory symptoms. A cough suppressant will be prescribed to aid in evening rest. The patient should closely monitor her asthma, using Zyrtec and added decongestants to maintain airway stability. A work absence note is provided to allow adequate recovery, with further testing results dictating any changes in management. Close monitoring for any respiratory decline is recommended, with additional instructions to seek further care if necessary. Patient was informed and verbally consented to the use of an ambient scribe for clinic note documentation during this visit Orders: Orders SARS-CoV2/FLU/RSV Today R09.89 - Other specified symptoms and signs involving the circulatory and respiratory systems Medications: New benzonatate 200 mg PO BEDTIME PRN 10 caps 0RF cough Coding Level of Care Code Est Pt Level 3 (28442) Diagnoses Acute viral syndrome B34.9
--- OUTSIDE RECORDS SUMMARY | 2024-09-04 08:14 | XMS_ITS | Clinical Summary ---
Author Organization [facility] [place] Address [address] [place] [address] Care Team Providers Care Esthetician Makeup Artist Name Role Phone Criselda Armstrong MD Primary Care Provider [phone] Allergies Active Allergy Reactions Criticality Noted Date Comments Azithromycin 12/23/2018 Cinnamon 12/23/2018 Coconut Oil 12/23/2018 Codeine 12/23/2018 Iron 03/02/2019 Latex 12/23/2018 Metronidazole 08/17/2024 Mushroom 12/23/2018 Penicillins 12/23/2018 Sertraline 12/23/2018 [place] 12/23/2018 Sulfa (Sulfonamide Antibiotics) 10/2018 Medications albuterol [...] CHOLECYSTECTOMY 09-27-2007 PROCEDURE: LAPAROSCOPY, CHOLECYSTECTOMY ESOPHAGOGASTRODUODENOSCOPY PROCEDURE: MO ESOPHAGOGASTRODUODENOSCOPY TRANSORAL DIAGNOSTIC Medical History Medical History [...] EDT Office Visit Obstetrics and Gynecology - [address] [address] Shawna Lopez, [address] [address] Health Maintenance Due Date Last Done Comments [...] * Cervical Cancer Screening: HPV (08/13/2022) Pathologist Pending sale to [facility] Cervical Cancer Screening: HPV Negative, Abstracted us Historical Provider MD HEALTH MAINTENANCE Final Result * HIV Screening (08/13/2022) Pathologist [facility] HIV Screening Abstracted us Historical Provider HEALTH [...] Most Recently Relevant to Health Maintenance Insurance [facility] Care Teams Esthetician Makeup Artist Relationship Specialty Start Date End Date Criselda Armstrong MD [address] [place] [address] PCP - General 09/14/22
--- OUTSIDE RECORDS SUMMARY | 2024-09-04 08:14 | XMS_ITS | Data Portability ---
Author Organization [facility]LOS ALBERTO [facility] Address [address] [place] [address] Assessment No assessment recorded. Plan of Treatment Reminders Order Date Submit Date Provider Last Modified By Organization Details Last Modified Time Details Appointments None recorded. Lab rapid SARS CoV 2 Ag, QL IA, respiratory specimen 2022 023 [email or web address] _[facility], [address] [place] [address], [phone], 09:02:36 rapid strep group A, throat 2022 023 [email or web address] _[facility], [address] [place] [address], [address], 09:02:36 Referral None recorded. Procedures None recorded. Surgeries None recorded. Imaging None recorded. Medication Orders None recorded. Patient TargetsNo targets recorded. Patient Instructions Encounter Date Encounter Id Patient Instructions Last Modified By Organization Details Last Modified Time 10/09/2022 [id number] viral respirator y infection: care instructions [email or web address] Not available 10/09/2022 09:02:36 Reason for Referral None Reported. Results Created Date Observation Date Name Description Value Unit Range Abnormal Flag Note LastModifiedBy Organization Detail LastModifiedTime 10/10/1910/09/2022 rapid SARS CoV 2 Ag, QL IA, respi rator y speci men Unknown Analyte Normal =Negat lisa Not Available [facility] [address] [place] [address], [address], 10/09/2022 08:24:38 10/10/19 23 10/09/2022 rapid SARS CoV 2 Ag, QL IA, respi rator y speci men Unknown Analyte negati ve Not Available [address] [place] [address], [place], [address], 10/09/2022 08:24:38 10/10/19 23 10/09/2022 rapid strep group A, throa t Unknown Analyte Normal = Negati ve Not Available [address] [place] [address], [address], 10/09/2022 08:24:44 10/10/1910/09/2022 rapid strep group A, throa t Unknown Analyte negati ve Not Available [address] [place] [address], [address], 10/09/2022 08:24:44 Result Notes None recorded. Problems Name Problem SNOMED Code Status Onset Date Resolution Date Notes Provider Name and Address Organization Details Recorded Time Gastroesophage al reflux disease 197006463 Active 2022 SONIDEB SALEEMEY null, PA - [facility] 3 08:22:04 Asthma 902416315 Active 2022 SONI SALEEMEY null, PA - [facility] 3 08:22:08 Migraine 01822479 Active 2022 SONI BACA null, PA - [...] Name and Address Organization Details Recorded Time 888032 amoxicill in medicatio n hives nausea vomiting Not available Not available Not available Not available 10/09/2022 723 RxNorm SONI BACA null, PA - [facility] 3 08:20:21 996253 Product containin g penicilli n (product) medicatio n hives nausea vomiting Not available Not available Not available Not available 10/09/2022 85156 8001 SNOMED SONI BACA null, PA - [facility] 3 08:20:38 991074 azithromy neel medicatio n hives nausea vomiting Not available Not available Not available Not available 10/09/2022 84101 RxNorm SONI BACA null, PA - [facility] 3 08:20:58 220413 codeine medicatio n hives nausea vomiting Not available Not available Not available Not available 10/09/2022 2670 RxNorm SONI BACA null, PA - [facility] 3 08:21:31 910873 Vaccine product containin g only Influenza virus antigen (medicina l product) medicatio n anaphylax is Not available Not available 10/09/2022 98583 89032 105 SNOMED SONI SALEEMEY null, PA - [facility] 3 08:23:16 387597 cortisone medicatio n itching Not available Not available 10/09/2022 2878 RxNorm SONI BACA null, PA - [facility] 3 08:23:25 331458 Bactrim medicatio n hives nausea vomiting Not available Not available Not available Not available 10/09/2022 53995 9 RxNorm SONI BACA null, PA - [...] Updated DateTime 3 149.86 cm 26.9 kg/m2 49406.7 9 g 6 17 /min 99 % 99 % 70 /min 97.9 [degF] 108 mm[Hg] 70 mm[Hg] SONI BACA [facility] 3 08:25:25 Social History Question Answer Notes LastModified by [employer] Details LastModified Time Tobacco Smoking Status Former Smoker SONI curiel PA - [facility] 10/09/2022 08:24:03 What Is Your Level Of Alcohol Consumption? None [email or web address] Information not available 10/09/2022 When Did You Quit Smoking? 6-10yearssi ncelastciga rette [email or web address] Information not available 10/09/2022 Do You Use Any Illicit Or Recreational Drugs? No [email or web address] Information not available 10/09/2022 Have You Recently Traveled Abroad? No Information not available 10/09/2022 Do You Or Have You Ever Used Any Other Forms Of Tobacco Or Nicotine? No [email or web address] Information not available 10/09/2022 Sex: Unknown Functional Status None recorded. Mental Status None recorded. Family History Relationship Description Onset Age of this Age Resolved Age Notes LastModified by Organization Details LastModified Time Father No current problems or disability [email or web address] Not available 10/09 08:23:46 Mother No current problems or disability [email or web address] Not available 10/09 08:23:46 Medical History No medical history recorded. Gynecological HistoryNo gynecological history recorded. Obstetrics History GPAL:G 0 P 0 0 0 0 Past Encounters Encounter ID Performer Location Encounter Start Date Encounter Closed Date Diagnosis/Indication Diagnosis SNOMED-CT Code Diagnosis ICD10 Code Diagnosis Note [id number] Chastity [facility] [facility] [place] [address] 06/11/2019 08:25:52 06/11/2019 09:01:43 [id number] Chastity [address] [address] [facility] [place] [address] 02/26/2017 09:04:55 02/26/2017 10:07:43 [id number] Chastity [facility] [facility] [place] [address] 12/08/2020 10:59:15 12/08/2020 11:18:36 [id number] Chastity [facility] [facility] [place] [address] 09/04/2021 09:23:04 09/04/2021 09:56:28 [id number] Chastity [facility] [facility] [place] [address] 01/25/2018 08:36:59 01/25/2018 09:52:03 [id number] Chastity [facility] [facility] [place] [address] 07/10/2017 09:33:40 07/10/2017 10:04:33 [id number] [place] [address] [facility] [address] [facility] [place] [address] 10/09/2022 08:03:28 10/09/2022 09:03:24 Upper respiratory infection 54106072 J06.9 Viral infectionR ecommend plenty of fluidsTyle [...] Garza Member ID Guarantor Name 01/25/2018 1 [facility] PLAN (MEDICAID HMO) AMALIA Quintana [id number] Sera Jeffery Reji 09/04/2021 1 [facility] PLAN (MEDICAID HMO) AMALIA Quintana [id number] Sera Jeffery Reji 10/09/2022 1 [facility] PLAN (MEDICAID HMO) AMALIA Quintana [id number] Sera Jeffery Reji Notes Date Note Type [...] Polo, DO [address] [place], [address], [place] - [facility] 10/09/2022 09:02:57 OBGyn Episode No OBEpisode recorded.
== END 2024-09-04 08:27 | disposition home or self-care (01) ==
PROVIDERS: PCP Internal Medicine; Visit Provider Physician Assistant
DX: B34.9 Viral infection, unspecified (principal)

== ENCOUNTER 2024-09-04 08:06 | Outpatient (REF) | payer OTHER, SELFPAY ==
[2024-09-04 11:20] LABS: Influenza A PCR NEGATIVE (Negative); Influenza B PCR NEGATIVE (Negative); Resp Syncy Virus RNA Qual PCR NEGATIVE (Negative); SARS COV2 PCR INHOUSE NEGATIVE (Negative)
== END 2024-09-04 08:07 | disposition home or self-care (01) ==
LOC: HO.LAB 08:06
PROVIDERS: Physician Assistant; PCP Internal Medicine
DX: R09.89 Other specified symptoms and signs involving the circulatory and respiratory systems (principal); R05.9 Cough, unspecified; B34.9 Viral infection, unspecified
CPT/HCPCS: 0241U; 99212

== ENCOUNTER 2025-03-14 06:55 | Emergency (ER) | payer OTHER, SELFPAY ==
--- NOTE | ~2025-03-14 | XR_ITS ---
EXAMINATION: XR CHEST CLINICAL INFORMATION: upper resp cold x1 week COMPARISON: October 16, 2017. TECHNIQUE: Frontal view of the chest was obtained. FINDINGS: No consolidation, pleural effusion or pneumothorax. No hyperinflation. Cardiomediastinal silhouette size is normal. S-shaped curvature of the thoracolumbar spine, mild. Vascular clips in the right upper quadrant abdomen. XR/XR chest 1V IMPRESSION: No acute airspace disease. Mild scoliosis. Probable status post cholecystectomy. Electronically signed by: Indra Marquez MD 03/14/2025 07:44 AM EDT
[2025-03-14 06:58] VITALS: BP 123/65; PULSE 95; RESP 20; TEMP 36.6; O2SAT 98; BMI 27.4
--- NOTE | 2025-03-14 07:05 | ED.URI ---
HPI - URI/Sore Throat General Chief Complaint: Upper Respiratory Symptoms Stated Complaint: resp symptoms Time Seen by Provider: 03/14/25 07:04 Source: patient and RN notes reviewed Mode of arrival: ambulatory Limitations: no limitations History of Present Illness ED Provider: Monik Ray PA-C HPI Narrative: This is a 39-year-old female, with a past medical history of GERD, asthma, interstitial cystitis and anemia, who presents emergency department with concerns of cough, congestion. Patient reports this initially started 7 days ago as a headache and sore throat. Patient reported to urgent care on Wednesday (03/10/25) and tested negative strep, flu, and COVID-19 swabs. Patient was prescribed ibuprofen and a 10 day course of cephalexin for a double ear infection, which she is still taking. Patient reports a productive cough with green colored sputumwhich started in the middle of the night last night. Patient reports nasal congestion, runny nose, and green nasal mucus. Patient reports fatigue, body aches, chills, SOB only with exertion, CP with cough only, and chest tightness. Patient additionally reports lack of appetite, loss of taste, and slight loss of smell. Patient denies fevers or sore throat but reports subjective fevers of feeling hot. Patient has tried tylenol and ibuprofen without relief. Patient also regularly takes symbicort for asthma without use of rescue inhaler. 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 No other complaints or concerns at this time. MD elicited complaint: cough Consistency: constant Able to tolerate fluids by mouth: No Exacerbating factors: nothing Relieving factors: nothing Context: sick contacts Related Data Home Medications ?Medication ?Instructions ?Recorded ?Confirmed albuterol sulfate 90 mcg/actuation 1 - 2 puff PO Q4-6H PRN breathing 03/18/20 06/23/24 aerosol inhaler budesonide-formoterol HFA 160 460 inh inhalation DAILY 03/18/20 06/23/24 mcg-4.5 mcg/actuation aerosol inhaler cetirizine 10 mg tablet 10 mg PO DAILY 03/18/20 06/23/24 epinephrine 0.3 mg/0.3 mL 0.3 mg IM DIRECTED 03/18/20 06/23/24 injection, auto-injector Tylenol 100 mg PO BID 12/14/22 06/23/24 magnesium oxide 400 mg (241.3 mg 400 mg PO DAILY 09/04/24 magnesium) tablet Previous Rx's ?Medication ?Instructions ?Recorded ondansetron 4 mg disintegrating 4 mg PO Q8H PRN nausea and 11/06/22 tablet vomiting #10 tabs riboflavin (vitamin B2) 400 mg 400 mg PO DAILY headaches #30 tabs 10/18/23 tablet ibuprofen 800 mg tablet 800 mg PO TID PRN pain #30 tabs 04/04/24 benzonatate 200 mg capsule 200 mg PO BEDTIME PRN cough #10 09/04/24 caps omeprazole 40 mg capsule,delayed 40 mg PO BID #180 caps 02/21/25 release Allergies Allergy/AdvReac Type Severity Reaction Status Date / Time amoxicillin (Augmentin) Allergy Severe vomiting Verified 03/14/25 07:01 azithromycin (From ZITHROMAX) Allergy Severe VOMITTING, Verified 03/14/25 07:01 DIFF BREATHING, hives, SOB, Vomiting clavulanic acid (Augmentin) Allergy Severe vomiting Verified 03/14/25 07:01 influenza virus vaccine, Allergy Severe anaphylaxix Verified 03/14/25 07:01 specific (FLU VACCINE) prednisone (PREDNISONE) Allergy Severe VOMITTING, Verified 03/14/25 07:01 DIFF BREATHING, hives, SOB, Vomiting cinnamon (CINNAMON) Allergy Intermediate itchy mouth Verified 03/14/25 07:01 ferrous fumarate (Prenatabs Allergy Intermediate itching Verified 03/14/25 07:01 FA) folic acid (Prenatabs FA) Allergy Intermediate itching Verified 03/14/25 07:01 latex (LATEX) Allergy Intermediate RASH Verified 03/14/25 07:01 Penicillins (PENICILLINS) Allergy Intermediate hives/sob Verified 03/14/25 07:01 phentermine Allergy Intermediate Nausea Verified 09/04/24 08:11 vitamins with Allergy Intermediate itching Verified 09/04/24 08:11 calcium no.78 (Prenatabs FA) Sulfa (Sulfonamide Allergy Intermediate RASH, Verified 09/04/24 08:11 Antibiotics) (SULFA vomiting (SULFONAMIDE ANTIBIOTICS)) coconut Allergy Mild HIVES/VOMIT Verified 09/04/24 08:11 ING mushroom Allergy Mild HIVES/VOMIT Verified 09/04/24 08:11 ING sertraline (From ZOLOFT) Allergy Mild HIVES/VOMIT Verified 09/04/24 08:11 ING strawberry (STRAWBERRY) Allergy Mild HIVES, Verified 09/04/24 08:11 VOMITING codeine (Codeine) AdvReac Mild NAUSEA Verified 09/04/24 08:11 ibuprofen AdvReac Stomach Verified 09/04/24 08:11 Upset Review of Systems Review of Systems: Constitutional : No Fever, No Chills ENT/Mouth : No sore throat, No Rhinorrhea Eyes: No Eye Pain, No Swelling, No Redness Cardiovascular : No Chest Pain, No SOB Respiratory : + Cough, No Sputum Gastrointestinal : No Nausea, No Vomiting, No Diarrhea, No abdominal Pain Genitourinary : No Dysuria, No Hematuria Musculoskeletal : No joint pain, No Myalgias, No Joint Swelling Skin : No Skin Lesions Neuro : No Weakness, No Numbness, No Headache All other systems reviewed and are negative Yes all other systems are reviewed and are negative Constitutional: Constitutional: Reports as per [facility] Past Medical History Medical History ADHD Annual physical exam Normal pelvic exam Seasonal allergic rhinitis Asthma GERD (gastroesophageal reflux disease) Obesity Interstitial cystitis Surgical History History of esophagogastroduodenoscopy (EGD) H/O right knee surgery History of lumbar puncture Hx of endoscopy Hx of cholecystectomy Family History Family History Paternal Grandfather History of colon cancer Maternal Grandmother Family history of breast cancer Mother History of cirrhosis of liver Other Mental health disorder Substance use disorder Social History Social History Household Members Other:: single, 3 children, works for [employer] Housing: House Alcohol intake: never Patient Tobacco Use Status: Former Tobacco user Tobacco use type: Cigarette Years Smoked: 15 Smoked in Last 30 Days: No e-Cigarette/Vaping Use: Never Used Use of substances other than those prescribed or required for medical reasons: No Advance Directives: No Advance Directives Information Provided: Yes Patient : No service: No Current occupational status: employed 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 Cognitive needs: No Hearing needs: No Vision needs: Yes Physical Exam Vital Signs: Vital Signs: Last Vital Signs Temp 97.9 F 03/14/25 06:58 Pulse 87 03/14/25 07:09 Resp 16 03/14/25 07:09 BP 111/66 03/14/25 07:09 Pulse Ox 99 03/14/25 07:10 O2 Del Method Room Air 03/14/25 07:10 BMI result Body Mass Index 27.4 Const: General: cooperative, comfortable and no acute distress Orientation/consciousness: patient oriented x3 Limitations: no limitations HEENT: Head: Yes normal to inspection, Yes normocephalic and Yes atraumatic Ears: hearing grossly normal bilaterally and TM's normal bilaterally General nose exam: Normal external nose present Face and sinus: Yes normal facial exam Mouth: Normal oral and palatal mucosa present, oropharynx normal and moist mucous membranes Throat: Yes posterior oropharynx normal Eyes: General: appearance normal, both eyes and all related structures Eyelids: Yes eyelids normal Conjunctivae: conjunctivae normal Sclerae: sclerae normal Pupils: Equal, round and reactive pupils present EOM: EOMs intact bilaterally Neck: Neck: Yes normal visual inspection, Yes full ROM and Yes no lymphadenopathy Lymphatic: no lymphadenopathy noted Chest: Chest palpation & inspection: normal inspection of the chest Resp: Effort & Inspection: normal respiratory effort and able to speak in complete sentences Auscultation: clear to auscultation bilaterally, no crackles, no rales, no rhonchi and no wheezes Cardio: Rate: regular rate Rhythm: regular rhythm Heart sounds: S1 normal heart sound present and S2 normal heart sound present GI: Inspection: Yes normal to inspection Skin: General skin exam: no rashes or lesions noted Trauma: no lacerations or abrasions Wounds: no wounds Neuro: General: patient oriented x3 and moves all extremities Cranial nerves: Yes Equal, round and reactive pupils present Extrem: General: Yes normal to inspection Right upper extremity: normal to inspection Left upper extremity: normal to inspection Right lower extremity: normal to inspection Left lower extremity: normal to inspection Medical Decision Making Medical Decision Making MDM Narrative: Patient is a 39 yo female presenting to the ED for 7 day history of upper respiratory infection symptoms including productive cough with green phlegm, nasal congestion, body aches, chills, subjective fevers, SOB with exertion, CP with cough, and chest tightness. Symptoms followed a double ear injection treated with cephalexin, the clinical picture is most consistent with self-limited viral URI. Influenza, COVID-19, and strep swabs negative. Most likely diagnosis is viral URI given gradual onset, upper airway symptoms, absence of focal lung findings, and negative rapid infectious testing. Bacterial pneumonia was considered but is less likely due to the patient being afebrile, without lung consolidation on exam, hypoxia, and tachypnea. Acute bacterial sinusitis was considered but less likely without tenderness to palpation of the sinuses, purulent drainage persisting >10 days, or double worsening pattern. Recurrent acute otitis media was considered given recent history, though patient denies ear pain, discharge, or draiange. Acute asthma exacerbation was considered given cough, chest tightness, and exertional SOB but no wheezing on exam or rescue inhaler usage. Diagnostics ordered include chest X-ray to rule out pneumonia, CBC to assess for leukocytosis, and basic metabolic panel for baseline status. Given current findings, clinical picture remains most consistent with a viral URI. 8:43 AM 03/14/2025 (Monik Ray PA-C): Patient's labs returned, she does have slight leukopenia at 3.5, she does have a microcytic anemia consistent with her previous levels. Chemistry with no significant electrolyte derangement. COVID, flu, and strep negative. Chest x-ray unremarkable for any pneumonia. Discussed findings with patient. Of fit the clinical picture of a viral URI. Given strict return precautions. She is already on cephalexin for bilateral otitis media, which already seems to be cleared up on exam however encouraged to finish the full course. Advised to follow-up with PCP to have repeat labs in several weeks. She understands and agrees with plan. Patient stable for discharge. Differential Diagnosis Differential Diagnoses: The differential diagnosis associated with the presentation includes See above Lab Data [facility] Lab Attestation statement: I reviewed the patient's lab results. See MDM and course 03/14/25 08:15 03/14/25 08:15 Labs: Lab Results 03/14/25 03/14/25 Range/Units 07:26 08:15 WBC 3.5 L (4.8-10.8) X10*3/uL RBC 4.10 L (4.20-5.50) X10*6/uL Hgb 9.0 L (12.0-16.0) g/dl Hct 29.9 L (37.0-47.0) % MCV 72.9 L (80.0-98.0) fL MCH 22.0 L (27.0-33.0) pg MCHC 30.1 L (31.0-35.0) g/dl RDW 17.3 H (11.0-16.0) % Plt Count 206 D (160-400) X10*3/uL MPV 10.2 (9.4-12.3) fL Immature Gran % (Auto) 0.0 (0.0-0.4) % Neut % (Auto) 48.0 (45-73) % Lymph % (Auto) 40.1 H (20-40) % [place] % (Auto) 10.1 (2-11) % Eos % (Auto) 0.9 (0-4) % Baso % (Auto) 0.9 (0-2) % Lymph # (Auto) 1.4 (1.2-4.9) X10*3/uL [place] # (Auto) 0.4 (0.1-1.2) X10*3/uL Eos # (Auto) 0.0 (0.0-0.4) X10*3/uL Baso # (Auto) 0.0 (0.0-0.2) X10*3/uL Abs Immat Gran (auto) 0.00 (0.00-0.03) X10*3/uL Absolute Neuts (auto) 1.7 L (2.0-8.3) x10*3/uL Absolute Nucleated RBC 0.000 (0.0-0.012) X10*3/uL Nucleated RBC % (auto) 0.0 (0.0-0.2) /100WBC Sodium 138 (135-145) mmol/L Potassium 3.9 (3.3-5.1) mmol/L Chloride 105 (96-108) mmol/L Carbon Dioxide 27 (22-29) mmol/L Anion Gap 10 L (12-20) BUN 12 (9-16) mg/dL Creatinine 0.61 (0.5-1.4) mg/dL Estim Creat Clear Calc 121.8 Estimated GFR > 60 Random Glucose 93 (60-115) mg/dL Calcium 9.0 (8.4-10.2) mg/dL COVID-19 (GEORGINA) Negative (Negative) COVID-19 Clin Com See Note Influenza Type A (TYRONE) Negative (Negative) Influenza Type B (TYRONE) Negative (Negative) Influenza A & B Note See Note S. pyogenes GrpA TYRONE Negative (Negative) Radiology Impression Discussion of test interpretation with radiology: I have reviewed the radiologist's reading. Radiologist Impression: FINDINGS: No consolidation, pleural effusion or pneumothorax. No hyperinflation. Cardiomediastinal silhouette size is normal. S-shaped curvature of the thoracolumbar spine, mild. Vascular clips in the right upper quadrant abdomen. XR/XR chest 1V IMPRESSION: No acute airspace disease. Mild scoliosis. Probable status post cholecystectomy. Electronically signed by: Indra Marquez MD 03/14/2025 07:44 AM EDT RP Dictated By: Indra Rome MD External Record Review External record reviewed: Inpatient record, Office record, Outpatient record, Prior outpatient labs, Prior outpatient radiology, Primary care record and Outside ED record Discharge Plan Discharge Clinical Impression: Viral URI with cough Instructions: Upper Respiratory Infection (ED), Viral Syndrome (ED) Additional Instructions: You were seen in the emergency department your overall workup today was reassuring. Your chest x-ray does not show a pneumonia. You tested negative for COVID, flu, and RSV. Your blood work was reassuring. You do have a slightly low white blood cell count, this can be due to your current symptoms, please have your labs repeated in several weeks for follow-up. You can do this through your primary care office. If any new or worsening symptoms occur including but not limited to severe chest pain, shortness of breath, severe chest pain, abdominal pain, nausea, vomiting, please return for re-evaluation. Prescriptions: No Action omeprazole 40 mg capsule,delayed release(DR/EC) 40 mg PO BID Qty: 180 3RF ondansetron 4 mg tablet,disintegrating 4 mg PO Q8H PRN (Reason: nausea and vomiting) Qty: 10 0RF Tylenol 100 mg PO BID budesonide-formoterol 160-4.5 mcg/actuation HFA aerosol inhaler 460 inh inhalation DAILY cetirizine 10 mg tablet 10 mg PO DAILY albuterol sulfate 90 mcg/actuation HFA aerosol inhaler 1 - 2 puff PO Q4-6H PRN (Reason: breathing) epinephrine 0.3 mg/0.3 mL auto-injector 0.3 mg IM DIRECTED magnesium oxide 400 mg (241.3 mg magnesium) tablet 400 mg PO DAILY benzonatate 200 mg capsule 200 mg PO BEDTIME PRN (Reason: cough) Qty: 10 0RF ibuprofen 800 mg tablet 800 mg PO TID PRN (Reason: pain) Qty: 30 0RF riboflavin (vitamin B2) 400 mg tablet 400 mg PO DAILY Qty: 30 2RF Stand Alone Forms: Work/School Release Print Language: Scottish
[2025-03-14 07:09] VITALS: BP 111/66; PULSE 87; RESP 16; O2SAT 100
[2025-03-14 07:10] VITALS: O2SAT 99
--- NOTE | 2025-03-14 07:12 | PC.NURSE ---
39 F presents to ED with cold like symptoms, congestion, cough with green phlem, SOB x 1 week. Pt also had an ear infection which resolved with antibiotics. Pt sts she feels fatigues, some chest discomfort when coughing. A+OX4, calm, cooperative. RR even and unlabored. Pt has inhaler, uses simbicort daily and has albuterol inhaler as needed. Lung sounds clear bilat. Pt is ambulatory.
--- OUTSIDE RECORDS SUMMARY | 2025-03-14 07:56 | XMS_ITS | Clinical Summary ---
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 Active cetirizine (ZYRTEC) 10 MG tablet Take 10 mg by mouth. Active omeprazole (PRILOSEC) 20 MG tablet Take 20 mg by mouth daily. Active Active Problems Problem Noted Date Diagnosed Date Pseudotumor cerebri 01/25/2025 Migraine 01/25/2025 GERD (gastroesophageal reflux disease) Class 1 obesity 01/25/2025 Asthma 01/25/2025 Overview (01/25/2025): DX:Asthma Overweight 08/17/2024 Interstitial cystitis 08/17/2024 IBS (irritable bowel syndrome) 08/17/2024 Microcytic anemia 10/11/2020 History of abnormal cervical Pap smear 0 Overview (05/09/2020): 2019: ASCUS, HPV not done Encounters Date Type Department Care Team Description 01/26/2025 Orders Only [facility] [address] [place] [id number] Lisandro Mc MD Yeast vaginitis (Primary Dx) 01/25/2025 8:40 AM EDT Office Visit [facility] [address] [place] [id number] Lisandro Mc MD Chronic vaginitis (Primary Dx); Vaginal discharge from Last 3 Months Family History Medical History Relation Comments Renal tubular acidosis Daughter Hypertension Father Hypertension Maternal Grandmother Stroke Maternal Grandmother Thyroid disease Maternal Grandmother Asthma Mother Chronic bronchitis Mother Cirrhosis Mother Diabetes Mother Hypertension Mother Thyroid disease Mother Colon cancer Paternal Grandfather Heart disease Paternal Grandfather Hypertension Paternal Grandfather Diabetes Paternal Grandmother No Known Problems Sister Relation Status Comments Daughter Alive Father Alive Maternal Grandfather Maternal Grandmother Alive Mother Paternal Grandfather Alive Paternal Grandmother Sister Alive Social History Tobacco Use Types Packs/Day Years Used Date Smoking Tobacco: Former Cigarettes Q uit: 2014 Smokeless Tobacco: Never Tobacco Cessation:Counseling Given: Not Answered Comments:smiked for 14 years Alcohol Use Standard Drinks/Week Comments Not Currently 0 (1 standard drink = 0.6 oz pur e alcohol) Quit drinking 06/21/14 Education Answer Date Recorded Are you interested in more education? Not on isiah e 10/16/2022 Are you concerned about learning? Not on file 10/16/2022 No 10/16/2022 No 10/16/2022 Digital Access Answer Date Recorded No 11/13/2022 No 11/13/2022 Reliable internet access at home? Not on file 11/13/2022 Device with a working camera? Not on file Comments No Sex and Gender Information Value Date Recorded Sex Assigned at Not on file Legal Sex Female 9:11 PM EDT Gender Identity Not on file Sexual Orientation Not on file Last Filed Vital Signs Vital Sign Reading Time Taken Comments Blood Pressure 100/70 01/25/2025 8:50 AM EDT Pulse - - Temperature - - Respiratory Rate - - Oxygen Saturation - - Inhaled Oxygen Concentration - - Weight 75.5 kg (166 lb 6.4 oz) 01/25/2025 8:50 A M EDT Height 149.9 cm (4' 11 ) 05/09/2020 2:49 PM EST Body Mass Index 33.61 05/09/2020 2:49 PM EST Plan of Treatment Health Maintenance Due Date Last Done Comments DEPRESSION SCREENING 1998 SMOKING Hx and SMOKELESS TOBACCO SCREENING 12/12/1999 HEPATITIS C SCREENING 2004 HIV ONE-TIME SCREENING (18-6 5 YEARS) 2004 PNEUMOCOCCAL VACCINES (0-49 years) (1 of 2 - PCV) 2005 SCREENING FOR DIABETES 2021 PAP SMEAR 05/09/2023 05/09/2020, 05/09/2020, 08/09/2018 INFLUENZA VACCINE (#1) 2025 COVID-19 VACCINE (3 2024-2 6 season) 2025 04/09/2021, 03/18/2021 Adult Td,Tdap Booster 10/06/2026 10/06/2016 , 01/14/2015, 01/30/1999 HIB VACCINES Completed 02/11/1989 HEPATITIS A VACCINES Aged Out No long er eligible based on patient's age to complete this topic MENINGOCOCCAL VACCINES (ACWY) Aged Out No longer eligible based on patient's age to complete this topic MENINGOCOCCAL VACCINES (B) Aged Out N o longer eligible based on patient's age to complete this topic Medical Devices Not on file Procedures Procedure Name Priority Date/Time Associated Diagnosis Comments POCT SALINE WET PREP Routine 01/25/2025 1:59 PM EDT Vaginal discharge HC NFCT DS BCT VAGINOSIS&VAGINITIS MULT AMP PROBE Routine 01/25/2025 10:22 AM EDT Chronic vaginitis PAP TEST Routine 05/09/2020 12:00 AM EST from Last 3 Months or Most Recently Relevant to Health Maintenance Results * POCT Wet Prep (01/25/2025 1:59 PM EDT) Yeast Absent Absent [facility] Epithelial Present None - Few [facility] Comment:NO CLUE CELLS Trichomonas Absent Absent [facility] RBC Absent Absent [facility] WBC None None [facility] Bacteria Few Few [facility] Other [facility] Other 01/25/2025 1:59 PM EDT Lisandro Mc MD POINT OF CARE TEST ORDERABLES Fi nal Result Performing Organization Address [facility] Co de Phone Number [address] * (ABNORMAL) Vaginitis Panel (01/25/2025 10:22 AM EDT) Bacterial Vaginosis Negative Negative [facility] Makenzie Species Detected(A) Not Detected [facility] Makenzie glabrata Not Detected Not Detected [facility] Trichomonas Vaginalis Not Detected Not Detected [facility] Other (Vaginal) 01/25/2025 1 0:22 AM EDT 01/25/2025 3:20 PM EDT Lisandro Mc MD MICROBIOLOGY - GENERAL ORDERABLE S Final Result Performing Organization Address [facility] de Phone Number [address] [address] * Pap Smear (05/09/2020 12:00 AM EST) 05/09/2020 05/10/2020 8:2 0 AM EST Narrative SEE NARRATIVE - 05/21/2020 10:09 AM EST [address] [id number] [employer]er: Iris Nelson MD [employer] Cytology Report FINAL DIAGNOSIS A. PAP SMEAR (SUREPATH) CE: SPECIMEN ADEQUACY: Satisfactory for evaluation; transformation zone present. INTERPRETATION: NEGATIVE FOR INTRAEPITHELIAL LESION OR MALIGNANCY. Electronically Signed Out By: BETTY Gonzalez(ASCP) BETTY Pace(ASCP) The Pap test is a screening test primarily for squamous cancers and precursors and has associated false-negative and false-positive results. New technologies such as liquid-based preparations may decrease but will not eliminate all false-negative results. Regular sampling and follow-up of unexplained clinical signs and symptoms are recommended to minimize false negative results. PROCEDURES/ADDENDA HPV Testing (Requested) Ordered Date: 05/10/2020 A. PAP SMEAR (SUREPATH) CE: Human Papilloma Virus Test Negative for high-risk human papillomavirus types 16, 18, 45 and the Other high risk probe set (Includes 31, 33, 35, 39, 51, 52, 56, 58, 59, 66, 68) by [employer] HR-HPV analysis. Clinical correlation is advised. This HPV test was performed at [facility], [address] [place] [address]. This test has been FDA approved for [facility] cervical cytology specimens. The accuracy and precision of this test for all other specimen sources has been verified in the Cytopathology Laboratory of the [facility] and has not been cleared or approved by the U.S. Food and Drug Administration. Clinical correlation is advised. CLINICAL HISTORY Date of Last Menstrual Period: 04-19-2020 Other Clinical Conditions: Screening Pap Abnormal PAP at Other Lab: ASCUS, 2019 SPECIMEN SOURCE A: PAP SMEAR ([facility]REPATH) CE Patient Name: CARMELA TSE : 1985 (Age: 34) Sex: F Institution: [facility] Location: [facility] Date of Collection: 05/09/2020 Date of Reported: 05/13/2020 16:33 Results to: Flaca Schmitt MD us Flaca Schmitt MD CYTOLOGY ORDERABLES Edited Re sult - Final SEE NARRATIVE from Last 3 Months or Most Recently Relevant to Health Maintenance Insurance [facility] ACO [facility]CO [facility] ACO [facility] [place] [address] [place] [address] ACO [facility] ACO ACO ACO Care Teams 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 It is not the complete legal health record.[facility]
--- OUTSIDE RECORDS SUMMARY | 2025-03-14 07:56 | XMS_ITS | Clinical Summary ---
Author Organization Patient Business Ser [facility] [place] Address [address] [place] [address] Care Team Providers Care Call Out Clerk Name Role Phone Criselda Armstrong MD Primary Care Provider [phone] Allergies Active Allergy Reactions Criticality Noted Date Comments Azithromycin 12/23/2018 Cinnamon 12/23/2018 Coconut Oil 12/23/2018 Codeine Nausea And Vomiting 04/12/2009 Iron 03/02/2019 Latex Itching,Rash 11/13/2010 Metronidazole 05/09/2020 Mushroom 12/23/2018 Penicillins 12/23/2018 Sertraline 12/23/2018 [place] 12/23/2018 Sulfa (Sulfonamide Antibiotics) 10/2018 Medications albuterol HFA (PROAIR HFA ; PROVENTIL HFA ; VENTOLIN HFA) 90 mcg/actuation inhaler Active cetirizine (ZyrTEC) 10 mg tablet Take [...] pain Chronic headache Overview (08/17/2024): DX:Chronic headache Encounters Date Type Department Care Team Description 12/25/2024 Telephone Obstetrics and Gynecology [address] [id number] Shawna Lopez CNM from Last 3 Months Immunizations Name Administration Dates Next Due DTP 02/11/1989, 8,05/20/1987,1986 Hepb Recombinant, 3-antigen, (oh)3 03/25/2000, 10/29/1999,09/24/1999 HiB 02/11/1989 MMR, measles mumps and rubel la Live (Priorix; M-M-R II) 12mo and older 02/27/2000,04/09/1988 OPV 02/11/1989,05/20/1987,02/28/1987 Td, Unspecified 01/30/1999 Zoster Live 03/22/2002,04/21/2000 Surgical History Surgery Date Site/Laterality Comments CHOLECYSTECTOMY 09-27-2007 PROCEDURE: LAPAROSCOPY, CHOLECYSTECTOMY ESOPHAGOGASTRODUODENOSCOPY PROCEDURE: CA ESOPHAGOGASTRODUODENOSCOPY TRANSORAL DIAGNOSTIC Medical History Medical History [...] Cigarettes Q uit: 08/30/2010 Smokeless Tobacco: Never Tobacco Cessation:Counseling Given: Not Answered Alcohol Use Standard Drinks/Week Comments No 0 (1 standard drink = 0.6 oz pur e alcohol) Comments Unknown Sex and Gender Information Value Date Recorded Sex Assigned at Not on file Legal Sex Female 10:22 PM EST Gender Identity Not on file Sexual Orientation Not on file Obstetrics History * This document contains information received from the source organization and may not represent a complete record from that organization. Para Term AB IAB SAB Ectopic Multiple Livin g Live Births 5 3 3 3 3 Date Outcome GA Total Labor Labor/2nd/3rd Weight Sex Type Anes PTL Ibis A1 A5 Name Clin Term Vag-S pont Living Term Vag-S pont Living 017 Term 38w 0d 2835 g (100 oz) F Vag-S pont Living Comments:Delivered at [facility] Last Filed Vital Signs Vital Sign Reading Time Taken Comments Blood Pressure 107/82 11/01/2024 3:14 PM EDT Pulse 80 11/01/2024 3:14 PM EDT Temperature - - Respiratory Rate 12 11/01/2024 3:14 PM EDT Oxygen Saturation - - Inhaled Oxygen Concentration - - Weight 75.3 kg (166 lb) 11/01/2024 3:14 PM EDT Height 149.9 cm (4' 11 ) 11/01/2024 3:14 PM EDT Body Mass Index 33.53 11/01/2024 3:14 PM EDT Plan of Treatment Upcoming Encounters Date Type Department Care Team (Late st Contact Info) Description 05/15/2025 1:40 PM EST Office Visit Obstetrics and Gynecology - [place] [address] [place] [phone] Lorenza Eisenberg PA [address] [place] [address] Health Maintenance Due Date Last Done Comments IPV Vaccines (4 of 4 - 4-dose series) 1990 02/11/1989, 02/11/1989, 05/20/1987, Additional history exists Hepatitis B Vaccines (1 of 3 - 19+ 3-dose series) 2005 03/25/2000, 10/29/1999, 09/24/1999 Pneumococcal Vaccine: Pediatrics (0 to 5 Years) and At-Risk Patients (6 to 49 Years) (1 of 2 - PCV) 2005 DTaP,Tdap,and Td Vaccines (6 - Td or Tdap) 01/30/2009 01/30/1999, 02/11/1989, 02/11/1989, Additional history exists Social Influencers of Health Screening 07/25/2020 Depression Screening 06/21/2024 COVID-19 Vaccine ( season) 2025 Influenza Vaccine (#1) 2025 Cholesterol Screening (Lipid Panel) 09/25/2025 09/25/2020 Cervical Cancer Screening: HPV 08/13/2027 08/13/2022 HIB Vaccines Completed 02/11/1989, 02/11/1989 MMR Vaccines Completed 02/27/2000, 04/09/1988 Varicella Vaccines Completed 03/22/2002, 04/21/2000 HIV Screening Completed 08/13/2022 Hepatitis C Screening Completed 08/13/2022 HPV Vaccines Aged Out No longer eligi ble based on patient's age to complete this topic Hepatitis A Vaccines Aged Out No long er eligible based on patient's age to complete this topic Meningococcal ACWY Vaccine Aged Out N o longer eligible based on patient's age to complete this topic Meningococcal B Vaccine Aged Out No l onger eligible based on patient's age to complete [...] Cancer Screening: HPV (08/13/2022) Pathologist [facility] Cervical Cancer Screening: HPV Negative, Abstracted [facility] Provider HEALTH MAINTENANCE Final Result * HIV Screening (08/13/2022) [facility] HIV Screening Abstracted [facility] Provider HEALTH MAINTENANCE Final Result * Hepatitis C Screening (08/13/2022) Pathologist [facility] Hepatitis C Screening Abstracted [facility] Provider HEALTH MAINTENANCE Final Result * Lipid panel (09/25/2020) [facility] LDL/HDL Ratio 4 0 - 4 Triglycerides 78 0 - 150 mg/dL Cholesterol 138 0 - 200 mg/dL HDL 40 >=40 mg/dL LDL Cholesterol 83 0 - 100 mg/dL Blood Venous blood specimen / Unknown [facility] Provider LAB BLOOD ORDERABLES Tracy l Result from Last 3 Months or Most Recently Relevant to Health Maintenance Insurance [facility] [facility] Care Teams Call Out Clerk Relationship Specialty Start Date End Date Criselda Armstrong MD [address] [place] [address] PCP - General Internal Medicine 09/12/24
[2025-03-14 07:58] LABS: IDNOW Serial# 152EDE1D; Strep A Nucleic Acid Negative (Negative)
[2025-03-14 08:07] LABS: COVID-19 Test Negative (Negative); IDNOW Serial# 55D5AD1C; IDNOW Serial# 58CA691E; Influenza B2 Negative (Negative)
[2025-03-14 08:18] LABS: MANUAL DIFF FLAG NO
[2025-03-14 08:21] LABS: Hematocrit 29.9 % (37.0-47.0); Hemoglobin 9.0 g/dl (12.0-16.0); Imm Gran Abs Auto 0.00 X10*3/uL (0.00-0.03); Imm Gran Pct Auto 0.0 % (0.0-0.4); Lymphocytes Absolute Auto 1.4 X10*3/uL (1.2-4.9); Mean Corpuscular HGB Conc 30.1 g/dl (31.0-35.0); Mean Corpuscular Hemoglobin 22.0 pg (27.0-33.0); Mean Corpuscular Volume 72.9 fL (80.0-98.0); NRBC Abs Auto 0.000 X10*3/uL (0.0-0.012); NRBC Pct Auto 0.0 /100WBC (0.0-0.2); Platelet Count 206 X10*3/uL (160-400); Red Blood Count 4.10 X10*6/uL (4.20-5.50); White Blood Count 3.5 X10*3/uL (4.8-10.8)
[2025-03-14 08:34] LABS: Anion Gap 10 (12-20); Blood Urea Nitrogen 12 mg/dL (9-16); Calcium 9.0 mg/dL (8.4-10.2); Carbon Dioxide 27 mmol/L (22-29); Chloride 105 mmol/L (96-108); Creatinine Clr Calc Pharmacy 121.8; Estimated Glomerular Filt Rate > 60; Potassium 3.9 mmol/L (3.3-5.1); Sodium 138 mmol/L (135-145)
[2025-03-14 08:58] VITALS: BP 111/66; PULSE 87; RESP 16; TEMP -17.7; TEMP 0; O2SAT 99
== END 2025-03-14 08:59 | disposition home or self-care (01) ==
PROVIDERS: Physician Assistant Medical; Emergency Provider Emergency Medicine; PCP Internal Medicine
DX: J06.9 Acute upper respiratory infection, unspecified (principal)
CPT/HCPCS: 36415; 71045; 80048; 85025; 87502; 87635; 87651; 99283; 99284

== ENCOUNTER → 2025-03-14 07:35 | Outpatient (BNV) | payer OTHER, SELFPAY | PROVIDERS: Emergency Provider Emergency Medicine; PCP Internal Medicine; Visit Provider Radiology Diagnostic Radiology | DX: R05.9 Cough, unspecified (principal) | CPT/HCPCS: 71045 ==

== ENCOUNTER 2025-03-28 09:20 | Outpatient (REF) | payer OTHER, SELFPAY ==
[2025-03-28 10:22] LABS: MANUAL DIFF FLAG NO
[2025-03-28 10:43] LABS: Hematocrit 29.2 % (37.0-47.0); Hemoglobin 8.3 g/dl (12.0-16.0); Imm Gran Abs Auto 0.02 X10*3/uL (0.00-0.03); Imm Gran Pct Auto 0.4 % (0.0-0.4); Lymphocytes Absolute Auto 1.4 X10*3/uL (1.2-4.9); Mean Corpuscular HGB Conc 28.4 g/dl (31.0-35.0); Mean Corpuscular Hemoglobin 21.3 pg (27.0-33.0); Mean Corpuscular Volume 75.1 fL (80.0-98.0); NRBC Abs Auto 0.000 X10*3/uL (0.0-0.012); NRBC Pct Auto 0.0 /100WBC (0.0-0.2); Platelet Count 336 X10*3/uL (160-400); Red Blood Count 3.89 X10*6/uL (4.20-5.50); White Blood Count 4.7 X10*3/uL (4.8-10.8)
== END 2025-03-28 09:21 | disposition home or self-care (01) ==
LOC: HO.10HDL 09:20
PROVIDERS: Visit Provider Internal Medicine
DX: J06.9 Acute upper respiratory infection, unspecified (principal)
CPT/HCPCS: 36415; 85025

== ENCOUNTER 2025-05-23 08:50 | Outpatient (AMB) | payer OTHER, SELFPAY ==
--- NOTE | 2025-05-23 09:04 | MHC.OFFVIS ---
Vital Signs 05/23/25 09:05 Height 4 ft 11 in Weight 169 lb BMI 34.1 BP 112/55 L Blood Pressure Location Lt brachial Position Sitting Pulse 78 Oxygen Delivery Method Room Air Intake Visit Reasons: gerd, jm pt Intake Note: Patient complex follow up for GERD/Maude nieves was 01/27/2023 and last EGD was 12/12/[address] Zamudio. Patient cc: heartborn and bloating on and off, nauseas come and go, denies any other GI issues for today. Exchange Consultant Required: No Accompanied by: Self / Same As Patient Allergies amoxicillin (Augmentin) Allergy (Severe, Verified 05/23/25 09:03) vomiting azithromycin (From ZITHROMAX) Allergy (Severe, Verified 05/23/25 09:03) VOMITTING, DIFF BREATHING, hives, SOB, Vomiting clavulanic acid (Augmentin) Allergy (Severe, Verified 05/23/25 09:03) vomiting influenza virus vaccine, specific (FLU VACCINE) Allergy (Severe, Verified 05/23/25 09:03) anaphylaxix prednisone (PREDNISONE) Allergy (Severe, Verified 05/23/25 09:03) VOMITTING, DIFF BREATHING, hives, SOB, Vomiting cinnamon (CINNAMON) Allergy (Intermediate, Verified 05/23/25 09:03) itchy mouth ferrous fumarate (Prenatabs FA) Allergy (Intermediate, Verified 05/23/25 09:03) itching folic acid (Prenatabs FA) Allergy (Intermediate, Verified 05/23/25 09:03) itching latex (LATEX) Allergy (Intermediate, Verified 05/23/25 09:03) RASH Penicillins (PENICILLINS) Allergy (Intermediate, Verified 05/23/25 09:03) hives/sob phentermine Allergy (Intermediate, Verified 05/23/25 09:03) Nausea vitamins with calcium no.78 (Prenatabs FA) Allergy (Intermediate, Verified 05/23/25 09:03) itching Sulfa (Sulfonamide Antibiotics) (SULFA (SULFONAMIDE ANTIBIOTICS)) Allergy (Intermediate, Verified 05/23/25 09:03) RASH, vomiting coconut Allergy (Mild, Verified 05/23/25 09:03) HIVES/VOMITING mushroom Allergy (Mild, Verified 05/23/25 09:03) HIVES/VOMITING sertraline (From ZOLOFT) Allergy (Mild, Verified 05/23/25 09:03) HIVES/VOMITING strawberry (STRAWBERRY) Allergy (Mild, Verified 05/23/25 09:03) HIVES, VOMITING codeine (Codeine) Adverse Reaction (Mild, Verified 05/23/25 09:03) NAUSEA ibuprofen Adverse Reaction (Verified 05/23/25 09:03) Stomach Upset Medication List - Last Reconciled 05/23/25 by Lila Tobar, IVY albuterol sulfate 90 mcg/actuation 1 - 2 puffs PO Q4-6H PRN budesonide-formoterol 160-4.5 mcg/actuation 460 inhalations inhalation DAILY cetirizine 10 mg PO DAILY epinephrine 0.3 mg IM DIRECTED magnesium oxide 400 mg PO DAILY omeprazole 40 mg PO BID riboflavin (vitamin B2) 400 mg PO DAILY [Tylenol 100 mg PO BID] HPI HPI gerd, jm pt: Details: Patient is a 39-year-old female with PMH of ADHD, obesity, asthma. Last visit with CARLOS ALBERTO Ferrer 10/17/2022 for iron deficiency anemia. Patient presents with chronic fatigue attributed to longstanding iron deficiency anemia, with hemoglobin typically ranging from 8 to 9 g/dL, most recently 8.3 in March. Source of anemia remains unclear; patient unable to tolerate oral iron due to allergy( IV iron defferred due to this); managed with periodic blood transfusions. Cycles described as variably heavy, which may contribute. GI history notable for intermittent constipation with periods of urgency and loose stools, often correlating with dietary intake and relieved by bowel movement. Heartburn occurs mainly with spicy foods, upon waking, or insufficient medication coverage, well controlled on twice daily omeprazole 40 mg. Occasional nausea self-managed with food. Symptoms of reflux, gastric inflammation, and erosions previously noted on upper endoscopy (November 2022). Appetite good, weight stable in 160s. Noteworthy family history of colon polyps and cancer in second degree relatives. Patient denies: fever/chills, vomiting, appetite changes, dysphasia, unintentional wt loss or melena/hematochezia. 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 [facility] Medical History (Updated 05/23/25 @ 10:01 by Lila Tobar CNP) IBS (irritable bowel syndrome) ADHD Annual physical exam Normal pelvic exam Seasonal allergic rhinitis Asthma GERD (gastroesophageal reflux disease) Obesity Interstitial cystitis Surgical History History of esophagogastroduodenoscopy (EGD) H/O right knee surgery History of lumbar puncture Hx of endoscopy Hx of cholecystectomy Family History Paternal Grandfather History of colon cancer Maternal Grandmother Family history of breast cancer Mother History of cirrhosis of liver Other Mental health disorder Substance use disorder Social History Household Members Other:: single, 3 children, works for [employer] Housing: House Alcohol intake: never Patient Tobacco Use Status: Former Tobacco user Tobacco use type: Cigarette Years Smoked: 15 e-Cigarette/Vaping Use: Never Used service: No Current occupational status: employed 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 Cognitive needs: No Hearing needs: No Vision needs: Yes Female Reproductive History Menstrual Age of Menarche: 14 Review of Systems Const Reports as per HPI ENT Reports as per HPI Card Reports as per HPI Resp Reports as per HPI GI Reports as per HPI Reports as per HPI Physical Exam Vital Signs: Last Vital Signs Pulse 78 05/23/25 09:05 BP 112/55 L 05/23/25 09:05 Oxygen Delivery Method Room Air 05/23/25 09:05 BMI result Body Mass Index 34.1 Const General: healthy appearing, no acute distress and well developed Nutritional Appearance: average body habitus Orientation/consciousness: patient oriented x3 HEENT Head: Yes normal to inspection, Yes normocephalic and Yes atraumatic Face and sinus: Yes normal facial exam Eyes General: appearance normal, both eyes and all related structures Neck Neck: Yes normal visual inspection Resp Effort & Inspection: normal respiratory effort, able to speak in complete sentences, no tracheal deviation and symmetric chest movement Cardio Jugular venous distension: no JVD GI Inspection: Yes normal to inspection, No distended, Yes obesity and Yes striae Palpation (GI): Soft to palpation, not firm, nontender and No hepatosplenomegaly present Auscultation: normal bowel sounds Neuro General: patient oriented x3 Gait exam (Neuro): Normal gait present Psych Appearance: grossly normal Mental Status: mental status grossly normal Speech and movement: Normal speech and movement present Affect: normal affect Attitude: cooperative Thought process: Normal thought process present Thought content: Normal thought content present Insight: Good insight present (Psych) Judgement: Good judgement present (Psych) Results Reviewed Results Reviewed: Operative Note Date of Service: 12/14/22 Narrative: FLEXIBLE TRANSORAL UPPER GASTROINTESTINAL ENDOSCOPY WITH BIOPSIES Pre-op diagnosis: GERD, abdominal pain, nausea Post-op diagnosis: GERD, Gastric polyps, gastric erosion, duodenal nodules Endoscopist: Joceline Zamudio MD Anesthesia: MAC Consent: Indications for the procedure and potential complications of bleeding, perforation, reaction to medications and missed diagnosis were discussed with the patient and informed consent was obtained. Instrument: Olympus GIF H 190 mid size upper endoscope Monitoring: Vital signs and clinical assessment, continuous EKG monitoring, Pulse oximetry, Carbon Dioxide monitoring and blood pressure monitoring were done throughout the procedure. Procedure: The patient was placed in the left lateral decubitis position and pre-procedure medications were administered and a bite block was placed. The endoscope was inserted into the mouth and advanced under direct vision to the third part of duodenum. A careful inspection was made as the upper endoscope was withdrawn including a retroflexed examination of the proximal stomach; Findings and interventions are described below. Findings: Larynx: Normal Esophagus: GE junction at 35 cms. Irregular Z line - biopsied to check for Thomas's. No esophagitis. Stomach: A few 5 yo 8 mm benign appearing polyps in the gastric body - biopsied. Mild gastric erythema with a 3-4 mm superficial erosion in the antrum - biopsied. Grade 2 flap valve on retroflexed examination of the cardia. Duodenum: A few 5 to 10 mm benign appearing nodules in the bulb - biopsied. Normal descending duodenum - biopsies were obtained to check for celiac sprue Intervention: Biopsies as noted above Impression and Post Procedure Diagnosis: Endoscopy Findings: ESOPHAGUS: GE junction at 35 cms. Irregular Z line - biopsied to check for Thomas's. No esophagitis. 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 Normal descending duodenum - biopsies were obtained to check for celiac sprue Plan: Await pathology results Patient has an appointment on 12/28/22 in the GI Clinic with CARLOS ALBERTO Mayo. Above findings were reviewed with the patient and GERD and Gastric polyps handouts were given in the discharge area Pt reported heartburn symptoms are controlled with Omeprazole 40 mg twice daily and notes breakthrough symptoms if she misses a single dose of Omeprazole. She was advised to schedule a barium swallow for further evaluation - order placed She is being evaluated for endometriosis and is being scheduled for tubal ligation and endometrial biopsy in [place] for evaluation of menorhagia and anemia. Pt is agreeable to scheduling a colonoscopy after OBGyn workup is completed PATHOLOGY: Collected: 12/14/22 Location: .[facility] Received: 12/15/22 Diagnosis A. Small bowel, biopsy: Small intestinal mucosa within normal limits. B. Stomach, polyp: Fundic gland polyp with background mild chronic inactive inflammation; no Helicobacter organisms seen. C. Duodenum, polyp: Polypoid duodenal mucosa with chronic inactive inflammation and heterotopic gastric tissue. D. Stomach, erosion, biopsy: Antral-type mucosa with mild chronic inactive inflammation and regenerative changes; no Helicobacter organisms seen. E. GE junction, biopsy: - Focal cardiac-type mucosa with mild chronic inactive inflammation; no intestinal metaplasia seen. - Squamous mucosa within normal limits. Clinical History Pre-Op Dx: Reflux disease, abdominal pain, anemia, hx of gastric ulcers Post-Op Dx: Gastric polyp, duodenal polyp, gastric erosion, GERD, gastritis Assessment & Plan Assessment & Plan (1) Anemia: Comment: IRON DEFICIENCY ANEMIA suspected menorrhagia induced, cannot tolerate oral iron supplement. follow-up with Hematology Code(s): D64.9 - Anemia, unspecified Category: Medical Qualifiers: Anemia type: unspecified type Qualified Code(s): D64.9 - Anemia, unspecified Plan: Chronic anemia with low Hgb (persistently 8-9), iron allergy precluding iron Rx, episodic blood transfusions, variably heavy cycles, upper GI tract source ruled out; lower tract not yet evaluated. Additional Testing: Schedule colonoscopy (target November, per patient availability). Interval CBC, iron studies (per PCP/hematology guidance). Medication Management: No oral or IV iron due to allergy. Continue blood transfusions PRN. No new meds. Lifestyle Recommendations: Maintain hydration, adequate nutrition; monitor cycles. Report any new symptoms (change in stool color, increased fatigue). Follow-Up: 3 months (August) for reassessment and pre-procedure planning. (2) GERD (gastroesophageal reflux disease): Comment: [facility] (Dr. Flood) -no interventions 12/14/22 EGD- Fundic gland polyp, duodenal Polypoid, gastric erosion, GERD, gastritis Code(s): K21.9 - Gastro-esophageal reflux disease without esophagitis Category: Medical Qualifiers: Esophagitis presence: without esophagitis Qualified Code(s): K21.9 - Gastro-esophageal reflux disease without esophagitis Plan: History of reflux, gastritis, and erosions on EGD, now controlled with omeprazole 40 mg BID. Negative H pylori Additional Testing: None if stable; consider EGD repeat if symptoms worsen. Medication Management: Continue omeprazole 40 mg BID. Avoid triggers (spicy foods, early eating). Lifestyle Recommendations: Maintain upright position after meals, avoid offending foods. Follow-Up: Routine, reassess at next visit or sooner if symptoms change. (3) IBS (irritable bowel syndrome): Code(s): K58.9 - Irritable bowel syndrome, unspecified Category: Medical Qualifiers: Irritable bowel syndrome type: with constipation Qualified Code(s): K58.1 - Irritable bowel syndrome with constipation Plan: Episodic constipation responsive to hydration/fiber, urgent BMs after eating, negative for alarm symptoms. Additional Testing: None immediate; consider low FODMAP diet trial. Medication Management: Continue lifestyle modifications and PRN OTC for constipation. Lifestyle Recommendations: Increase dietary fiber and water. Low FODMAP diet handout provided. Monitor and adapt intake. Follow-Up: Continue self-management, reassess in 3 months. Plan Follow-up in 3 months or sooner as needed Time: I spent a total of 30 minutes on the date of encounter which includes: Preparing to see the patient (reviewed previous documentation, test results and medical history) Performing a medically appropriate exam and/or evaluation Ordering medications, tests, and procedures Documenting clinical information in the health record Orders: Referrals GI Procedure Notification D64.9 - Anemia, unspecified, Z83.719 - Family history of colon polyps, unspecified Coding Level of Care Code Established Pt Est Pt Level 3 (75001) Patient Type Established Diagnoses Anemia, unspecified type D64.9 Anemia type: unspecified type Gastroesophageal reflux disease without esophagitis K21.9 Esophagitis presence: without esophagitis Irritable bowel syndrome with constipation K58.1 Irritable bowel syndrome type: with constipation
[2025-05-23 09:05] VITALS: BP 112/55; PULSE 78; BMI 34.1
--- OUTSIDE RECORDS SUMMARY | 2025-05-23 09:15 | XMS_ITS | Clinical Summary ---
Author Organization [facility] Address [address] [place] [phone] Phone Care Team Providers Care Bobbin Inspector Name Role Phone Susan Yu MD Primary Care Provid er Allergies Active Allergy Reactions Criticality Noted Date Comments Azithromycin 12/23/2018 Cinnamon 12/23/2018 Coconut 12/23/2018 Codeine 12/23/2018 Iron 03/02/2019 Latex 12/23/2018 Metronidazole Nausea and/or Vomiting 01/25/2025 Oral only Mushroom 12/23/2018 Penicillins 12/23/2018 Sertraline 12/23/2018 [place] 12/23/2018 Sulfa (Sulfonamide Antibiotics) Hives 12/23/2018 Medications budesonide-formo terol (SYMBICORT) 160-4.5 mcg/actuation inhaler Inhale into the lungs. Active cetirizine (ZYRTEC) 10 MG tablet Take 10 mg by mouth. Active omeprazole (PRILOSEC) 20 MG tablet Take 20 mg by mouth daily. Active Active Problems Problem Noted Date Diagnosed Date Vaginal odor 05/16/2025 Overview (05/16/2025): History of BV over a year ago, within the past year positive for yeast treated several times Assessment & Plan (05/16/2025 1:03 PM EST): Evaluation today is negative for BV. pH however is elevated, she could just do a trial of [id number] refresh pH gel see if that helps reduce this odor. Would not treat for BV unless there is more definitive evidence confirming this diagnosis. Also no signs of inflammatory vaginitis or atypical infection Pseudotumor cerebri 01/25/2025 Migraine 01/25/2025 GERD (gastroesophageal reflux disease) Class 1 obesity 01/25/2025 Asthma 01/25/2025 Overview (01/25/2025): DX:Asthma Overweight 08/17/2024 Interstitial cystitis 08/17/2024 IBS (irritable bowel syndrome) 08/17/2024 Microcytic anemia 10/11/2020 History of abnormal cervical Pap smear 0 Overview (05/09/2020): 2019: ASCUS, HPV not done Encounters Date Type Department Care Team Description 05/16/2025 10:00 AM EST Office Visit [facility] [address] [place] [address] Kathy Lee MD Vaginal odor (Primary Dx) from Last 3 Months Family History Medical [...] Date Smoking Tobacco: Former Cigarettes Q uit: 2015 Smokeless Tobacco: Never Tobacco Cessation:Counseling Given: Not [...] Sign Reading Time Taken Comments Blood Pressure 102/68 05/16/2025 10:16 AM EST Pulse - - Temperature - - Respiratory Rate - - Oxygen Saturation - - Inhaled Oxygen Concentration - - Weight 76.7 kg (169 lb) 05/16/2025 10:16 AM EST Height 149.9 cm (4' 11 ) 05/16/2025 10:16 AM EST Body Mass Index 34.13 05/16/2025 10:16 AM EST Plan of Treatment Upcoming Encounters Date Type Department Care Team (Late st Contact Info) Description 06/13/2025 10:00 AM EST Office Visit [facility] [address] [place] [address] Lisandro Mc MD [address] [facility], [address] [place] [address] [email or web address] Health Maintenance Due Date Last Done Comments DEPRESSION SCREENING 1998 SMOKING Hx and SMOKELESS TOBACCO SCREENING 12/12/1999 HEPATITIS C SCREENING 2004 HIV ONE-TIME SCREENING (18-6 5 YEARS) 2004 PNEUMOCOCCAL VACCINES (0-49 years) (1 of 2 - PCV) 2005 SCREENING FOR DIABETES 2021 PAP SMEAR 05/09/2023 05/09/2020, 05/09/2020, 08/09/2018 INFLUENZA VACCINE (#1) 2025 COVID-19 VACCINE (3 - 2024-2 6 season) 2025 04/09/2021, 03/18/2021 Adult [...] Procedure Name Priority Date/Time Associated Diagnosis Comments VAGINITIS/VAGINOSIS SCREEN (BD AFFIRM) Routine 05/16/2025 10:46 AM EST Vaginal odor POCT SALINE WET PREP Routine 05/16/2025 10:44 AM EST Vaginal odor POCT SUSIE WET PREP Routine 05/16/2025 10: 44 AM EST Vaginal odor PAP TEST Routine 05/09/2020 12:00 AM EST from Last 3 Months or Most Recently Relevant to Health Maintenance Results * Vaginitis/Vaginosis Screen (05/16/2025 10:46 AM EST) Bacterial Vaginosis (BV) Not Detected Not Detected 05/16/2025 5:35 PM EST [facility] Makenzie group Not Detected Not Detected 025 5:35 PM EST [facility] Makenzie glabrata-krusei Not Detected Not Detected 05/16/2025 5:35 PM EST [facility] Trichomonas vaginalis Not Detected Not Detected 05/16/2025 5:35 PM EST [facility] Swab (Vagina) Non-Blood Collection / Unknown 05/16/2025 10:46 AM EST 05/16/2025 10:46 AM EST us Kathy Lee MD LAB GENERAL ORDERABLES Final Res ult [address] [address] * POCT SUSIE Wet Prep (Enter/Edit) (05/16/2025 10:44 AM EST) Yeast - POCT Absent Absent [facility] Whiff Test - POCT Negative Negative [facility] 05/16/2025 10:4 4 AM EST Kathy Lee MD LAB POCT ENTER/EDIT ORDERABLES F inal Result Performing Organization Address [facility] de Phone Number [address] * POCT Wet Prep (Enter/Edit) (05/16/2025 10:44 AM EST) WBC - POCT Few Absent, Few [facility] RBC - POCT Absent Absent, Few [facility] Bacteria - POCT [facility] Yeast - POCT [facility] Epithelial - Clue Cells - POCT Absent Absent [facility] Epithelial - Squamous Cells - POCT Moderate [facility] Trichomonas - POCT Absent Absent [facility] Other - POCT [facility] Comment:elevated pH 05/16/2025 10:4 4 AM EST Kathy eLe MD LAB POCT ENTER/EDIT ORDERABLES F inal Result Performing Organization Address [facility] de Phone Number [address] * Pap Smear (05/09/2020 12:00 AM EST) 05/09/2020 05/10/2020 8:2 0 AM EST Narrative SEE NARRATIVE - 05/21/2020 10:09 [place] [address] Automated Teller Manager: Iris Nelson MD [employer] Cytology Report FINAL DIAGNOSIS A. PAP SMEAR [...] 52, 56, 58, 59, 66, 68) by [employer] HR-HPV analysis. Clinical correlation is advised. This HPV test was performed at [facility], [address] [place] [address]. This test has been FDA approved for [facility] cervical cytology specimens. The accuracy and precision of this test for all other specimen sources has been verified in the Cytopathology Laboratory of the [facility] and has not been cleared or approved by the U.S. Food and Drug Administration. Clinical correlation is advised. CLINICAL HISTORY Date of Last Menstrual Period: 04-19-2020 Other Clinical Conditions: Screening Pap Abnormal PAP at Other Lab: ASCUS, 2019 SPECIMEN SOURCE A: PAP SMEAR (SUREPATH) CE Patient Name: CARMELA TSE : 1985 (Age: 34) Sex: F Institution[facility] Location: [facility] Date of Collection: 05/09/2020 Date of Reported: 05/13/2020 16:33 Results to: Flaca Schmitt MD us Flaca Schmitt MD CYTOLOGY ORDERABLES Edited Re sult - Final SEE NARRATIVE from Last 3 Months or Most Recently Relevant to Health Maintenance Insurance [place] [address] [place] [address] [place] [address] [place] [address] [place] [address] [address] [place] [address] [place] [address] [place] [address] [facility] [facility] Care Teams Bobbin Inspector Relationship Specialty Start Date End Date Susan Yu MD [address] [place] [address] PCP - General Internal Medicine 03/26/20 Additional Source Comments The information contained in this document represents components of the legal health record. It is not the complete legal health record.[facility]
--- OUTSIDE RECORDS SUMMARY | 2025-05-23 09:15 | XMS_ITS | Clinical Summary ---
Author Organization Patient Business Ser [facility] Address [address] [place] [address] Care Team Providers Care Medicine Worker Name Role Phone Criselda Armstrong MD Primary Care Provider [phone] Allergies Active Allergy Reactions Criticality Noted Date Comments Azithromycin 12/23/2018 Cinnamon 12/23/2018 Coconut Oil 12/23/2018 Codeine Nausea And Vomiting 04/12/2009 Iron 03/02/2019 Latex Itching,Rash 11/13/2010 Metronidazole 05/09/2020 Mushroom 12/23/2018 Penicillins 12/23/2018 Sertraline 12/23/2018 [place] 12/23/2018 Sulfa (Sulfonamide Antibiotics) 10/2018 Medications albuterol [...] Chronic headache Overview (08/17/2024): DX:Chronic headache Immunizations Immunization Administration Dates Next Due DTP 02/11/1989, 8,05/20/1987,1986 Hepb Recombinant, 3-antigen, (oh)3 03/25/2000, 10/29/1999,09/24/1999 HiB 02/11/1989 MMR, measles mumps and rubel la Live (Priorix; M-M-R II) 12mo and older 02/27/2000,04/09/1988 OPV 02/11/1989,05/20/1987,02/28/1987 Td, Unspecified 01/30/1999 Zoster Live 03/22/2002,04/21/2000 Surgical History Surgery Date Site/Laterality Comments CHOLECYSTECTOMY 09-27-2007 PROCEDURE: LAPAROSCOPY, CHOLECYSTECTOMY ESOPHAGOGASTRODUODENOSCOPY PROCEDURE: [place] ESOPHAGOGASTRODUODENOSCOPY TRANSORAL DIAGNOSTIC Medical History Medical History [...] Years Used Date Smoking Tobacco: Former Cigarettes 0 Q uit: 08/30/2010 Smokeless Tobacco: Never Tobacco [...] oz) F Vag-S pont Living Comments:Delivered at [facility] Last Filed Vital Signs Vital Sign [...] 11/01/2024 3:14 PM EDT Plan of Treatment Health Maintenance Due Date [...] 01/30/2009 01/30/1999, 02/11/1989, 02/11/1989, Additional history exists HPV Vaccines (1 - 3-dose SCDM series) 2013 Social Influencers of Health Screening 07/25/2020 Depression Screening 06/21/2024 COVID-19 Vaccine ( season) 2025 Influenza Vaccine (#1) 2025 Cholesterol Screening (Lipid Panel) 09/25/2025 09/25/2020 Cervical Cancer Screening: HPV 08/13/2027 08/13/2022 RSV Immunization Adult Patients (1 - 1-dose 75+ series) 2061 HIB Vaccines Completed 02/11/1989, 02/11/1989 MMR Vaccines Completed 02/27/2000, 04/09/1988 Varicella Vaccines Completed 03/22/2002, 04/21/2000 HIV Screening Completed 08/13/2022 Hepatitis C Screening Completed 08/13/2022 Hepatitis A Vaccines Aged Out No long [...] Results * Cervical Cancer Screening: HPV (08/13/2022) Cervical Cancer Screening: HPV Negative, Abstracted [facility] Provider HEALTH MAINTENANCE Final Result * HIV Screening (08/13/2022) Pathologist [facility] HIV Screening Abstracted [facility] Provider HEALTH MAINTENANCE Final Result * Hepatitis C Screening (08/13/2022) Pathologist [facility] Hepatitis C Screening Abstracted [facility] Provider HEALTH MAINTENANCE Final Result * Lipid panel (09/25/2020) Pathologist [facility] LDL/HDL Ratio 4 0 - 4 Triglycerides 78 0 - 150 mg/dL Cholesterol 138 0 - 200 mg/dL HDL 40 >=40 mg/dL LDL Cholesterol 83 0 - 100 mg/dL Blood Venous blood specimen / Unknown Result [facility] Provider LAB BLOOD ORDERABLES Tracy l Result from Last 3 Months or Most Recently Relevant to Health Maintenance Insurance [facility] [employer] [facility] Care Teams Medicine Worker Relationship Specialty Start Date End Date Criselda Armstrong MD [address] [place] [id number] PCP - General Internal Medicine 09/12/24
== END 2025-05-23 09:53 | disposition home or self-care (01) ==
LOC: HO.HGI 08:51
PROVIDERS: PCP Internal Medicine; Visit Provider Nurse Practitioner Family
DX: D64.9 Anemia, unspecified (principal); K21.9 Gastro-esophageal reflux disease without esophagitis; K58.1 Irritable bowel syndrome with constipation
CPT/HCPCS: 99213

== ENCOUNTER → 2025-05-23 08:50 | Outpatient (BNVA) | payer OTHER, SELFPAY | PROVIDERS: PCP Internal Medicine; Visit Provider Nurse Practitioner Family | DX: K21.9 Gastro-esophageal reflux disease without esophagitis (principal); D64.9 Anemia, unspecified; K58.1 Irritable bowel syndrome with constipation; Z79.899 Other long term (current) drug therapy | CPT/HCPCS: 99212 ==